=== PATIENT | male | born 1965 | race Caucasian/White ===

== ENCOUNTER 2017-05-29 15:39 | Emergency (ER) | payer OTHER ==
[2017-05-29] MEDS ORDERED: METOPROLOL TARTRATE 25 MG TAB PO STA (15:58)
--- NOTE | 2017-05-29 16:32 | XR ---
EXAMINATION TYPE: XR chest 1V DATE OF EXAM: 05/29/2017 COMPARISON: 12/20/2014. HISTORY: Sternal pain after fall TECHNIQUE: Single frontal view of the chest is obtained. FINDINGS: There is no focal air space opacity, pleural effusion, or pneumothorax seen. Median martinez otomy wires are noted with dehiscence of the most inferior wire, unchanged from the exam of 12/20/2014 . Mediastinal post surgical clips are also noted. The cardiac silhouette size is within normal limits . The osseous structures are intact. IMPRESSION: No acute cardiopulmonary pathology.
--- NOTE | 2017-05-29 16:34 | XR ---
EXAMINATION TYPE: XR sternum DATE OF EXAM: 05/29/2017 COMPARISON: 12/20/2014. HISTORY: Sternal pain after a fall TECHNIQUE: 2 views of the sternum were obtained. FINDINGS: There is no evidence of sternal fracture. Again dehiscence of the most inferior median ster notomy wire is seen, unchanged from the prior exam. Coronary artery bypass grafts and surgical clips are noted. Degenerative changes are seen of the visualized thoracic spine. Visualized lungs are clear . IMPRESSION: No evidence of sternal fracture. Unchanged dehiscence of the most inferior median sternot geovanny wire.
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
[2017-05-29 17:17] VITALS: BP 143/97; PULSE 77; RESP 15; TEMP 100
== END 2017-05-29 17:23 | disposition home or self-care (01) ==
LOC: EC 15:39
DX: T84.9XXA Unspecified complication of internal orthopedic prosthetic device, implant and graft, initial encounter (principal); I25.2 Old myocardial infarction; F17.200 Nicotine dependence, unspecified, uncomplicated; Z95.1 Presence of aortocoronary bypass graft; Z79.82 Long term (current) use of aspirin; Z88.0 Allergy status to penicillin; V18.4XXA Pedal cycle driver injured in noncollision transport accident in traffic accident, initial encounter; Y93.55 Activity, bike riding
CPT/HCPCS: 71010; 71120; 93005; 99283

== ENCOUNTER 2017-07-13 08:25 | Emergency (ER) | payer OTHER ==
[2017-07-13 08:34] VITALS: TEMP 98.4
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
[2017-07-13 10:17] VITALS: BP 145/92; PULSE 78; RESP 16
== END 2017-07-13 10:26 | disposition home or self-care (01) ==
LOC: EC 08:25
DX: L03.114 Cellulitis of left upper limb (principal); E78.5 Hyperlipidemia, unspecified; I10 Essential (primary) hypertension; I25.2 Old myocardial infarction; F17.200 Nicotine dependence, unspecified, uncomplicated; Z79.82 Long term (current) use of aspirin; Z79.899 Other long term (current) drug therapy; Z88.0 Allergy status to penicillin
CPT/HCPCS: 99283

== ENCOUNTER 2017-07-28 07:03 | Emergency (ER) | payer OTHER ==
[2017-07-28 07:11] VITALS: RESP 18
--- NOTE | 2017-07-28 08:22 | ED ---
General Adult HPI - General Chief complaint: Skin/Abscess/Foreign Body Stated complaint: DX: cellulituis in left wrist Time Seen by Provider: 07/28/17 08:08 Source: patient, RN notes reviewed Mode of arrival: ambulatory Limitations: no limitations - History of Present Illness Initial comments: 51-year-old male presents to the emergency department with a chief complaint of left wrist. Patient states about week ago he developed this pain he noticed some swelling to his left hand. He came here he was placed on antibiotics for possible cellulitis and a blood clot. Patient states that the swelling has improved however still having some pain to the left wrist that he was concerned. She does not recall any falls or traumas or injuries to the left wrist. He states that it does hurt when he moves his left wrist and he is able to move it. He states that he has not had any other injury that he is aware of. He states he has felt hot but is never taken his temperature. He denies any nausea vomiting with this. Patient was concerned due to his continued discomfort so he thought that he should be evaluated.Patient denies any recent fever, chills, shortness of breath, chest pain, back pain, abdominal pain, nausea vomiting, numbness or tingling, dysuria or hematuria, constipation or diarrhea, headaches or visual changes, or any other current symptoms. - Related Data Previous Rx's Medication Instructions Recorded Aspirin 81 mg PO DAILY #30 tab 07/28/17 Atorvastatin [Lipitor] 40 mg PO HS #30 tab 07/28/17 Clopidogrel [Plavix] 75 mg PO DAILY #14 tablet 07/28/17 Ibuprofen [Motrin] 600 mg PO Q6HR PRN #20 tab 07/28/17 Metoprolol Tartrate [Lopressor] 25 mg PO BID #30 tablet 07/28/17 Allergies Allergy/AdvReac Type Severity Reaction Status Date / Time Penicillins Allergy Unknown Verified 07/28/17 07:20 Childhood Review of Systems ROS Statement: Those systems with pertinent positive or pertinent negative responses have been documented in the HPI. ROS Other: All systems not noted in ROS Statement are negative. Past Medical History Past Medical History: COPD, Hyperlipidemia, Hypertension, Myocardial Infarction ([place]) Additional Past Medical History / Comment(s): ISCHEMIC CARDIOMYOPATHY WITH EF 40 -45%. 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 Last Myocardial Infarction Date:: 06/12/14 History of Any Multi-Drug Resistant Organisms: None Reported Past Surgical History: Coronary Bypass/CABG, Heart Catheterization With Stent, Hernia Repair, Orthopedic Surgery Additional Past Surgical History / Comment(s): cabg january 2014-3 vessel, Cardiac caths and stenting with last Cardiac cath Jul [address] Cerda. Past Anesthesia/Blood Transfusion Reactions: No Reported Reaction Additional Past Anesthesia/Blood Transfusion Reaction / Comment(s): NO PROBLEM TOLERATING ANESTHESIA. HAS NEVER RECIEVED BLOOD TO HIS KNOWLEDGE. Date of Last Stent Placement:: 06/12/14 Past Psychological History: Anxiety, Panic Disorder, PTSD Smoking Status: Current every day smoker Past Alcohol Use History: Abuse, Heavy Past Drug Use History: Marijuana - Past Family History Father Family Medical History: Coronary Artery Disease (CAD), Myocardial Infarction ([place] ) Additional Family Medical History / Comment(s): FATHER STILL LIVING Mother Family Medical History: Coronary Artery Disease (CAD), Myocardial Infarction ([place] ) Additional Family Medical History / Comment(s): MOTHER 09/23/14 of unknown causes. Sister(s) Family Medical History: Myocardial Infarction ([place]) Additional Family Medical History / Comment(s): SISTER OF [place] AT AGE 53 General Exam - General Exam Comments Initial Comments: General: The patient is awake and alert, in no distress, and does not appear acutely ill. Neck: The neck is supple, there is no tenderness. Cardiovascular: There is a regular rate and rhythm. No murmur, rub or gallop is appreciated. Respiratory: Lungs are clear to auscultation, respirations are non-labored, breath sounds are equal. No wheezes, stridor, rales, or rhonchi. Musculoskeletal: Sensation intact with 2+ pulses throughout the left upper extremity. Full range of motion of left elbow left wrist and left hand. Patient does have tenderness with patient the base of the left thumb as well as the base of the left fifth metacarpal. There is full range of motion. Patient has 5 out of 5 muscle strength testing. No erythema or induration noted. Neurological: CN II-XII intact, There are no obvious motor or sensory deficits. Coordination appears grossly intact. Speech is normal. Skin: Skin is warm and dry and no rashes or lesions are noted. Psychiatric: Normal mood and affect. Limitations: no limitations Course Vital Signs 07/28/17 07/28/17 07:08 08:44 Temperature 97.9 F 98.4 F Pulse Rate 101 H 69 Respiratory 18 18 Rate Blood Pressure 158/104 144/102 O2 Sat by Pulse 100 97 Oximetry Medical Decision Making - Medical Decision Making 51-year-old male presents emergency Department with a chief complaint of left wrist pain. This time patient x-rays reviewed and negative. We did give [facility] due to the fact that his swelling has improved and does not appear infection may still having the pain. Patient is in agreement this plan. All his questions have been answered. Discharged home. Patient was found be hypertensive he is out of his medications. We will refill his medication prescription so that he has these at this time is he see his family care doctor. - Radiology Data Radiology results: report reviewed, image reviewed Disposition Clinical Impression: Hypertension, Left wrist sprain Disposition: HOME SELF-CARE Condition: Stable Instructions: Wrist Sprain (ED) Additional Instructions: Please use medication as discussed. Please follow up with family doctor if symptoms have not improved over the next two days. Please return to the emergency room if your symptoms increase or worsen or for any other concerns. Please follow up with orthopedics for continued care of her left wrist please use medications as prescribed. Prescriptions: Aspirin 81 mg PO DAILY #30 tab Atorvastatin [Lipitor] 40 mg PO HS #30 tab Clopidogrel [Plavix] 75 mg PO DAILY #14 tablet Ibuprofen [Motrin] 600 mg PO Q6HR PRN #20 tab PRN Reason: Pain Metoprolol Tartrate [Lopressor] 25 mg PO BID #30 tablet Referrals: Radha Steele MD [STAFF PHYSICIAN] - 1-2 days Raji Ndiaye MD [STAFF PHYSICIAN] - 1-2 days Time of Disposition: 09:41
--- NOTE | 2017-07-28 08:36 | XR ---
EXAMINATION TYPE: XR wrist complete LT DATE OF EXAM: 07/28/2017 CLINICAL HISTORY: pain TECHNIQUE: Frontal, lateral and oblique images of the left wrist are obtained. Navicular view is ob tained. COMPARISON: None. FINDINGS: There is no acute fracture/dislocation evident. Joint space narrowing noted. The overlying soft tissue appears unremarkable. IMPRESSION: There is no acute fracture or dislocation seen. ICD 10 NO FRACTURE, INITIAL EVALUATION
[2017-07-28 08:45] VITALS: TEMP 98.4
[2017-07-28] MEDS ORDERED: cloNIDine HCL 0.1 MG TAB PO STA (08:48)
[2017-07-28 09:43] VITALS: BP 139/96; PULSE 77
== END 2017-07-28 09:45 | disposition home or self-care (01) ==
LOC: EC 07:03
DX: S63.92XA Sprain of unspecified part of left wrist and hand, initial encounter (principal); I10 Essential (primary) hypertension; F17.200 Nicotine dependence, unspecified, uncomplicated; Z88.0 Allergy status to penicillin; Z98.890 Other specified postprocedural states; X58.XXXA Exposure to other specified factors, initial encounter
CPT/HCPCS: 99283

== ENCOUNTER 2017-12-19 16:25 | Emergency (ER) | payer OTHER ==
[2017-12-19 16:37] VITALS: BP 168/88; PULSE 102; RESP 22; TEMP 98.3
--- NOTE | 2017-12-19 16:58 | XR ---
EXAMINATION TYPE: XR knee complete RT DATE OF EXAM: 12/19/2017 COMPARISON: NONE HISTORY: Pain and swelling TECHNIQUE: 3 views FINDINGS: I see no fracture nor dislocation. There is no sign of joint effusion. Joint spaces are brent rly normal. There are surgical clips along the medial aspect of the knee joint. IMPRESSION: No acute abnormality of the right knee.
[2017-12-19] MEDS ORDERED: ACETAMINOPHEN TAB 325 MG TAB PO STA (17:24)
[2017-12-19] MEDS ORDERED: IBUPROFEN 600 MG TAB PO STA (17:24)
--- NOTE | 2017-12-19 17:32 | ED ---
Lower Extremity Injury HPI - General Chief Complaint: Extremity Injury, Lower Stated Complaint: Knee Injury Time Seen by Provider: 12/19/17 17:16 Source: patient Mode of arrival: ambulatory Limitations: no limitations - History of Present Illness Initial Comments: 52-year-old male patient presents to the emergency department today for complaints of right knee pain. Patient states that last night he was walking down some steps when his heel caught on the step below and he started to fall and twisted his knee. He was able to catch himself and did not complete the fall. An ice hitting his head or losing consciousness. He states that throughout the day today he has been having significant pain to the anterior right knee. States it increases with walking and full flexion. States whenever he bends the leg he feels a pop in the knee. He denies any numbness or tingling to the lower leg. Denies any history of knee injury. Patient denies any headache, neck pain, back pain, chest pain, shortness of breath, dizziness, weakness, abdominal pain, nausea, vomiting, or difficulties with bowel movements or urination. - Related Data Previous Rx's Medication Instructions Recorded Aspirin 81 mg PO DAILY #30 tab 07/28/17 Atorvastatin [Lipitor] 40 mg PO HS #30 tab 07/28/17 Clopidogrel [Plavix] 75 mg PO DAILY #14 tablet 07/28/17 Ibuprofen [Motrin] 600 mg PO Q6HR PRN #20 tab 07/28/17 Metoprolol Tartrate [Lopressor] 25 mg PO BID #30 tablet 07/28/17 Allergies Allergy/AdvReac Type Severity Reaction Status Date / Time Penicillins Allergy Unknown Verified 12/19/17 16:37 Childhood Review of Systems ROS Statement: Those systems with pertinent positive or pertinent negative responses have been documented in the HPI. ROS Other: All systems not noted in ROS Statement are negative. Past Medical History Past Medical History: COPD, Hyperlipidemia, Hypertension, Myocardial Infarction ([place]) Additional Past Medical History / Comment(s): ISCHEMIC CARDIOMYOPATHY WITH EF 40 -45%. 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 Last Myocardial Infarction Date:: 06/12/14 History of Any Multi-Drug Resistant Organisms: None Reported Past Surgical History: Coronary Bypass/CABG, Heart Catheterization With Stent, Hernia Repair, Orthopedic Surgery Additional Past Surgical History / Comment(s): cabg january 2014-3 vessel, Cardiac caths and stenting with last Cardiac cath Jul [address] Cerda. Past Anesthesia/Blood Transfusion Reactions: No Reported Reaction Additional Past Anesthesia/Blood Transfusion Reaction / Comment(s): NO PROBLEM TOLERATING ANESTHESIA. HAS NEVER RECIEVED BLOOD TO HIS KNOWLEDGE. Date of Last Stent Placement:: 06/12/14 Past Psychological History: Anxiety, Panic Disorder, PTSD Smoking Status: Current every day smoker Past Alcohol Use History: Abuse, Heavy Past Drug Use History: Marijuana - Past Family History Father Family Medical History: Coronary Artery Disease (CAD), Myocardial Infarction ([place] ) Additional Family Medical History / Comment(s): FATHER STILL LIVING Mother Family Medical History: Coronary Artery Disease (CAD), Myocardial Infarction ([place] ) Additional Family Medical History / Comment(s): MOTHER 09/23/14 of unknown causes. Sister(s) Family Medical History: Myocardial Infarction ([place]) Additional Family Medical History / Comment(s): SISTER OF [place] AT AGE 53 General Exam Limitations: no limitations General appearance: alert, in no apparent distress, other (This is a well- developed, well-nourished adult male patient in no acute distress. Vital signs upon presentation are temperature 98.3F, pulse 102, respirations 22, blood pressure 168/88, pulse ox 99% on room air.) Eye exam: Present: normal appearance, PERRL, EOMI. Absent: scleral icterus, conjunctival injection, periorbital swelling ENT exam: Present: normal exam, normal oropharynx, mucous membranes moist Respiratory exam: Present: normal lung sounds bilaterally. Absent: respiratory distress, wheezes, rales, rhonchi, stridor Cardiovascular Exam: Present: regular rate, normal rhythm, normal heart sounds. Absent: systolic murmur, diastolic murmur, rubs, gallop, clicks Extremities exam: Present: normal inspection, full ROM, tenderness (Tenderness to the anterior knee over the patellar tendon), normal capillary refill, other ( Small area of ecchymosis over the right anterior knee. No evidence of swelling. No increased pain with valgus and varus maneuvers. Skin is pink, warm, and dry. Cap refills less than 3 seconds. Pedal posttibial pulses are 2 + and equal bilaterally.). Absent: pedal edema, joint swelling, calf tenderness Neurological exam: Present: alert, oriented X3, CN II-XII intact Psychiatric exam: Present: normal affect, normal mood Skin exam: Present: warm, dry, intact, normal color. Absent: rash Course Vital Signs 12/19/17 16:34 Temperature 98.3 F Pulse Rate 102 H Respiratory 22 Rate Blood Pressure 168/88 O2 Sat by Pulse 99 Oximetry Medical Decision Making - Medical Decision Making 52-year-old male patient presents to the emergency department today for evaluation of right knee pain after an injury last evening. Physical examination is unremarkable. Patient does have some mild tenderness over the anterior knee. No pain with this or varus maneuvers. Patient is able to ambulate and did walk here from home. X-ray was negative for any acute fracture or dislocations. No joint effusion noted. We did give patient Tylenol and Motrin for pain control. He will be placed in a knee immobilizer and instructed to follow-up with orthopedics for further evaluation. Return parameters discussed in detail. He verbalizes understanding and agrees this plan. - Radiology Data Radiology results: report reviewed, image reviewed 3 views of the right knee are obtained, no fracture nor dislocation noted. There is no sign of a joint effusion. Joint spaces are fairly normal. There are surgical clips along the medial aspect of the knee joint. Impression by Dr. Brenner shows no acute abnormality of the right knee. Disposition Clinical Impression: Right knee pain Disposition: HOME SELF-CARE Condition: Good Instructions: Knee Pain (ED), Knee Immobilizer (ED) Additional Instructions: Use knee immobilizer for comfort and support well up moving around. Follow-up with orthopedics for further evaluation. Take Tylenol Motrin for pain control. Apply ice 20 minutes at a time at least 4 times per day. Return here immediately for any new, worsening, or concerning symptoms. Referrals: None,Stated [Primary Care Provider] - 1-2 days Time of Disposition: 17:32
== END 2017-12-19 17:48 | disposition home or self-care (01) ==
LOC: EC 16:25
DX: S80.01XA Contusion of right knee, initial encounter (principal); F17.200 Nicotine dependence, unspecified, uncomplicated; Z88.0 Allergy status to penicillin; X50.1XXA Overexertion from prolonged static or awkward postures, initial encounter; Y93.01 Activity, walking, marching and hiking; Y92.009 Unspecified place in unspecified non-institutional (private) residence as the place of occurrence of the external cause
CPT/HCPCS: 99283

== ENCOUNTER 2017-12-19 18:37 | Inpatient (IN) | payer MEDICAID, OTHER ==
[2017-12-19] MEDS ORDERED: LORazepam 2 MG/ML INJ IV STA ×3 (19:11→21:21)
--- NOTE | 2017-12-19 19:14 | ED ---
General Adult HPI - General Chief complaint: Psychiatric Symptoms Stated complaint: mental health Time Seen by Provider: 12/19/17 19:00 Source: patient, family, RN notes reviewed Mode of arrival: wheelchair Limitations: no limitations - History of Present Illness Initial comments: This is a 52-year-old male who presents emergency Department paranoid at the police are out to get him. Daughter states he does use drugs and is a drinker. Patient was just in the emergency department and discharged less than 2 hours prior to this episode. Patient was here for knee pain he was discharged into the waiting room at which point time his daughter came to pick him up and she noticed she was paranoid extremely flushed and very very anxious. Patient states he is also worried about his heart was not complaining of chest pain he states he's had bypass he wanted make sure he doesn't have a heart attack. Patient denies any difficulty breathing or shortness of breath. Patient denies any recent fever chills or cough. Patient denying any abdominal pain patient denies any nausea vomiting diarrhea. Patient denies headache patient denies numbness weakness patient denies any blurred vision. Patient states his life is going so bad that he has no reason to live and so his been thinking of suicide lately. Patient has no specific plan. Patient denies any homicidal ideations. Daughter states she just be a little out of assisted on Monday - Related Data Home Medications Medication Instructions Recorded Confirmed No Known Home Medications [No 12/19/17 12/19/17 Known Home Medications] Allergies Allergy/AdvReac Type Severity Reaction Status Date / Time Penicillins Allergy Unknown Verified 12/19/17 19:13 Childhood Review of Systems ROS Statement: Those systems with pertinent positive or pertinent negative responses have been documented in the HPI. ROS Other: All systems not noted in ROS Statement are negative. Past Medical History Past Medical History: COPD, Hyperlipidemia, Hypertension, Myocardial Infarction ([place]) Additional Past Medical History / Comment(s): ISCHEMIC CARDIOMYOPATHY WITH EF 40 -45%. 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 Last Myocardial Infarction Date:: 06/12/14 History of Any Multi-Drug Resistant Organisms: None Reported Past Surgical History: Coronary Bypass/CABG, Heart Catheterization With Stent, Hernia Repair, Orthopedic Surgery Additional Past Surgical History / Comment(s): cabg january 2014-3 vessel, Cardiac caths and stenting with last Cardiac cath Jul [address] Cerda. Past Anesthesia/Blood Transfusion Reactions: No Reported Reaction Additional Past Anesthesia/Blood Transfusion Reaction / Comment(s): NO PROBLEM TOLERATING ANESTHESIA. HAS NEVER RECIEVED BLOOD TO HIS KNOWLEDGE. Date of Last Stent Placement:: 06/12/14 Past Psychological History: Anxiety, Panic Disorder, PTSD Smoking Status: Current every day smoker Past Alcohol Use History: Abuse, Heavy Past Drug Use History: Marijuana - Past Family History Father Family Medical History: Coronary Artery Disease (CAD), Myocardial Infarction ([place] ) Additional Family Medical History / Comment(s): FATHER STILL LIVING Mother Family Medical History: Coronary Artery Disease (CAD), Myocardial Infarction ([place] ) Additional Family Medical History / Comment(s): MOTHER 09/23/14 of unknown causes. Sister(s) Family Medical History: Myocardial Infarction ([place]) Additional Family Medical History / Comment(s): SISTER OF [place] AT AGE 53 General Exam - General Exam Comments Initial Comments: GENERAL: Patient is well-developed and well-nourished. Patient is nontoxic and well- hydrated and is in mild distress. ENT: Neck is soft and supple. No significant lymphadenopathy is noted. Oropharynx is clear. Moist mucous membranes. Neck has full range of motion without eliciting any pain. EYES: The sclera were anicteric and conjunctiva were pink and moist. Extraocular movements were intact and pupils were equal round and reactive to light. Eyelids were unremarkable. PULMONARY: Unlabored respirations. Good breath sounds bilaterally. No audible rales rhonchi or wheezing was noted. CARDIOVASCULAR: There is a regular rate and rhythm without any murmurs gallops or rubs. ABDOMEN: Soft and nontender with normal bowel sounds. No palpable organomegaly was noted. There is no palpable pulsatile mass. SKIN: Patient's skin is flushed NEUROLOGIC: Patient is alert and oriented x3. Cranial nerves II through XII are grossly intact. Motor and sensory are also intact. Normal speech, volume and content. Symmetrical smile. MUSCULOSKELETAL: Normal extremities with adequate strength and full range of motion. LYMPHATICS: No significant lymphadenopathy is noted PSYCHIATRIC: Patient is paranoid thinks all the police in the hospital or here to get him and take him back to assisted. Patient is suicidal. Limitations: no limitations Course Vital Signs 12/19/17 12/19/17 12/19/17 18:59 19:38 19:58 Temperature 99.1 F Pulse Rate 105 H 85 53 L Respiratory 22 22 18 Rate Blood Pressure 205/111 185/99 173/98 O2 Sat by Pulse 97 100 97 Oximetry 12/19/17 20:38 Temperature Pulse Rate 69 Respiratory 20 Rate Blood Pressure 190/101 O2 Sat by Pulse 96 Oximetry Medical Decision Making - Medical Decision Making EPS came down to evaluate the patient and they determined the patient needed to be admitted so the patient will be admitted. - Lab Data Result diagrams: 12/19/17 19:23 12/19/17 19:23 Lab Results 12/19/17 12/19/17 Range/Units 19:23 19:23 WBC 9.8 (3.8-10.6) k/uL RBC 4.52 (4.30-5.90) m/uL Hgb 14.5 (13.0-17.5) gm/dL Hct 43.8 (39.0-53.0) % MCV 96.8 (80.0-100.0) fL MCH 32.0 (25.0-35.0) pg MCHC 33.1 (31.0-37.0) g/dL RDW 15.7 H (11.5-15.5) % Plt Count 335 (150-450) k/uL Neutrophils % 74 % Lymphocytes % 14 % Monocytes % 10 % Eosinophils % 1 % Basophils % 0 % Neutrophils # 7.2 (1.3-7.7) k/uL Lymphocytes # 1.4 (1.0-4.8) k/uL Monocytes # 0.9 (0-1.0) k/uL Eosinophils # 0.1 (0-0.7) k/uL Basophils # 0.0 (0-0.2) k/uL Sodium 143 (137-145) mmol/L Potassium 3.2 L (3.5-5.1) mmol/L Chloride 105 (98-107) mmol/L Carbon Dioxide 25 (22-30) mmol/L Anion Gap 13 mmol/L BUN 14 (9-20) mg/dL Creatinine 0.70 (0.66-1.25) mg/dL Est GFR (MDRD) Af Amer >60 (>60 ml/min/1.73 sqM) Est GFR (MDRD) Non-Af >60 (>60 ml/min/1.73 sqM) Glucose 127 H (74-99) mg/dL Calcium 9.9 (8.4-10.2) mg/dL Total Bilirubin 0.7 (0.2-1.3) mg/dL AST 21 (17-59) U/L ALT 45 (21-72) U/L Alkaline Phosphatase 93 (38-126) U/L Total Protein 6.9 (6.3-8.2) g/dL Albumin 4.3 (3.5-5.0) g/dL Disposition Clinical Impression: Psychosis, Hypertension, Suicidal ideation Disposition: ADMITTED IP TO THIS HOSP Referrals: None,Stated [Primary Care Provider] - 1-2 days Time of Disposition: 20:42
[2017-12-19 19:36] LABS: Basophils % (A) 0 %; Eosinophils # (A) 0.1 k/uL (0-0.7); Eosinophils % (A) 1 %; HCT 43.8 % (39.0-53.0); HGB 14.5 gm/dL (13.0-17.5); Lymphocytes # (A) 1.4 k/uL (1.0-4.8); Lymphocytes % (A) 14 %; MCHC 33.1 g/dL (31.0-37.0); MCV 96.8 fL (80.0-100.0); Mean Platelet Volume 7.5; Monocytes # (A) 0.9 k/uL (0-1.0); Monocytes % (A) 10 %; Neutrophils # (A) 7.2 k/uL (1.3-7.7); Neutrophils % (A) 74 %; Platelet Count 335 k/uL (150-450); RBC 4.52 m/uL (4.30-5.90); RDW 15.7 % (11.5-15.5); WBC 9.8 k/uL (3.8-10.6)
[2017-12-19 19:54] LABS: ALT 45 U/L (21-72); AST 21 U/L (17-59); Albumin 4.3 g/dL (3.5-5.0); Alkaline Phosphatase 93 U/L (38-126); Anion Gap 13 mmol/L; Blood Urea Nitrogen 14 mg/dL (9-20); Calcium 9.9 mg/dL (8.4-10.2); Carbon Dioxide 25 mmol/L (22-30); Chloride 105 mmol/L (98-107); Glucose 127 mg/dL (74-99); Potassium 3.2 mmol/L (3.5-5.1); Sodium 143 mmol/L (137-145); Total Bilirubin 0.7 mg/dL (0.2-1.3); Total Protein 6.9 g/dL (6.3-8.2)
[2017-12-19] MEDS ORDERED: hydrALAZINE HCL 20 MG/ML 1 ML VIAL IVP STA ×2 (20:33→21:21)
[2017-12-19] MEDS ORDERED: POTASSIUM CHLORIDE ER 20 MEQ TAB.ER PO STA (21:23)
[2017-12-19 21:30] LABS: Cocaine Screen,Urine Not Detected (NotDetected); Phencyclidine Screen,Urine Not Detected (NotDetected); Urn Cannabinoid Scrn Detected (NotDetected)
[2017-12-19 21:31] LABS: Amphetamine Screen,Urine Detected (NotDetected); Barbiturate Screen,Urine Not Detected (NotDetected); Benzodiazepines Screen,Urine Not Detected (NotDetected); Methadone Screen, Urine Not Detected (NotDetected); Opiate Screen,Urine Not Detected (NotDetected); Oxycodone Screen, Urine Not Detected (NotDetected); Tricyclic Antidepressant,Urine Not Detected (NotDetected)
[2017-12-19] MEDS ORDERED: ZIPRASIDONE 20 MG VIAL IM PRN (21:39)
[2017-12-19] MEDS ORDERED: MAG HYDROX/AL HYDROX/SIMETH 30 ML CUP PO PRN (21:39)
[2017-12-19] MEDS ORDERED: LORazepam 1 MG TAB PO PRN (21:39)
[2017-12-19] MEDS ORDERED: MAGNESIUM HYDROXIDE 2,400 MG/10 ML CUP PO PRN (21:39)
[2017-12-19] MEDS ORDERED: LORazepam 2 MG/ML INJ IM PRN (22:11)
[2017-12-19] MEDS: ACETAMINOPHEN TAB 325 MG TAB PO PRN (23:30)
[2017-12-19] MEDS: LORazepam 1 MG TAB PO PRN (23:30)
--- NOTE | 2017-12-19 23:49 | P.MDCNMH ---
History of Present Illness H&P Date: 12/19/17 Chief Complaint: medical management 52-year-old male with a history of coronary artery. Patient presented to the hospital with his daughter due to being extremely paranoid with some suicidal ideation. Patient continues to be paranoid upon my interview he is avoiding eye contact keeps staring at the door list Everything is happening outside of the room where we are having the interview. But however he denies any chest pain or trouble breathing denies any fevers or chills he denies any coughing denies any abdominal pain denies any bleeding. He reported to me the medications that he takes at home. Daughter did mention that he recently got out of [facility] but due to using some medications he's feeling extremely paranoid most likely. Review of Systems Constitutional: Patient denies fever, denies chills, denies night sweating, denies significant weight changes Eyes: Patient denies visual changes, denies eye pain ENT: Patient denies ear pain, denies rhinorrhea, denies sore throat Cardiovascular: Patient denies chest pain, denies exertional dyspnea, denies peripheral leg edema, denies orthopnea, denies paroxysmal nocturnal dyspnea Respiratory:Patient denies cough, denies wheezing, denies shortness of breath Gastrointestinal: Patient denies diarrhea, denies constipation, denies nausea , denies vomiting, denies abdominal pain Genitourinary: Patient denies dysuria, denies hematuria, denies changes in urinary habits, denies genital lesions Musculoskeletal: Patient denies muscle pain, denies joint pain Psychiatric: Patient denies changes in mood or memory, denies suicidal ideation, denies anxiety Endocrine: Patient denies heat intolerance, denies cold intolerance, denies excessive thirst, denies polyuria Neurological: Patient denies focal neurologic deficits, denies weakness, denies numbness, denies tingling Hem/Lymphatic: Patient denies bleeding tendency, denies bruising, denies swollen lymph glands Allergic/Immun: Patient denies recent allergic reactions Skin: Patient denies rashes, denies pruritis, denies ulcers Patient reports some chest pain and irritation over the sternum where there is some protrusion from under the skin most likely due to wires from prior surgery Past Medical History Past Medical History: COPD, Hyperlipidemia, Hypertension, Myocardial Infarction ([place]) Additional Past Medical History / Comment(s): ISCHEMIC CARDIOMYOPATHY WITH EF 40 -45%. 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 Last Myocardial Infarction Date:: 06/12/14 History of Any Multi-Drug Resistant Organisms: None Reported Past Surgical History: Coronary Bypass/CABG, Heart Catheterization With Stent, Hernia Repair, Orthopedic Surgery Additional Past Surgical History / Comment(s): cabg january 2014-3 vessel, Cardiac caths and stenting with last Cardiac cath Jul [address] Cerda. Past Anesthesia/Blood Transfusion Reactions: No Reported Reaction Additional Past Anesthesia/Blood Transfusion Reaction / Comment(s): NO PROBLEM TOLERATING ANESTHESIA. HAS NEVER RECIEVED BLOOD TO HIS KNOWLEDGE. Date of Last Stent Placement:: 06/12/14 Past Psychological History: Anxiety, Panic Disorder, PTSD Smoking Status: Current every day smoker Past Alcohol Use History: Abuse, Heavy Past Drug Use History: Marijuana - Past Family History Father Family Medical History: Coronary Artery Disease (CAD), Myocardial Infarction ([place] ) Additional Family Medical History / Comment(s): FATHER STILL LIVING Mother Family Medical History: Coronary Artery Disease (CAD), Myocardial Infarction ([place] ) Additional Family Medical History / Comment(s): MOTHER 09/23/14 of unknown causes. Sister(s) Family Medical History: Myocardial Infarction ([place]) Additional Family Medical History / Comment(s): SISTER OF [place] AT AGE 53 Medications and Allergies Home Medications and Allergies Comment(s): Patient reported that he takes Plavix, atorvastatin, lisinopril, metoprolol Home Medications Medication Instructions Recorded Confirmed Type No Known Home Medications [No 12/19/17 12/19/17 History Known Home Medications] Allergies Allergy/AdvReac Type Severity Reaction Status Date / Time Penicillins Allergy Unknown Verified 12/19/17 19:13 Childhood Physical Exam Vitals: Vital Signs Temp Pulse Pulse Resp BP BP Pulse Ox 12/19/17 23:28 114/70 12/19/17 23:04 99.2 F 75 18 144/89 95 12/19/17 21:28 77 18 150/87 96 12/19/17 21:13 84 18 176/101 96 12/19/17 20:38 69 20 190/101 96 12/19/17 19:58 53 L 18 173/98 97 12/19/17 19:38 85 22 185/99 100 12/19/17 18:59 99.1 F 105 H 22 205/111 97 Intake and Output 12/19/17 12/19/17 12/20/17 14:59 22:59 06:59 Other: Weight 77.111 kg 74.3 kg Patient Weight 12/20/17 06:59 Weight 74.3 kg Constitutional: No acute distress, conversant, paranoid behavior Eyes: Anicteric sclerae, moist conjunctiva, no lid-lag Pupils equal round reactive to light ENMT: NC/AT Oropharynx clear, no erythema, exudates Neck: Supple, FROM, no masses, or JVD No carotid bruits No thyromegaly Lungs: Clear to auscultation Clear to percussion Normal respiratory effort, no accessory muscle use Cardiovascular: Heart regular in rate and rhythm, No murmurs, gallops, or rubs No peripheral edema Abdominal: Soft Nontender, no guarding, rebound or rigidity Abdomen moving with respiration Normoactive bowel sounds No hepatomegaly, No splenomegaly No palpable mass No abdominal wall hernia noted Skin: Flushed face otherwise Normal temperature, tone, texture, turgor No induration No subcutaneous nodules No rash, lesions No ulcers Extremities: No digital cyanosis No clubbing Pedal pulses intact and symmetrical Radial pulses intact and symmetrical No calf tenderness Psychiatric: Alert and oriented to person, place and time Paranoid affect 4 poor judgment Neuro Muscles Strength 5/5 in all 4 extremities Sensation to light touch grossly present throughout No focal sensory deficits Lymphatics: no palpable cervical or supraclavicular , or inguinal lymph nodes Cranial Nerve Examination - Cranial Nerves Cranial Nerve II- Optic: Intact Cranial Nerve III- Oculomotor: Intact Cranial Nerve IV- Trochlear: Intact Cranial Nerve V- Trigeminal: Intact Cranial Nerve - Abducens: Intact Cranial Nerve VII- Facial: Intact Cranial Nerve VIII- Auditory: Intact Cranial Nerve IX- Glossopharyngeal: Intact Cranial Nerve X- Vagus: Intact Cranial Nerve XI- Accessory: Intact Cranial Nerve XII- Hypoglossal: Intact Results CBC & Chem 7: 12/19/17 19:23 12/19/17 19:23 Labs: Abnormal Lab Results - Last 24 Hours (Table) 12/19/17 12/19/17 12/19/17 Range/Units 19:23 19:23 21:10 RDW 15.7 H (11.5-15.5) % Potassium 3.2 L (3.5-5.1) mmol/L Glucose 127 H (74-99) mg/dL Ur Amphetamines Screen Detected H (NotDetected) U Methamphetamines Scrn Detected H (NotDetected) U Marijuana (THC) Screen Detected H (NotDetected) Assessment and Plan (1) HTN (hypertension) Current Visit: Yes Status: Acute Code(s): I10 - ESSENTIAL (PRIMARY) HYPERTENSION SNOMED Code(s): 01012552 (2) Psychosis Current Visit: Yes Status: Acute Code(s): F29 - UNSP PSYCHOSIS NOT DUE TO A SUBSTANCE OR KNOWN PHYSIOL COND SNOMED Code(s): 36550163 (3) Suicidal ideation Current Visit: Yes Status: Acute Code(s): R45.851 - SUICIDAL IDEATIONS SNOMED Code(s): 5191334 (4) History of coronary artery stent placement Current Visit: No Status: Acute Code(s): Z95.5 - PRESENCE OF CORONARY ANGIOPLASTY IMPLANT AND GRAFT SNOMED Code(s): 085109363 (5) Nicotine addiction Current Visit: No Status: Acute Code(s): F17.200 - NICOTINE DEPENDENCE, UNSPECIFIED, UNCOMPLICATED SNOMED Code(s): 02757696 (6) S/P CABG (coronary artery bypass graft) Current Visit: No Status: Acute Code(s): Z95.1 - PRESENCE OF AORTOCORONARY BYPASS GRAFT SNOMED Code(s): 958070258 Plan: Psychiatric management per psychiatry including suicide precautions and management of his depression and paranoid behavior. From medical standpoint patient's is stable at this time denies any medical complaints, continue home medications as dictated by the patient. Patient is ambulatory low risk for DVT Thank you for allowing us to participate in the care of this patient. We will follow peripherally. Do not hesitate to contact us with questions. Someone can be reached from the [facility] hospitalist group at all hours of the day at [phone].
[2017-12-19 23:52] LABS: Appearance,Urine Cloudy (Clear); Bilirubin,Urine Negative (Negative); Blood,Urine Negative (Negative); Color,Urine Yellow; Glucose,Urine (UA) Negative (Negative); Hyaline Casts,Urine 9 /lpf (0-2); Ketones,Urine 1+ (Negative); Leukocyte Esterase,Urine Negative (Negative); Mucus,Urine Many /hpf; Protein,Urine 2+ (Negative); RBC,Urine 7 /hpf (0-5); Specific Gravity,Urine 1.023 (1.001-1.035); Sperm,Urine Few /hpf; Squamous Epithelial Cell,Urine 1 /hpf (0-4); Urobilinogen,Urine <2.0 mg/dL (<2.0); WBC,Urine 7 /hpf (0-5)
[2017-12-20] MEDS: LORazepam 1 MG TAB PO PRN ×3 (04:09→12:15)
[2017-12-20] MEDS: LISINOPRIL 20 MG TAB PO SCH (09:15)
[2017-12-20] MEDS: NICOTINE 14MG/24HR PATCH TRANSDERM SCH (09:15)
[2017-12-20] MEDS: CLOPIDOGREL 75 MG TAB PO SCH (09:15)
[2017-12-20] MEDS: METOPROLOL SUCCINATE (ER) 25 MG TAB.ER.24H PO SCH (09:15)
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
[2017-12-20] MEDS ORDERED: hydrALAZINE HCL 25 MG TAB PO STA (14:13)
[2017-12-20 18:25] LABS: Hemoglobin A1C 5.3 % (4.0-6.0)
[2017-12-20] MEDS ORDERED: LORazepam 2 MG/ML INJ IM STA ×3 (18:49→21:13)
[2017-12-20] MEDS: ATORVASTATIN 40 MG TAB PO SCH (20:38)
[2017-12-20] MEDS ORDERED: HALOPERIDOL LACTATE 5 MG/ML 1 ML VIAL IM STA (21:09)
[2017-12-21] MEDS ORDERED: NALTREXONE HCL 50 MG TAB PO SCH (09:15)
[2017-12-21] MEDS: CLOPIDOGREL 75 MG TAB PO SCH (09:21)
[2017-12-21] MEDS: LISINOPRIL 20 MG TAB PO SCH (09:21)
[2017-12-21] MEDS: METOPROLOL SUCCINATE (ER) 25 MG TAB.ER.24H PO SCH (09:21)
[2017-12-21] MEDS: NICOTINE 14MG/24HR PATCH TRANSDERM SCH (09:22)
[2017-12-21] MEDS ORDERED: ONDANSETRON ODT 4 MG TAB PO PRN (10:35)
[2017-12-21] MEDS: LORazepam 1 MG TAB PO PRN ×2 (11:30→20:11)
[2017-12-21] MEDS ORDERED: LOPERAMIDE 2 MG CAP PO PRN (12:02)
[2017-12-21] MEDS ORDERED: SODIUM CHLORIDE 0.9% 1,000 ML IV SCH (12:15)
[2017-12-21] MEDS: THIAMINE 100 MG TAB PO SCH (13:11)
[2017-12-21] MEDS: MULTIVITAMINS, THERA 1 EACH TAB PO SCH (13:11)
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
--- NOTE | 2017-12-21 15:07 | P.PN ---
Subjective Progress Note Date: 12/21/17 Principal diagnosis: Nausea and vomiting Patient is a 52-year-old male with history of coronary artery disease , COPD, dyslipidemia, and hypertension who is placed in the mental health unit due to suicidal ideation. We're asked to reevaluate him today due to nausea and vomiting. Patient is awake and alert. He complains of nausea and vomiting. He denies any abdominal pain or diarrhea. He states that he has had vomiting during withdrawal in the past. He also complains of diffuse diarrhea with withdrawal in the past. Denies any chest pain, shortness of breath, or feeling faint. He has no other complaints currently. He states that the only thing that typically helps with his nausea and vomiting is IV fluids. He states that all the other times he has gone through withdrawal he hasn't been able to tolerate any liquids and has needed IV vitamins. Objective - Vital Signs Vital signs: Vital Signs Temp 97.5 F L 12/21/17 09:24 Pulse 51 L 12/21/17 11:45 Resp 14 12/21/17 11:45 BP 156/94 12/21/17 11:45 Pulse Ox 97 12/21/17 11:45 - Exam General: Ill-appearing, no distress, appears older than stated age Derm: warm, dry Head: atraumatic, normocephalic, symmetric Eyes: EOMI, no lid lag, anicteric sclera, conjunctival injection or on the medial side of left eye without drainage Mouth: no lip lesion, mucus membranes moist Cardiovascular: S1S2 reg, no murmur, positive posterior tibial pulse bilateral, Lungs: CTA bilateral, no rhonchi, no rales , no accessory muscle use Abdominal: soft, nontender to palpation, no guarding, no appreciable organomegaly Ext: no gross muscle atrophy, no edema, no contractures Neuro: CN II-XI grossly intact, no focal neuro deficits Psych: Alert, oriented, flat affect - Labs CBC & Chem 7: 12/19/17 19:23 12/19/17 19:23 Assessment and Plan Assessment: Intractable nausea and vomiting -Likely secondary to withdrawal versus medication side effect -IV fluids with normal saline 1 L -Compazine added for backup the Zofran fails -Did have some hypokalemia several days ago which was replaced. With nausea and vomiting we'll recheck CBC, CMP, and magnesium level Alcohol withdrawal -On thiamine supplementation -Ativan -Currently being managed by psychiatry -Imodium added as needed for diarrhea Hypertension -Continue with beta jacque and lisinopril -Follow BP Chronic: Coronary artery disease Dyslipidemia COPD Thank you for allowing us to participate in the care of this patient. We will follow peripherally. Do not hesitate to contact us with questions. Someone can be reached from the [facility] hospitalist group at all hours of the day at [phone].
[2017-12-21 15:36] LABS: ALT 43 U/L (21-72); AST 27 U/L (17-59); Albumin 4.4 g/dL (3.5-5.0); Alkaline Phosphatase 81 U/L (38-126); Anion Gap 12 mmol/L; Blood Urea Nitrogen 12 mg/dL (9-20); Calcium 9.6 mg/dL (8.4-10.2); Carbon Dioxide 28 mmol/L (22-30); Chloride 101 mmol/L (98-107); Glucose 100 mg/dL (74-99); HCT 46.1 % (39.0-53.0); HGB 15.2 gm/dL (13.0-17.5); MCH 32.4 pg (25.0-35.0); MCHC 33.1 g/dL (31.0-37.0); MCV 97.9 fL (80.0-100.0); Mean Platelet Volume 8.2; Platelet Count 323 k/uL (150-450); Potassium 4.1 mmol/L (3.5-5.1); RBC 4.71 m/uL (4.30-5.90); RDW 14.8 % (11.5-15.5); Sodium 141 mmol/L (137-145); Total Protein 7.1 g/dL (6.3-8.2)
[2017-12-21] MEDS ORDERED: hydrALAZINE HCL 25 MG TAB PO STA (16:23)
[2017-12-21] MEDS: ATORVASTATIN 40 MG TAB PO SCH (20:50)
[2017-12-21] MEDS ORDERED: chlordiazePOXIDE 25 MG CAP PO STA (21:06)
[2017-12-21] MEDS ORDERED: TAMSULOSIN 0.4 MG CAP.ER.24H PO STA (22:33)
[2017-12-22 06:34] VITALS: TEMP 98.5
[2017-12-22] MEDS: LORazepam 1 MG TAB PO PRN (07:22)
[2017-12-22 07:28] VITALS: BP 138/97; PULSE 83; RESP 18
[2017-12-22] MEDS: CLOPIDOGREL 75 MG TAB PO SCH (08:52)
[2017-12-22] MEDS: LISINOPRIL 20 MG TAB PO SCH (08:52)
[2017-12-22] MEDS: METOPROLOL SUCCINATE (ER) 25 MG TAB.ER.24H PO SCH (08:53)
[2017-12-22] MEDS: NICOTINE 14MG/24HR PATCH TRANSDERM SCH (08:55)
[2017-12-22] MEDS: MULTIVITAMINS, THERA 1 EACH TAB PO SCH (12:05)
[2017-12-22] MEDS: THIAMINE 100 MG TAB PO SCH (12:05)
--- NOTE | 2017-12-22 12:09 | P.PN ---
Subjective Progress Note Date: 12/22/17 Principal diagnosis: BPH Patient is a 52-year-old male with history of coronary artery disease , COPD, dyslipidemia, and hypertension who is placed in the mental health unit due to suicidal ideation. He was seen last night and was found to have urinary retention. There were unable to pass a Draper catheter was started on Flomax. Patient seen and examined at bedside. His nausea and vomiting is completely resolved. He is feeling much better. He does admit some problems with urination. He understands the need to follow-up with urology in that he likely has urinary retention. He is overall feeling better today and is excited to go home. Objective - Vital Signs Vital signs: Vital Signs Temp 98.5 F 12/22/17 06:33 Pulse 83 12/22/17 07:27 Resp 18 12/22/17 07:27 BP 138/97 12/22/17 07:27 Pulse Ox 98 12/21/17 15:02 Intake & Output 12/21/17 12/22/17 12/22/17 18:59 06:59 18:59 Output Total 200 Balance -200 Output: Post Void Residual 200 - Exam General: Nontoxic, no distress, appears older than stated age Derm: warm, dry Head: atraumatic, normocephalic, symmetric Eyes: EOMI, no lid lag, anicteric sclera, conjunctival injection or on the medial side of left eye without drainage Mouth: no lip lesion, mucus membranes moist Cardiovascular: S1S2 reg, no murmur, positive posterior tibial pulse bilateral, Lungs: CTA bilateral, no rhonchi, no rales , no accessory muscle use Neuro: CN II-XI grossly intact, no focal neuro deficits Psych: Alert, oriented, flat affect - Labs CBC & Chem 7: 12/21/17 15:14 12/21/17 15:14 Labs: Abnormal Lab Results - Last 24 Hours (Table) 12/21/17 Range/Units 15:14 Creatinine 0.65 L (0.66-1.25) mg/dL Glucose 100 H (74-99) mg/dL Assessment and Plan Assessment: BPH -urology follow-up on discharge -Flomax 0.4 mg oral nightly to use at home. Intractable nausea and vomiting, resolved Alcohol withdrawal -On thiamine supplementation -Ativan -Currently being managed by psychiatry -Imodium added as needed for diarrhea Hypertension -Continue with beta jacque and lisinopril -Follow BP Chronic: Coronary artery disease Dyslipidemia COPD Thank you for allowing us to participate in the care of this patient. We will follow peripherally. Do not hesitate to contact us with questions. Someone can be reached from the [facility] hospitalist group at all hours of the day at [phone].
[2017-12-22] MEDS: ACETAMINOPHEN TAB 325 MG TAB PO PRN (12:49)
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
[2017-12-22] MEDS ORDERED: TAMSULOSIN 0.4 MG CAP.ER.24H PO SCH (18:30)
== END 2017-12-22 14:40 | disposition home or self-care (01) | DRG 897 ==
LOC: EC 18:37 → 3MHU 21:31
PROVIDERS: ADMIT Psychiatry & Neurology Psychiatry; ATTEND Psychiatry & Neurology Psychiatry
DX: F10.232 Alcohol dependence with withdrawal with perceptual disturbance (principal); F15.129 Other stimulant abuse with intoxication, unspecified; E78.5 Hyperlipidemia, unspecified; I10 Essential (primary) hypertension; I25.10 Atherosclerotic heart disease of native coronary artery without angina pectoris; J44.9 Chronic obstructive pulmonary disease, unspecified; N40.1 Benign prostatic hyperplasia with lower urinary tract symptoms; R33.8 Other retention of urine; Z81.8 Family history of other mental and behavioral disorders; Z95.1 Presence of aortocoronary bypass graft; Z95.5 Presence of coronary angioplasty implant and graft; Z88.0 Allergy status to penicillin
CPT/HCPCS: 36415; 80053; 80061; 80306; 81001; 82075; 83036; 83735; 84443; 85025; 85027; 93005; 96374; 96375; 96376; 99285

== ENCOUNTER 2018-12-23 21:45 | Observation (INO) | payer OTHER ==
[2018-12-23] MEDS ORDERED: SODIUM CHLORIDE 0.9% 1,000 ML IV STA (21:48)
[2018-12-23] MEDS ORDERED: IPRATROPIUM-ALBUTEROL 3 ML NEB INHALATION STA (22:07)
[2018-12-23 22:11] LABS: Basophils % (A) 0 %; Eosinophils # (A) 0.5 k/uL (0-0.7); Eosinophils % (A) 6 %; HCT 47.8 % (39.0-53.0); HGB 15.4 gm/dL (13.0-17.5); Lymphocytes % (A) 12 %; MCHC 32.1 g/dL (31.0-37.0); MCV 93.4 fL (80.0-100.0); Mean Platelet Volume 6.4; Monocytes # (A) 0.3 k/uL (0-1.0); Monocytes % (A) 4 %; Neutrophils # (A) 6.6 k/uL (1.3-7.7); Neutrophils % (A) 77 %; Platelet Count 343 k/uL (150-450); RBC 5.12 m/uL (4.30-5.90); RDW 13.6 % (11.5-15.5); WBC 8.6 k/uL (3.8-10.6)
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
[2018-12-23 22:15] LABS: VBG PH 7.46 (7.31-7.41)
[2018-12-23 22:19] LABS: ALT 25 U/L (21-72); AST 18 U/L (17-59); Albumin 3.6 g/dL (3.5-5.0); Alkaline Phosphatase 62 U/L (38-126); Anion Gap 9 mmol/L; Blood Urea Nitrogen 10 mg/dL (9-20); Calcium 8.5 mg/dL (8.4-10.2); Carbon Dioxide 20 mmol/L (22-30); Chloride 111 mmol/L (98-107); Glucose 92 mg/dL (74-99); Magnesium 1.8 mg/dL (1.6-2.3); Sodium 140 mmol/L (137-145); Total Bilirubin 0.5 mg/dL (0.2-1.3)
[2018-12-23 22:23] LABS: INR 0.9 (<1.2); Partial Thromboplastin Time 23.9 sec (22.0-30.0); Prothrombin Time 9.5 sec (9.0-12.0)
[2018-12-23 22:34] LABS: Potassium 4.8 mmol/L (3.5-5.1)
--- NOTE | 2018-12-23 22:42 | XR ---
History: ITS.REASON XR Reason: Chest Pain Exam: XR CXR 2 VIEWS 3 total images Comparison: 05/29/2017 FINDINGS: The lungs are clear. The cardiac and mediastinal contours are within limits. Status post median sternotomy again noted. A mid sternal wire tie is again seen directed towards the skin surface and appears unchanged from the prior, clinically correlate. There is again note of fracture of the lower sternal wire. IMPRESSION: No evidence of acute disease. Status post median sternotomy again noted. A mid sternal wire tie is again seen directed towards the skin surface and appears unchanged from the prior, clinically correlate. There is again note of fracture of the lower sternal wire.
[2018-12-23] MEDS ORDERED: NITROGLYCERIN SL TABS 0.4 MG TAB SUBLINGUAL PRN (22:56)
[2018-12-23] MEDS ORDERED: methylPREDNISolone SOD SUCCI 125 MG/2 ML VIAL IV STA (22:59)
[2018-12-23] MEDS ORDERED: IPRATROPIUM-ALBUTEROL 3 ML NEB INHALATION PRN (22:59)
[2018-12-23] MEDS ORDERED: NITROGLYCERIN OINT 1 INCH/GM PACKET TOPICAL STA (22:59)
[2018-12-23] MEDS ORDERED: HEPARIN SODIUM,PORCINE 5,000 UNIT/ML 1 ML VIAL IV ONE (23:44)
[2018-12-23] MEDS ORDERED: HEPARIN SODIUM,PORCINE 5,000 UNIT/ML 1 ML VIAL IV PRN (23:44)
[2018-12-23] MEDS ORDERED: HEPARIN SOD,PORK IN 0.45% NACL 25,000 UNIT in 0.45% NACL 1 250ML.BAG IV SCH (23:45)
[2018-12-24 01:33] LABS: Basophils # (A) 0.1 k/uL (0-0.2); Basophils % (A) 1 %; Eosinophils # (A) 0.3 k/uL (0-0.7); Eosinophils % (A) 3 %; HCT 42.9 % (39.0-53.0); HGB 14.2 gm/dL (13.0-17.5); Lymphocytes # (A) 0.6 k/uL (1.0-4.8); Lymphocytes % (A) 7 %; MCH 31.4 pg (25.0-35.0); MCHC 33.2 g/dL (31.0-37.0); MCV 94.8 fL (80.0-100.0); Mean Platelet Volume 6.9; Monocytes # (A) 0.3 k/uL (0-1.0); Monocytes % (A) 4 %; Neutrophils # (A) 7.5 k/uL (1.3-7.7); Neutrophils % (A) 86 %; Platelet Count 256 k/uL (150-450); RBC 4.53 m/uL (4.30-5.90); RDW 13.5 % (11.5-15.5); WBC 8.8 k/uL (3.8-10.6)
[2018-12-24] MEDS ORDERED: LORazepam 2 MG/ML INJ IV PRN (01:33)
[2018-12-24] MEDS ORDERED: THIAMINE 100 MG/ML 2 ML VIAL IM STA (01:33)
[2018-12-24 01:43] LABS: INR 0.9 (<1.2); Partial Thromboplastin Time 24.6 sec (22.0-30.0); Prothrombin Time 9.9 sec (9.0-12.0)
[2018-12-24 03:15] LABS: Basophils % (A) 0 %; Eosinophils # (A) 0.1 k/uL (0-0.7); Eosinophils % (A) 1 %; HCT 44.9 % (39.0-53.0); HGB 14.3 gm/dL (13.0-17.5); Lymphocytes # (A) 0.2 k/uL (1.0-4.8); Lymphocytes % (A) 2 %; MCH 30.2 pg (25.0-35.0); MCHC 31.9 g/dL (31.0-37.0); MCV 94.6 fL (80.0-100.0); Mean Platelet Volume 6.4; Monocytes # (A) 0.1 k/uL (0-1.0); Monocytes % (A) 1 %; Neutrophils # (A) 9.8 k/uL (1.3-7.7); Neutrophils % (A) 95 %; Platelet Count 286 k/uL (150-450); RBC 4.75 m/uL (4.30-5.90); RDW 13.7 % (11.5-15.5); WBC 10.3 k/uL (3.8-10.6)
[2018-12-24] MEDS: LORazepam 2 MG/ML INJ IV PRN ×4 (05:50→20:57)
[2018-12-24 06:14] LABS: Basophils % (A) 0 %; Eosinophils # (A) 0.1 k/uL (0-0.7); Eosinophils % (A) 1 %; HCT 44.8 % (39.0-53.0); HGB 14.6 gm/dL (13.0-17.5); Lymphocytes # (A) 0.3 k/uL (1.0-4.8); Lymphocytes % (A) 3 %; MCH 30.6 pg (25.0-35.0); MCHC 32.5 g/dL (31.0-37.0); MCV 93.9 fL (80.0-100.0); Mean Platelet Volume 6.6; Monocytes # (A) 0.1 k/uL (0-1.0); Monocytes % (A) 1 %; Neutrophils # (A) 8.6 k/uL (1.3-7.7); Neutrophils % (A) 94 %; Platelet Count 292 k/uL (150-450); RBC 4.77 m/uL (4.30-5.90); RDW 13.7 % (11.5-15.5); WBC 9.2 k/uL (3.8-10.6)
[2018-12-24 06:25] LABS: Cholesterol 190 mg/dL (<200); HDL Cholesterol 62 mg/dL (40-60); LDL Cholesterol,Calculated 114 mg/dL (0-99); Triglycerides 71 mg/dL (<150)
[2018-12-24] MEDS ORDERED: REGADENOSON 0.4 MG/5 ML SYRINGE IV ONE (08:29)
[2018-12-24] MEDS ORDERED: CAFFEINE CITRATE 60 MG/3 ML VIAL IV PRN (08:29)
[2018-12-24] MEDS ORDERED: ASPIRIN 325 MG TAB PO SCH (09:00)
[2018-12-24] MEDS: METOPROLOL TARTRATE 25 MG TAB PO SCH (09:09)
[2018-12-24] MEDS: ATORVASTATIN 80 MG TAB PO SCH (09:09)
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
[2018-12-24] MEDS: PANTOPRAZOLE 40 MG TABLET PO SCH ×2 (11:00→16:47)
[2018-12-24] MEDS: LISINOPRIL 5 MG TAB PO SCH (11:00)
[2018-12-24] MEDS: ACETAMINOPHEN TAB 325 MG TAB PO PRN ×2 (11:23→20:54)
--- NOTE | 2018-12-24 12:13 | ECHOF ---
Referral Reason:cp MEASUREMENTS -------- HEIGHT: 182.9 cm WEIGHT: 83.9 kg BP: RVIDd: 3.1 cm (< 3.3) IVSd: 1.2 cm (0.6 - 1.1) LVIDd: 5.7 cm (3.9 - 5.3) LVPWd: 1.1 cm (0.6 - 1.1) IVSs: 1.3 cm LVIDs: 4.7 cm LVPWs: 1.1 cm LA Diam: 4.5 cm (2.7 - 3.8) LAESV Index (A-L): 29.87 ml/m Ao Diam: 4.1 cm (2.0 - 3.7) AV Cusp: 1.6 cm (1.5 - 2.6) LA Diam: 4.4 cm (2.7 - 3.8) MV EXCURSION: 18.395 mm (> 18.000) MV EF SLOPE: 81 mm/s (70 - 150) EPSS: 0.4 cm RAP: 5.00 mmHg RVSP: 29.15 mmHg FINDINGS -------- Sinus rhythm. This was a technically adequate study. There is mild concentric left ventricular hypertrophy. Overall left ventricular systolic function i s mildly impaired with, an EF between 45 - 50 %. Apical anterior LV wall motion is hypokinetic. Apical septum LV wall motion is hypokinetic. The right ventricle is normal in size. LA is midly dilated 29-33ml/m2. The right atrial size is normal. There is mild aortic valve sclerosis. There is no evidence of aortic regurgitation. Mild mitral annular calcification present. [id number] mitral regurgitation is present. Mild tricuspid regurgitation present. There is no evidence of pulmonary hypertension. The right v entricular systolic pressure, as measured by Doppler, is 29.15mmHg. Trace/mild (physiologic) pulmonic regurgitation. The aortic root size is normal. There is no pericardial effusion. CONCLUSIONS -------- 1. Sinus rhythm. 2. This was a technically adequate study. 3. There is mild concentric left ventricular hypertrophy. 4. Overall left ventricular systolic function is mildly impaired with, an EF between 45 - 50 %. 5. Apical anterior LV wall motion is hypokinetic. 6. Apical septum LV wall motion is hypokinetic. 7. LA is midly dilated 29-33ml/m2. 8. There is mild aortic valve sclerosis. 9. Mild mitral annular calcification present. 10. [id number] mitral regurgitation is present. 11. Mild tricuspid regurgitation present. 12. There is no evidence of pulmonary hypertension. 13. Trace/mild (physiologic) pulmonic regurgitation. 14. There is no pericardial effusion. MURAL PAINTER: Elodia Mace RDCS
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
[2018-12-24] MEDS: THIAMINE 100 MG TAB PO SCH (16:47)
[2018-12-25] MEDS: METOPROLOL TARTRATE 25 MG TAB PO SCH ×2 (00:37→08:59)
[2018-12-25] MEDS: LORazepam 2 MG/ML INJ IV PRN ×4 (00:41→12:26)
[2018-12-25 07:57] LABS: Basophils % (A) 0 %; Eosinophils # (A) 0.1 k/uL (0-0.7); Eosinophils % (A) 1 %; HCT 40.3 % (39.0-53.0); HGB 12.9 gm/dL (13.0-17.5); Lymphocytes # (A) 0.5 k/uL (1.0-4.8); Lymphocytes % (A) 9 %; MCH 30.6 pg (25.0-35.0); MCV 95.4 fL (80.0-100.0); Mean Platelet Volume 6.9; Monocytes # (A) 0.3 k/uL (0-1.0); Monocytes % (A) 5 %; Neutrophils # (A) 5.2 k/uL (1.3-7.7); Neutrophils % (A) 85 %; Platelet Count 244 k/uL (150-450); RBC 4.22 m/uL (4.30-5.90); RDW 13.8 % (11.5-15.5); WBC 6.1 k/uL (3.8-10.6)
[2018-12-25] MEDS: LISINOPRIL 5 MG TAB PO SCH (08:59)
[2018-12-25] MEDS: ATORVASTATIN 80 MG TAB PO SCH (08:59)
[2018-12-25] MEDS: PANTOPRAZOLE 40 MG TABLET PO SCH (08:59)
[2018-12-25] MEDS ORDERED: ASPIRIN 81 MG PO SCH (09:00)
[2018-12-25 10:58] VITALS: RESP 20
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
[2018-12-25 12:08] VITALS: BP 144/84; PULSE 75; TEMP 98
[2018-12-25] MEDS: THIAMINE 100 MG TAB PO SCH (14:03)
== END 2018-12-25 16:40 | disposition left against medical advice (07) ==
LOC: EC 21:45 → 1SOBS 23:26 → OBSVTOIN 12-25 08:43 → INTOOBSV 12-25 08:43 → 3NMEDONC 12-25 10:35 → 1SOBS 12-25 10:35 → 3NMEDONC 12-25 10:38 → UNDODISIN 12-25 16:40
PROVIDERS: ADMIT Internal Medicine; ATTEND Internal Medicine
DX: R07.89 Other chest pain (principal); F10.239 Alcohol dependence with withdrawal, unspecified; I25.10 Atherosclerotic heart disease of native coronary artery without angina pectoris; E78.5 Hyperlipidemia, unspecified; I10 Essential (primary) hypertension; I25.5 Ischemic cardiomyopathy; J44.9 Chronic obstructive pulmonary disease, unspecified; G40.909 Epilepsy, unspecified, not intractable, without status epilepticus; F41.0 Panic disorder [episodic paroxysmal anxiety]; F43.10 Post-traumatic stress disorder, unspecified; I25.2 Old myocardial infarction; F17.200 Nicotine dependence, unspecified, uncomplicated; Z95.1 Presence of aortocoronary bypass graft; Z95.5 Presence of coronary angioplasty implant and graft; Z88.0 Allergy status to penicillin; Z91.14 Patient's other noncompliance with medication regimen; Z91.19 Patient's noncompliance with other medical treatment and regimen
CPT/HCPCS: 96376 ×2; 96365; 96366 ×2; 96375 ×2; 96361; 99285; 36415; 94640 ×2; 94760; 93005; 93306; 83880; 80061; 80053; 82375; 82803; 83735; 84484 ×2; 85025 ×3; 85610; 85730 ×2; 71046; G0378 ×4; J2060 ×2; J1644 ×2; J2930; 96374

== ENCOUNTER 2019-05-02 12:53 | Observation (INO) | payer OTHER ==
[2019-05-02] MEDS ORDERED: cefTRIAXone IN SWFI 1,000 MG/10 ML SYRINGE IVP STA (13:05)
[2019-05-02 13:23] LABS: Basophils % (A) 0 %; Eosinophils # (A) 0.3 k/uL (0-0.7); Eosinophils % (A) 3 %; Lymphocytes # (A) 2.1 k/uL (1.0-4.8); Lymphocytes % (A) 20 %; MCH 30.4 pg (25.0-35.0); MCHC 32.7 g/dL (31.0-37.0); MCV 92.9 fL (80.0-100.0); Mean Platelet Volume 6.8; Monocytes # (A) 0.5 k/uL (0-1.0); Monocytes % (A) 5 %; Neutrophils # (A) 7.3 k/uL (1.3-7.7); Neutrophils % (A) 70 %; Platelet Count 305 k/uL (150-450); RBC 4.62 m/uL (4.30-5.90); RDW 14.2 % (11.5-15.5); WBC 10.4 k/uL (3.8-10.6)
[2019-05-02] MEDS ORDERED: SODIUM CHLORIDE 0.9% 1,000 ML with MVI, ADULT NO.4 WITH VIT K 10 ML, THIAMINE 100 MG, F... IV ONE ×4 (13:25)
[2019-05-02 13:31] LABS: ALT 18 U/L (21-72); AST 16 U/L (17-59); African American GFR (CKD) >90 (>60 ml/min/1.73 sqM); Albumin 3.8 g/dL (3.5-5.0); Alkaline Phosphatase 54 U/L (38-126); Anion Gap 15 mmol/L; Blood Urea Nitrogen 7 mg/dL (9-20); Carbon Dioxide 16 mmol/L (22-30); Chloride 106 mmol/L (98-107); Creatine Kinase 142 U/L (55-170); Glucose 98 mg/dL (74-99); Lipase 88 U/L (23-300); Magnesium 1.9 mg/dL (1.6-2.3); Potassium 3.4 mmol/L (3.5-5.1); Sodium 137 mmol/L (137-145); Total Bilirubin 0.6 mg/dL (0.2-1.3); Total Protein 6.2 g/dL (6.3-8.2)
[2019-05-02 13:36] LABS: Alcohol 207 mg/dL
[2019-05-02 13:40] LABS: INR 0.9 (<1.2); Partial Thromboplastin Time 24.2 sec (22.0-30.0)
[2019-05-02] MEDS ORDERED: methylPREDNISolone SOD SUCCI 125 MG/2 ML VIAL IV STA (14:04)
[2019-05-02] MEDS ORDERED: IPRATROPIUM-ALBUTEROL 3 ML NEB INHALATION STA ×2 (14:04→15:00)
[2019-05-02] MEDS ORDERED: MAGNESIUM SULFATE-D5W PMX 1 GM in DEXTROSE/WATER 1 100ML.BAG IVPB ONE (14:05)
--- NOTE | 2019-05-02 14:27 | ED ---
Chest Pain HPI - General Chief Complaint: Chest Pain Stated Complaint: Chest Pain, SOB Time Seen by Provider: 05/02/19 12:53 Source: patient, EMS Mode of arrival: EMS Limitations: no limitations - History of Present Illness Initial Comments: This is a 53-year-old male with a history of alcoholism who also smokes 2 packs of cigarettes per day and does have COPD who presents by EMS with complaints of shortness of breath chest pain sweating. He states he checked out of his hotel this morning and was riding his bike when he became very dyspneic while riding his bike he stop so short of breath and some chest pain dizziness and weakness. EMS was called patient was brought here for evaluation. He does present with several days of coughing which is gotten worse that shortness breath which started this morning patient was given aspirin and nitroglycerin by EMS personnel. MD Complaint: chest pain, other - Related Data Home Medications Medication Instructions Recorded Confirmed No Known Home Medications 05/02/19 05/02/19 Allergies Allergy/AdvReac Type Severity Reaction Status Date / Time Penicillins Allergy Unknown Verified 05/02/19 14:15 Childhood Review of Systems ROS Statement: Those systems with pertinent positive or pertinent negative responses have been documented in the HPI. ROS Other: All systems not noted in ROS Statement are negative. EKG Findings - EKG Results: EKG: interpreted by SRINIVAS, sinus rhythm (EKG shows sinus rhythm a 74. Interval 136 QRS duration 100 QT since QTC of/452 that exodeviation incomplete right bundle-branch block nonspecific septal changes. This is consistent with the one submitted by EMS) Past Medical History Past Medical History: COPD, Hyperlipidemia, Hypertension, Myocardial Infarction ([place]), Seizure Disorder Additional Past Medical History / Comment(s): ISCHEMIC CARDIOMYOPATHY WITH EF 40-45%. 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 Last Myocardial Infarction Date:: 06/12/14 History of Any Multi-Drug Resistant Organisms: None Reported Past Surgical History: Coronary Bypass/CABG, Heart Catheterization With Stent, Hernia Repair, Orthopedic Surgery Additional Past Surgical History / Comment(s): cabg january 2014-3 vessel, Cardiac caths and stenting with last Cardiac cath Jul [address] Cerda. Past Anesthesia/Blood Transfusion Reactions: No Reported Reaction Additional Past Anesthesia/Blood Transfusion Reaction / Comment(s): NO PROBLEM TOLERATING ANESTHESIA. HAS NEVER RECIEVED BLOOD TO HIS KNOWLEDGE. Date of Last Stent Placement:: 06/12/14 Past Psychological History: Anxiety, Panic Disorder, PTSD Smoking Status: Current every day smoker Past Alcohol Use History: Abuse, Heavy Past Drug Use History: Marijuana - Past Family History Father Family Medical History: Coronary Artery Disease (CAD), Myocardial Infarction ([place]) Additional Family Medical History / Comment(s): FATHER STILL LIVING Mother Family Medical History: Coronary Artery Disease (CAD), Myocardial Infarction ([place]) Additional Family Medical History / Comment(s): MOTHER 09/23/14 of unknown causes. Sister(s) Family Medical History: Myocardial Infarction ([place]) Additional Family Medical History / Comment(s): SISTER OF [place] AT AGE 53 General Exam - General Exam Comments Initial Comments: This a well-developed sec appearing male who is awake alert oriented 3 with a smell of alcohol conjoiners on his breath Limitations: no limitations General appearance: alert, anxious, in distress Head exam: Present: atraumatic, normocephalic, normal inspection Eye exam: Present: normal appearance, PERRL, EOMI. Absent: scleral icterus, conjunctival injection, periorbital swelling ENT exam: Present: mucous membranes dry Neck exam: Present: normal inspection, full ROM, other (No stridor JVD or bruits). Absent: tenderness, meningismus, lymphadenopathy Respiratory exam: Present: wheezes, accessory muscle use, decreased breath sounds. Absent: respiratory distress, rales, rhonchi, stridor Cardiovascular Exam: Present: regular rate, normal rhythm, normal heart sounds. Absent: systolic murmur, diastolic murmur, rubs, gallop, clicks GI/Abdominal exam: Present: soft, normal bowel sounds. Absent: distended, tenderness, guarding, rebound, rigid Extremities exam: Present: normal inspection, full ROM, normal capillary refill. Absent: tenderness, pedal edema, joint swelling, calf tenderness Back exam: Present: normal inspection Neurological exam: Present: alert, oriented X3, CN II-XII intact Psychiatric exam: Present: normal affect, normal mood Skin exam: Present: warm, dry, intact, normal color. Absent: rash Course Vital Signs 05/02/19 05/02/19 05/02/19 13:03 14:27 14:35 Temperature 97.6 F Pulse Rate 79 61 67 Respiratory 24 Rate Blood Pressure 102/66 O2 Sat by Pulse 97 Oximetry - Reevaluation(s) Reevaluation #1: 05/02/19 15:09 Reevaluation patient reveals that he is still dyspneic with diminished breath sounds bilaterally wheezes still present though he does state he did get some improvement with the initial treatment. Procedures - [place] Protocol (Time Out) Nurse: Jasmyne Mtz - Smoking Cessation Time Spent Discussing Smoking Cessation w/Patient (Minutes): 3 Patient Acknowledges Need for Cessation: Yes Chest Pain MDM - MDM I did review the imaging and report no acute findings. Patient is severely dyspneic I did discuss the findings with him he is feeling depressed but not suicidal. He is starting to feel shaky are ready from the decreased level of quality had today. I did discuss the case with . Patient will be admitted Critical Care Time Critical Care Time: Yes Critical Care Time: 31 minutes of critical care time which includes initial presentation with history physical labs x-rays several reevaluation the patient responsive therapy discuss with the patient regarding the findings discussion with the admitting physician admission orders documentation the above this also included reviewing old charting. Disposition Clinical Impression: COPD with exacerbation, Alcohol intoxication, Depression, Hypomagnesemia, Smoking, Chest pain Disposition: ADMITTED IP TO THIS [facility] Condition: Fair Referrals: None,Stated [Primary Care Provider] - 1-2 days
--- NOTE | 2019-05-02 14:28 | XR ---
EXAMINATION TYPE: XR chest 2V DATE OF EXAM: 05/02/2019 COMPARISON: 12/23/2018 HISTORY: Chest pain and shortness of breath TECHNIQUE: Frontal and lateral views of the chest are obtained. FINDINGS: There is no focal air space opacity, pleural effusion, or pneumothorax seen. Post CABG vandana nges of the chest are seen with upper limits of normal size of the cardiomediastinal silhouette. Ag ain note is made of dehiscence of the most inferior sternotomy wire. The osseous structures are intac t. Mild multilevel degenerative changes of the spine. IMPRESSION: No acute cardiopulmonary process.
[2019-05-02] MEDS ORDERED: LORazepam 2 MG/ML INJ IV PRN (15:22)
[2019-05-02] MEDS ORDERED: THIAMINE 100 MG/ML 2 ML VIAL IM STA (15:22)
--- NOTE | 2019-05-02 15:23 | ED ---
Medical Decision Making - Lab Data Result diagrams: 05/02/19 13:10 05/02/19 13:10 Lab Results 05/02/19 05/02/19 05/02/19 Range/Units 13:10 13:10 13:10 WBC 10.4 (3.8-10.6) k/uL RBC 4.62 (4.30-5.90) m/uL Hgb 14.0 (13.0-17.5) gm/dL Hct 43.0 (39.0-53.0) % MCV 92.9 (80.0-100.0) fL MCH 30.4 (25.0-35.0) pg MCHC 32.7 (31.0-37.0) g/dL RDW 14.2 (11.5-15.5) % Plt Count 305 (150-450) k/uL Neutrophils % 70 % Lymphocytes % 20 % Monocytes % 5 % Eosinophils % 3 % Basophils % 0 % Neutrophils # 7.3 (1.3-7.7) k/uL Lymphocytes # 2.1 (1.0-4.8) k/uL Monocytes # 0.5 (0-1.0) k/uL Eosinophils # 0.3 (0-0.7) k/uL Basophils # 0.0 (0-0.2) k/uL PT 10.0 (9.0-12.0) sec INR 0.9 (<1.2) APTT 24.2 (22.0-30.0) sec Sodium 137 (137-145) mmol/L Potassium 3.4 L (3.5-5.1) mmol/L Chloride 106 (98-107) mmol/L Carbon Dioxide 16 L (22-30) mmol/L Anion Gap 15 mmol/L BUN 7 L (9-20) mg/dL Creatinine 0.85 (0.66-1.25) mg/dL Est GFR (CKD-EPI)AfAm >90 (>60 ml/min/1.73 sqM) Est GFR (CKD-EPI)NonAf >90 (>60 ml/min/1.73 sqM) Glucose 98 (74-99) mg/dL Calcium 9.0 (8.4-10.2) mg/dL Magnesium 1.9 (1.6-2.3) mg/dL Total Bilirubin 0.6 (0.2-1.3) mg/dL AST 16 L (17-59) U/L ALT 18 L (21-72) U/L Alkaline Phosphatase 54 (38-126) U/L Creatine Kinase 142 (55-170) U/L Troponin I (0.000-0.034) ng/mL Total Protein 6.2 L (6.3-8.2) g/dL Albumin 3.8 (3.5-5.0) g/dL Lipase 88 (23-300) U/L Serum Alcohol 207 H* mg/dL 05/02/19 Range/Units 13:10 WBC (3.8-10.6) k/uL RBC (4.30-5.90) m/uL Hgb (13.0-17.5) gm/dL Hct (39.0-53.0) % MCV (80.0-100.0) fL MCH (25.0-35.0) pg MCHC (31.0-37.0) g/dL RDW (11.5-15.5) % Plt Count (150-450) k/uL Neutrophils % % Lymphocytes % % Monocytes % % Eosinophils % % Basophils % % Neutrophils # (1.3-7.7) k/uL Lymphocytes # (1.0-4.8) k/uL Monocytes # (0-1.0) k/uL Eosinophils # (0-0.7) k/uL Basophils # (0-0.2) k/uL PT (9.0-12.0) sec INR (<1.2) APTT (22.0-30.0) sec Sodium (137-145) mmol/L Potassium (3.5-5.1) mmol/L Chloride (98-107) mmol/L Carbon Dioxide (22-30) mmol/L Anion Gap mmol/L BUN (9-20) mg/dL Creatinine (0.66-1.25) mg/dL Est GFR (CKD-EPI)AfAm (>60 ml/min/1.73 sqM) Est GFR (CKD-EPI)NonAf (>60 ml/min/1.73 sqM) Glucose (74-99) mg/dL Calcium (8.4-10.2) mg/dL Magnesium (1.6-2.3) mg/dL Total Bilirubin (0.2-1.3) mg/dL AST (17-59) U/L ALT (21-72) U/L Alkaline Phosphatase (38-126) U/L Creatine Kinase (55-170) U/L Troponin I <0.012 (0.000-0.034) ng/mL Total Protein (6.3-8.2) g/dL Albumin (3.5-5.0) g/dL Lipase (23-300) U/L Serum Alcohol mg/dL Disposition Clinical Impression: COPD with exacerbation, Alcohol intoxication, Depression, Hypomagnesemia, Smoking, Chest pain, Alcohol withdrawal Disposition: ADMITTED IP TO THIS HOSP Condition: Fair Referrals: None,Stated [Primary Care Provider] - 1-2 days Procedures - [place] Protocol (Time Out) Nurse: Jasmyne Mtz
[2019-05-02] MEDS: SODIUM CHLORIDE 0.9% 1,000 ML IV SCH (16:10)
[2019-05-02] MEDS: IPRATROPIUM-ALBUTEROL 3 ML NEB INHALATION SCH ×3 (16:18→23:41)
--- NOTE | 2019-05-02 16:31 | P.HPIM ---
History of Present Illness H&P Date: 05/02/19 Chief Complaint: SOB This is a 53-year-old white male who was driving on his bike when he started having chest pressure. He denies chest pain. He denies subjective fever or c hills. He describes abdominal pain, he denies hematuria dysuria hematemesis or hematochezia. His chest pressure as substernal that lasted for about 15 minutes. At the time of examination patient is in bed does not appear to be in distress. Review of Systems 10 systems reviewed pertinent positive and negative findings as in HPI. Positive chest pressure, no nausea or vomiting Past Medical History Past Medical History: COPD, Hyperlipidemia, Hypertension, Myocardial Infarction ([place]), Seizure Disorder Additional Past Medical History / Comment(s): ISCHEMIC CARDIOMYOPATHY WITH EF 40-45%. 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 Last Myocardial Infarction Date:: 06/12/14 History of Any Multi-Drug Resistant Organisms: None Reported Past Surgical History: Coronary Bypass/CABG, Heart Catheterization With Stent, Hernia Repair, Orthopedic Surgery Additional Past Surgical History / Comment(s): cabg january 2014-3 vessel, Cardiac caths and stenting with last Cardiac cath Jul [address] Cerda. Past Anesthesia/Blood Transfusion Reactions: No Reported Reaction Additional Past Anesthesia/Blood Transfusion Reaction / Comment(s): NO PROBLEM TOLERATING ANESTHESIA. HAS NEVER RECIEVED BLOOD TO HIS KNOWLEDGE. Date of Last Stent Placement:: 06/12/14 Past Psychological History: Anxiety, Panic Disorder, PTSD Smoking Status: Current every day smoker Past Alcohol Use History: Abuse, Heavy Past Drug Use History: Marijuana - Past Family History Father Family Medical History: Coronary Artery Disease (CAD), Myocardial Infarction ([place]) Additional Family Medical History / Comment(s): FATHER STILL LIVING Mother Family Medical History: Coronary Artery Disease (CAD), Myocardial Infarction ([place]) Additional Family Medical History / Comment(s): MOTHER 09/23/14 of unknown causes. Sister(s) Family Medical History: Myocardial Infarction ([place]) Additional Family Medical History / Comment(s): SISTER OF [place] AT AGE 53 Medications and Allergies Home Medications Medication Instructions Recorded Confirmed Type No Known Home Medications 05/02/19 05/02/19 History Allergies Allergy/AdvReac Type Severity Reaction Status Date / Time Penicillins Allergy Unknown Verified 07/11/19 14:15 Childhood Physical Exam Vitals: Vital Signs Temp Pulse Resp BP Pulse Ox 05/02/19 16:16 74 05/02/19 15:30 70 19 129/93 98 05/02/19 14:35 67 05/02/19 14:30 64 17 100/74 99 05/02/19 14:27 61 05/02/19 14:00 70 17 102/65 96 05/02/19 13:30 67 18 97/75 98 05/02/19 13:03 97.6 F 79 24 102/66 97 Intake and Output 05/02/19 05/02/19 05/02/19 06:59 14:59 22:59 Other: Weight 77.111 kg Constitutional: No acute distress, conversant, pleasant Eyes: Anicteric sclerae, PERRLA ENMT: NC/AT,Oropharynx clear, no erythema, exudates Neck:Supple, FROM, no masses, or JVD, No carotid bruits; No thyromegaly Lungs: Clear to auscultation, Clear to percussion, Normal respiratory effort, no accessory muscle use Cardiovascular: Heart regular in rate and rhythm, No murmurs, gallops, or rubs no peripheral edema Abdominal: Soft Nontender, nom distended, no guarding, no rebound or rigidity, Normoactive bowel sounds No palpable mass Skin: Normal temperature, tone, texture, turgor Extremities:No digital cyanosis No clubbing, Psychiatric: Alert and oriented to person, place and time, Appropriate affect Intact judgement Neuro: Muscles Strength 5/5 in all 4 extremities, Sensation to light touch grossly present throughout, Cranial nerves II-XII grossly intact. No focal sensory deficits Results CBC & Chem 7: 05/02/19 13:10 05/02/19 13:10 Labs: Abnormal Lab Results - Last 24 Hours (Table) 05/02/19 Range/Units 13:10 Potassium 3.4 L (3.5-5.1) mmol/L Carbon Dioxide 16 L (22-30) mmol/L BUN 7 L (9-20) mg/dL AST 16 L (17-59) U/L ALT 18 L (21-72) U/L Total Protein 6.2 L (6.3-8.2) g/dL Serum Alcohol 207 H* mg/dL Assessment and Plan Plan: 1. Chest pain in an adult: Continue to check cardiac enzymes, check d-dimer, continue on telemetry, cardiology consultation 2. COPD without exacerbation: Oxygen and bronchodilators as indicated 3. Volume depletion: Normal saline at 100 mL/h 4. Alcohol intoxication without evidence of withdrawal: [facility] protocol 5. Essential hypertension: Hold antihypertensives for now 6. Congestive heart failure chronic systolic ejection fraction 40-45%, monitor 7. History of seizure disorder: No active seizures, monitor as patient has a lcohol intoxication 8. Hyperlipidemia 9. DVT prophylaxis
[2019-05-02] MEDS: methylPREDNISolone SOD SUCCI 125 MG/2 ML VIAL IV SCH ×2 (17:08→23:16)
[2019-05-02] MEDS: LORazepam 2 MG/ML INJ IV PRN (20:11)
[2019-05-02 21:48] VITALS: RESP 18
[2019-05-03] MEDS: IPRATROPIUM-ALBUTEROL 3 ML NEB INHALATION SCH ×5 (03:54→18:50)
[2019-05-03] MEDS: SODIUM CHLORIDE 0.9% 1,000 ML IV SCH ×2 (05:41→15:40)
[2019-05-03] MEDS: methylPREDNISolone SOD SUCCI 125 MG/2 ML VIAL IV SCH ×4 (06:05→23:15)
[2019-05-03] MEDS: LORazepam 2 MG/ML INJ IV PRN ×6 (06:05→20:09)
[2019-05-03 06:17] LABS: Basophils % (A) 0 %; Eosinophils % (A) 0 %; HCT 43.2 % (39.0-53.0); Lymphocytes # (A) 0.8 k/uL (1.0-4.8); Lymphocytes % (A) 6 %; MCH 30.2 pg (25.0-35.0); MCHC 32.3 g/dL (31.0-37.0); MCV 93.6 fL (80.0-100.0); Monocytes # (A) 0.3 k/uL (0-1.0); Monocytes % (A) 3 %; Neutrophils # (A) 12.6 k/uL (1.3-7.7); Neutrophils % (A) 91 %; Platelet Count 308 k/uL (150-450); RBC 4.62 m/uL (4.30-5.90); RDW 14.2 % (11.5-15.5); WBC 13.8 k/uL (3.8-10.6)
[2019-05-03 06:32] LABS: ALT 19 U/L (21-72); AST 13 U/L (17-59); African American GFR (CKD) >90 (>60 ml/min/1.73 sqM); Albumin 3.6 g/dL (3.5-5.0); Alkaline Phosphatase 54 U/L (38-126); Anion Gap 7 mmol/L; Blood Urea Nitrogen 13 mg/dL (9-20); Calcium 9.1 mg/dL (8.4-10.2); Carbon Dioxide 23 mmol/L (22-30); Chloride 108 mmol/L (98-107); Glucose 139 mg/dL (74-99); Potassium 4.6 mmol/L (3.5-5.1); Sodium 138 mmol/L (137-145); Total Bilirubin 0.5 mg/dL (0.2-1.3); Total Protein 5.9 g/dL (6.3-8.2)
[2019-05-03] MEDS: THIAMINE 100 MG TAB PO SCH ×3 (06:32→17:02)
[2019-05-03] MEDS: INSULIN ASPART (NovoLOG) 100 UNIT/ML VIAL SQ SCH ×4 (06:32→21:01)
[2019-05-03 06:33] LABS: Glucose,Whole Blood 139 mg/dL (75-99)
[2019-05-03] MEDS: MULTIVITAMINS, THERA 1 EACH TAB PO SCH (08:14)
[2019-05-03] MEDS: FOLIC ACID 1 MG TAB PO SCH (08:14)
[2019-05-03] MEDS: NICOTINE 21MG/24HR PATCH TRANSDERM SCH (08:14)
--- NOTE | 2019-05-03 10:22 | P.PN ---
Subjective Progress Note Date: 05/03/19 Principal diagnosis: cp, alcohol intoxication Objective - Vital Signs Vital signs: Vital Signs Temp 98.3 F 05/03/19 08:03 Pulse 71 05/03/19 08:03 Resp 18 05/03/19 08:03 BP 142/88 05/03/19 08:03 Pulse Ox 97 05/03/19 08:03 Intake & Output 05/02/19 05/03/19 05/03/19 18:59 06:59 18:59 Intake Total 240 Output Total 350 Balance -110 Weight 77.111 kg 77 kg Intake: Oral 240 Output: Urine 350 Other: Voiding Method Toilet Urinal # Voids 0 0 1 - Exam Constitutional: No acute distress Eyes: PERRLA ENMT: NC/AT,Oropharynx clear Neck:Supple, no JVD, No carotid bruits Lungs: Clear to auscultation, Clear to percussion, Normal respiratory effort, no accessory muscle use Cardiovascular: Heart regular in rate and rhythm, No murmurs, gallops, or rubs no peripheral edema Abdominal: Soft Nontender, nom distended, no guarding, no rebound or rigidity, Normoactive bowel sounds No palpable mass Skin: Normal temperature, tone, texture, turgor Extremities:No digital cyanosis No clubbing, Psychiatric: Alert and oriented to person, place and time Neuro: Muscles Strength 5/5 in all 4 extremities, Sensation to light touch grossly present throughout, Cranial nerves II-XII grossly intact. - Labs CBC & Chem 7: 05/03/19 05:47 05/03/19 05:47 Labs: Abnormal Lab Results - Last 24 Hours (Table) 05/02/19 05/03/19 05/03/19 Range/Units 13:10 05:47 05:47 WBC 13.8 H (3.8-10.6) k/uL Neutrophils # 12.6 H (1.3-7.7) k/uL Lymphocytes # 0.8 L (1.0-4.8) k/uL Potassium 3.4 L (3.5-5.1) mmol/L Chloride 108 H (98-107) mmol/L Carbon Dioxide 16 L (22-30) mmol/L BUN 7 L (9-20) mg/dL Glucose 139 H (74-99) mg/dL POC Glucose (mg/dL) (75-99) mg/dL AST 16 L 13 L (17-59) U/L ALT 18 L 19 L (21-72) U/L Total Protein 6.2 L 5.9 L (6.3-8.2) g/dL Serum Alcohol 207 H* mg/dL 05/03/19 Range/Units 06:31 WBC (3.8-10.6) k/uL Neutrophils # (1.3-7.7) k/uL Lymphocytes # (1.0-4.8) k/uL Potassium (3.5-5.1) mmol/L Chloride (98-107) mmol/L Carbon Dioxide (22-30) mmol/L BUN (9-20) mg/dL Glucose (74-99) mg/dL POC Glucose (mg/dL) 139 H (75-99) mg/dL AST (17-59) U/L ALT (21-72) U/L Total Protein (6.3-8.2) g/dL Serum Alcohol mg/dL Assessment and Plan Plan: 1. Chest pain in an adult: negative cardiac enzymes, negative d-dimer, continue on telemetry, cardiology consultation 2. COPD without exacerbation: Oxygen and bronchodilators as indicated 3. Volume depletion: better continue Normal saline at 100 mL/h 4. Alcohol intoxication without evidence of withdrawal: [facility] protocol, folate , multivitamins, thiamine . [facility] 9 , receiving IV ativan 5. Essential hypertension: Hold antihypertensives for now 6. Congestive heart failure chronic systolic ejection fraction 40-45%, monitor 7. History of seizure disorder: No active seizures, monitor as patient has alcohol intoxication 8. Hyperlipidemia 9. Metabolic acidosis, resolved 10. Hypokalemia: Replace as indicated 11. DVT prophylaxis Disposition:SS assisting , pt is homeless
--- NOTE | 2019-05-03 10:53 | P.CRDCN ---
History of Present Illness Consult date: 05/03/19 Requesting physician: Sam Werner Consult reason: chest pain Chief complaint: Dizziness and chest pain History of present illness: This is a 53-year-old gentleman with history of EtOH abuse, smokes 2 packs of cigarettes per day, coronary artery disease with prior bypass surgery and PCI, hypertension, hyperlipidemia, who states that he's been living in a hotel the past couple of days, he ran out of money, was on his bike outside in the heat, had drank at least 2 gallons of alcohol, states that he became quite dizzy and developed some chest discomfort. EMS was contacted and the patient was brought in for further evaluation and treatment. Chest x-ray on presentation here did not reveal any acute cardiopulmonary process. EKG shows normal sinus rhythm with incomplete right bundle branch block pattern and nonspecific ST-T wave changes. Blood pressure 142/80 with a heart rate in the 70s 97% on room air. White blood cell count 10.4 on admission, 13.8 this morning, hemoglobin 14.0, platelet count 308. Sodium on admission 137 with a potassium of 3.4, BUN 7 and creatinine 0.8. This morning's labs, sodium 138, potassium 4.6, BUN 13 and creatinine 0.6. AST 13 ALT 19 alk phos 54 magnesium 1.9. Serum alcohol level 207., troponins negative 2. At the time of my examination this morning, patient denies any chest pain or dizziness, it is notable that the patient appears to be starting to go through DTs, he is quite shaky. Past Medical History Past Medical History: COPD, Hyperlipidemia, Hypertension, Myocardial Infarction ([place]), Seizure Disorder Additional Past Medical History / Comment(s): ISCHEMIC CARDIOMYOPATHY WITH EF 40-45%. 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 Last Myocardial Infarction Date:: 06/12/14 History of Any Multi-Drug Resistant Organisms: None Reported Past Surgical History: Coronary Bypass/CABG, Heart Catheterization With Stent, Hernia Repair, Orthopedic Surgery Additional Past Surgical History / Comment(s): cabg january 2014-3 vessel, Cardiac caths and stenting with last Cardiac cath Jul [address] Cerda. Past Anesthesia/Blood Transfusion Reactions: No Reported Reaction Additional Past Anesthesia/Blood Transfusion Reaction / Comment(s): NO PROBLEM TOLERATING ANESTHESIA. HAS NEVER RECIEVED BLOOD TO HIS KNOWLEDGE. Date of Last Stent Placement:: 06/12/14 Past Psychological History: Anxiety, Panic Disorder, PTSD Smoking Status: Current every day smoker Past Alcohol Use History: Abuse, Heavy Past Drug Use History: Marijuana - Past Family History Father Family Medical History: Coronary Artery Disease (CAD), Myocardial Infarction ([place]) Additional Family Medical History / Comment(s): FATHER STILL LIVING Mother Family Medical History: Coronary Artery Disease (CAD), Myocardial Infarction ([place]) Additional Family Medical History / Comment(s): MOTHER 09/23/14 of unknown causes. Sister(s) Family Medical History: Myocardial Infarction ([place]) Additional Family Medical History / Comment(s): SISTER OF [place] AT AGE 53 Medications and Allergies Home Medications Medication Instructions Recorded Confirmed Type No Known Home Medications 05/02/19 05/02/19 History Allergies Allergy/AdvReac Type Severity Reaction Status Date / Time Penicillins Allergy Unknown Verified 05/02/19 14:15 Childhood Physical Exam Vitals: Vital Signs Temp Pulse Pulse Resp BP BP Pulse Ox 05/03/19 08:03 98.3 F 71 18 142/88 97 05/03/19 07:59 18 05/03/19 07:20 98 05/03/19 04:00 98.4 F 87 16 112/72 98 05/02/19 23:30 98.8 F 76 18 114/65 95 05/02/19 19:29 76 05/02/19 19:20 18 05/02/19 19:16 76 05/02/19 19:10 98.4 F 79 18 167/74 95 05/02/19 16:34 81 20 117/70 92 L 05/02/19 16:30 73 88/56 94 L 05/02/19 16:24 75 05/02/19 16:16 74 05/02/19 16:00 73 111/67 05/02/19 15:38 97.9 F 75 20 135/76 96 05/02/19 15:30 70 19 129/93 98 05/02/19 14:35 67 05/02/19 14:30 64 17 100/74 99 05/02/19 14:27 61 05/02/19 14:00 70 17 102/65 96 05/02/19 13:30 67 18 97/75 98 05/02/19 13:03 97.6 F 79 24 102/66 97 Intake and Output 05/02/19 05/03/19 05/03/19 22:59 06:59 14:59 Intake Total 240 Output Total 350 Balance -110 Intake: Oral 240 Output: Urine 350 Other: Voiding Method Toilet Urinal # Voids 0 1 Weight 77 kg PHYSICAL EXAMINATION: GENERAL: 53-year-old gentleman in no acute distress examination HEENT: Head is atraumatic, normocephalic. Pupils equal, round. Sclera anicteric. Face flushed. Conjunctiva are clear. Mucous membranes of the mouth are moist. Neck is supple. There is no elevated jugular venous pressure. No carotid bruit is heard. HEART EXAMINATION: Heart S1, S2 normal. No murmur or gallop heard. CHEST EXAMINATION: Lungs are clear to auscultation and precussion. No chest wall tenderness is noted on palpation or with deep breathing. ABDOMEN: Soft, nontender. Bowel sounds are heard. No organomegaly noted. EXTREMITIES: 2+ peripheral pulses with no evidence of peripheral edema and no calf tenderness noted. NEUROLOGIC patient is awake, alert and oriented 3 . . Results 05/03/19 05:47 05/03/19 05:47 Cardiac Enzymes 05/02/19 05/02/19 05/02/19 Range/Units 13:10 13:10 18:50 AST 16 L (17-59) U/L Troponin I <0.012 <0.012 (0.000-0.034) ng/mL 05/03/19 Range/Units 05:47 AST 13 L (17-59) U/L Troponin I (0.000-0.034) ng/mL Coagulation 05/02/19 Range/Units 13:10 PT 10.0 (9.0-12.0) sec APTT 24.2 (22.0-30.0) sec CBC 05/02/19 05/03/19 Range/Units 13:10 05:47 WBC 10.4 13.8 H (3.8-10.6) k/uL RBC 4.62 4.62 (4.30-5.90) m/uL Hgb 14.0 14.0 (13.0-17.5) gm/dL Hct 43.0 43.2 (39.0-53.0) % Plt Count 305 308 (150-450) k/uL Comprehensive Metabolic Panel 05/02/19 05/03/19 Range/Units 13:10 05:47 Sodium 137 138 (137-145) mmol/L Potassium 3.4 L 4.6 (3.5-5.1) mmol/L Chloride 106 108 H (98-107) mmol/L Carbon Dioxide 16 L 23 (22-30) mmol/L BUN 7 L 13 (9-20) mg/dL Creatinine 0.85 0.67 (0.66-1.25) mg/dL Glucose 98 139 H (74-99) mg/dL Calcium 9.0 9.1 (8.4-10.2) mg/dL AST 16 L 13 L (17-59) U/L ALT 18 L 19 L (21-72) U/L Alkaline Phosphatase 54 54 (38-126) U/L Total Protein 6.2 L 5.9 L (6.3-8.2) g/dL Albumin 3.8 3.6 (3.5-5.0) g/dL Current Medications Generic Name Dose Route Start Last Admin Trade Name Freq PRN Reason Stop Dose Admin Albuterol/Ipratropium 3 ml 05/02/19 16:00 05/03/19 07:24 Duoneb 0.5 Mg-3 Mg/3 Ml Soln INHALATION Not Given RT-Q4H WILI Folic Acid 1 mg 05/03/19 09:00 05/03/19 08:14 Folic Acid PO 1 mg DAILY WILI Administration Sodium Chloride 1,000 mls @ 80 mls/hr 05/02/19 15:30 05/03/19 05:41 Saline 0.9% IV Not Given .[id number] [facility] Insulin Aspart 0 unit 05/03/19 07:30 05/03/19 06:32 Novolog SQ Not Given ACHS [facility] Protocol Lorazepam 1 mg 05/02/19 15:22 05/03/19 08:15 Ativan IV 1 mg Q2HR PRN Administration CIWA 8 or 9 Lorazepam 1 mg 05/02/19 15:22 Ativan IV Q1HR PRN CIWA 10 to 15 Lorazepam 2 mg 05/02/19 15:22 Ativan IV 05/04/19 15:22 Q10M PRN CIWA 16 or higher Methylprednisolone Sodium Succinate 60 mg 05/02/19 19:00 05/03/19 06:05 Solu-Medrol IV 60 mg Q6HR WILI Administration Multivitamins 1 each 05/03/19 09:00 05/03/19 08:14 Theragran PO 1 each DAILY WILI Administration Nicotine 1 patch 05/03/19 09:00 05/03/19 08:14 Habitrol 21mg/24hr Patch TRANSDERM 1 patch DAILY WILI Administration Thiamine HCl 100 mg 05/03/19 07:30 05/03/19 06:32 Vitamin B-1 PO Not Given BID-W/MEALS WILI Thiamine HCl 100 mg 05/03/19 09:00 05/03/19 08:14 Vitamin B-1 PO 100 mg DAILY WILI Administration Intake and Output 05/02/19 05/03/19 05/03/19 22:59 06:59 14:59 Intake Total 240 Output Total 350 Balance -110 Intake: Oral 240 Output: Urine 350 Other: Voiding Method Toilet Urinal # Voids 0 1 Weight 77 kg 05/03/19 05:47 05/03/19 05:47 EKG Interpretations (text) EKG shows a normal sinus rhythm with incomplete right bundle branch block pattern. Assessment and Plan Plan: Assessment and plan #1 chest pain, with associated dizziness, atypical for acute coronary syndrome. Troponins negative 2. EKG shows normal sinus rhythm incomplete right bundle branch block pattern and T-wave inversion noted in the lateral leads. #2 alcohol intoxication #3 nicotine dependence, patient's smokes 2 packs of cigarettes per day #4 coronary artery disease with prior bypass surgery and stent placement as #5 hypertension #6 hyperlipidemia Plan We will check orthostatic heart rate and blood pressure every shift. Patient will need a stress test however he currently is going through withdrawal from alcohol. Chest discomfort is atypical for acute coronary syndrome however patient has known underlying coronary artery disease and has not been taking any of his medications. We will recommend the patient to be on a baby aspirin along with statin, beta jacque. Further recommendations to follow. DNP note has been reviewed, I agree with a documented findings and plan of care. Patient was seen and examined.
[2019-05-03 11:46] LABS: Glucose,Whole Blood 179 mg/dL (75-99)
--- NOTE | 2019-05-03 12:48 | ECHOF ---
Referral Reason:chest pain MEASUREMENTS -------- HEIGHT: 180.3 cm WEIGHT: 76.7 kg BP: 142/88 IVSd: 1.5 cm (0.6 - 1.1) LVIDd: 4.4 cm (3.9 - 5.3) LVPWd: 1.7 cm (0.6 - 1.1) IVSs: 1.4 cm LVIDs: 2.7 cm LVPWs: 1.6 cm LAESV Index (A-L): 30.78 ml/m Ao Diam: 3.6 cm (2.0 - 3.7) AV Cusp: 2.6 cm (1.5 - 2.6) LA Diam: 4.0 cm (2.7 - 3.8) MV EXCURSION: 20.130 mm (> 18.000) MV EF SLOPE: 131 mm/s (70 - 150) EPSS: 1.4 cm MV E Tushar: 0.70 m/s MV DecT: 225 ms MV A Tushar: 0.87 m/s MV E/A Ratio: 0.80 RAP: 5.00 mmHg RVSP: 41.65 mmHg FINDINGS -------- Sinus rhythm. This was a technically good study. Previous CABG The left ventricular size is normal. There is moderate concentric left ventricular hypertrophy. O verall left ventricular systolic function is normal with, an EF between 60 - 65 %. There is paradox ical/dysynergic septal motion consistent with post-operative status. Normal LAP Grade 1 Diastolic D ysfunction. The right ventricle is normal in size. LA is midly dilated 29-33ml/m2. The right atrial size is normal. Interatrial and interventricular septum intact. Aortic valve is trileaflet and is mildly thickened. The mitral valve leaflets are mildly thickened. Moderate mitral regurgitation is present. Mild tricuspid regurgitation present. There is mild pulmonary hypertension. The right ventricular systolic pressure, as measured by Doppler, is 41.65mmHg. There is no pulmonic regurgitation present. The aortic root size is normal. Normal inferior vena cava with normal inspiratory collapse consistent with estimated right atrial pre ssure of 5 mmHg. There is no pericardial effusion. CONCLUSIONS -------- 1. Sinus rhythm. 2. This was a technically good study. 3. Previous CABG 4. The left ventricular size is normal. 5. There is moderate concentric left ventricular hypertrophy. 6. Overall left ventricular systolic function is normal with, an EF between 60 - 65 %. 7. There is paradoxical/dysynergic septal motion consistent with post-operative status. 8. Normal LAP Grade 1 Diastolic Dysfunction. 9. The right ventricle is normal in size. 10. LA is midly dilated 29-33ml/m2. 11. The right atrial size is normal. 12. Interatrial and interventricular septum intact. 13. Aortic valve is trileaflet and is mildly thickened. 14. The mitral valve leaflets are mildly thickened. 15. Moderate mitral regurgitation is present. 16. Mild tricuspid regurgitation present. 17. There is mild pulmonary hypertension. 18. The right ventricular systolic pressure, as measured by Doppler, is 41.65mmHg. 19. There is no pulmonic regurgitation present. 20. The aortic root size is normal. 21. Normal inferior vena cava with normal inspiratory collapse consistent with estimated right atrial pressure of 5 mmHg. 22. There is no pericardial effusion. WRITING TUTOR: Sandhya Solis RDCS
[2019-05-03 16:54] LABS: Glucose,Whole Blood 159 mg/dL (75-99)
[2019-05-03] MEDS ORDERED: IPRATROPIUM-ALBUTEROL 3 ML NEB INHALATION PRN (18:55)
[2019-05-03 20:59] LABS: Glucose,Whole Blood 118 mg/dL (75-99)
[2019-05-04] MEDS: LORazepam 2 MG/ML INJ IV PRN ×2 (04:18→08:16)
[2019-05-04] MEDS: THIAMINE 100 MG TAB PO SCH ×2 (06:03→08:25)
[2019-05-04] MEDS: methylPREDNISolone SOD SUCCI 125 MG/2 ML VIAL IV SCH (06:04)
[2019-05-04] MEDS: SODIUM CHLORIDE 0.9% 1,000 ML IV SCH (06:06)
[2019-05-04] MEDS: INSULIN ASPART (NovoLOG) 100 UNIT/ML VIAL SQ SCH (06:31)
[2019-05-04 06:41] LABS: Basophils % (A) 0 %; Eosinophils # (A) 0.1 k/uL (0-0.7); Eosinophils % (A) 1 %; HCT 40.5 % (39.0-53.0); Lymphocytes # (A) 2.5 k/uL (1.0-4.8); Lymphocytes % (A) 19 %; MCH 30.1 pg (25.0-35.0); MCHC 32.1 g/dL (31.0-37.0); MCV 93.8 fL (80.0-100.0); Mean Platelet Volume 6.9; Monocytes # (A) 0.6 k/uL (0-1.0); Monocytes % (A) 4 %; Neutrophils % (A) 75 %; Platelet Count 264 k/uL (150-450); RBC 4.32 m/uL (4.30-5.90); RDW 14.4 % (11.5-15.5); WBC 13.2 k/uL (3.8-10.6)
[2019-05-04 06:57] LABS: ALT 17 U/L (21-72); AST 14 U/L (17-59); African American GFR (CKD) >90 (>60 ml/min/1.73 sqM); Albumin 3.2 g/dL (3.5-5.0); Alkaline Phosphatase 43 U/L (38-126); Anion Gap 6 mmol/L; Blood Urea Nitrogen 14 mg/dL (9-20); Calcium 8.6 mg/dL (8.4-10.2); Carbon Dioxide 24 mmol/L (22-30); Chloride 109 mmol/L (98-107); Glucose 95 mg/dL (74-99); Potassium 4.2 mmol/L (3.5-5.1); Sodium 139 mmol/L (137-145); Total Bilirubin 0.3 mg/dL (0.2-1.3); Total Protein 5.4 g/dL (6.3-8.2)
[2019-05-04] MEDS: NICOTINE 21MG/24HR PATCH TRANSDERM SCH (08:09)
[2019-05-04] MEDS: FOLIC ACID 1 MG TAB PO SCH (08:09)
[2019-05-04] MEDS: MULTIVITAMINS, THERA 1 EACH TAB PO SCH (08:09)
[2019-05-04 08:20] VITALS: BP 111/65; PULSE 73; TEMP 98.6
[2019-05-04] MEDS ORDERED: ATORVASTATIN 40 MG TAB PO SCH (09:00)
[2019-05-04] MEDS ORDERED: METOPROLOL TARTRATE 25 MG TAB PO SCH (09:00)
[2019-05-04] MEDS ORDERED: ASPIRIN 81 MG PO SCH (09:00)
--- NOTE | 2019-05-04 10:13 | P.DS ---
Providers Date of admission: 05/02/19 15:18 Attending physician: Sam Werner MD Consults: 05/02/19 16:41 Consult Physician Routine Consulting Provider: Simone España Consult Reason/Comments: cp Do you want consulting provider notified?: Yes Primary care physician: Stated None Hospital Course: Diagnoses upon discharge: 1. Chest pain likely atypical 2. Alcohol intoxication with evidence of withdrawal 3. Tobacco use without evidence of withdrawal 4. Coronary artery disease 5. Essential hypertension 6. Hyperlipidemia 7. Metabolic acidosis 8. Hypokalemia 9. History of congestive heart failure systolic ejection fraction 40-45% 10. Volume depletion 11. COPD without exacerbation HPI: This is a 53-year-old white male who was driving on his bike when he started having chest pressure. He denies chest pain. He denies subjective fever or chills. He describes abdominal pain, he denies hematuria dysuria hematemesis or hematochezia. His chest pressure as substernal that lasted for about 15 minutes. At the time of examination patient is in bed does not appear to be in distress. Hospital course and treatment: Patient was admitted to the hospital with chest pain, cardiac enzymes were negative, d-dimer was negative. He was evaluated by cardiology, had a 2-D echo which was consistent with ejection fraction 60-65%. He was found to have hypovolemia was treated with IV fluid resuscitation. He had alcohol intoxication with evidence of withdrawal associated with metabolic acidosis. This was corrected with IV fluids, he was placed on CIWA protocol. Cardiology recommended aspirin and beta blockers and statin. Patient is homeless and was evaluated by case management/marriage and family social worker. He will be discharged today. Patient Condition at Discharge: Fair Plan - Discharge Summary Discharge Rx Participant: Yes New Discharge Prescriptions: New Aspirin [Adult Low Dose Aspirin EC] 81 mg PO DAILY #30 tablet. Atorvastatin Calcium [Lipitor] 10 mg PO DAILY 30 Days #30 tab Metoprolol Tartrate [Lopressor] 12.5 mg PO BID #60 dose Discharge Medication List Aspirin [Adult Low Dose Aspirin EC] 81 mg PO DAILY #30 tablet. 05/04/19 [Rx] Atorvastatin Calcium [Lipitor] 10 mg PO DAILY 30 Days #30 tab 05/04/19 [Rx] Metoprolol Tartrate [Lopressor] 12.5 mg PO BID #60 dose 05/04/19 [Rx] Follow up Appointment(s)/Referral(s): Simone España MD [STAFF PHYSICIAN] - 1 Week None,Stated [Primary Care Provider] - 1-2 days Discharge Disposition: HOME SELF-CARE
== END 2019-05-04 10:56 | disposition home or self-care (01) ==
LOC: EC 12:53 → 1SOBS 15:18 → 3SCARD 15:53
PROVIDERS: ADMIT Internal Medicine; ATTEND Internal Medicine
DX: R07.2 Precordial pain (principal); E83.42 Hypomagnesemia; R10.9 Unspecified abdominal pain; F10.239 Alcohol dependence with withdrawal, unspecified; F10.229 Alcohol dependence with intoxication, unspecified; Y90.7 Blood alcohol level of 200-239 mg/100 ml; E87.2 Acidosis; E87.6 Hypokalemia; E86.1 Hypovolemia; E86.9 Volume depletion, unspecified; Z59.0 Homelessness; F32.9 Major depressive disorder, single episode, unspecified; I25.10 Atherosclerotic heart disease of native coronary artery without angina pectoris; E78.5 Hyperlipidemia, unspecified; F17.210 Nicotine dependence, cigarettes, uncomplicated; I11.0 Hypertensive heart disease with heart failure; I50.22 Chronic systolic (congestive) heart failure; J44.9 Chronic obstructive pulmonary disease, unspecified; I25.5 Ischemic cardiomyopathy; I25.2 Old myocardial infarction; Z95.1 Presence of aortocoronary bypass graft; Z95.5 Presence of coronary angioplasty implant and graft; Z86.69 Personal history of other diseases of the nervous system and sense organs; Z88.0 Allergy status to penicillin; Z82.49 Family history of ischemic heart disease and other diseases of the circulatory system; Y93.55 Activity, bike riding
CPT/HCPCS: 96376 ×3; 96361 ×2; 96366 ×3; 96375 ×2; 96368; 96365; 96372; 99291; 36415; 94640 ×2; 94760; 93005; 93306; 85379; 80053 ×3; 82550; 83690; 83735; 84484; 85025 ×3; 85610; 85730; 71046; G0378 ×3; G0480; S4990 ×2; J2060 ×3; J2930 ×3; J3411; J3475; 80320

== ENCOUNTER 2019-05-04 20:18 | Emergency (ER) | payer OTHER ==
[2019-05-04] MEDS ORDERED: LORazepam 2 MG/ML INJ IM STA (20:59)
[2019-05-04] MEDS ORDERED: diphenhydrAMINE 50 MG/ML 1 ML VIAL IM STA (20:59)
[2019-05-04] MEDS ORDERED: HALOPERIDOL LACTATE 5 MG/ML 1 ML VIAL IM STA (21:00)
[2019-05-04 21:10] LABS: ALT 21 U/L (21-72); AST 18 U/L (17-59); African American GFR (CKD) >90 (>60 ml/min/1.73 sqM); Albumin 4.1 g/dL (3.5-5.0); Alkaline Phosphatase 49 U/L (38-126); Anion Gap 11 mmol/L; Blood Urea Nitrogen 13 mg/dL (9-20); Calcium 8.9 mg/dL (8.4-10.2); Carbon Dioxide 21 mmol/L (22-30); Chloride 112 mmol/L (98-107); Glucose 97 mg/dL (74-99); Potassium 4.2 mmol/L (3.5-5.1); Sodium 144 mmol/L (137-145); Total Bilirubin 0.2 mg/dL (0.2-1.3); Total Protein 6.5 g/dL (6.3-8.2)
[2019-05-04 21:18] LABS: Basophils % (A) 0 %; Eosinophils # (A) 0.1 k/uL (0-0.7); Eosinophils % (A) 1 %; HGB 13.1 gm/dL (13.0-17.5); Lymphocytes # (A) 2.6 k/uL (1.0-4.8); Lymphocytes % (A) 18 %; MCH 29.9 pg (25.0-35.0); MCHC 32.8 g/dL (31.0-37.0); MCV 91.3 fL (80.0-100.0); Mean Platelet Volume 7.5; Monocytes # (A) 0.6 k/uL (0-1.0); Monocytes % (A) 4 %; Neutrophils # (A) 10.7 k/uL (1.3-7.7); Neutrophils % (A) 75 %; Platelet Count 295 k/uL (150-450); RBC 4.38 m/uL (4.30-5.90); RDW 15.3 % (11.5-15.5); WBC 14.2 k/uL (3.8-10.6)
--- NOTE | 2019-05-04 21:35 | ED ---
General Adult HPI - General Source: patient, police, EMS Mode of arrival: EMS Limitations: altered mental status <Gregorio Lee - Last Filed: 05/04/19 21:34> <Yamilet Flores - Last Filed: 05/05/19 14:05> <Malka Gamez - Last Filed: 05/06/19 07:31> - General Chief complaint: Alcohol Stated complaint: ETOH Time Seen by Provider: 05/04/19 20:52 - History of Present Illness Initial comments: 53-year-old male history of alcohol abuse and seizure disorder presenting for intoxication. Patient brought by PD patient refuses to provide history. Patient was not found down. Patient does not appear altered. Patient was intoxicated in a park and was brought in for medical clearance. Patient was pet itioned by program PD for evaluation. Patient has no evidence of trauma on gross exam. Denies complaints. Patient is disgruntled and agitated, doesnt want to be here. (Yamilet Flores) - Related Data Home Medications Medication Instructions Recorded Confirmed Metoprolol Tartrate [Lopressor] 12.5 mg PO BID 05/05/19 05/05/19 Previous Rx's Medication Instructions Recorded Aspirin [Adult Low Dose Aspirin EC] 81 mg PO DAILY #30 tablet. 05/04/19 Atorvastatin Calcium [Lipitor] 10 mg PO DAILY 30 Days #30 tab 05/04/19 Allergies Allergy/AdvReac Type Severity Reaction Status Date / Time Penicillins Allergy Unknown Verified 05/05/19 16:50 Childhood Review of Systems ROS Other: All systems not noted in ROS Statement are negative. <Gregorio Lee - Last Filed: 05/04/19 21:34> ROS Other: All systems not noted in ROS Statement are negative. <Yamilet Flores - Last Filed: 05/05/19 14:05> ROS Other: All systems not noted in ROS Statement are negative. <Malka Gamez - Last Filed: 05/06/19 07:31> ROS Statement: Those systems with pertinent positive or pertinent negative responses have been documented in the HPI. Past Medical History Past Medical History: COPD, Hyperlipidemia, Hypertension, Myocardial Infarction ([place]), Seizure Disorder Additional Past Medical History / Comment(s): ISCHEMIC CARDIOMYOPATHY WITH EF 40-45%. 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 Last Myocardial Infarction Date:: 06/12/14 History of Any Multi-Drug Resistant Organisms: None Reported Past Surgical History: Coronary Bypass/CABG, Heart Catheterization With Stent, Hernia Repair, Orthopedic Surgery Additional Past Surgical History / Comment(s): cabg january 2014-3 vessel, Cardiac caths and stenting with last Cardiac cath Jul [address] eCrda. Past Anesthesia/Blood Transfusion Reactions: No Reported Reaction Additional Past Anesthesia/Blood Transfusion Reaction / Comment(s): NO PROBLEM TOLERATING ANESTHESIA. HAS NEVER RECIEVED BLOOD TO HIS KNOWLEDGE. Date of Last Stent Placement:: 06/12/14 Past Psychological History: Anxiety, Panic Disorder, PTSD Smoking Status: Current every day smoker Past Alcohol Use History: Abuse, Daily, Heavy Past Drug Use History: Marijuana - Past Family History Father Family Medical History: Coronary Artery Disease (CAD), Myocardial Infarction ([place]) Additional Family Medical History / Comment(s): FATHER STILL LIVING Mother Family Medical History: Coronary Artery Disease (CAD), Myocardial Infarction ([place]) Additional Family Medical History / Comment(s): MOTHER 09/23/14 of unknown causes. Sister(s) Family Medical History: Myocardial Infarction ([place]) Additional Family Medical History / Comment(s): SISTER OF [place] AT AGE 53 <Gregorio Lee - Last Filed: 05/04/19 21:34> General Exam Limitations: altered mental status <Gregorio Lee - Last Filed: 05/04/19 21:34> <Yamilet Flores - Last Filed: 05/05/19 14:05> - General Exam Comments Initial Comments: General: The patient is awake and alert, in no distress Eye: Pupils are equal, round and reactive to light, extra-ocular movements are intact. No nystagmus. There is normal conjunctiva bilaterally. No signs of icterus. Ears, nose, mouth and throat: There are moist mucous membranes and no oral lesions. Neck: The neck is supple, there is no tenderness or JVD. Cardiovascular: There is a regular rate and rhythm. No murmur, rub or gallop is appreciated. Respiratory: Lungs are clear to auscultation, respirations are non-labored, breath sounds are equal. No wheezes, stridor, rales, or rhonchi. Gastrointestinal: Soft, non-distended, non-tender abdomen without masses or organomegaly noted. T Musculoskeletal: Normal ROM, no tenderness. Strength 5/5. Sensation intact. Pulses equal bilaterally 2+. Neurological: A&O x 3. CN II-XII intact, There are no obvious motor or sensory deficits. Coordination appears grossly intact. Speech is normal. Skin: Skin is warm and dry and no rashes or lesions are noted. Psychiatric: Agitated (Yamilet Flores) Course <Yamilet Flores - Last Filed: 05/05/19 14:05> Vital Signs 05/04/19 05/05/19 05/05/19 20:20 00:00 06:40 Temperature 98.3 F 98.2 F Pulse Rate 81 88 85 Respiratory 20 16 20 Rate Blood Pressure 123/79 102/56 128/76 O2 Sat by Pulse 99 99 96 Oximetry - Reevaluation(s) Reevaluation #1: Patient peeing, attempting to pee on people, Dr. Lee did [id number], restrained patient--he will reassess for removal. Patient will be evaluated by EPS when sober. 05/05/19 00:28 (Yamilet Flores) Procedures - Restraint - Face to Face Restraint Occurrence 1 Patient's Immediate Situation: Endangers self safety, Endangers others' safety, Endangers staff safety, Violent behavior, Other (see comment) Patient's Reaction to the Intervention: Uncooperative, Angry, Anxious Patient's Medical & Behavioral Condition: Awake, Agitated Need to Continue or Terminate Restraint or Seclusion: Continue Face to Face Eval of Restraint Date: 05/04/19 Face to Face Eval of Restraint Time: 21:05 <Gregorio Lee - Last Filed: 05/04/19 21:34> Medical Decision Making - Lab Data Result diagrams: 05/04/19 20:40 <Gregorio Lee - Last Filed: 05/04/19 21:34> - Lab Data Result diagrams: 05/04/19 20:40 05/04/19 20:40 <Yamilet Flores - Last Filed: 05/05/19 14:05> - Lab Data Result diagrams: 05/04/19 20:40 05/04/19 20:40 <Malka Gamez - Last Filed: 05/06/19 07:31> - Medical Decision Making Pt care was signed out to me by Dr. Lee, and presented to the emergency department intoxicated, patient was making passive suicidal statements to police and was petitioned. Upon arrival patient was intoxicated did not express any specific suicidal plan. Upon sobriety the patient was evaluated by the EPS nurse, patient denied any suicidal statements he did admit to being an alcoholic, he declined any interest in rehab, counseling or homeless shelters. Patient was subsequently determined to be stable for discharge and was discharged home in stable condition. (Malka Gamez) - Lab Data Lab Results 05/04/19 05/04/19 05/05/19 Range/Units 20:40 20:40 00:44 WBC 14.2 H (3.8-10.6) k/uL RBC 4.38 (4.30-5.90) m/uL Hgb 13.1 (13.0-17.5) gm/dL Hct 40.0 (39.0-53.0) % MCV 91.3 (80.0-100.0) fL MCH 29.9 (25.0-35.0) pg MCHC 32.8 (31.0-37.0) g/dL RDW 15.3 (11.5-15.5) % Plt Count 295 (150-450) k/uL Neutrophils % 75 % Lymphocytes % 18 % Monocytes % 4 % Eosinophils % 1 % Basophils % 0 % Neutrophils # 10.7 H (1.3-7.7) k/uL Lymphocytes # 2.6 (1.0-4.8) k/uL Monocytes # 0.6 (0-1.0) k/uL Eosinophils # 0.1 (0-0.7) k/uL Basophils # 0.0 (0-0.2) k/uL Sodium 144 (137-145) mmol/L Potassium 4.2 (3.5-5.1) mmol/L Chloride 112 H (98-107) mmol/L Carbon Dioxide 21 L (22-30) mmol/L Anion Gap 11 mmol/L BUN 13 (9-20) mg/dL Creatinine 0.81 (0.66-1.25) mg/dL Est GFR (CKD-EPI)AfAm >90 (>60 ml/min/1.73 sqM) Est GFR (CKD-EPI)NonAf >90 (>60 ml/min/1.73 sqM) Glucose 97 (74-99) mg/dL Calcium 8.9 (8.4-10.2) mg/dL Total Bilirubin 0.2 (0.2-1.3) mg/dL AST 18 (17-59) U/L ALT 21 (21-72) U/L Alkaline Phosphatase 49 (38-126) U/L Total Protein 6.5 (6.3-8.2) g/dL Albumin 4.1 (3.5-5.0) g/dL Urine Opiates Screen Not Detected (NotDetected) Ur Oxycodone Screen Not Detected (NotDetected) Urine Methadone Screen Not Detected (NotDetected) Ur Propoxyphene Screen Not Detected (NotDetected) Ur Barbiturates Screen Not Detected (NotDetected) U Tricyclic Antidepress Not Detected (NotDetected) Ur Phencyclidine Scrn Not Detected (NotDetected) Ur Amphetamines Screen Not Detected (NotDetected) U Methamphetamines Scrn Not Detected (NotDetected) U Benzodiazepines Scrn Detected H (NotDetected) Urine Cocaine Screen Not Detected (NotDetected) U Marijuana (THC) Screen Not Detected (NotDetected) Serum Alcohol 224 H* mg/dL Disposition <Gregorio Lee D - Last Filed: 05/04/19 21:34> <Yamilet Flores L - Last Filed: 05/05/19 14:05> Is patient prescribed a controlled substance at d/c from ED?: No <Malka Gamez P - Last Filed: 05/06/19 07:31> Clinical Impression: Alcohol intoxication Disposition: HOME SELF-CARE Condition: Stable Instructions (If sedation given, give patient instructions): Alcohol Intoxication (ED) Referrals: None,Stated [Primary Care Provider] - 1-2 days
[2019-05-04 21:39] LABS: Alcohol 224 mg/dL
[2019-05-05] MEDS ORDERED: THIAMINE 100 MG/ML 2 ML VIAL IM STA (00:26)
[2019-05-05] MEDS ORDERED: LORazepam 2 MG/ML INJ IV PRN ×3 (00:26)
[2019-05-05 01:04] LABS: Amphetamine Screen,Urine Not Detected (NotDetected); Barbiturate Screen,Urine Not Detected (NotDetected); Benzodiazepines Screen,Urine Detected (NotDetected); Cocaine Screen,Urine Not Detected (NotDetected); Methadone Screen, Urine Not Detected (NotDetected); Opiate Screen,Urine Not Detected (NotDetected); Oxycodone Screen, Urine Not Detected (NotDetected); Phencyclidine Screen,Urine Not Detected (NotDetected); Tricyclic Antidepressant,Urine Not Detected (NotDetected); Urn Cannabinoid Scrn Not Detected (NotDetected)
[2019-05-05 06:41] VITALS: BP 128/76; PULSE 85; RESP 20; TEMP 98.2
[2019-05-05] MEDS ORDERED: THIAMINE 100 MG TAB PO SCH (17:00)
[2019-05-06] MEDS ORDERED: cloNIDine HCL 0.1 MG TAB PO STA (07:30)
== END 2019-05-05 06:41 | disposition home or self-care (01) ==
LOC: EC 20:18
DX: F10.129 Alcohol abuse with intoxication, unspecified (principal); I25.2 Old myocardial infarction; F17.200 Nicotine dependence, unspecified, uncomplicated; Z88.0 Allergy status to penicillin; Z95.1 Presence of aortocoronary bypass graft; Z95.5 Presence of coronary angioplasty implant and graft
CPT/HCPCS: 36415; 80053; 85025; 80306; 99285; 96372 ×3; G0480; J2060; J1200; J1630; 80320

== ENCOUNTER 2019-05-05 16:45 | Inpatient (IN) | payer MEDICAID, OTHER ==
--- NOTE | 2019-05-05 17:01 | ED ---
General Adult HPI - General Stated complaint: EPS, ETOH Time Seen by Provider: 05/05/19 16:48 - History of Present Illness Initial comments: Dictation was produced using [employer] dictation software. please excuse any grammatical, word or spelling errors. Chief Complaint: 53-year-old male past medical history of homelessness, EtOH abuse presents with suicidal ideation. History of Present Illness: Patient is a 53-year-old male he has multiple comorbidities including coronary artery disease, COPD and hypertension. Patient has history of CABG. He is brought in by EMS for suicidal ideation. Patient is recently seen in the emergency department for EtOH intoxication. At that time is brought in by law enforcement for intoxication. He was discharged from the emergency department. Patient denies any specific plan. He does report attending suicide in the past however is not cooperative enough to provide the details about that. Denies any homicidal ideation. No visual auditory hallucinations. Patient does report drinking EtOH today. Patient also is complaining of chest pain. Patient is a poor historian and says yes to all chest pain related questions. The ROS documented in this emergency department record has been reviewed and confirmed by me. Those systems with pertinent positive or negative responses have been documented in the HPI. All other systems are other negative and/or noncontributory. PHYSICAL EXAM: General Impression: Alert and oriented x3, not in acute distress HEENT: Normocephalic atraumatic, extra-ocular movements intact, pupils equal and reactive to light bilaterally, mucous membranes moist. Cardiovascular: Heart regular rate and rhythm, S1&S2 audible, no murmurs, rubs or gallops Chest: Lungs clear to auscultation bilaterally, no rhonchi, no wheeze, no rales Abdomen: Bowel sounds present, abdomen soft, non-tender, non-distended, no organomegaly Musculoskeletal: Pulses present and equal in all extremities, no peripheral edema Motor: no focal deficits noted Neurological: CN II-XII grossly intact, no focal motor or sensory deficits noted Skin: Intact with no visualized rashes Psych: Normal affect and mood ED course: 53-year-old male presents with suicidal ideation. He has a secondary complaint of chest pain. As upon arrival are within acceptable limits. Physical examination is benign. Patient is unreliable historian however has history of CABG and coronary artery disease. We'll perform cardiac workup. He will also need EPS evaluation. Aside ideation. Breath alcohol test is positive for alcohol.Laboratory evaluation obtained. CBC shows leukocyte was 12.0 likely secondary to stress. Rest of CBC unremarkable. Metabolic panel is unremarkable. No elevation troponin. Patient resting comfortably at bedside. Chest x-ray is nonacute. She is alcohol elevated at 208. Pending clinical sobriety for medical clearance for patient's suicidal ideation.Patient signed out to oncoming physician Dr. Gamez. Patient medically cleared for EPS evaluation. EKG interpretation: Ventricular rate 70, normal sinus rhythm,. 140, care is 96, QTC 449. No GA prolongation, no QTC prolongation, no ST or T-wave changes noted. EKG compared to 05/02/2019 showing no changes. Overall, this EKG is unremarkable - Related Data Home Medications Medication Instructions Recorded Confirmed Metoprolol Tartrate [Lopressor] 12.5 mg PO BID 05/05/19 05/05/19 Previous Rx's Medication Instructions Recorded Aspirin [Adult Low Dose Aspirin EC] 81 mg PO DAILY #30 tablet. 05/04/19 Atorvastatin Calcium [Lipitor] 10 mg PO DAILY 30 Days #30 tab 05/04/19 Allergies Allergy/AdvReac Type Severity Reaction Status Date / Time Penicillins Allergy Unknown Verified 05/05/19 16:50 Childhood Review of Systems ROS Statement: Those systems with pertinent positive or pertinent negative responses have been documented in the HPI. ROS Other: All systems not noted in ROS Statement are negative. Past Medical History Past Medical History: COPD, Hyperlipidemia, Hypertension, Myocardial Infarction ([place]), Seizure Disorder Additional Past Medical History / Comment(s): ISCHEMIC CARDIOMYOPATHY WITH EF 40-45%. 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 Last Myocardial Infarction Date:: 06/12/14 History of Any Multi-Drug Resistant Organisms: None Reported Past Surgical History: Coronary Bypass/CABG, Heart Catheterization With Stent, Hernia Repair, Orthopedic Surgery Additional Past Surgical History / Comment(s): cabg january 2014-3 vessel, Cardiac caths and stenting with last Cardiac cath Jul [address] Cerda. Past Anesthesia/Blood Transfusion Reactions: No Reported Reaction Additional Past Anesthesia/Blood Transfusion Reaction / Comment(s): NO PROBLEM TOLERATING ANESTHESIA. HAS NEVER RECIEVED BLOOD TO HIS KNOWLEDGE. Date of Last Stent Placement:: 06/12/14 Past Psychological History: Anxiety, Panic Disorder, PTSD Smoking Status: Current every day smoker Past Alcohol Use History: Abuse, Daily, Heavy Past Drug Use History: Marijuana - Past Family History Father Family Medical History: Coronary Artery Disease (CAD), Myocardial Infarction ([place]) Additional Family Medical History / Comment(s): FATHER STILL LIVING Mother Family Medical History: Coronary Artery Disease (CAD), Myocardial Infarction ([place]) Additional Family Medical History / Comment(s): MOTHER 09/23/14 of unknown causes. Sister(s) Family Medical History: Myocardial Infarction ([place]) Additional Family Medical History / Comment(s): SISTER OF [place] AT AGE 53 Course Vital Signs 05/05/19 05/05/19 17:06 18:55 Temperature 97.6 F 97.8 F Pulse Rate 69 68 Respiratory 18 18 Rate Blood Pressure 122/66 104/70 O2 Sat by Pulse 98 95 Oximetry Medical Decision Making - Lab Data Result diagrams: 05/05/19 17:06 05/05/19 17:06 Lab Results 05/05/19 05/05/19 05/05/19 Range/Units 17:06 17:06 17:06 WBC 12.0 H (3.8-10.6) k/uL RBC 4.43 (4.30-5.90) m/uL Hgb 13.4 (13.0-17.5) gm/dL Hct 41.6 (39.0-53.0) % MCV 93.9 (80.0-100.0) fL MCH 30.1 (25.0-35.0) pg MCHC 32.1 (31.0-37.0) g/dL RDW 14.4 (11.5-15.5) % Plt Count 283 (150-450) k/uL Neutrophils % 62 % Lymphocytes % 26 % Monocytes % 7 % Eosinophils % 2 % Basophils % 0 % Neutrophils # 7.4 (1.3-7.7) k/uL Lymphocytes # 3.1 (1.0-4.8) k/uL Monocytes # 0.9 (0-1.0) k/uL Eosinophils # 0.3 (0-0.7) k/uL Basophils # 0.0 (0-0.2) k/uL Sodium 144 (137-145) mmol/L Potassium 4.8 (3.5-5.1) mmol/L Chloride 110 H (98-107) mmol/L Carbon Dioxide 26 (22-30) mmol/L Anion Gap 8 mmol/L BUN 13 (9-20) mg/dL Creatinine 0.80 (0.66-1.25) mg/dL Est GFR (CKD-EPI)AfAm >90 (>60 ml/min/1.73 sqM) Est GFR (CKD-EPI)NonAf >90 (>60 ml/min/1.73 sqM) Glucose 85 (74-99) mg/dL Calcium 8.7 (8.4-10.2) mg/dL Troponin I <0.012 (0.000-0.034) ng/mL Urine Opiates Screen (NotDetected) Ur Oxycodone Screen (NotDetected) Urine Methadone Screen (NotDetected) Ur Propoxyphene Screen (NotDetected) Ur Barbiturates Screen (NotDetected) U Tricyclic Antidepress (NotDetected) Ur Phencyclidine Scrn (NotDetected) Ur Amphetamines Screen (NotDetected) U Methamphetamines Scrn (NotDetected) U Benzodiazepines Scrn (NotDetected) Urine Cocaine Screen (NotDetected) U Marijuana (THC) Screen (NotDetected) Serum Alcohol 208 H* mg/dL 05/05/19 Range/Units 17:06 WBC (3.8-10.6) k/uL RBC (4.30-5.90) m/uL Hgb (13.0-17.5) gm/dL Hct (39.0-53.0) % MCV (80.0-100.0) fL MCH (25.0-35.0) pg MCHC (31.0-37.0) g/dL RDW (11.5-15.5) % Plt Count (150-450) k/uL Neutrophils % % Lymphocytes % % Monocytes % % Eosinophils % % Basophils % % Neutrophils # (1.3-7.7) k/uL Lymphocytes # (1.0-4.8) k/uL Monocytes # (0-1.0) k/uL Eosinophils # (0-0.7) k/uL Basophils # (0-0.2) k/uL Sodium (137-145) mmol/L Potassium (3.5-5.1) mmol/L Chloride (98-107) mmol/L Carbon Dioxide (22-30) mmol/L Anion Gap mmol/L BUN (9-20) mg/dL Creatinine (0.66-1.25) mg/dL Est GFR (CKD-EPI)AfAm (>60 ml/min/1.73 sqM) Est GFR (CKD-EPI)NonAf (>60 ml/min/1.73 sqM) Glucose (74-99) mg/dL Calcium (8.4-10.2) mg/dL Troponin I (0.000-0.034) ng/mL Urine Opiates Screen Not Detected (NotDetected) Ur Oxycodone Screen Not Detected (NotDetected) Urine Methadone Screen Not Detected (NotDetected) Ur Propoxyphene Screen Not Detected (NotDetected) Ur Barbiturates Screen Not Detected (NotDetected) U Tricyclic Antidepress Not Detected (NotDetected) Ur Phencyclidine Scrn Not Detected (NotDetected) Ur Amphetamines Screen Not Detected (NotDetected) U Methamphetamines Scrn Not Detected (NotDetected) U Benzodiazepines Scrn Detected H (NotDetected) Urine Cocaine Screen Not Detected (NotDetected) U Marijuana (THC) Screen Not Detected (NotDetected) Serum Alcohol mg/dL Disposition Referrals: None,Stated [Primary Care Provider] - 1-2 days
[2019-05-05 17:15] LABS: Basophils % (A) 0 %; Eosinophils # (A) 0.3 k/uL (0-0.7); Eosinophils % (A) 2 %; HCT 41.6 % (39.0-53.0); HGB 13.4 gm/dL (13.0-17.5); Lymphocytes # (A) 3.1 k/uL (1.0-4.8); Lymphocytes % (A) 26 %; MCH 30.1 pg (25.0-35.0); MCHC 32.1 g/dL (31.0-37.0); MCV 93.9 fL (80.0-100.0); Mean Platelet Volume 6.8; Monocytes # (A) 0.9 k/uL (0-1.0); Monocytes % (A) 7 %; Neutrophils # (A) 7.4 k/uL (1.3-7.7); Neutrophils % (A) 62 %; Platelet Count 283 k/uL (150-450); RBC 4.43 m/uL (4.30-5.90); RDW 14.4 % (11.5-15.5)
[2019-05-05 17:25] LABS: African American GFR (CKD) >90 (>60 ml/min/1.73 sqM); Anion Gap 8 mmol/L; Blood Urea Nitrogen 13 mg/dL (9-20); Calcium 8.7 mg/dL (8.4-10.2); Carbon Dioxide 26 mmol/L (22-30); Chloride 110 mmol/L (98-107); Glucose 85 mg/dL (74-99); Potassium 4.8 mmol/L (3.5-5.1); Sodium 144 mmol/L (137-145)
--- NOTE | 2019-05-05 17:26 | XR ---
EXAMINATION TYPE: XR chest 2V DATE OF EXAM: 05/05/2019 COMPARISON: Chest x-ray 3 days ago. HISTORY: Chest pain and shortness of breath. TECHNIQUE: Frontal and lateral views of the chest are obtained. FINDINGS: Post-CABG changes with mediastinal clips and sternal wires is redemonstrated. 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 The cardiac silhouette size is stable and upper limits of normal. The osseous structures are intact. IMPRESSION: Chronic changes without acute pulmonary process.
[2019-05-05 17:30] LABS: Amphetamine Screen,Urine Not Detected (NotDetected); Barbiturate Screen,Urine Not Detected (NotDetected); Benzodiazepines Screen,Urine Detected (NotDetected); Cocaine Screen,Urine Not Detected (NotDetected); Methadone Screen, Urine Not Detected (NotDetected); Opiate Screen,Urine Not Detected (NotDetected); Oxycodone Screen, Urine Not Detected (NotDetected); Phencyclidine Screen,Urine Not Detected (NotDetected); Tricyclic Antidepressant,Urine Not Detected (NotDetected); Urn Cannabinoid Scrn Not Detected (NotDetected)
[2019-05-05 17:44] LABS: Alcohol 208 mg/dL
[2019-05-06] MEDS ORDERED: ONDANSETRON ODT 4 MG TAB PO STA (02:04)
[2019-05-06] MEDS ORDERED: THIAMINE 100 MG/ML 2 ML VIAL IM STA (03:33)
[2019-05-06] MEDS ORDERED: LORazepam 2 MG/ML INJ IV PRN ×2 (03:33)
[2019-05-06] MEDS ORDERED: THIAMINE 100 MG/ML 2 ML VIAL IM ONE (04:30)
[2019-05-06] MEDS: LORazepam 2 MG/ML INJ IV PRN ×3 (04:39→14:44)
[2019-05-06 04:55] LABS: Appearance,Urine Clear (Clear); Bilirubin,Urine Negative (Negative); Blood,Urine Negative (Negative); Color,Urine Yellow; Glucose,Urine (UA) Negative (Negative); Ketones,Urine Negative (Negative); Leukocyte Esterase,Urine Negative (Negative); Nitrite,Urine Negative (Negative); PH, Urine 6.5 (5.0-8.0); Protein,Urine Negative (Negative); Specific Gravity,Urine 1.014 (1.001-1.035); Urobilinogen,Urine <2.0 mg/dL (<2.0)
[2019-05-06] MEDS: THIAMINE 100 MG TAB PO SCH ×2 (11:40→17:10)
[2019-05-06] MEDS ORDERED: ASPIRIN 81 MG PO STA (14:37)
[2019-05-06] MEDS ORDERED: ATORVASTATIN 20 MG TAB PO STA (14:37)
[2019-05-06] MEDS ORDERED: METOPROLOL TARTRATE 12.5 MG TAB PO STA (14:37)
[2019-05-06 16:26] VITALS: BMI 22.8
[2019-05-06] MEDS ORDERED: MAGNESIUM HYDROXIDE 2,400 MG/10 ML CUP PO PRN (16:34)
[2019-05-06] MEDS ORDERED: MAG HYDROX/AL HYDROX/SIMETH 30 ML CUP PO PRN (16:34)
[2019-05-06] MEDS ORDERED: ZIPRASIDONE 20 MG VIAL IM PRN (16:34)
[2019-05-06] MEDS ORDERED: LORazepam 1 MG TAB PO PRN (17:40)
[2019-05-06] MEDS: METOPROLOL TARTRATE 12.5 MG TAB PO SCH (20:04)
[2019-05-06] MEDS: NICOTINE 14MG/24HR PATCH TRANSDERM SCH (20:04)
--- NOTE | 2019-05-06 23:36 | P.CONS ---
History of Present Illness - Reason for Consult Consult date: 05/06/19 - History of Present Illness The patient is a 53-year-old male with a past medical history of hypertension, COPD, coronary artery disease status post CABG, active tobacco abuse, and alcohol abuse who presented to the ED for alcohol intoxication. The patient had endorsed suicidal ideation and was apparently admitted to the mental health unit for further monitoring. Patient was seen in the mental health unit and was in good spirits, and denied any active complaints. He denied fever, chills, chest pain, shortness breath, nausea, vomiting, or abdominal pain. Review of Systems Pertinent positives and negatives as discussed in HPI, a complete review of systems was performed and all other systems are negative. Past Medical History Past Medical History: COPD, Hyperlipidemia, Hypertension, Myocardial Infarction ([place]), Seizure Disorder Additional Past Medical History / Comment(s): ISCHEMIC CARDIOMYOPATHY WITH EF 40-45%. 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 Last Myocardial Infarction Date:: 06/12/14 History of Any Multi-Drug Resistant Organisms: None Reported Past Surgical History: Coronary Bypass/CABG, Heart Catheterization With Stent, Hernia Repair, Orthopedic Surgery Additional Past Surgical History / Comment(s): cabg january 2014-3 vessel, Cardiac caths and stenting with last Cardiac cath Jul [address] Cerda. Past Anesthesia/Blood Transfusion Reactions: No Reported Reaction Additional Past Anesthesia/Blood Transfusion Reaction / Comm: NO PROBLEM TOLERATING ANESTHESIA. HAS NEVER RECIEVED BLOOD TO HIS KNOWLEDGE. Date of Last Stent Placement:: 06/12/14 Past Psychological History: Anxiety, Panic Disorder, PTSD Additional Psychological History / Comment(s): Patient is homeless, been homeless for 8 months. Living whereever he can Smoking Status: Current every day smoker Past Alcohol Use History: Abuse, Daily, Heavy Additional Past Alcohol Use History / Comment(s): Pt states he drinks more than 14 drinks a week - Past Family History Father Family Medical History: Coronary Artery Disease (CAD), Myocardial Infarction ([place]) Additional Family Medical History / Comment(s): FATHER STILL LIVING Mother Family Medical History: Coronary Artery Disease (CAD), Myocardial Infarction ([place]) Additional Family Medical History / Comment(s): MOTHER 09/23/14 of unknown causes. Sister(s) Family Medical History: Myocardial Infarction ([place]) Additional Family Medical History / Comment(s): SISTER OF [place] AT AGE 53 Medications and Allergies Home Medications Medication Instructions Recorded Confirmed Type Aspirin [Adult Low Dose Aspirin EC] 81 mg PO DAILY #30 tablet. 05/04/19 05/05/19 Rx Atorvastatin Calcium [Lipitor] 10 mg PO DAILY 30 Days #30 tab 05/04/19 05/05/19 Rx Metoprolol Tartrate [Lopressor] 12.5 mg PO BID 05/05/19 05/05/19 History Allergies Allergy/AdvReac Type Severity Reaction Status Date / Time Penicillins Allergy Unknown Verified 05/06/19 16:28 Childhood Physical Exam Vitals: Vital Signs Temp Pulse Pulse Resp BP BP Pulse Ox 05/06/19 16:42 98.1 F 05/06/19 16:19 98.1 F 65 16 138/93 97 05/06/19 14:56 67 18 150/96 95 05/06/19 13:43 77 16 155/97 98 05/06/19 07:25 98.5 F 64 16 140/91 98 05/06/19 06:00 56 L 16 143/107 96 05/06/19 00:49 71 18 143/94 96 Intake and Output 05/06/19 05/06/19 05/07/19 14:59 22:59 06:59 Other: Weight 78.6 kg General: non toxic, no distress, appears at stated age, normal weight Derm: no unusual rashes/lesions no unusual ecchymoses, warm, dry Head: atraumatic, normocephalic, symmetric Eyes: EOMI, no lid lag, anicteric sclera, pupils equal round reactive to light ENT: Nose and ears atraumatic, no thrush, no pharyngeal erythema Neck: No thyromegaly, no cervical lymphadenopathy, trachea midline, supple Mouth: no lip lesion, mucus membranes moist Cardiovascular: S1S2 reg, no murmur, positive posterior tibial pulse bilateral, no edema, capillary refill less than 2 seconds Lungs: CTA bilateral, no rhonchi, no rales , no accessory muscle use Abdominal: soft, nontender to palpation, no guarding, no appreciable organomegaly, normal bowel sounds Ext: no gross muscle atrophy, muscle strength 5 out of 5 in all 4 extremities grossly, no contractures, Neuro: CN II-XI grossly intact, light touch intact all 4 extremities, finger to nose within normal limits, Psych: Alert, oriented, appropriate affect Results CBC & Chem 7: 05/05/19 17:06 05/05/19 17:06 Assessment and Plan Plan: EtOH abuse -Advised patient on importance of cessation -Continue with thiamine and CIWA protocol Active tobacco abuse -Advised patient on importance of cessation -Continue with nicotine patch Hypertension -Resume home medications, Lopressor Hyperlipidemia -Resume home Lipitor Coronary artery disease status post CABG -Continue with aspirin, Lipitor, Lopressor Depression, suicidal ideation -As per psychiatry Thank you for allowing us to participate in the care of this patient. We will follow peripherally. Do not hesitate to contact us with questions. Someone can be reached from the [facility] hospitalist group at all hours of the day at [phone].
[2019-05-07] MEDS: LORazepam 1 MG TAB PO PRN ×2 (05:41→16:56)
[2019-05-07] MEDS: NICOTINE 14MG/24HR PATCH TRANSDERM SCH ×2 (08:27→19:43)
[2019-05-07] MEDS: ATORVASTATIN 10 MG TAB PO SCH (08:28)
[2019-05-07] MEDS: ASPIRIN 81 MG PO SCH (08:28)
[2019-05-07] MEDS: THIAMINE 100 MG TAB PO SCH ×2 (08:28→16:54)
[2019-05-07] MEDS: METOPROLOL TARTRATE 12.5 MG TAB PO SCH ×2 (08:28→19:43)
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
[2019-05-07] MEDS: ACETAMINOPHEN TAB 325 MG TAB PO PRN (18:33)
[2019-05-07 19:49] VITALS: RESP 18
[2019-05-08 06:44] VITALS: TEMP 98
[2019-05-08] MEDS: NICOTINE 14MG/24HR PATCH TRANSDERM SCH (09:34)
[2019-05-08] MEDS: METOPROLOL TARTRATE 12.5 MG TAB PO SCH (09:35)
[2019-05-08] MEDS: ATORVASTATIN 10 MG TAB PO SCH (09:35)
[2019-05-08] MEDS: THIAMINE 100 MG TAB PO SCH (09:35)
[2019-05-08] MEDS: ASPIRIN 81 MG PO SCH (09:36)
[2019-05-08] MEDS: ACETAMINOPHEN TAB 325 MG TAB PO PRN (09:37)
[2019-05-08 09:43] VITALS: BP 115/78; PULSE 81
--- NOTE | 2019-05-08 10:23 | P.DS ---
Providers Date of admission: 05/06/19 15:17 Expected date of discharge: 05/08/19 Attending physician: Dusty Edwards Consults: 05/06/19 16:34 Consult Physician Routine Consulting Provider: Eunice Jacobs Consult Reason/Comments: H&P and medical Do you want consulting provider notified?: Yes Primary care physician: Stated None - Discharge Diagnosis(es) (1) Depression Current Visit: No Status: Acute Priority: High (2) Alcohol use disorder Current Visit: Yes Status: Acute Priority: High Hospital Course: Brief summary of admission note: This patient is a 53-year-old single male was admitted the mental health unit through the emergency room for suicidal ideation. The patient had presented to the emergency room intoxicated with alcohol and described having suicidal thoughts. His alcohol level the emergency room was 208. He reported feeling hopeless and didn't feel safe to leave the hospital. For full details please refer to my psychiatric evaluation dated 05/07/2019. Summary of hospital course: The patient was admitted to the mental health unit voluntarily. We reviewed his presenting symptoms and treatment options. Once sober and admitted to the mental health unit he stated that he was frustrated with recent stressors and really was not suicidal. He was concerned about his financial situation. He was working 7 days a week but that particular job was physically overwhelming. He has been waiting to get placed at another job that he could handle more appropriately. Due to his frustration he had relapsed with alcohol and consumed a fifth just prior to coming in. He was seen by internal medicine for routine history and physical exam. Social work note the patient to complete a psychosocial assessment begin discharge planning. The patient has been pleasant cooperative he has been attending groups. He states he does not wish to have any psychotropic medication prescribed. He states he does not feel that he is clinically depressed and that his depressed mood was just a result of recent circumstances. He initially stated he did not want family involved in a support meeting. He is agreeable to having social work contact family to verify he has some her to stay upon discharge. He is planning on staying with his son temporarily. Mental status exam: The patient is alert he is pleasant cooperative he is dressed in his own clothing. Hygiene and grooming are adequate. Speech is fluent spontaneous nonpressured. He reports his mood is "good". Affect is bright and euthymic. Affect is appropriately expressive. He denies having any current hopelessness thinking he denies having any current suicidal ideation intent or plan. No report of any homicidal ideation intent or plan. He reports no auditory or visual hallucinations or any specific delusions. He demonstrates no observed evidence of psychosis. He demonstrates no tangential thinking loose associations or flight of ideas he does not appear hypomanic or manic. He demonstrates no verbal or physical aggressiveness. Insight and judgment grossly intact. He spontaneously describes future oriented thinking in describing the steps he will take to really obtain employment and how he is looking forward to spending time with his grandson and son. He is oriented to person place and date. Impressions 1. Depression unspecified, rule out major depressive disorder, alcohol use disorder 2. Antisocial personality disorder traits 3. Medical morbidities including coronary artery disease, COPD, hypertension, hyperlipidemia Plan: The patient is being discharged mental health unit today. He plans on residing with his son. He is [facility], social work will arrange his outpatient mental health follow-up. The patient does not wish to have any psychotropic medication prescribed at this time. He does not wish to participate in inpatient chemical dependency treatment. He plans on attending AA groups upon discharge. He is instructed to abstain from alcohol marijuana or any illicit drug as these substances can induce mood and psychotic symptoms and elevate his safety risk. At this time there is no imminent safety risk he is appropriate for transition back to outpatient care. He is instructed to return to the hospital to any safety concerns. Patient Condition at Discharge: Stable Plan - Discharge Summary Discharge Rx Participant: No New Discharge Prescriptions: New Nicotine 14Mg/24Hr Patch [Habitrol] 1 patch TRANSDERM DAILY #14 patch Continue Aspirin [Adult Low Dose Aspirin EC] 81 mg PO DAILY #30 tablet. Atorvastatin Calcium [Lipitor] 10 mg PO DAILY 30 Days #30 tab Metoprolol Tartrate [Lopressor] 12.5 mg PO BID Discharge Medication List Aspirin [Adult Low Dose Aspirin EC] 81 mg PO DAILY #30 tablet. 05/04/19 [Rx] Atorvastatin Calcium [Lipitor] 10 mg PO DAILY 30 Days #30 tab 05/04/19 [Rx] Metoprolol Tartrate [Lopressor] 12.5 mg PO BID 05/05/19 [History] Nicotine 14Mg/24Hr Patch [Habitrol] 1 patch TRANSDERM DAILY #14 patch 05/08/19 [Rx] Follow up Appointment(s)/Referral(s): None,Stated [Primary Care Provider] - 1-2 days
== END 2019-05-08 13:45 | disposition home or self-care (01) | DRG 881 ==
LOC: EC 16:45 → 3MHU 05-06 15:17
PROVIDERS: ADMIT Psychiatry & Neurology Psychiatry; ATTEND Psychiatry & Neurology Psychiatry
DX: F32.9 Major depressive disorder, single episode, unspecified (principal); R45.851 Suicidal ideations; G40.909 Epilepsy, unspecified, not intractable, without status epilepticus; E78.5 Hyperlipidemia, unspecified; F10.129 Alcohol abuse with intoxication, unspecified; F17.200 Nicotine dependence, unspecified, uncomplicated; F41.0 Panic disorder [episodic paroxysmal anxiety]; F43.10 Post-traumatic stress disorder, unspecified; F60.2 Antisocial personality disorder; I10 Essential (primary) hypertension; I25.10 Atherosclerotic heart disease of native coronary artery without angina pectoris; I25.2 Old myocardial infarction; I25.5 Ischemic cardiomyopathy; J44.9 Chronic obstructive pulmonary disease, unspecified; G56.01 Carpal tunnel syndrome, right upper limb; R07.9 Chest pain, unspecified; Z59.0 Homelessness; Z79.82 Long term (current) use of aspirin; Z79.899 Other long term (current) drug therapy; Z91.5 Personal history of self-harm; Z95.1 Presence of aortocoronary bypass graft; Z95.5 Presence of coronary angioplasty implant and graft; Z88.0 Allergy status to penicillin; Z81.8 Family history of other mental and behavioral disorders; Z82.49 Family history of ischemic heart disease and other diseases of the circulatory system; Y90.7 Blood alcohol level of 200-239 mg/100 ml
CPT/HCPCS: 36415; 71046; 80048; 80306; 80320; 81003; 82075; 84484; 85025; 93005; 96372; 96374; 96376; 99285

== ENCOUNTER 2019-07-01 05:28 | Emergency (ER) | payer OTHER ==
[2019-07-01 06:00] LABS: Basophils # (A) 0.1 k/uL (0-0.2); Basophils % (A) 1 %; Eosinophils # (A) 0.7 k/uL (0-0.7); Eosinophils % (A) 9 %; HCT 42.2 % (39.0-53.0); Lymphocytes # (A) 1.6 k/uL (1.0-4.8); Lymphocytes % (A) 20 %; MCHC 33.1 g/dL (31.0-37.0); MCV 90.6 fL (80.0-100.0); Mean Platelet Volume 7.9; Monocytes # (A) 0.4 k/uL (0-1.0); Monocytes % (A) 5 %; Neutrophils # (A) 5.1 k/uL (1.3-7.7); Neutrophils % (A) 63 %; Platelet Count 219 k/uL (150-450); RBC 4.66 m/uL (4.30-5.90); RDW 13.7 % (11.5-15.5); WBC 8.1 k/uL (3.8-10.6)
--- NOTE | 2019-07-01 06:07 | XR ---
EXAM: XR Chest, 2 Views CLINICAL HISTORY: ITS.REASON XR Reason: Chest Pain TECHNIQUE: Frontal and lateral views of the chest. COMPARISON: FINDINGS: Lungs: Unremarkable. No consolidation. Pleural space: Unremarkable. No pneumothorax. Heart: Unremarkable. No cardiomegaly. Mediastinum: Unremarkable. Bones/joints: Sternal wires are again noted IMPRESSION: No acute findings.
[2019-07-01 06:08] LABS: INR 0.9 (<1.2); Partial Thromboplastin Time 24.7 sec (22.0-30.0); Prothrombin Time 9.6 sec (9.0-12.0)
[2019-07-01 06:18] LABS: ALT 17 U/L (21-72); AST 16 U/L (17-59); African American GFR (CKD) >90 (>60 ml/min/1.73 sqM); Alkaline Phosphatase 56 U/L (38-126); Anion Gap 10 mmol/L; Blood Urea Nitrogen 12 mg/dL (9-20); Calcium 9.1 mg/dL (8.4-10.2); Carbon Dioxide 23 mmol/L (22-30); Chloride 106 mmol/L (98-107); Glucose 101 mg/dL (74-99); Magnesium 1.9 mg/dL (1.6-2.3); Potassium 4.5 mmol/L (3.5-5.1); Sodium 139 mmol/L (137-145); Total Bilirubin 0.3 mg/dL (0.2-1.3); Total Protein 6.5 g/dL (6.3-8.2)
--- NOTE | 2019-07-01 06:18 | ED ---
Chest Pain HPI - General Chief Complaint: Chest Pain Stated Complaint: Chest Pain Time Seen by Provider: 07/01/19 06:04 Source: patient, EMS, RN notes reviewed Mode of arrival: EMS Limitations: no limitations - History of Present Illness Initial Comments: 53-year-old male presents emergency Department from correction with chief complaint of left arm pain. Patient states that he woke up around a few hours ago and states that he had some pain in his arm and dissipated and then came back once more. Currently symptoms are improved. Patient states she did have some pain In the shoulder. Patient denies any shortness breath, nausea vomiting. Patient is a primary cardiac disease including [place], bypass surgery. Patient denies any current headache, dizziness. Given aspirin by EMS. - Related Data Home Medications Medication Instructions Recorded Confirmed Metoprolol Tartrate [Lopressor] 12.5 mg PO BID 05/05/19 05/05/19 Previous Rx's Medication Instructions Recorded Aspirin [Adult Low Dose Aspirin EC] 81 mg PO DAILY #30 tablet. 05/04/19 Atorvastatin Calcium [Lipitor] 10 mg PO DAILY 30 Days #30 tab 05/04/19 Nicotine 14Mg/24Hr Patch [Habitrol] 1 patch TRANSDERM DAILY #14 patch 05/08/19 Allergies Allergy/AdvReac Type Severity Reaction Status Date / Time Penicillins Allergy Unknown Verified 07/01/19 05:35 Childhood Review of Systems ROS Statement: Those systems with pertinent positive or pertinent negative responses have been documented in the HPI. ROS Other: All systems not noted in ROS Statement are negative. EKG Findings - EKG Comments: EKG Findings:: EKG performed at 5:43 sinus bradycardia with rate of 54 [place] 176 QRS 96 QT/QTC 446/422 Past Medical History Past Medical History: COPD, Hyperlipidemia, Hypertension, Myocardial Infarction ([place]), Seizure Disorder Additional Past Medical History / Comment(s): ISCHEMIC CARDIOMYOPATHY WITH EF 40-45%. 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 Last Myocardial Infarction Date:: 06/12/14 History of Any Multi-Drug Resistant Organisms: None Reported Past Surgical History: Coronary Bypass/CABG, Heart Catheterization With Stent, Hernia Repair, Orthopedic Surgery Additional Past Surgical History / Comment(s): cabg january 2014-3 vessel, Cardiac caths and stenting with last Cardiac cath Jul [address] Cerda. Past Anesthesia/Blood Transfusion Reactions: No Reported Reaction Additional Past Anesthesia/Blood Transfusion Reaction / Comment(s): NO PROBLEM TOLERATING ANESTHESIA. HAS NEVER RECIEVED BLOOD TO HIS KNOWLEDGE. Date of Last Stent Placement:: 06/12/14 Past Psychological History: Anxiety, Panic Disorder, PTSD Smoking Status: Current every day smoker Past Alcohol Use History: Abuse, Daily, Heavy Past Drug Use History: Marijuana - Past Family History Father Family Medical History: Coronary Artery Disease (CAD), Myocardial Infarction ([place]) Additional Family Medical History / Comment(s): FATHER STILL LIVING Mother Family Medical History: Coronary Artery Disease (CAD), Myocardial Infarction (KS) Additional Family Medical History / Comment(s): MOTHER 09/23/14 of unknown causes. Sister(s) Family Medical History: Myocardial Infarction ([place]) Additional Family Medical History / Comment(s): SISTER OF KS AT AGE 53 General Exam General appearance: alert, in no apparent distress Head exam: Present: atraumatic, normocephalic, normal inspection Eye exam: Present: normal appearance, PERRL, EOMI. Absent: scleral icterus, conjunctival injection, periorbital swelling ENT exam: Present: normal exam, normal oropharynx, mucous membranes moist Neck exam: Present: normal inspection, full ROM. Absent: tenderness, meningismus, lymphadenopathy Respiratory exam: Present: normal lung sounds bilaterally. Absent: respiratory distress, wheezes, rales, rhonchi, stridor Cardiovascular Exam: Present: regular rate, normal rhythm, normal heart sounds. Absent: systolic murmur, diastolic murmur, rubs, gallop, clicks GI/Abdominal exam: Present: soft, normal bowel sounds. Absent: distended, tenderness, guarding, rebound, rigid Neurological exam: Present: alert, oriented X3, CN II-XII intact, reflexes normal. Absent: motor sensory deficit Skin exam: Present: warm, dry, intact, normal color. Absent: rash Course Vital Signs 07/01/19 07/01/19 07/01/19 05:30 06:35 06:40 Temperature 98.3 F Pulse Rate 58 L 50 L Respiratory 18 19 Rate Blood Pressure 144/101 135/104 O2 Sat by Pulse 99 96 Oximetry Chest Pain MDM - MDM 53-year-old male presents emergency from for left arm pain. Patient symptoms more consistent with testicular pain. He has no complaints of chest pain. Labs, EKG unremarkable. Patient will be discharged at this time return parameters were discussed. Disposition Clinical Impression: Cervical radiculopathy, Arm pain Disposition: HOME SELF-CARE Condition: Stable Instructions (If sedation given, give patient instructions): Arm Pain (ED) Additional Instructions: Please return to the Emergency Department if symptoms worsen or any other concerns. Is patient prescribed a controlled substance at d/c from ED?: No Referrals: None,Stated [Primary Care Provider] - 1-2 days Time of Disposition: 07:02
[2019-07-01 07:36] VITALS: BP 144/100; PULSE 59; RESP 16; TEMP 97.8
== END 2019-07-01 07:34 | disposition home or self-care (01) ==
LOC: EC 05:28
DX: M54.12 Radiculopathy, cervical region (principal); M79.602 Pain in left arm; N50.819 Testicular pain, unspecified; I25.2 Old myocardial infarction; F10.10 Alcohol abuse, uncomplicated; F17.200 Nicotine dependence, unspecified, uncomplicated; I10 Essential (primary) hypertension; I25.5 Ischemic cardiomyopathy; Z79.899 Other long term (current) drug therapy; Z88.0 Allergy status to penicillin; Z95.5 Presence of coronary angioplasty implant and graft; Z95.1 Presence of aortocoronary bypass graft; Z87.39 Personal history of other diseases of the musculoskeletal system and connective tissue; Z82.49 Family history of ischemic heart disease and other diseases of the circulatory system
CPT/HCPCS: 36415; 71046; 80053; 83735; 83880; 84484; 85025; 85610; 85730; 93005; 99285

== ENCOUNTER 2020-06-23 13:03 | Inpatient (IN) | payer MEDICAID, OTHER ==
--- NOTE | 2020-06-23 13:33 | ED ---
General Adult HPI - General Chief complaint: Psychiatric Symptoms Stated complaint: Mental Health Time Seen by Provider: 06/23/20 13:05 Source: patient, RN notes reviewed, old records reviewed Mode of arrival: ambulatory Limitations: no limitations - History of Present Illness Initial comments: This is a 54-year-old male whose son brings him to the emergency department to be evaluated. Son states he did this last year and he is known to use methamphe tamine. Patient comes in because he is paranoid and thinks the police were following him he also thinks there is a Caravan of vehicles they keep driving by the house waiting for him to leave so they can get him. Patient also states his been a helicopter flying overhead that is been spying on him as well. Again son states these are all symptoms he has had before when he is doing meth and he believes he is doing meth again. Patient does state he is homeless at this time. Patient states that he has no headache he denies numbness weakness. Patient denies chest pain difficulty breathing shortness of breath. Patient denies abdominal pain patient denies any nausea vomiting diarrhea. Patient denies any recent fever chills or cough. Patient states he believes what he sees even though his son doesn't. - Related Data Home Medications Medication Instructions Recorded Confirmed No Known Home Medications 06/23/20 06/23/20 Allergies Allergy/AdvReac Type Severity Reaction Status Date / Time Penicillins Allergy Unknown Verified 06/23/20 15:58 Childhood Review of Systems ROS Statement: Those systems with pertinent positive or pertinent negative responses have been documented in the HPI. ROS Other: All systems not noted in ROS Statement are negative. Past Medical History Past Medical History: COPD, Hyperlipidemia, Hypertension, Myocardial Infarction ([place]), Seizure Disorder Additional Past Medical History / Comment(s): ISCHEMIC CARDIOMYOPATHY WITH EF 40-45%. 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 Last Myocardial Infarction Date:: 06/12/14 History of Any Multi-Drug Resistant Organisms: None Reported Past Surgical History: Coronary Bypass/CABG, Heart Catheterization With Stent, Hernia Repair, Orthopedic Surgery Additional Past Surgical History / Comment(s): cabg january 2014-3 vessel, Cardiac caths and stenting with last Cardiac cath Jul [address] Cerda. Past Anesthesia/Blood Transfusion Reactions: No Reported Reaction Additional Past Anesthesia/Blood Transfusion Reaction / Comment(s): NO PROBLEM TOLERATING ANESTHESIA. HAS NEVER RECIEVED BLOOD TO HIS KNOWLEDGE. Date of Last Stent Placement:: 06/12/14 Past Psychological History: Anxiety, Panic Disorder, PTSD Smoking Status: Current every day smoker Past Alcohol Use History: Abuse, Daily, Heavy Past Drug Use History: Marijuana - Past Family History Father Family Medical History: Coronary Artery Disease (CAD), Myocardial Infarction ([place]) Additional Family Medical History / Comment(s): FATHER STILL LIVING Mother Family Medical History: Coronary Artery Disease (CAD), Myocardial Infarction ([place]) Additional Family Medical History / Comment(s): MOTHER 09/23/14 of unknown causes. Sister(s) Family Medical History: Myocardial Infarction ([place]) Additional Family Medical History / Comment(s): SISTER OF [place] AT AGE 53 General Exam - General Exam Comments Initial Comments: GENERAL: Patient is well-developed and well-nourished. Patient is nontoxic and well- hydrated and is in mild distress. ENT: Neck is soft and supple. No significant lymphadenopathy is noted. Oropharynx is clear. Moist mucous membranes. Neck has full range of motion without eliciting any pain. EYES: The sclera were anicteric and conjunctiva were pink and moist. Extraocular movements were intact and pupils were equal round and reactive to light. Eyelids were unremarkable. PULMONARY: Unlabored respirations. Good breath sounds bilaterally. No audible rales rhonchi or wheezing was noted. CARDIOVASCULAR: There is a regular rate and rhythm without any murmurs gallops or rubs. ABDOMEN: Soft and nontender with normal bowel sounds. No palpable organomegaly was noted. There is no palpable pulsatile mass. SKIN: Skin is clear with no lesions or rashes and otherwise unremarkable. NEUROLOGIC: Patient is alert and oriented x3. Cranial nerves II through XII are grossly intact. Motor and sensory are also intact. Normal speech, volume and content. Symmetrical smile. MUSCULOSKELETAL: Normal extremities with adequate strength and full range of motion. LYMPHATICS: No significant lymphadenopathy is noted PSYCHIATRIC: Patient is paranoid and thinks there is a [place] vehicles following him as well as he thinks the police are spying on him. Patient also thinks someone is a helicopter following up. Limitations: no limitations Course Vital Signs 06/23/20 06/23/20 06/24/20 13:11 21:00 10:14 Temperature 98.4 F 97.6 F Pulse Rate 117 H 98 Respiratory 20 18 16 Rate Blood Pressure 133/94 120/90 O2 Sat by Pulse 96 97 Oximetry Medical Decision Making - Medical Decision Making Dr. Lobo be taking over the care of this patient at 3 PM I filled out a clinical certification on this patient. Patient will be admitted to the hospital at this point. - Lab Data Result diagrams: 06/23/20 21:50 06/23/20 21:50 Lab Results 06/23/20 06/23/20 06/23/20 Range/Units 15:00 15:00 21:50 WBC 9.8 (3.8-10.6) k/uL RBC 4.22 L (4.30-5.90) m/uL Hgb 14.3 (13.0-17.5) gm/dL Hct 42.6 (39.0-53.0) % MCV 100.8 H (80.0-100.0) fL MCH 33.9 (25.0-35.0) pg MCHC 33.7 (31.0-37.0) g/dL RDW 14.6 (11.5-15.5) % Plt Count 269 (150-450) k/uL Macrocytosis Slight Sodium (137-145) mmol/L Potassium (3.5-5.1) mmol/L Chloride (98-107) mmol/L Carbon Dioxide (22-30) mmol/L Anion Gap mmol/L BUN (9-20) mg/dL Creatinine (0.66-1.25) mg/dL Est GFR (CKD-EPI)AfAm (>60 ml/min/1.73 sqM) Est GFR (CKD-EPI)NonAf (>60 ml/min/1.73 sqM) Glucose (74-99) mg/dL Calcium (8.4-10.2) mg/dL Urine Color Light Brown Urine Appearance Turbid (Clear) Urine pH 5.5 (5.0-8.0) Ur Specific [place] 1.030 (1.001-1.035) Urine Protein 2+ H (Negative) Urine Glucose (UA) Negative (Negative) Urine Ketones 1+ H (Negative) Urine Blood Negative (Negative) Urine Nitrite Negative (Negative) Urine Bilirubin 1+ H (Negative) Urine Urobilinogen 2.0 (<2.0) mg/dL Ur Leukocyte Esterase Negative (Negative) Urine RBC 3 (0-5) /hpf Urine WBC 21 H (0-5) /hpf Ur Squamous Epith Cells 2 (0-4) /hpf Calcium Oxalate Crystal Occasional H (None) /hpf Amorphous Sediment Few H (None) /hpf Urine Bacteria Rare H (None) /hpf Hyaline Casts 431 H (0-2) /lpf Urine Mucus Many H (None) /hpf Urine Opiates Screen Not Detected (NotDetected) Ur Oxycodone Screen Not Detected (NotDetected) Urine Methadone Screen Not Detected (NotDetected) Ur Propoxyphene Screen Not Detected (NotDetected) Ur Barbiturates Screen Not Detected (NotDetected) U Tricyclic Antidepress Not Detected (NotDetected) Ur Phencyclidine Scrn Not Detected (NotDetected) Ur Amphetamines Screen Detected H (NotDetected) U Methamphetamines Scrn Detected H (NotDetected) U Benzodiazepines Scrn Not Detected (NotDetected) Urine Cocaine Screen Not Detected (NotDetected) U Marijuana (THC) Screen Not Detected (NotDetected) 06/23/20 Range/Units 21:50 WBC (3.8-10.6) k/uL RBC (4.30-5.90) m/uL Hgb (13.0-17.5) gm/dL Hct (39.0-53.0) % MCV (80.0-100.0) fL MCH (25.0-35.0) pg MCHC (31.0-37.0) g/dL RDW (11.5-15.5) % Plt Count (150-450) k/uL Macrocytosis Sodium 134 L (137-145) mmol/L Potassium 3.3 L (3.5-5.1) mmol/L Chloride 98 (98-107) mmol/L Carbon Dioxide 26 (22-30) mmol/L Anion Gap 10 mmol/L BUN 21 H (9-20) mg/dL Creatinine 1.35 H (0.66-1.25) mg/dL Est GFR (CKD-EPI)AfAm 68 (>60 ml/min/1.73 sqM) Est GFR (CKD-EPI)NonAf 59 (>60 ml/min/1.73 sqM) Glucose 117 H (74-99) mg/dL Calcium 9.1 (8.4-10.2) mg/dL Urine Color Urine Appearance (Clear) Urine pH (5.0-8.0) Ur Specific [place] (1.001-1.035) Urine Protein (Negative) Urine Glucose (UA) (Negative) Urine Ketones (Negative) Urine Blood (Negative) Urine Nitrite (Negative) Urine Bilirubin (Negative) Urine Urobilinogen (<2.0) mg/dL Ur Leukocyte Esterase (Negative) Urine RBC (0-5) /hpf Urine WBC (0-5) /hpf Ur Squamous Epith Cells (0-4) /hpf Calcium Oxalate Crystal (None) /hpf Amorphous Sediment (None) /hpf Urine Bacteria (None) /hpf Hyaline Casts (0-2) /lpf Urine Mucus (None) /hpf Urine Opiates Screen (NotDetected) Ur Oxycodone Screen (NotDetected) Urine Methadone Screen (NotDetected) Ur Propoxyphene Screen (NotDetected) Ur Barbiturates Screen (NotDetected) U Tricyclic Antidepress (NotDetected) Ur Phencyclidine Scrn (NotDetected) Ur Amphetamines Screen (NotDetected) U Methamphetamines Scrn (NotDetected) U Benzodiazepines Scrn (NotDetected) Urine Cocaine Screen (NotDetected) U Marijuana (THC) Screen (NotDetected) Disposition Clinical Impression: Acute psychosis, Methamphetamine abuse Disposition: TRANSFER TO PSYCH HOSP/UNIT Referrals: None,Stated [Primary Care Provider] - 1-2 days Time of Disposition: 13:17
[2020-06-23 15:26] LABS: Amphetamine Screen,Urine Detected (NotDetected); Barbiturate Screen,Urine Not Detected (NotDetected); Benzodiazepines Screen,Urine Not Detected (NotDetected); Cocaine Screen,Urine Not Detected (NotDetected); Methadone Screen, Urine Not Detected (NotDetected); Opiate Screen,Urine Not Detected (NotDetected); Oxycodone Screen, Urine Not Detected (NotDetected); Phencyclidine Screen,Urine Not Detected (NotDetected); Tricyclic Antidepressant,Urine Not Detected (NotDetected); Urn Cannabinoid Scrn Not Detected (NotDetected)
[2020-06-23] MEDS ORDERED: LORazepam 2 MG/ML INJ IM STA (20:52)
[2020-06-23] MEDS ORDERED: ACETAMINOPHEN TAB 325 MG TAB PO STA (21:18)
[2020-06-23] MEDS ORDERED: NICOTINE 21MG/24HR PATCH TRANSDERM STA (21:18)
[2020-06-23 21:57] LABS: HCT 42.6 % (39.0-53.0); HGB 14.3 gm/dL (13.0-17.5); MCH 33.9 pg (25.0-35.0); MCHC 33.7 g/dL (31.0-37.0); MCV 100.8 fL (80.0-100.0); Macrocytosis Slight; Mean Platelet Volume 8.3; Platelet Count 269 k/uL (150-450); RBC 4.22 m/uL (4.30-5.90); RDW 14.6 % (11.5-15.5); WBC 9.8 k/uL (3.8-10.6)
[2020-06-23 22:10] LABS: Calcium 9.1 mg/dL (8.4-10.2); Potassium 3.3 mmol/L (3.5-5.1)
[2020-06-23 22:36] LABS: Amorphous Sediment,Urine Few /hpf; Appearance,Urine Turbid (Clear); Bacteria,Urine Rare /hpf; Bilirubin,Urine 1+ (Negative); Blood,Urine Negative (Negative); Calcium Oxalate Crystals,Urine Occasional /hpf; Color,Urine Light Brown; Glucose,Urine (UA) Negative (Negative); Hyaline Casts,Urine 431 /lpf (0-2); Ketones,Urine 1+ (Negative); Leukocyte Esterase,Urine Negative (Negative); Mucus,Urine Many /hpf; Nitrite,Urine Negative (Negative); PH, Urine 5.5 (5.0-8.0); Protein,Urine 2+ (Negative); RBC,Urine 3 /hpf (0-5); Squamous Epithelial Cell,Urine 2 /hpf (0-4); WBC,Urine 21 /hpf (0-5)
[2020-06-24] MEDS ORDERED: NICOTINE 21MG/24HR PATCH TRANSDERM STA (13:40)
[2020-06-24] MEDS ORDERED: LORazepam 1 MG TAB PO STA (14:03)
[2020-06-24] MEDS ORDERED: ZIPRASIDONE 20 MG VIAL IM PRN (14:50)
[2020-06-24] MEDS ORDERED: MAG HYDROX/AL HYDROX/SIMETH 30 ML CUP PO PRN (14:50)
[2020-06-24] MEDS ORDERED: LORazepam 1 MG TAB PO PRN (14:50)
[2020-06-24] MEDS ORDERED: MAGNESIUM HYDROXIDE 2,400 MG/10 ML CUP PO PRN (14:50)
[2020-06-24] MEDS ORDERED: POTASSIUM CHLORIDE ER 20 MEQ TAB.ER PO STA (16:43)
--- NOTE | 2020-06-24 16:50 | P.CONS ---
History of Present Illness - Reason for Consult Consult date: 06/24/20 Medical management - Chief Complaint Psychosis - History of Present Illness This is a 54-year-old male with past medical history significant for alcohol and polysubstance abuse including methamphetamine who was brought into the ER by his son with paranoia and audible and visual hallucination. Patient is currently admitted to the psych unit. I was asked to see him for medical management. Patient does not have any specific concerns or complaints. He told me that he has not been taking any of his medications for the past 6 months. He is known to have a history of coronary artery disease status post CABG in the past. Continue to smoke 2 packs per cigarettes per day. Review of Systems Review of system: 14 points review of systems were obtained and were negative except to what were mentioned in the HPI. Past Medical History Past Medical History: COPD, Hyperlipidemia, Hypertension, Myocardial Infarction ([place]), Seizure Disorder Additional Past Medical History / Comment(s): ISCHEMIC CARDIOMYOPATHY WITH EF 40-45%. 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 Last Myocardial Infarction Date:: 06/12/14 History of Any Multi-Drug Resistant Organisms: None Reported Past Surgical History: Coronary Bypass/CABG, Heart Catheterization With Stent, Hernia Repair, Orthopedic Surgery Additional Past Surgical History / Comment(s): cabg january 2014-3 vessel, Cardiac caths and stenting with last Cardiac cath Jul [address] Cerda. Past Anesthesia/Blood Transfusion Reactions: No Reported Reaction Additional Past Anesthesia/Blood Transfusion Reaction / Comm: NO PROBLEM TOLERATING ANESTHESIA. HAS NEVER RECIEVED BLOOD TO HIS KNOWLEDGE. Date of Last Stent Placement:: 06/12/14 Past Psychological History: Anxiety, Panic Disorder, PTSD Smoking Status: Current every day smoker Past Alcohol Use History: Abuse, Daily, Heavy Past Drug Use History: Marijuana - Past Family History Father Family Medical History: Coronary Artery Disease (CAD), Myocardial Infarction ([place]) Additional Family Medical History / Comment(s): FATHER STILL LIVING Mother Family Medical History: Coronary Artery Disease (CAD), Myocardial Infarction ([place]) Additional Family Medical History / Comment(s): MOTHER 09/23/14 of unknown causes. Sister(s) Family Medical History: Myocardial Infarction ([place]) Additional Family Medical History / Comment(s): SISTER OF [place] AT AGE 53 Medications and Allergies Home Medications Medication Instructions Recorded Confirmed Type No Known Home Medications 06/23/20 06/23/20 History Allergies Allergy/AdvReac Type Severity Reaction Status Date / Time Penicillins Allergy Unknown Verified 06/23/20 15:58 Childhood Physical Exam Vitals: Vital Signs Temp Pulse Pulse Resp BP BP Pulse Ox 06/24/20 16:27 81 129/91 06/24/20 14:45 97.4 F L 94 16 164/117 96 06/24/20 10:14 97.6 F 98 16 120/90 97 06/23/20 21:00 18 General: The patient is awake and alert, in no distress Eye: there is normal conjunctiva bilaterally. Neck: The neck is supple, there is no JVD. Cardiovascular: Normal S1-S2, no S3-S4, no murmurs. Respiratory: Lungs clear to auscultation bilaterally Gastrointestinal: Abdomen is soft, nontender Musculoskeletal: There is no pedal edema. Neurological:. Speech is normal. Skin: Skin is warm and dry Results CBC & Chem 7: 06/23/20 21:50 06/23/20 21:50 Labs: Abnormal Lab Results - Last 24 Hours (Table) 06/23/20 06/23/20 06/23/20 Range/Units 15:00 21:50 21:50 RBC 4.22 L (4.30-5.90) m/uL MCV 100.8 H (80.0-100.0) fL Sodium 134 L (137-145) mmol/L Potassium 3.3 L (3.5-5.1) mmol/L BUN 21 H (9-20) mg/dL Creatinine 1.35 H (0.66-1.25) mg/dL Glucose 117 H (74-99) mg/dL Urine Protein 2+ H (Negative) Urine Ketones 1+ H (Negative) Urine Bilirubin 1+ H (Negative) Urine WBC 21 H (0-5) /hpf Calcium Oxalate Crystal Occasional H (None) /hpf Amorphous Sediment Few H (None) /hpf Urine Bacteria Rare H (None) /hpf Hyaline Casts 431 H (0-2) /lpf Urine Mucus Many H (None) /hpf Assessment and Plan Assessment: 1. Coronary artery disease with history of CABG and PCI's, I would restart patient on aspirin 81 mg daily and metoprolol 25 mg twice daily 2. Essential hypertension, blood pressure not well controlled. Started on metoprolol. Continue to monitor closely. 3. Hyperlipidemia, I would restart Lipitor 40 mg daily at bedtime 4. Acute kidney injury: Encouraged oral hydration. Repeat BMP in the morning 5. Hypokalemia: Replaced. Repeat BMP in the morning 6. Tobacco abuse: Counseled extensively to quit. Nicotine patch ordered Patient was counseled extensively regarding medication compliance. Thank you very much for the consultation.
[2020-06-24] MEDS: METOPROLOL TARTRATE 25 MG TAB PO SCH (19:44)
[2020-06-24] MEDS: ATORVASTATIN 40 MG TAB PO SCH (20:55)
[2020-06-24] MEDS: ACETAMINOPHEN TAB 325 MG TAB PO PRN (20:55)
[2020-06-25] MEDS: ACETAMINOPHEN TAB 325 MG TAB PO PRN ×3 (08:46→19:29)
[2020-06-25] MEDS: NICOTINE 21MG/24HR PATCH TRANSDERM SCH (08:46)
[2020-06-25] MEDS: METOPROLOL TARTRATE 25 MG TAB PO SCH ×2 (08:46→19:30)
[2020-06-25] MEDS: ASPIRIN 81 MG PO SCH (08:46)
[2020-06-25 09:20] LABS: African American GFR (CKD) >90 (>60 ml/min/1.73 sqM); Anion Gap 6 mmol/L; Blood Urea Nitrogen 18 mg/dL (9-20); Calcium 8.9 mg/dL (8.4-10.2); Carbon Dioxide 29 mmol/L (22-30); Chloride 98 mmol/L (98-107); Glucose 102 mg/dL (74-99); Non-African American GFR(CKD) >90 (>60 ml/min/1.73 sqM); Potassium 3.7 mmol/L (3.5-5.1); Sodium 133 mmol/L (137-145)
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
[2020-06-25] MEDS: THIAMINE 100 MG TAB PO SCH (12:30)
[2020-06-25] MEDS: FOLIC ACID 1 MG TAB PO SCH (12:30)
[2020-06-25] MEDS: MULTIVITAMINS, THERA 1 EACH TAB PO SCH (12:30)
[2020-06-25] MEDS: PALIPERIDONE 3 MG TAB.ER.24 PO SCH (12:31)
[2020-06-25] MEDS: ATORVASTATIN 40 MG TAB PO SCH (19:29)
[2020-06-25] MEDS ORDERED: QUEtiapine 50 MG TAB PO SCH (21:00)
[2020-06-25] MEDS ORDERED: PALIPERIDONE 3 MG TAB.ER.24 PO SCH (21:00)
[2020-06-26] MEDS: FOLIC ACID 1 MG TAB PO SCH (09:09)
[2020-06-26] MEDS: ASPIRIN 81 MG PO SCH (09:09)
[2020-06-26] MEDS: METOPROLOL TARTRATE 25 MG TAB PO SCH ×2 (09:09→21:07)
[2020-06-26] MEDS: NICOTINE 21MG/24HR PATCH TRANSDERM SCH (09:09)
[2020-06-26] MEDS: IBUPROFEN 800 MG TAB PO PRN ×2 (09:09→21:09)
[2020-06-26] MEDS: MULTIVITAMINS, THERA 1 EACH TAB PO SCH (09:09)
[2020-06-26] MEDS: THIAMINE 100 MG TAB PO SCH (09:09)
[2020-06-26] MEDS: PALIPERIDONE 3 MG TAB.ER.24 PO SCH (09:09)
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
[2020-06-26] MEDS: ACETAMINOPHEN TAB 325 MG TAB PO PRN ×2 (14:46→22:09)
[2020-06-26] MEDS ORDERED: MELATONIN 5 MG TABLET PO SCH (21:00)
[2020-06-26] MEDS: ATORVASTATIN 40 MG TAB PO SCH (21:08)
[2020-06-27] MEDS: NICOTINE 21MG/24HR PATCH TRANSDERM SCH (08:35)
[2020-06-27] MEDS: FOLIC ACID 1 MG TAB PO SCH (08:35)
[2020-06-27] MEDS: THIAMINE 100 MG TAB PO SCH (08:35)
[2020-06-27] MEDS: MULTIVITAMINS, THERA 1 EACH TAB PO SCH (08:35)
[2020-06-27] MEDS: METOPROLOL TARTRATE 25 MG TAB PO SCH ×2 (08:35→20:56)
[2020-06-27] MEDS: PALIPERIDONE 3 MG TAB.ER.24 PO SCH (08:35)
[2020-06-27] MEDS: ASPIRIN 81 MG PO SCH (08:35)
[2020-06-27] MEDS: IBUPROFEN 800 MG TAB PO PRN ×2 (08:36→15:51)
--- NOTE | 2020-06-27 11:29 | P.PN ---
Progress Note - Text Progress Note Date: 06/27/20 Interval History: Patient was seen wandering the hallways after being seen by internal medicine and was directable and agreeable to speak with pattern chart writer in the office. Patient claims that he is feeling mildly better today. He continues to state that he did not sleep well last night and only slept 2-3 hours as he has been thinking about all the things he needs to accomplish when he leaves here. He claims that his mood has been improving mildly with the medications and denies any paranoia at this time. He was less preoccupied with discharge today and was more calm and cooperative. He states that he is continuing to feel pain on his foot and claims it is most likely related to a sunburn. His insight and judgment have been improving mildly. He states that he is been eating his meals and has a fair energy level. At this time patient denies any suicidal or homical ideations, intent or plan. Patient denies any auditory, visual hallucinations. Patient denies any side effects from the medications and has been compliant with meds. Mental Status Exam: General Appearance: Patient appears to be stated age is alert, less guarded today, more directable. Patient appears to have poor hygiene and grooming. Behavior: Patient is seated without any agitated behavior. More directable today. Speech: Patient's speech is fluent and nonpressured. Mood/Affect: Patient reports their mood is "ok", affect is congruent and constricted. Suicidality/Homicidality: Patient denies having any homicidal ideation intent or plan. Denies any suicidal ideations intent or plan Perceptions: Patient denies any visual hallucinations and denies any auditory hallucinations Though content/process: There is no evidence of any delusional thought content and thought process is linear and goal-directed. Less paranoia. Less preoccupied with discharge. Memory and concentration: AOX3, grossly intact for the purposes of this session Judgment and insight: poor, improving mildly Assessment Psychosis unspecified, rule out secondary to methamphetamine abuse Methamphetamine use disorder Cannabis abuse Alcohol dependence Nicotine dependence Plan: -Patient continues to meet criteria for inpatient psychiatric admission for symptom stabilization and safety. Patient has signed medication consent and was placed in patient's chart. Patient ended up deferring court. -Medications: Continue with paliperidone 3 mg daily for psychosis/paranoia. Increased melatonin 10 mg daily at bedtime for insomnia. -thiamine, MVM for etoh use -CIWA protocol with Ativan PRN for ETOH withdrawal -When necessary Ativan and Geodon for agitation/aggression. -NRT - nicotine patch -SW on board for discharge planning. Encouraged the patient to participate in milieu. Likely discharge early next week as patient deferred court. Patient at this time is declining inpatient rehab and family welfare social work professor to speak with patient about housing options and long term.
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
[2020-06-27 12:24] LABS: HCT 40.5 % (39.0-53.0); HGB 13.3 gm/dL (13.0-17.5); MCH 34.8 pg (25.0-35.0); MCV 105.4 fL (80.0-100.0); Macrocytosis Moderate; Mean Platelet Volume 8.7; Platelet Count 233 k/uL (150-450); RBC 3.84 m/uL (4.30-5.90); RDW 14.5 % (11.5-15.5)
[2020-06-27 12:43] LABS: African American GFR (CKD) >90 (>60 ml/min/1.73 sqM); Anion Gap 4 mmol/L; Blood Urea Nitrogen 17 mg/dL (9-20); Calcium 8.6 mg/dL (8.4-10.2); Carbon Dioxide 27 mmol/L (22-30); Chloride 104 mmol/L (98-107); Glucose 100 mg/dL (74-99); Non-African American GFR(CKD) >90 (>60 ml/min/1.73 sqM); Potassium 4.5 mmol/L (3.5-5.1); Sodium 135 mmol/L (137-145)
[2020-06-27] MEDS: MELATONIN 5 MG TABLET PO SCH (20:56)
[2020-06-27] MEDS: ATORVASTATIN 40 MG TAB PO SCH (20:56)
[2020-06-27] MEDS ORDERED: cloNIDine HCL 0.1 MG TAB PO PRN (22:29)
[2020-06-28] MEDS: IBUPROFEN 800 MG TAB PO PRN ×2 (08:21→16:28)
[2020-06-28] MEDS: MULTIVITAMINS, THERA 1 EACH TAB PO SCH (08:22)
[2020-06-28] MEDS: THIAMINE 100 MG TAB PO SCH (08:22)
[2020-06-28] MEDS: ASPIRIN 81 MG PO SCH (08:22)
[2020-06-28] MEDS: NICOTINE 21MG/24HR PATCH TRANSDERM SCH (08:22)
[2020-06-28] MEDS: PALIPERIDONE 3 MG TAB.ER.24 PO SCH (08:22)
[2020-06-28] MEDS: FOLIC ACID 1 MG TAB PO SCH (08:22)
[2020-06-28] MEDS: METOPROLOL TARTRATE 50 MG TAB PO SCH ×2 (08:22→21:36)
--- NOTE | 2020-06-28 10:13 | P.PN ---
Progress Note - Text Progress Note Date: 06/28/20 Interval History: Patient was seen lying in his bed today and was directable and agreeable to nemesio orosco with senior copywriter in the office. Patient claims that he is feeling mildly better today however was complaining about his roommate and also not being able to sleep well last night. He states he continues to only get 2-3 hours a night. Consulting Database Administrator spoke with patient about options for medication helpful with sleep and patient was agreeable to start a low dose of trazodone. He claims that his mood has been improving mildly with the medications and denies any paranoia at this time. He states that he is going to some groups. His insight and judgment have been improving mildly. He states that he is been eating his meals and has a fair energy level. At this time patient denies any suicidal or homical ideations, intent or plan. Patient denies any auditory, visual hallucinations. Patient denies any side effects from the medications and has been compliant with meds. Mental Status Exam: General Appearance: Patient appears to be stated age is alert, less guarded today, more directable. Patient appears to have poor hygiene and grooming. Behavior: Patient is seated without any agitated behavior. More directable today. Speech: Patient's speech is fluent and nonpressured. Mood/Affect: Patient reports their mood is "fine", affect is congruent and constricted. Suicidality/Homicidality: Patient denies having any homicidal ideation intent or plan. Denies any suicidal ideations intent or plan Perceptions: Patient denies any visual hallucinations and denies any auditory hallucinations Though content/process: There is no evidence of any delusional thought content and thought process is linear and goal-directed. Less paranoia. Less preoccupied with discharge. Memory and concentration: AOX3, grossly intact for the purposes of this session Judgment and insight: poor, improving mildly Assessment Psychosis unspecified, rule out secondary to methamphetamine abuse Methamphetamine use disorder Cannabis abuse Alcohol dependence Nicotine dependence Plan: -Patient continues to meet criteria for inpatient psychiatric admission for symptom stabilization and safety. Patient has signed medication consent and was placed in patient's chart. Patient ended up deferring court. -Medications: Continue with paliperidone 3 mg daily for psychosis/paranoia. Continue with melatonin 10 mg daily at bedtime for insomnia. Added 25 mg trazodone daily at bedtime for insomnia. -thiamine, MVM for etoh use -CIWA protocol with Ativan PRN for ETOH withdrawal -Patient is using cream as prescribed by internal medicine for sunburn on his foot. We'll continue to monitor. -When necessary Ativan and Juandon for agitation/aggression. -NRT - nicotine patch -SW on board for discharge planning. Encouraged the patient to participate in milieu. Likely discharge early next week as patient deferred court.
[2020-06-28] MEDS: ATORVASTATIN 40 MG TAB PO SCH (21:36)
[2020-06-28] MEDS: MELATONIN 5 MG TABLET PO SCH (21:36)
[2020-06-28] MEDS: traZODone HCL 50 MG TAB PO SCH (21:38)
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
[2020-06-29] MEDS: PALIPERIDONE 3 MG TAB.ER.24 PO SCH (09:50)
[2020-06-29] MEDS: METOPROLOL TARTRATE 50 MG TAB PO SCH ×2 (09:50→20:05)
[2020-06-29] MEDS: ASPIRIN 81 MG PO SCH (09:50)
[2020-06-29] MEDS: MULTIVITAMINS, THERA 1 EACH TAB PO SCH (09:50)
[2020-06-29] MEDS: FOLIC ACID 1 MG TAB PO SCH (09:50)
[2020-06-29] MEDS: NICOTINE 21MG/24HR PATCH TRANSDERM SCH (09:50)
[2020-06-29] MEDS: THIAMINE 100 MG TAB PO SCH (09:50)
[2020-06-29] MEDS: traZODone HCL 50 MG TAB PO SCH (20:05)
[2020-06-29] MEDS: IBUPROFEN 800 MG TAB PO PRN (20:06)
[2020-06-29] MEDS: MELATONIN 5 MG TABLET PO SCH (20:06)
[2020-06-29] MEDS: ATORVASTATIN 40 MG TAB PO SCH (20:06)
[2020-06-30 06:46] VITALS: TEMP 98.2
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
[2020-06-30] MEDS: THIAMINE 100 MG TAB PO SCH (09:31)
[2020-06-30] MEDS: PALIPERIDONE 3 MG TAB.ER.24 PO SCH (09:31)
[2020-06-30] MEDS: NICOTINE 21MG/24HR PATCH TRANSDERM SCH (09:31)
[2020-06-30] MEDS: MULTIVITAMINS, THERA 1 EACH TAB PO SCH (09:31)
[2020-06-30] MEDS: ASPIRIN 81 MG PO SCH (09:31)
[2020-06-30] MEDS: METOPROLOL TARTRATE 50 MG TAB PO SCH (09:31)
[2020-06-30] MEDS: FOLIC ACID 1 MG TAB PO SCH (09:31)
[2020-06-30] MEDS: IBUPROFEN 800 MG TAB PO PRN (09:31)
[2020-06-30 09:36] VITALS: BP 127/92; PULSE 75; RESP 18
== END 2020-06-30 10:17 | disposition home or self-care (01) | DRG 885 ==
LOC: EC 13:03 → 3MHU 06-24 14:18
PROVIDERS: ADMIT Psychiatry & Neurology Psychiatry; ATTEND Psychiatry & Neurology Psychiatry
DX: F23 Brief psychotic disorder (principal); N17.9 Acute kidney failure, unspecified; G40.909 Epilepsy, unspecified, not intractable, without status epilepticus; F10.20 Alcohol dependence, uncomplicated; F15.10 Other stimulant abuse, uncomplicated; J44.9 Chronic obstructive pulmonary disease, unspecified; I25.2 Old myocardial infarction; I10 Essential (primary) hypertension; E78.5 Hyperlipidemia, unspecified; I25.5 Ischemic cardiomyopathy; G56.01 Carpal tunnel syndrome, right upper limb; F17.210 Nicotine dependence, cigarettes, uncomplicated; F32.9 Major depressive disorder, single episode, unspecified; I25.10 Atherosclerotic heart disease of native coronary artery without angina pectoris; F12.10 Cannabis abuse, uncomplicated; F43.10 Post-traumatic stress disorder, unspecified; F41.0 Panic disorder [episodic paroxysmal anxiety]; E87.6 Hypokalemia; G47.00 Insomnia, unspecified; L55.0 Sunburn of first degree; R45.87 Impulsiveness; Z71.6 Tobacco abuse counseling; Z59.0 Homelessness; Z95.1 Presence of aortocoronary bypass graft; Z95.5 Presence of coronary angioplasty implant and graft; Z98.890 Other specified postprocedural states; Z88.0 Allergy status to penicillin; Z82.49 Family history of ischemic heart disease and other diseases of the circulatory system; Z81.8 Family history of other mental and behavioral disorders
CPT/HCPCS: 36415; 80048; 80306; 81001; 82075; 85027; 96372; 99285

== ENCOUNTER 2020-07-22 18:43 | Observation (INO) | payer OTHER ==
[2020-07-22 19:17] LABS: Basophils # (A) 0.1 k/uL (0-0.2); Basophils % (A) 1 %; Eosinophils # (A) 0.9 k/uL (0-0.7); Eosinophils % (A) 8 %; HGB 14.6 gm/dL (13.0-17.5); Lymphocytes # (A) 2.4 k/uL (1.0-4.8); Lymphocytes % (A) 22 %; MCH 32.9 pg (25.0-35.0); MCHC 32.4 g/dL (31.0-37.0); MCV 101.5 fL (80.0-100.0); Macrocytosis Slight; Mean Platelet Volume 8.3; Monocytes # (A) 0.4 k/uL (0-1.0); Monocytes % (A) 4 %; Neutrophils % (A) 64 %; Platelet Count 286 k/uL (150-450); RBC 4.43 m/uL (4.30-5.90); RDW 13.3 % (11.5-15.5); WBC 10.9 k/uL (3.8-10.6)
[2020-07-22] MEDS ORDERED: ASPIRIN 81 MG PO STA (19:22)
[2020-07-22] MEDS ORDERED: NITROGLYCERIN SL TABS 0.4 MG TAB SUBLINGUAL STA (19:22)
[2020-07-22 19:29] LABS: ALT 19 U/L (4-49); AST 21 U/L (17-59); African American GFR (CKD) >90 (>60 ml/min/1.73 sqM); Albumin 4.3 g/dL (3.5-5.0); Alkaline Phosphatase 62 U/L (38-126); Anion Gap 8 mmol/L; Blood Urea Nitrogen 13 mg/dL (9-20); Calcium 9.4 mg/dL (8.4-10.2); Carbon Dioxide 23 mmol/L (22-30); Chloride 107 mmol/L (98-107); Glucose 86 mg/dL (74-99); Magnesium 1.9 mg/dL (1.6-2.3); Non-African American GFR(CKD) >90 (>60 ml/min/1.73 sqM); Potassium 4.2 mmol/L (3.5-5.1); Sodium 138 mmol/L (137-145); Total Bilirubin 0.3 mg/dL (0.2-1.3); Total Protein 6.7 g/dL (6.3-8.2)
--- NOTE | 2020-07-22 19:47 | XR ---
EXAMINATION TYPE: XR chest 2V DATE OF EXAM: 07/22/2020 COMPARISON: 07/01/2019 HISTORY: Chest pain TECHNIQUE: FINDINGS: Heart is normal. Lungs are clear. Costophrenic angles are clear. There are no hilar masses. There are chest leads. There are sternal wires. IMPRESSION: No active cardiopulmonary disease. Normal heart. No change.
[2020-07-22 19:49] LABS: D-Dimer 0.36 mg/L FEU (<0.60); INR 0.9 (<1.2); Partial Thromboplastin Time 23.3 sec (22.0-30.0); Prothrombin Time 9.5 sec (9.0-12.0)
[2020-07-22] MEDS ORDERED: HEPARIN SODIUM,PORCINE 5,000 UNIT/ML 1 ML VIAL IV PRN (20:22)
[2020-07-22] MEDS ORDERED: HEPARIN SODIUM,PORCINE 5,000 UNIT/ML 1 ML VIAL IV ONE (20:22)
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
[2020-07-22] MEDS ORDERED: NALOXONE 0.4 MG/ML 1 ML VIAL IV PRN (20:25)
[2020-07-22] MEDS ORDERED: HEPARIN SOD,PORK IN 0.45% NACL 25,000 UNIT in 0.45% NACL 1 250ML.BAG IV SCH (20:30)
[2020-07-22] MEDS ORDERED: LABETALOL 5 MG/ML VIAL MDV IVP STA (20:38)
[2020-07-22] MEDS: ATORVASTATIN 40 MG TAB PO SCH (22:26)
[2020-07-22] MEDS: METOPROLOL TARTRATE 50 MG TAB PO SCH (22:26)
[2020-07-22] MEDS: MELATONIN 5 MG TABLET PO SCH (22:26)
[2020-07-22] MEDS: traZODone HCL 50 MG TAB PO SCH (22:27)
[2020-07-23 07:30] LABS: Basophils # (A) 0.1 k/uL (0-0.2); Basophils % (A) 1 %; Eosinophils # (A) 0.8 k/uL (0-0.7); Eosinophils % (A) 9 %; HCT 43.3 % (39.0-53.0); HGB 14.2 gm/dL (13.0-17.5); Lymphocytes # (A) 1.8 k/uL (1.0-4.8); Lymphocytes % (A) 20 %; MCH 32.9 pg (25.0-35.0); MCHC 32.7 g/dL (31.0-37.0); MCV 100.6 fL (80.0-100.0); Mean Platelet Volume 7.9; Monocytes # (A) 0.4 k/uL (0-1.0); Monocytes % (A) 5 %; Neutrophils # (A) 5.6 k/uL (1.3-7.7); Neutrophils % (A) 64 %; Platelet Count 239 k/uL (150-450); RDW 13.3 % (11.5-15.5); WBC 8.7 k/uL (3.8-10.6)
[2020-07-23 07:41] LABS: African American GFR (CKD) >90 (>60 ml/min/1.73 sqM); Anion Gap 2 mmol/L; Blood Urea Nitrogen 13 mg/dL (9-20); Calcium 8.7 mg/dL (8.4-10.2); Carbon Dioxide 28 mmol/L (22-30); Chloride 106 mmol/L (98-107); Glucose 114 mg/dL (74-99); Non-African American GFR(CKD) >90 (>60 ml/min/1.73 sqM); Potassium 4.2 mmol/L (3.5-5.1); Sodium 136 mmol/L (137-145)
[2020-07-23 07:46] LABS: INR 0.9 (<1.2); Prothrombin Time 9.9 sec (9.0-12.0)
[2020-07-23] MEDS ORDERED: SODIUM CHLORIDE 0.9% 1,000 ML in EMPTY BAG 1 BAG IV ONE (08:29)
[2020-07-23] MEDS ORDERED: ALPRAZolam 0.5 MG TAB PO PRN (08:29)
[2020-07-23] MEDS ORDERED: ASPIRIN 325 MG TAB PO STA (08:29)
[2020-07-23] MEDS ORDERED: ALPRAZolam 0.25 MG TAB PO PRN (08:29)
[2020-07-23] MEDS: ASPIRIN 81 MG PO SCH (09:00)
[2020-07-23] MEDS: MULTIVITAMINS, THERA 1 EACH TAB PO SCH (09:14)
[2020-07-23] MEDS: FOLIC ACID 1 MG TAB PO SCH (09:14)
[2020-07-23] MEDS: THIAMINE 100 MG TAB PO SCH (09:14)
[2020-07-23] MEDS: PALIPERIDONE 3 MG TAB.ER.24 PO SCH (09:14)
[2020-07-23] MEDS: NICOTINE 21MG/24HR PATCH TRANSDERM SCH (09:14)
[2020-07-23] MEDS: METOPROLOL TARTRATE 50 MG TAB PO SCH ×2 (09:14→21:08)
--- NOTE | 2020-07-23 10:09 | P.CRDCN ---
History of Present Illness History of present illness: HISTORY OF PRESENTING ILLNESS This is a pleasant 54-year-old male past medical history significant for coronary artery disease with prior history of myocardial infarction, PCI to the circumflex and OM graft of the circumflex, bypass grafting 2013, hypertension, dyslipidemia, ischemic cardiomyopathy, chronic systolic heart failure, history of heavy alcohol abuse and chronic nicotine dependence. He does not follow regularly in the office with certified breastfeeding educator. His last office vis it was [address] De Paz. We have been asked to see in consultation for chest pain. He states yesterday he was riding his bike from [place] to [place] wearing a backpack when he started developing discomfort in his neck. Initially he thought it was possibly related to the backpack so he did some readjusting and continued riding. Unfortunately of the discomfort continued and then progressed to his chest described as a heavy pressure sensation. At this point it reminded him of his heart attack in the past. He stopped riding his bike and sat down in his discomfort subsided. He waited a few minutes and got back on his bike and his discomfort again returned. It was associated with shortness of breath and feeling somewhat lightheaded. He is seen and examined resting comfortably lying flat in no acute distress. He has had no further symptoms of chest discomfort through the night. He states he is currently homeless however he does take his prescribed medication. He has been on his medication only for the previous one month. DIAGNOSTICS EKG reveals sinus mechanism with poor R-wave progression. Chest xray negative for an acute cardiopulmonary process. Laboratory reviewed, WBC on admission 10.9 and repeat today 0.7, hemoglobin 14.2, platelets 239, d-dimer 0.36, sodium 136, potassium 4.2, creatinine 0.71, magnesium 1.9, cardiac enzymes negative 3, NT proBNP 826. Current cardiac medications include aspirin 81 mg daily, atorvastatin 40 mg daily and Lopressor 50 mg twice a day. Most recent echocardiogram obtained in 2019 revealed preserved LV systolic function with ejection fraction 60-65%, grade 1 diastolic dysfunction, moderate mitral regurgitation, mild tricuspid regurgitation and mild pulmonary hypertension with RVSP of 41 mmHg. Most recent cardiac catheterization performed in 2013 reveals mild disease of the ostium of the left main 10-20%, circumflex is 100% occluded in the proximal portion, LAD is 100% occluded in the proximal portion, RCA has a severe lesion distally in the range of 90% with competitive flow from, SVG to diagonal patent, SVG to OM is patent and the stented portion is painted as well, severe disease noted at the anastomosis of the OM of the artery is patent, KERR to LAD patent. REVIEW OF SYSTEMS At the time of my exam: CONSTITUTIONAL: Denies fever or chills. CARDIOVASCULAR: Denies chest pain, shortness of breath, orthopnea, PND or palpitations. RESPIRATORY: Denies cough. GASTROINTESTINAL: Denies abdominal pain, diarrhea, constipation, nausea or vomiting. MUSCULOSKELETAL: Denies myalgias. NEUROLOGIC: Denies numbness, tingling or weakness. ENDOCRINE: Denies fatigue, weight change, polydipsia or polyurina. GENITOURINARY: Denies burning, hematuria or urgency with micturation. HEMATOLOGIC: Denies history of anemia or bleeding. PHYSICAL EXAMINATION Blood pressure 146/94 heart rate 62 afebrile and maintaining oxygen saturation on room air. CONSTITUTIONAL: No apparent distress. HEENT: Head is normocephalic. Pupils are equal, round. Sclerae anicteric. Mucous membranes of the mouth are moist. No JVD. No carotid bruit. CHEST EXAMINATION: Lungs are clear to auscultation. No chest wall tenderness is noted on palpation or with deep breathing. HEART EXAMINATION: Regular rate and rhythm. S1, S2 heard. Significant systolic ejection murmur at the apex, no gallops or rub. ABDOMEN: Soft, nontender. Positive bowel sounds. EXTREMITIES: 2+ peripheral pulses, no lower extremity edema and no calf tenderness. NEUROLOGIC EXAMINATION: Patient is awake, alert and oriented x3. ASSESSMENT Unstable angina Coronary artery disease s/p PCI and bypass grafting Hypertension Dyslipidemia History of ischemic cardiomyopathy, improved on recent echo in 2019 Valvular heart disease Chronic nicotine dependence History of alcohol abuse Non-compliance PLAN Obtain 2-D echocardiogram and Doppler study to assess cardiac structure and function. Recommend proceeding with cardiac catheterization to assess for progression of underlying coronary artery disease. I have discussed the risks, benefits and alternative therapies for the above-mentioned procedure and for both sedation/analgesia as well as necessary blood product administration, if indicated, as they pertain to this patient. The patient has indicated understanding and acceptance of the risks and procedures discussed. Questions have been answered appropriately and he is agreeable to move forward with the above-stated procedure. Initiate lisinopril 5 mg daily. Continue aspirin, atorvastatin and Lopressor as previously ordered. Recommend smoking cessation. Further recommendations to follow based upon clinical course. Thank you kindly for this consultation. Nurse Practitioner note has been reviewed, I agree with a documented findings and plan of care. Patient was seen and examined. Past Medical History Past Medical History: COPD, Hyperlipidemia, Hypertension, Myocardial Infarction ([place]), Seizure Disorder Additional Past Medical History / Comment(s): ISCHEMIC CARDIOMYOPATHY WITH EF 40-45%. 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 Last Myocardial Infarction Date:: 06/12/14 History of Any Multi-Drug Resistant Organisms: None Reported Past Surgical History: Coronary Bypass/CABG, Heart Catheterization With Stent, Hernia Repair, Orthopedic Surgery Additional Past Surgical History / Comment(s): cabg january 2014-3 vessel, Cardiac caths and stenting with last Cardiac cath Jul [address] Cerda. Past Anesthesia/Blood Transfusion Reactions: No Reported Reaction Additional Past Anesthesia/Blood Transfusion Reaction / Comment(s): NO PROBLEM TOLERATING ANESTHESIA. HAS NEVER RECIEVED BLOOD TO HIS KNOWLEDGE. Date of Last Stent Placement:: 06/12/14 Past Psychological History: Anxiety, Panic Disorder, PTSD Smoking Status: Current every day smoker Past Alcohol Use History: Abuse, Daily, Heavy Past Drug Use History: Marijuana - Past Family History Father Family Medical History: Coronary Artery Disease (CAD), Myocardial Infarction ([place]) Additional Family Medical History / Comment(s): FATHER STILL LIVING Mother Family Medical History: Coronary Artery Disease (CAD), Myocardial Infarction ([place]) Additional Family Medical History / Comment(s): MOTHER 09/23/14 of unknown causes. Sister(s) Family Medical History: Myocardial Infarction ([place]) Additional Family Medical History / Comment(s): SISTER OF [place] AT AGE 53 Medications and Allergies Home Medications Medication Instructions Recorded Confirmed Type Acetaminophen Tab [Tylenol] 650 mg PO Q6HR PRN 30 Days tab 06/29/20 07/22/20 Rx Aspirin 81 mg PO DAILY 30 Days chew 06/29/20 07/22/20 Rx Atorvastatin [Lipitor] 40 mg PO HS 30 Days tab 06/29/20 07/22/20 Rx Folic Acid 1 mg PO DAILY 30 Days tab 06/29/20 07/22/20 Rx Ibuprofen [Motrin] 800 mg PO TID PRN 30 Days tab 06/29/20 07/22/20 Rx Melatonin 10 mg PO HS 30 Days tablet 06/29/20 07/22/20 Rx Metoprolol Tartrate [Lopressor] 50 mg PO BID 30 Days tab 06/29/20 07/22/20 Rx Nicotine 21Mg/24Hr Patch [Habitrol] 1 patch TRANSDERM DAILY 14 Days 06/29/20 07/22/20 Rx patch Paliperidone [Invega] 3 mg PO DAILY 30 Days tab.er.24 06/29/20 07/22/20 Rx Thiamine [Vitamin B-1] 100 mg PO DAILY 30 Days tab 06/29/20 07/22/20 Rx traZODone HCL [Desyrel] 25 mg PO HS 30 Days tab 06/29/20 07/22/20 Rx Multivitamins, Thera [Multivitamin 1 tab PO DAILY 07/22/20 07/22/20 History (formulary)] SILVER sulfADIAZINE CREAM 1 applic TOPICAL BID 07/22/20 07/22/20 History [Silvadene Cream] Allergies Allergy/AdvReac Type Severity Reaction Status Date / Time Penicillins Allergy Unknown Verified 07/22/20 20:54 Childhood Physical Exam Vitals: Vital Signs Temp Pulse Pulse Resp BP BP Pulse Ox 07/23/20 03:00 97.9 F 62 16 146/94 97 07/22/20 22:15 97.8 F 75 18 146/87 96 07/22/20 21:12 67 18 144/99 98 07/22/20 20:06 66 18 157/114 97 07/22/20 18:45 97.9 F 86 20 176/110 99 Intake and Output 07/22/20 07/23/20 07/23/20 22:59 06:59 14:59 Intake Total 78.984 Balance 78.984 Intake: Intake, IV Titration 78.984 Amount Heparin Sod,Pork in 0.45% 78.984 NaCl 25,000 unit In 0.45 % NaCl 1 250ml.bag @ 11. 85 UNITS/KG/HR 9.998 mls/ hr IV .Q24H [facility] Rx#: [id number] Other: Voiding Method Toilet Toilet # Voids 1 Weight 84.368 kg Results 07/23/20 06:53 07/23/20 06:53 Cardiac Enzymes 07/22/20 07/22/20 07/22/20 Range/Units 19:07 19:07 21:56 AST 21 (17-59) U/L Troponin I <0.012 0.016 (0.000-0.034) ng/mL 07/23/20 Range/Units 02:24 AST (17-59) U/L Troponin I <0.012 (0.000-0.034) ng/mL Coagulation 07/22/20 07/23/20 07/23/20 Range/Units 19:07 02:24 06:53 PT 9.5 9.9 (9.0-12.0) sec APTT 23.3 32.0 H 27.0 (22.0-30.0) sec CBC 07/22/20 07/23/20 Range/Units 19:07 06:53 WBC 10.9 H 8.7 (3.8-10.6) k/uL RBC 4.43 4.30 (4.30-5.90) m/uL Hgb 14.6 14.2 (13.0-17.5) gm/dL Hct 45.0 43.3 (39.0-53.0) % Plt Count 286 239 (150-450) k/uL Comprehensive Metabolic Panel 07/22/20 07/23/20 Range/Units 19:07 06:53 Sodium 138 136 L (137-145) mmol/L Potassium 4.2 4.2 (3.5-5.1) mmol/L Chloride 107 106 (98-107) mmol/L Carbon Dioxide 23 28 (22-30) mmol/L BUN 13 13 (9-20) mg/dL Creatinine 0.67 0.71 (0.66-1.25) mg/dL Glucose 86 114 H (74-99) mg/dL Calcium 9.4 8.7 (8.4-10.2) mg/dL AST 21 (17-59) U/L ALT 19 (4-49) U/L Alkaline Phosphatase 62 (38-126) U/L Total Protein 6.7 (6.3-8.2) g/dL Albumin 4.3 (3.5-5.0) g/dL Current Medications Generic Name Dose Route Start Last Admin Trade Name Freq PRN Reason Stop Dose Admin Alprazolam 0.25 mg 07/23/20 08:29 Alprazolam 0.25 Mg Tab PO Q6HR PRN Mild Anxiety Alprazolam 0.5 mg 07/23/20 08:29 Alprazolam 0.5 Mg Tab PO Q6HR PRN Moderate Anxiety Aspirin 81 mg 07/23/20 09:00 Aspirin 81 Mg PO DAILY WILI Atorvastatin Calcium 40 mg 07/22/20 21:00 07/22/20 22:26 Atorvastatin 40 Mg Tab PO 40 mg HS WILI Administration Folic Acid 1 mg 07/23/20 09:00 07/23/20 09:14 Folic Acid 1 Mg Tab PO 1 mg DAILY WILI Administration Heparin Sodium (Porcine) 0 unit 07/22/20 20:22 Heparin Sodium,Porcine 5,000 Unit/Ml 1 Ml Vial IV PER PROTOCOL PRN Low PTT Protocol Sodium Chloride 1,000 ml/ IV 1,000 mls @ 84.368 mls/hr 07/23/20 08:29 07/23/20 09:15 Solution IV 07/23/20 20:20 84.368 mls/hr .[id number] ONE Administration 1 ML/KG/HR Melatonin 10 mg 07/22/20 21:30 07/22/20 22:26 Melatonin 5 Mg Tablet PO 10 mg HS WILI Administration Metoprolol Tartrate 50 mg 07/22/20 21:30 07/23/20 09:14 Metoprolol Tartrate 50 Mg Tab PO 50 mg BID WILI Administration Multivitamins 1 each 07/23/20 09:00 07/23/20 09:14 Multivitamins, Thera 1 Each Tab PO 1 each DAILY WILI Administration Naloxone HCl 0.2 mg 07/22/20 20:25 Naloxone 0.4 Mg/Ml 1 Ml Vial IV Q2M PRN Opioid Reversal Nicotine 1 patch 07/23/20 09:00 07/23/20 09:14 Nicotine 21mg/24hr Patch TRANSDERM 1 patch DAILY WILI Administration Paliperidone 3 mg 07/23/20 09:00 07/23/20 09:14 Paliperidone 3 Mg Tab.Er.24 PO 3 mg DAILY WILI Administration Silver Sulfadiazine 1 applic 07/23/20 09:00 07/23/20 09:15 Silver Sulfadiazine 1% Cream 25 Gm Tube TOPICAL 1 applic BID WILI Administration Thiamine HCl 100 mg 07/23/20 09:00 07/23/20 09:14 Thiamine 100 Mg Tab PO 100 mg DAILY WILI Administration Trazodone HCl 25 mg 07/22/20 21:30 07/22/20 22:27 Trazodone Hcl 50 Mg Tab PO 25 mg HS WLII Administration Intake and Output 07/22/20 07/23/20 07/23/20 22:59 06:59 14:59 Intake Total 78.984 Balance 78.984 Intake: Intake, IV Titration 78.984 Amount Heparin Sod,Pork in 0.45% 78.984 NaCl 25,000 unit In 0.45 % NaCl 1 250ml.bag @ 11. 85 UNITS/KG/HR 9.998 mls/ hr IV .Q24H [facility] Rx#: [id number] Other: Voiding Method Toilet Toilet # Voids 1 Weight 84.368 kg 07/23/20 06:53 07/23/20 06:53
[2020-07-23] MEDS: lisinopriL 5 MG TAB PO SCH (10:52)
--- NOTE | 2020-07-23 11:03 | P.HPIM ---
History of Present Illness This is a pleasant 54 years old male with past medical history of hypertension, hyperlipidemia, coronary artery disease, ischemic cardiomyopathy with ejection fraction 40-45%, alcohol abuse, seizure disorder, status post CABG. He used to follow up with Dr. De Paz before he retires. Presents with chest pain of one- day duration, central radiating to the neck about it/10 associated with some nausea and felt like tightness and pressure Patient smokes about 1 pack per day and he TO quit and was nicotine patch. He drinks alcohol but he quit about 2 weeks ago and he denies illicit drugs Vitals and labs are reviewed and he has chest x-ray: No acute process Review of Systems CONSTITUTIONAL: No fever, no malaise, no fatigue. HEENT: No recent visual problems or hearing problems. Denied any sore throat. CARDIOVASCULAR: No orthopnea, PND, no palpitations, no syncope. PULMONARY: No shortness of breath, no cough, no hemoptysis. GASTROINTESTINAL: No diarrhea, no nausea, no vomiting, no abdominal pain. Normoactive bowel sounds. NEUROLOGICAL: No headaches, no weakness, no numbness. HEMATOLOGICAL: Denies any bleeding or petechiae. GENITOURINARY: Denies any burning micturition, frequency, or urgency. MUSCULOSKELETAL/RHEUMATOLOGICAL: Denies any joint pain, swelling, or any muscle pain. ENDOCRINE: Denies any polyuria or polydipsia. Past Medical History Past Medical History: COPD, Hyperlipidemia, Hypertension, Myocardial Infarction ([place]), Seizure Disorder Additional Past Medical History / Comment(s): ISCHEMIC CARDIOMYOPATHY WITH EF 40-45%. 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 Last Myocardial Infarction Date:: 06/12/14 History of Any Multi-Drug Resistant Organisms: None Reported Past Surgical History: Coronary Bypass/CABG, Heart Catheterization With Stent, Hernia Repair, Orthopedic Surgery Additional Past Surgical History / Comment(s): cabg january 2014-3 vessel, Cardiac caths and stenting with last Cardiac cath Jul [address] Cerda. Past Anesthesia/Blood Transfusion Reactions: No Reported Reaction Additional Past Anesthesia/Blood Transfusion Reaction / Comment(s): NO PROBLEM TOLERATING ANESTHESIA. HAS NEVER RECIEVED BLOOD TO HIS KNOWLEDGE. Date of Last Stent Placement:: 06/12/14 Past Psychological History: Anxiety, Panic Disorder, PTSD Smoking Status: Current every day smoker Past Alcohol Use History: Abuse, Daily, Heavy Past Drug Use History: Marijuana - Past Family History Father Family Medical History: Coronary Artery Disease (CAD), Myocardial Infarction ([place]) Additional Family Medical History / Comment(s): FATHER STILL LIVING Mother Family Medical History: Coronary Artery Disease (CAD), Myocardial Infarction ([place]) Additional Family Medical History / Comment(s): MOTHER 09/23/14 of unknown causes. Sister(s) Family Medical History: Myocardial Infarction ([place]) Additional Family Medical History / Comment(s): SISTER OF [place] AT AGE 53 Medications and Allergies Home Medications Medication Instructions Recorded Confirmed Type Acetaminophen Tab [Tylenol] 650 mg PO Q6HR PRN 30 Days tab 06/29/20 07/22/20 Rx Aspirin 81 mg PO DAILY 30 Days chew 06/29/20 07/22/20 Rx Atorvastatin [Lipitor] 40 mg PO HS 30 Days tab 06/29/20 07/22/20 Rx Folic Acid 1 mg PO DAILY 30 Days tab 06/29/20 07/22/20 Rx Ibuprofen [Motrin] 800 mg PO TID PRN 30 Days tab 06/29/20 07/22/20 Rx Melatonin 10 mg PO HS 30 Days tablet 06/29/20 07/22/20 Rx Metoprolol Tartrate [Lopressor] 50 mg PO BID 30 Days tab 06/29/20 07/22/20 Rx Nicotine 21Mg/24Hr Patch [Habitrol] 1 patch TRANSDERM DAILY 14 Days 06/29/20 07/22/20 Rx patch Paliperidone [Invega] 3 mg PO DAILY 30 Days tab.er.24 06/29/20 07/22/20 Rx Thiamine [Vitamin B-1] 100 mg PO DAILY 30 Days tab 06/29/20 07/22/20 Rx traZODone HCL [Desyrel] 25 mg PO HS 30 Days tab 06/29/20 07/22/20 Rx Multivitamins, Thera [Multivitamin 1 tab PO DAILY 07/22/20 07/22/20 History (formulary)] SILVER sulfADIAZINE CREAM 1 applic TOPICAL BID 07/22/20 07/22/20 History [Silvadene Cream] Allergies Allergy/AdvReac Type Severity Reaction Status Date / Time Penicillins Allergy Unknown Verified 07/22/20 20:54 Childhood Physical Exam Vitals: Vital Signs Temp Pulse Pulse Resp BP BP Pulse Ox 07/23/20 03:00 97.9 F 62 16 146/94 97 07/22/20 22:15 97.8 F 75 18 146/87 96 07/22/20 21:12 67 18 144/99 98 07/22/20 20:06 66 18 157/114 97 07/22/20 18:45 97.9 F 86 20 176/110 99 Intake and Output 07/22/20 07/23/20 07/23/20 22:59 06:59 14:59 Intake Total 78.984 Balance 78.984 Intake: Intake, IV Titration 78.984 Amount Heparin Sod,Pork in 0.45% 78.984 NaCl 25,000 unit In 0.45 % NaCl 1 250ml.bag @ 11. 85 UNITS/KG/HR 9.998 mls/ hr IV .Q24H [facility] Rx#: [id number] Other: Voiding Method Toilet Toilet # Voids 1 Weight 84.368 kg GENERAL: The patient is alert and oriented x3, not in any acute distress. Well developed, well nourished. HEENT: Pupils are round and equally reacting to light. EOMI. No scleral icterus. No conjunctival pallor. Normocephalic, atraumatic. No pharyngeal erythema. No thyromegaly. CARDIOVASCULAR: S1 and S2 present. No murmurs, rubs, or gallops. PULMONARY: Chest is clear to auscultation, no wheezing or crackles. ABDOMEN: Soft, nontender, nondistended, normoactive bowel sounds. No palpable organomegaly. MUSCULOSKELETAL: No joint swelling or deformity. EXTREMITIES: No cyanosis, clubbing, or pedal edema. NEUROLOGICAL: Gross neurological examination did not reveal any focal deficits. SKIN: No rashes. No petechiae Results CBC & Chem 7: 07/23/20 06:53 07/23/20 06:53 Labs: Abnormal Lab Results - Last 24 Hours (Table) 07/22/20 07/23/20 07/23/20 Range/Units 19:07 02:24 06:53 WBC 10.9 H (3.8-10.6) k/uL MCV 101.5 H 100.6 H (80.0-100.0) fL Eosinophils # 0.9 H 0.8 H (0-0.7) k/uL APTT 32.0 H (22.0-30.0) sec Sodium (137-145) mmol/L Glucose (74-99) mg/dL 07/23/20 Range/Units 06:53 WBC (3.8-10.6) k/uL MCV (80.0-100.0) fL Eosinophils # (0-0.7) k/uL APTT (22.0-30.0) sec Sodium 136 L (137-145) mmol/L Glucose 114 H (74-99) mg/dL Thrombosis Risk Factor Assmnt - Choose All That Apply Each Factor Represents 1 point: Abnormal pulmonary function (COPD), Age 41-60 years Thrombosis Risk Factor Assessment Total Risk Factor Score: 2 Thrombosis Risk Factor Assessment Level: Low Risk Assessment and Plan Assessment: Chest pain, rule out coronary artery disease Hypertension Hyperlipidemia Nicotine dependence Ischemic cardiomyopathy with ejection fraction 40-45% Alcohol abuse Seizure disorders History of coronary artery disease status post CABG Plan: this is a pleasant 54 years old male who presents because of chest pain, evaluated by stem roller operator and plan for undergoing cardiac cath. Continue with aspirin Labs and medication were reviewed.. Continue same treatment. Continue with symptomatic treatment. Resume home medication. Monitor lytes and vitals. DVT and GI prophylaxis. Further recommendations depends on the clinical course of the patient. Nicotine patch DVT prophylaxis: Subcutaneous heparin GI Prophylaxis: Pepcid PT/OT: Pending
[2020-07-23] MEDS ORDERED: IV FLUID CONTINUATION 1,000 ML IV ONE (11:28)
[2020-07-23] MEDS ORDERED: LIDOCAINE 1% INJ 10MG/ML (20 ML MDV) SQ ONE (11:32)
[2020-07-23] MEDS ORDERED: fentaNYL (PF) 50 MCG/ML 2 ML AMP IVP ONE (11:32)
[2020-07-23] MEDS ORDERED: MIDAZOLAM 2 MG/2 ML VIAL IVP ONE (11:32)
[2020-07-23] MEDS ORDERED: HYDROmorphone 1 MG/ML 1 ML SYRINGE IVP ONE (11:39)
[2020-07-23] MEDS ORDERED: IOPAMIDOL-370 125ML BTL INJ ONE ×2 (11:51)
--- NOTE | 2020-07-23 11:52 | ECHOF ---
Referral Reason:murmur MEASUREMENTS -------- HEIGHT: 185.4 cm WEIGHT: 84.4 kg BP: 146/94 RVIDd: 4.0 cm (< 3.3) IVSd: 1.4 cm (0.6 - 1.1) LVIDd: 5.4 cm (3.9 - 5.3) LVPWd: 1.4 cm (0.6 - 1.1) IVSs: 1.7 cm LVIDs: 4.0 cm LVPWs: 1.8 cm LA Diam: 4.0 cm (2.7 - 3.8) LAESV Index (A-L): 34.43 ml/m Ao Diam: 4.0 cm (2.0 - 3.7) AV Cusp: 2.3 cm (1.5 - 2.6) MV EXCURSION: 19.089 mm (> 18.000) MV EF SLOPE: 75 mm/s (70 - 150) EPSS: 0.8 cm MV E Tushar: 1.05 m/s MV DecT: 325 ms MV A Tushar: 0.44 m/s MV E/A Ratio: 2.37 RAP: 5.00 mmHg RVSP: 39.53 mmHg FINDINGS -------- Sinus rhythm. This was a technically good study. The left ventricular size is normal. There is moderate concentric left ventricular hypertrophy. O verall left ventricular systolic function is mildly impaired with, an EF between 45 - 50 %. Basal l ateral LV wall motion is hypokinetic. The right ventricle is moderately enlarged. LA is moderately dilated 34-39 ml/m2 The right atrium is normal in size. Interatrial and interventricular septum intact. Aortic valve is trileaflet and is mildly thickened. The mitral valve leaflets are mildly thickened. Moderate mitral regurgitation is present. Mild tricuspid regurgitation present. There is mild pulmonary hypertension. The right ventricular systolic pressure, as measured by Doppler, is 39.53mmHg. Trace/mild (physiologic) pulmonic regurgitation. The aortic root is dilated measuring 4.0cm. Normal inferior vena cava with normal inspiratory collapse consistent with estimated right atrial pre ssure of 5 mmHg. There is no pericardial effusion. CONCLUSIONS -------- 1. The left ventricular size is normal. 2. There is moderate concentric left ventricular hypertrophy. 3. Overall left ventricular systolic function is mildly impaired with, an EF between 45 - 50 %. 4. Basal lateral LV wall motion is hypokinetic. 5. The right ventricle is moderately enlarged. 6. LA is moderately dilated 34-39 ml/m2 7. Aortic valve is trileaflet and is mildly thickened. 8. The mitral valve leaflets are mildly thickened. 9. Moderate mitral regurgitation is present. 10. Mild tricuspid regurgitation present. 11. There is mild pulmonary hypertension. 12. Trace/mild (physiologic) pulmonic regurgitation. 13. The aortic root is dilated measuring 4.0cm. 14. There is no pericardial effusion. STACKER ATTENDANT: Becky Wilhelm RDCS
[2020-07-23] MEDS ORDERED: RX INFO: IV CONTRAST WAS GIVEN 1 EACH MISC MISCELLANE PRN (12:45)
[2020-07-23] MEDS: SODIUM CHLORIDE 0.9% 1,000 ML IV SCH (13:12)
[2020-07-23] MEDS: ISOSORBIDE MONONITRATE ER 30 MG TAB.ER.24H PO SCH (15:01)
[2020-07-23] MEDS: IBUPROFEN 600 MG TAB PO PRN ×2 (17:37→22:36)
--- NOTE | 2020-07-23 18:33 | CC ---
CARDIAC CATHETERIZATION REPORT PROCEDURE: Cardiac catheterization. INDICATION: Unstable angina. PROCEDURE NOTE: After obtaining informed consent, left heart catheterization and coronary angiogram were performed via the left femoral artery using standard Cindy catheters. Initially I attempted vascular access on the right side and I could not obtain access, hence I obtained the access on the left side. The patient tolerated the procedure well without any obvious immediate complications. The patient underwent bypass surgery with KERR to LAD, venous graft to OM, diagonal, and RCA. A femoral angiogram was performed at the end of the procedure and Angio-Seal was deployed for hemostasis. The patient received moderate conscious sedation and total sedation time was 23 minutes. FINDINGS: 1. [place] coronary arteries. The LAD appears occluded in its midportion. Circumflex coronary artery is occluded in the proximal part. 2. Selective injection of the KERR to the LAD was not performed. 3. Venous graft to the OM branch appears totally occluded. 4. Venous graft to the diagonal appears patent and is free of disease proximal, mid and distally. 5. Venous graft to the right coronary artery appears patent with disease within the [place] PLV. The [place] right coronary artery was injected. There is a 90% stenosis in the proximal part and a long segment of 95% stenosis distally. CONCLUSION: [place] 3 vessel coronary artery disease with patent venous graft to the right coronary artery and diagonal. Venous graft to the OM branch is occluded. KERR to LAD was not engaged. PLAN: The patient will be treated with optimal medical therapy. I will do an outpatient stress test and if he has ischemia we might have to perform angioplasty of the [place] PLV, if that is where the ischemia is. There is nothing to revascularize in the [place] circumflex coronary, [place] OM branch. MMODL / IJN: [id number] /
[2020-07-23 18:42] VITALS: RESP 18
[2020-07-23] MEDS ORDERED: FAMOTIDINE 20 MG/2 ML VIAL IV SCH (21:00)
[2020-07-23] MEDS: ATORVASTATIN 40 MG TAB PO SCH (21:08)
[2020-07-23] MEDS: traZODone HCL 50 MG TAB PO SCH (21:08)
[2020-07-23] MEDS: FAMOTIDINE 20 MG TAB PO SCH (21:09)
[2020-07-23] MEDS: MELATONIN 5 MG TABLET PO SCH (21:09)
[2020-07-24] MEDS: SODIUM CHLORIDE 0.9% 1,000 ML IV SCH (05:05)
[2020-07-24 06:52] LABS: Basophils % (A) 1 %; Eosinophils # (A) 0.7 k/uL (0-0.7); Eosinophils % (A) 8 %; HCT 42.5 % (39.0-53.0); HGB 13.7 gm/dL (13.0-17.5); Lymphocytes # (A) 1.9 k/uL (1.0-4.8); Lymphocytes % (A) 22 %; MCH 33.1 pg (25.0-35.0); MCHC 32.3 g/dL (31.0-37.0); MCV 102.5 fL (80.0-100.0); Macrocytosis Slight; Mean Platelet Volume 8.3; Monocytes # (A) 0.5 k/uL (0-1.0); Monocytes % (A) 5 %; Neutrophils # (A) 5.6 k/uL (1.3-7.7); Neutrophils % (A) 63 %; Platelet Count 220 k/uL (150-450); RBC 4.15 m/uL (4.30-5.90); RDW 13.8 % (11.5-15.5); WBC 8.9 k/uL (3.8-10.6)
[2020-07-24 07:00] LABS: INR 0.9 (<1.2); Prothrombin Time 9.7 sec (9.0-12.0)
[2020-07-24 08:26] VITALS: BP 129/88; PULSE 59; TEMP 97.7
[2020-07-24] MEDS ORDERED: NICOTINE 14MG/24HR PATCH TRANSDERM SCH (09:00)
[2020-07-24] MEDS ORDERED: HEPARIN SODIUM,PORCINE 5,000 UNIT/ML 1 ML VIAL SQ SCH (09:00)
[2020-07-24] MEDS: PALIPERIDONE 3 MG TAB.ER.24 PO SCH (09:34)
[2020-07-24] MEDS: lisinopriL 5 MG TAB PO SCH (09:34)
[2020-07-24] MEDS: FOLIC ACID 1 MG TAB PO SCH (09:34)
[2020-07-24] MEDS: MULTIVITAMINS, THERA 1 EACH TAB PO SCH (09:34)
[2020-07-24] MEDS: ASPIRIN 81 MG PO SCH (09:34)
[2020-07-24] MEDS: METOPROLOL TARTRATE 50 MG TAB PO SCH (09:34)
[2020-07-24] MEDS: THIAMINE 100 MG TAB PO SCH (09:34)
[2020-07-24] MEDS: FAMOTIDINE 20 MG TAB PO SCH (09:34)
[2020-07-24] MEDS: ISOSORBIDE MONONITRATE ER 30 MG TAB.ER.24H PO SCH (09:34)
[2020-07-24] MEDS: NICOTINE 21MG/24HR PATCH TRANSDERM SCH (09:35)
--- NOTE | 2020-07-24 13:40 | PN ---
PROGRESS NOTE 54-year-old gentleman with history of CAD status post CABG, admitted to hospital with chest pain and ruled out for myocardial infarction. A cardiac catheterization I performed he has occluded venous graft to the OM branch and also has a significant lesion in his [place] right coronary artery passed the bypass graft. He also has moderate mitral regurgitation. The plan at this stage is to discharge him home and perform an outpatient Lexiscan and if he has ischemia, then attempt angioplast. I discussed these issues at length with the patient. He understands and is in agreement with the plans. This morning, patient complains of headaches and stuffy nose, but does not have any cardiac symptoms. He is on aspirin, Lipitor, Imdur, Crestor, Lopressor. On exam, comfortable at rest. Vital signs are stable. There is no jugular venous distention. Chest exam reveals good air entry bilaterally. Heart exam reveals first and second heart sounds. No gallop. No murmur. Abdomen is soft. Exam of extremities did not reveal any edema. Both groins are free of bleeding, bruit, hematoma. Foot pulses are intact. ASSESSMENT: 1. Chest pain, myocardial infarction ruled out, status post catheterization. Advised medical therapy at this time. The patient is stable for discharge. He will follow up with me next Monday and I will do an outpatient stress test. 2. Moderate mitral regurgitation. Needs further evaluation with a ARELIS which I will consider in the outpatient setting. AGUSTO / DONNY: [phone] /
== END 2020-07-24 12:35 | disposition home or self-care (01) ==
LOC: EC 18:43 → 3NCARDOBS 20:27
PROVIDERS: ADMIT Internal Medicine; ATTEND Internal Medicine
DX: I25.110 Atherosclerotic heart disease of native coronary artery with unstable angina pectoris (principal); I25.710 Atherosclerosis of autologous vein coronary artery bypass graft(s) with unstable angina pectoris; I25.82 Chronic total occlusion of coronary artery; I11.0 Hypertensive heart disease with heart failure; I50.22 Chronic systolic (congestive) heart failure; I08.1 Rheumatic disorders of both mitral and tricuspid valves; I10 Essential (primary) hypertension; E78.5 Hyperlipidemia, unspecified; I25.5 Ischemic cardiomyopathy; I27.20 Pulmonary hypertension, unspecified; J44.9 Chronic obstructive pulmonary disease, unspecified; Z59.0 Homelessness; Z91.19 Patient's noncompliance with other medical treatment and regimen; G40.909 Epilepsy, unspecified, not intractable, without status epilepticus; F17.200 Nicotine dependence, unspecified, uncomplicated; F10.11 Alcohol abuse, in remission; Z95.1 Presence of aortocoronary bypass graft; F17.210 Nicotine dependence, cigarettes, uncomplicated; I25.2 Old myocardial infarction; Z95.5 Presence of coronary angioplasty implant and graft; Z98.890 Other specified postprocedural states; F41.9 Anxiety disorder, unspecified; F41.0 Panic disorder [episodic paroxysmal anxiety]; F43.10 Post-traumatic stress disorder, unspecified; Z82.49 Family history of ischemic heart disease and other diseases of the circulatory system; Z79.82 Long term (current) use of aspirin; Z79.899 Other long term (current) drug therapy; Z88.0 Allergy status to penicillin
CPT/HCPCS: 93005 ×2; 96366 ×2; 96376; 96365; 96375; 99291; 36415; 93306; 93459; 85379; 83880; 80053; 80048; 83735; 84484 ×2; 85025 ×3; 85610 ×3; 85730 ×2; 71046; G0378 ×3; C1769 ×2; C1760; S4990 ×2; J2250; J1644 ×2; J2001; J3010; J1170; Q9967

== ENCOUNTER 2020-12-08 17:59 | Observation (INO) | payer OTHER ==
[2020-12-08] MEDS ORDERED: NITROGLYCERIN OINT 1 INCH/GM PACKET TOPICAL STA (18:16)
[2020-12-08] MEDS ORDERED: HEPARIN SODIUM,PORCINE 5,000 UNIT/ML 1 ML VIAL IV STA (18:16)
--- NOTE | 2020-12-08 18:19 | ED ---
Chest Pain HPI - General Chief Complaint: Chest Pain Stated Complaint: chest pain Time Seen by Provider: 12/08/20 18:00 Source: patient, EMS, RN notes reviewed Mode of arrival: EMS - History of Present Illness Initial Comments: This is a 55-year-old male history of bypass surgery 2013 who states he is homeless and negative bacteria longterm time last night some grease dated out in a car all night and then this morning he was shoveling snow he started developing retrosternal chest pain with dizziness. He did call 911 he received aspirin nitroglycerin with resolution of the pain to some dizziness. No cough phlegm production fevers chills sweats or other symptoms MD Complaint: chest pain - Related Data Home Medications Medication Instructions Recorded Confirmed Multivitamins, Thera [Multivitamin 1 tab PO DAILY 07/22/20 07/22/20 (formulary)] SILVER sulfADIAZINE CREAM 1 applic TOPICAL BID 07/22/20 07/22/20 [Silvadene Cream] Previous Rx's Medication Instructions Recorded Acetaminophen Tab [Tylenol] 650 mg PO Q6HR PRN 30 Days tab 06/29/20 Aspirin 81 mg PO DAILY 30 Days chew 06/29/20 Atorvastatin [Lipitor] 40 mg PO HS 30 Days tab 06/29/20 Folic Acid 1 mg PO DAILY 30 Days tab 06/29/20 Ibuprofen [Motrin] 800 mg PO TID PRN 30 Days tab 06/29/20 Melatonin 10 mg PO HS 30 Days tablet 06/29/20 Metoprolol Tartrate [Lopressor] 50 mg PO BID 30 Days tab 06/29/20 Nicotine 21Mg/24Hr Patch [Habitrol] 1 patch TRANSDERM DAILY 14 Days 06/29/20 patch Paliperidone [Invega] 3 mg PO DAILY 30 Days tab.er.24 06/29/20 Thiamine [Vitamin B-1] 100 mg PO DAILY 30 Days tab 06/29/20 traZODone HCL [Desyrel] 25 mg PO HS 30 Days tab 06/29/20 Isosorbide Mononitrate ER [Imdur] 30 mg PO DAILY #30 tab.er.24h 07/24/20 lisinopriL [Zestril] 5 mg PO DAILY #30 tab 07/24/20 Allergies Allergy/AdvReac Type Severity Reaction Status Date / Time Penicillins Allergy Unknown Verified 07/22/20 20:54 Childhood Review of Systems ROS Statement: Those systems with pertinent positive or pertinent negative responses have been documented in the HPI. ROS Other: All systems not noted in ROS Statement are negative. EKG Findings - EKG Results: EKG: interpreted by ASHOKD (Sinus rhythm with frequent he sees rate 83. Interval 138 QRS duration 86 QT since QTC 406/[address]-T wave configuration) Past Medical History Past Medical History: COPD, Hyperlipidemia, Hypertension, Myocardial Infarction (SD), Seizure Disorder Additional Past Medical History / Comment(s): ISCHEMIC CARDIOMYOPATHY WITH EF 40-45%. 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 Last Myocardial Infarction Date:: 06/12/14 History of Any Multi-Drug Resistant Organisms: None Reported Past Surgical History: Coronary Bypass/CABG, Heart Catheterization With Stent, Hernia Repair, Orthopedic Surgery Additional Past Surgical History / Comment(s): cabg january 2014-3 vessel, Cardiac caths and stenting with last Cardiac cath Jul [address] Cerda. Past Anesthesia/Blood Transfusion Reactions: No Reported Reaction Additional Past Anesthesia/Blood Transfusion Reaction / Comment(s): NO PROBLEM TOLERATING ANESTHESIA. HAS NEVER RECIEVED BLOOD TO HIS KNOWLEDGE. Date of Last Stent Placement:: 06/12/14 Past Psychological History: Anxiety, Panic Disorder, PTSD Smoking Status: Current every day smoker Past Alcohol Use History: Abuse, Daily, Heavy Past Drug Use History: Marijuana - Past Family History Father Family Medical History: Coronary Artery Disease (CAD), Myocardial Infarction (SD) Additional Family Medical History / Comment(s): FATHER STILL LIVING Mother Family Medical History: Coronary Artery Disease (CAD), Myocardial Infarction (SD) Additional Family Medical History / Comment(s): MOTHER 09/23/14 of unknown causes. Sister(s) Family Medical History: Myocardial Infarction (SD) Additional Family Medical History / Comment(s): SISTER OF SD AT AGE 53 General Exam - General Exam Comments Initial Comments: this is a well-developed asthenic appearing male was awake alert oriented 3 General appearance: alert, in no apparent distress Head exam: Present: atraumatic, normocephalic, normal inspection Eye exam: Present: normal appearance, PERRL, EOMI. Absent: scleral icterus, conjunctival injection, periorbital swelling ENT exam: Present: normal exam, mucous membranes moist Neck exam: Present: normal inspection. Absent: tenderness, meningismus, lymphadenopathy Respiratory exam: Present: normal lung sounds bilaterally. Absent: respiratory distress, wheezes, rales, rhonchi, stridor Cardiovascular Exam: Present: regular rate, normal rhythm, normal heart sounds, other (occasional extrasystoles). Absent: systolic murmur, diastolic murmur, rubs, gallop, clicks GI/Abdominal exam: Present: soft, normal bowel sounds. Absent: distended, tenderness, guarding, rebound, rigid Extremities exam: Present: normal inspection, full ROM, normal capillary refill. Absent: tenderness, pedal edema, joint swelling, calf tenderness Back exam: Present: normal inspection Neurological exam: Present: alert, oriented X3, CN II-XII intact Psychiatric exam: Present: normal affect, normal mood Skin exam: Present: warm, dry, intact, normal color. Absent: rash Course Vital Signs 12/08/20 12/08/20 18:00 18:08 Temperature 97.7 F Pulse Rate 86 Pulse Rate [ 88 College Administrator ] Respiratory 18 Rate Blood Pressure 131/91 O2 Sat by Pulse 98 Oximetry Chest Pain MDM - MDM x-ray shows no obvious infiltrates or abnormalities are new. He admitted to Dr. Alvares cardiology consultation. Critical Care Time Critical Care Time: Yes Total Critical Care Time: 31 Critical Care Time: critical care time including initial presentation with history physical labs x- rays discussed with paramedics upon arrival reevaluate patient several occasions review of old charting discussed with the admitting physician admission orders and documentation of the above Disposition Clinical Impression: Unstable angina pectoris, Chest pain Disposition: ADMITTED IP TO THIS HOSP Condition: Fair Referrals: Alejandra Johnson MD [STAFF PHYSICIAN] - 1-2 days
[2020-12-08 18:29] LABS: Basophils # (A) 0.1 k/uL (0-0.2); Basophils % (A) 1 %; Eosinophils # (A) 0.4 k/uL (0-0.7); Eosinophils % (A) 3 %; HGB 14.8 gm/dL (13.0-17.5); Lymphocytes # (A) 2.9 k/uL (1.0-4.8); Lymphocytes % (A) 27 %; MCH 32.2 pg (25.0-35.0); MCHC 33.6 g/dL (31.0-37.0); Monocytes # (A) 0.4 k/uL (0-1.0); Monocytes % (A) 4 %; Neutrophils # (A) 6.9 k/uL (1.3-7.7); Neutrophils % (A) 64 %; Platelet Count 291 k/uL (150-450); RBC 4.59 m/uL (4.30-5.90); RDW 12.2 % (11.5-15.5); WBC 10.7 k/uL (3.8-10.6)
[2020-12-08] MEDS ORDERED: HEPARIN SOD,PORK IN 0.45% NACL 25,000 UNIT in 0.45% NACL 1 250ML.BAG IV SCH (18:30)
[2020-12-08 18:40] LABS: ALT 17 U/L (4-49); AST 21 U/L (17-59); African American GFR (CKD) >90 (>60 ml/min/1.73 sqM); Albumin 4.3 g/dL (3.5-5.0); Alkaline Phosphatase 69 U/L (38-126); Anion Gap 10 mmol/L; Blood Urea Nitrogen 14 mg/dL (9-20); Calcium 9.4 mg/dL (8.4-10.2); Carbon Dioxide 21 mmol/L (22-30); Chloride 104 mmol/L (98-107); Creatine Kinase 320 U/L (55-170); Glucose 102 mg/dL (74-99); Lipase 127 U/L (23-300); Magnesium 1.6 mg/dL (1.6-2.3); Non-African American GFR(CKD) >90 (>60 ml/min/1.73 sqM); Potassium 3.7 mmol/L (3.5-5.1); Sodium 135 mmol/L (137-145); Total Bilirubin 0.5 mg/dL (0.2-1.3); Total Protein 6.8 g/dL (6.3-8.2)
[2020-12-08 18:43] LABS: INR 0.9 (<1.2); Partial Thromboplastin Time 24.3 sec (22.0-30.0); Prothrombin Time 10.2 sec (9.0-12.0)
--- NOTE | 2020-12-08 18:53 | XR ---
EXAMINATION TYPE: XR chest 2V DATE OF EXAM: 12/08/2020 COMPARISON: 07/22/2020 HISTORY: Chest pain TECHNIQUE: FINDINGS: There is no heart failure nor confluent pneumonic infiltrate. There are sternal wires. Ther e are chest leads. Costophrenic angles are clear. Bony thorax is intact. IMPRESSION: No active cardiopulmonary disease. Normal heart. No change.
[2020-12-08] MEDS ORDERED: NITROGLYCERIN SL TABS 0.4 MG TAB SUBLINGUAL PRN (19:07)
[2020-12-08] MEDS ORDERED: IBUPROFEN 800 MG TAB PO PRN (19:09)
[2020-12-08] MEDS ORDERED: ACETAMINOPHEN TAB 325 MG TAB PO PRN (19:09)
[2020-12-08] MEDS: SODIUM CHLORIDE 0.9% 1,000 ML IV SCH (19:35)
[2020-12-08] MEDS ORDERED: traZODone HCL 50 MG TAB PO SCH (21:00)
[2020-12-08] MEDS ORDERED: METOPROLOL TARTRATE 50 MG TAB PO SCH (21:00)
[2020-12-08] MEDS ORDERED: MELATONIN 5 MG TABLET PO SCH (21:00)
[2020-12-08] MEDS ORDERED: ATORVASTATIN 40 MG TAB PO SCH (21:00)
[2020-12-09] MEDS ORDERED: NITROGLYCERIN OINT 1 INCH/GM PACKET TOPICAL SCH
[2020-12-09] MEDS ORDERED: HEPARIN SODIUM,PORCINE 5,000 UNIT/ML 1 ML VIAL IV PRN (01:21)
[2020-12-09] MEDS: SODIUM CHLORIDE 0.9% 1,000 ML IV SCH ×2 (05:47→11:20)
[2020-12-09 07:21] VITALS: RESP 16; TEMP 98.2
[2020-12-09] MEDS ORDERED: REGADENOSON 0.4 MG/5 ML SYRINGE IV PRN (08:09)
[2020-12-09] MEDS ORDERED: AMINOPHYLLINE 500 MG/20 ML VIAL IV PRN (08:09)
[2020-12-09] MEDS ORDERED: CAFFEINE CITRATE 60 MG/3 ML VIAL IV PRN (08:09)
[2020-12-09] MEDS ORDERED: ASPIRIN 81 MG PO SCH (09:00)
[2020-12-09] MEDS ORDERED: NICOTINE 21MG/24HR PATCH TRANSDERM SCH (09:00)
[2020-12-09] MEDS ORDERED: lisinopriL 5 MG TAB PO SCH (09:00)
[2020-12-09] MEDS ORDERED: THIAMINE 100 MG TAB PO SCH (09:00)
[2020-12-09] MEDS ORDERED: ASPIRIN 325 MG TAB PO SCH (09:00)
[2020-12-09] MEDS ORDERED: ISOSORBIDE MONONITRATE ER 30 MG TAB.ER.24H PO SCH (09:00)
[2020-12-09] MEDS ORDERED: FOLIC ACID 1 MG TAB PO SCH (09:00)
[2020-12-09] MEDS ORDERED: MULTIVITAMINS, THERA 1 EACH TAB PO SCH (09:00)
[2020-12-09] MEDS ORDERED: PALIPERIDONE 3 MG TAB.ER.24 PO SCH (09:00)
[2020-12-09 09:39] LABS: Chol/HDL Ratio 4.09
--- NOTE | 2020-12-09 10:30 | P.CRDCN ---
History of Present Illness History of present illness: HISTORY OF PRESENTING ILLNESS This is a pleasant 55-year-old male past medical history significant for or an area artery disease status post inferior wall RI 2013 with PCI to the OM branch, coronary artery bypass grafting 2013 with KERR to LAD, SVG to OM, diagonal PDA, hypertension, dyslipidemia and chronic nicotine dependence. He underwent cardiac catheterization in July 2020 revealing LAD occluded in the midportion, circumflex occluded in the proximal portion, KERR to LAD not engaged, SVG to OM occluded, SVG to diagonal is patent and free of disease, SVG to RCA patent with disease within the [place] PLV, 90% stenosis in the proximal RCA and 95% stenosis of the distal RCA. At that time maximal medical therapy was recommended. The patient was recommended to have an outpatient stress test to assess for reversibility however he did not have this performed. 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 We have been asked to see in consultation for chest pain. States yesterday he had to walk across town because the left system was down due to the weather. After walking for over an hour he developed a discomfort in his chest that radiated through to the left back. It was associated with dizziness and nausea. He also noticed a fluttering sensation in his chest. He states he felt like he was going to pass out. He sat down and called EMS for assistance. His symptoms did improve prior to arrival to the emergency department. He has been chest pain- free since admission. Most recent echocardiogram obtained July 2020 revealed impaired LV systolic function with ejection fraction 45-50% with basal lateral LV wall motion hypokinesia, moderate MR, mild TR and mild pulmonary hypertension with an RVSP of 39 mmHg. DIAGNOSTICS EKG reveals sinus mechanism T-wave inversions noted in the anterior lead V2 with frequent right bundle branch block type PVCs. Telemetry tracings indicate sinus mechanism. Chest xray negative for any acute cardiopulmonary process. Laboratory reviewed, WBC 10.7, cardiac enzymes negative 3, potassium 3.7, creatinine 0.89 and magnesium 1.6, LDL 112 and HDL 44. Current cardiac medications include Toprol 50 mg daily. REVIEW OF SYSTEMS At the time of my exam: CONSTITUTIONAL: Denies fever or chills. CARDIOVASCULAR: Denies chest pain, shortness of breath, orthopnea, PND or palpitations. RESPIRATORY: Denies cough. GASTROINTESTINAL: Denies abdominal pain, diarrhea, constipation, nausea or vomiting. MUSCULOSKELETAL: Denies myalgias. NEUROLOGIC: Denies numbness, tingling, headacbe or weakness. ENDOCRINE: Denies fatigue, weight change, polydipsia or polyurina. GENITOURINARY: Denies burning, hematuria or urgency with micturation. HEMATOLOGIC: Denies history of anemia or bleeding. PHYSICAL EXAMINATION Blood pressure 123/73 heart rate 53 afebrile and maintaining oxygen saturation o n room air. CONSTITUTIONAL: No apparent distress. HEENT: Head is normocephalic. Pupils are equal, round. Sclerae anicteric. Mucous membranes of the mouth are moist. No JVD. No carotid bruit. CHEST EXAMINATION: Scattered rhonchi, no wheezes or rales. Diminished air intake. No chest wall tenderness is noted on palpation or with deep breathing. HEART EXAMINATION: Regular rate and rhythm. S1, S2 heard. No murmurs, gallops or rub. ABDOMEN: Soft, nontender. Positive bowel sounds. EXTREMITIES: 2+ peripheral pulses, no lower extremity edema and no calf tenderness. NEUROLOGIC EXAMINATION: Patient is awake, alert and oriented x3. ASSESSMENT Unstable angina Coronary artery disease status post bypass grafting Ischemic cardiomyopathy Hypertension Dyslipidemia Chronic nicotine dependence PLAN An acute coronary event has been ruled out. Perform Lexiscan stress test to assess for reversible cardiac ischemia, expect to have some mild lateral wall reversibility. Importance of atorvastatin daily has been discussed with the patient in detail. He states this is something that he can [facility]. Further recommendations to follow based upon clinical course. Thank you kindly for this consultation. Nurse Practitioner note has been reviewed, I agree with a documented findings and plan of care. Patient was seen and examined. Past Medical History Past Medical History: COPD, Hyperlipidemia, Hypertension, Myocardial Infarction (RI), Seizure Disorder Additional Past Medical History / Comment(s): ISCHEMIC CARDIOMYOPATHY WITH EF 40-45%. 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 Last Myocardial Infarction Date:: 06/12/14 History of Any Multi-Drug Resistant Organisms: None Reported Past Surgical History: Coronary Bypass/CABG, Heart Catheterization With Stent, Hernia Repair, Orthopedic Surgery Additional Past Surgical History / Comment(s): cabg january 2014-3 vessel, Cardiac caths and stenting with last Cardiac cath Jul [address] Cerda. Past Anesthesia/Blood Transfusion Reactions: No Reported Reaction Additional Past Anesthesia/Blood Transfusion Reaction / Comment(s): NO PROBLEM TOLERATING ANESTHESIA. HAS NEVER RECIEVED BLOOD TO HIS KNOWLEDGE. Date of Last Stent Placement:: 06/12/14 Past Psychological History: Anxiety, Panic Disorder, PTSD Additional Psychological History / Comment(s): Patient is homeless, been homeless for 8 months. Living whereever he can Smoking Status: Current every day smoker Past Alcohol Use History: Abuse, Daily, Heavy Additional Past Alcohol Use History / Comment(s): Pt states he drinks more than 14 drinks a week Past Drug Use History: Marijuana Additional Drug Use History / Comment(s): Pt states that he had marijuana early today. - Past Family History Father Family Medical History: Coronary Artery Disease (CAD), Myocardial Infarction (RI) Additional Family Medical History / Comment(s): FATHER STILL LIVING Mother Family Medical History: Coronary Artery Disease (CAD), Myocardial Infarction (RI) Additional Family Medical History / Comment(s): MOTHER 09/23/14 of unknown causes. Sister(s) Family Medical History: Myocardial Infarction (RI) Additional Family Medical History / Comment(s): SISTER OF RI AT AGE 53 Medications and Allergies Home Medications Medication Instructions Recorded Confirmed Type Metoprolol Succinate (ER) [Toprol 50 mg PO HS 12/08/20 12/08/20 History Xl] Allergies Allergy/AdvReac Type Severity Reaction Status Date / Time Penicillins Allergy Unknown Verified 12/08/20 19:37 Childhood Physical Exam Vitals: Vital Signs Temp Pulse Pulse Resp BP BP BP 12/09/20 07:00 98.2 F 53 L 16 123/73 12/09/20 02:00 97.6 F 71 18 126/76 12/08/20 21:01 97.8 F 71 18 129/81 12/08/20 18:08 88 12/08/20 18:00 97.7 F 86 18 131/91 Pulse Ox 12/09/20 07:00 96 12/09/20 02:00 98 12/08/20 21:01 98 12/08/20 18:08 12/08/20 18:00 98 Intake and Output 12/08/20 12/09/20 12/09/20 22:59 06:59 14:59 Intake Total 124.305 Output Total 200 Balance 124.305 -200 Intake: Intake, IV Titration 124.305 Amount Heparin Sod,Pork in 0.45% 124.305 NaCl 25,000 unit In 0.45 % NaCl 1 250ml.bag @ 12 UNITS/KG/HR 9.525 mls/hr IV .Q24H [facility] Rx#: [id number] Output: Urine 200 Other: Voiding Method Toilet Toilet Urinal Urinal # Voids 1 2 Weight 79.379 kg Results 12/08/20 18:19 12/08/20 18:19 Cardiac Enzymes 12/08/20 12/08/20 12/08/20 Range/Units 18:19 18:19 20:45 AST 21 (17-59) U/L Troponin I <0.012 <0.012 (0.000-0.034) ng/mL 12/09/20 Range/Units 00:45 AST (17-59) U/L Troponin I <0.012 (0.000-0.034) ng/mL Coagulation 12/08/20 12/09/20 12/09/20 Range/Units 18:19 00:45 05:19 PT 10.2 (9.0-12.0) sec APTT 24.3 32.8 H 61.2 H (22.0-30.0) sec CBC 12/08/20 Range/Units 18:19 WBC 10.7 H (3.8-10.6) k/uL RBC 4.59 (4.30-5.90) m/uL Hgb 14.8 (13.0-17.5) gm/dL Hct 44.0 (39.0-53.0) % Plt Count 291 (150-450) k/uL Comprehensive Metabolic Panel 12/08/20 Range/Units 18:19 Sodium 135 L (137-145) mmol/L Potassium 3.7 (3.5-5.1) mmol/L Chloride 104 (98-107) mmol/L Carbon Dioxide 21 L (22-30) mmol/L BUN 14 (9-20) mg/dL Creatinine 0.89 (0.66-1.25) mg/dL Glucose 102 H (74-99) mg/dL Calcium 9.4 (8.4-10.2) mg/dL AST 21 (17-59) U/L ALT 17 (4-49) U/L Alkaline Phosphatase 69 (38-126) U/L Total Protein 6.8 (6.3-8.2) g/dL Albumin 4.3 (3.5-5.0) g/dL Current Medications Generic Name Dose Route Start Last Admin Trade Name Freq PRN Reason Stop Dose Admin Acetaminophen 650 mg 12/08/20 19:09 Acetaminophen Tab 325 Mg Tab PO Q6HR PRN Mild to Moderate Pain Aspirin 81 mg 12/09/20 09:00 Aspirin 81 Mg PO DAILY [facility] Atorvastatin Calcium 40 mg 12/08/20 21:00 12/08/20 21:24 Atorvastatin 40 Mg Tab PO 40 mg HS [facility] Administration Folic Acid 1 mg 12/09/20 09:00 Folic Acid 1 Mg Tab PO DAILY [facility] Heparin Sodium (Porcine) 0 unit 12/09/20 01:21 12/09/20 01:30 Heparin Sodium,Porcine 5,000 Unit/Ml 1 Ml Vial IV 4,000 unit PER PROTOCOL PRN Administration Low PTT Protocol Heparin Sodium/Sodium Chloride 250 mls @ 9.525 mls/hr 12/08/20 18:30 12/09/20 06:15 25,000 unit/ Sodium Chloride IV 15 units/kg/hr .Q24H [facility] 11.907 mls/hr Titration Protocol 12 UNITS/KG/HR Sodium Chloride 1,000 mls @ 100 mls/hr 12/08/20 19:15 12/09/20 05:47 Saline 0.9% IV 100 mls/hr .Q10H [facility] Administration Ibuprofen 800 mg 12/08/20 19:09 Ibuprofen 800 Mg Tab PO TID PRN Moderate to Severe Pain Isosorbide Mononitrate 30 mg 12/09/20 09:00 Isosorbide Mononitrate Er 30 Mg Tab.Er.24h PO DAILY [facility] Lisinopril 5 mg 12/09/20 09:00 Lisinopril 5 Mg Tab PO DAILY [facility] Melatonin 10 mg 12/08/20 21:00 12/08/20 21:24 Melatonin 5 Mg Tablet PO 10 mg HS [facility] Administration Metoprolol Tartrate 50 mg 12/08/20 21:00 12/08/20 21:24 Metoprolol Tartrate 50 Mg Tab PO 50 mg BID [facility] Administration Multivitamins 1 each 12/09/20 09:00 Multivitamins, Thera 1 Each Tab PO DAILY [facility] Nicotine 1 patch 12/09/20 09:00 Nicotine 21mg/24hr Patch TRANSDERM DAILY [facility] Nitroglycerin 0.4 mg 12/08/20 19:07 Nitroglycerin Sl Tabs 0.4 Mg Tab SUBLINGUAL Q5M PRN Chest Pain Paliperidone 3 mg 12/09/20 09:00 Paliperidone 3 Mg Tab.Er.24 PO DAILY [facility] Silver Sulfadiazine 1 applic 12/08/20 21:00 12/08/20 21:25 Silver Sulfadiazine 1% Cream 25 Gm Tube TOPICAL Not Given BID [facility] Thiamine HCl 100 mg 12/09/20 09:00 Thiamine 100 Mg Tab PO DAILY [facility] Trazodone HCl 25 mg 12/08/20 21:00 12/08/20 21:25 Trazodone Hcl 50 Mg Tab PO Not Given HS [facility] Intake and Output 12/08/20 12/09/20 12/09/20 22:59 06:59 14:59 Intake Total 124.305 Output Total 200 Balance 124.305 -200 Intake: Intake, IV Titration 124.305 Amount Heparin Sod,Pork in 0.45% 124.305 NaCl 25,000 unit In 0.45 % NaCl 1 250ml.bag @ 12 UNITS/KG/HR 9.525 mls/hr IV .Q24H [facility] Rx#: [id number] Output: Urine 200 Other: Voiding Method Toilet Toilet Urinal Urinal # Voids 1 2 Weight 79.379 kg 12/08/20 18:19 12/08/20 18:19
--- NOTE | 2020-12-09 13:50 | NM ---
EXAMINATION TYPE: NM stress lexiscan cardiolite DATE OF EXAM: 12/09/2020 COMPARISON: NONE HISTORY: Gluteal changes between abnormal EKG. TECHNIQUE: After the intravenous administration of 9.4 mCi Tc 99m Sestamibi - Cardiolite resting SPE CT images acquired The patient received 0.4mg Lexiscan, 25.2 mCi Tc 99m Sestamibi FINDINGS: Review of stress and rest SPECT images demonstrates decreased perfusion involving the inferior wall a nd apical septal wall on both rest and stress images indicating remote insult. Gated analysis shows n ormal wall motion with an estimated left ventricular ejection fraction of 48%. IMPRESSION: No evidence for stress-induced ischemia. Remote insults as noted.
--- NOTE | 2020-12-09 14:06 | P.DS ---
Providers Date of admission: 12/08/20 19:12 Attending physician: Yair Alvares Consults: 12/08/20 19:07 Consult Physician Urgent Consulting Provider: Rober Loyd Consult Reason/Comments: chest pain Do you want consulting provider notified?: Yes Primary care physician: [facility] Course: 40-year-old the female was admitted for colitis which was initially believed secondary to covid as patient was positive for this, later found out that he has severe pancolitis from ulcerative colitis. Patient was subsequently started on steroids and patient the head after rupture and patient had emergent laparotomy with removal of entire large bowel with little left for small bowel in the terminally later area and irrigation of large amount of stool. Patient presently has a surgical drain and the colostomy. Patient is off TPN. Patient is having output from the colostomy. The limited doing well. And may not require any subacute rehabilitation in spite of 30 day of hospital physician. Patient is cleared from surgical perspective will be discharged today on Augmentin and [place]. GENERAL: The patient is alert and oriented x3, not in any acute distress. Well developed, well nourished. Sitting up in the chair. HEENT: Pupils are round and equally reacting to light. EOMI. No scleral icterus. No conjunctival pallor. Normocephalic, atraumatic. No pharyngeal erythema. No thyromegaly. CARDIOVASCULAR: S1 and S2 present. No murmurs, rubs, or gallops. PULMONARY: Chest is clear to auscultation, no wheezing or crackles. ABDOMEN: Abdomen is tender on palpation at the surgical incision site, bowel sounds are present, gas and stool noted in the ostomy MUSCULOSKELETAL: No joint swelling or deformity. EXTREMITIES: No cyanosis, clubbing, or pedal edema. NEUROLOGICAL: Gross neurological examination did not reveal any focal deficits. Assessment and Plan Plan: -Fulminant Colitis, pancolitis secondary to ulcerative colitis : status post leslie btotal colectomy with creation of end ileostomy -Acute renal failure, improved -Hypovolemic hyponatremia: Improved -Covid 19 infection recent Patient Condition at Discharge: Fair Plan - Discharge Summary Discharge Rx Participant: Yes New Discharge Prescriptions: New Aspirin 81 mg PO DAILY #30 chew Nicotine 21Mg/24Hr Patch [Habitrol] 1 patch TRANSDERM DAILY #14 patch Isosorbide Mononitrate ER [Imdur] 30 mg PO DAILY #30 tab.er.24h Paliperidone [Invega] 3 mg PO DAILY #30 tab.er.24 Atorvastatin [Lipitor] 40 mg PO HS #30 tab Nitroglycerin Sl Tabs [Nitrostat] 0.4 mg SUBLINGUAL Q5M PRN #30 tab PRN Reason: Chest Pain lisinopriL [Zestril] 5 mg PO DAILY #30 tab Continue Metoprolol Succinate (ER) [Toprol XL] 50 mg PO HS Discharge Medication List Metoprolol Succinate (ER) [Toprol XL] 50 mg PO HS 12/08/20 [History] Aspirin 81 mg PO DAILY #30 chew 12/09/20 [Rx] Atorvastatin [Lipitor] 40 mg PO HS #30 tab 12/09/20 [Rx] Isosorbide Mononitrate ER [Imdur] 30 mg PO DAILY #30 tab.er.24h 12/09/20 [Rx] Nicotine 21Mg/24Hr Patch [Habitrol] 1 patch TRANSDERM DAILY #14 patch 12/09/20 [Rx] Nitroglycerin Sl Tabs [Nitrostat] 0.4 mg SUBLINGUAL Q5M PRN #30 tab 12/09/20 [Rx] Paliperidone [Invega] 3 mg PO DAILY #30 tab.er.24 12/09/20 [Rx] lisinopriL [Zestril] 5 mg PO DAILY #30 tab 12/09/20 [Rx] Follow up Appointment(s)/Referral(s): Alejandra Johnson MD [STAFF PHYSICIAN] - 1-2 days Patient Instructions/Handouts: Chest Pain (DC), How to Stop Smoking (DC), Heart Healthy Diet (DC)
[2020-12-09 14:13] VITALS: BP 102/62; PULSE 60
--- NOTE | 2020-12-09 15:27 | EST ---
EXERCISE STRESS AGE: 55 SEX: Male HT: 6'1" WT: 175 lbs. PROTOCOL: Lexiscan Cardiolite STAGE: N/A DURATION OF EXERCISE: 5 minutes HEART RATE REST: 47 BLOOD PRESSURE REST: 108/53 MAXIMUM HEART RATE ACHIEVED: 67 MAXIMUM BLOOD PRESSURE: 119/81 85% MPHR: 139 100% MPHR: 164 METS: N/A INDICATIONS: Chest pain CLINICAL INFORMATION: Bob Ellsworth is a 55-year-old male patient with chest discomfort and dizziness. He underwent an Lexiscan Cardiolite stress test. Baseline heart rate 47 beats per minute. Baseline blood pressure 108/53 mmHg. Baseline 12-lead ECG shows sinus rhythm with normal cardiac intervals, normal ST segments. Patient received Lexiscan infusion per protocol. No significant change in heart rate or blood pressure. No ECG evidence for ischemia. Occasional PVCs noted. Nuclear portion will be reported separately. MMODL / IJN: [id number] /
[2020-12-09] MEDS ORDERED: METOPROLOL SUCCINATE (ER) 50 MG TAB.ER.24H PO SCH (21:00)
--- NOTE | 2020-12-10 13:31 | P.HPIM ---
History of Present Illness Patient with the history of carotid artery disease previous PCI and coronary artery bypass grafting came in with compensative chest pain on the right lower chest area radiating to the back with some associated dizziness and nausea. Chest pain is not associated with food nonpleuritic in nature. Patient had history of LV systolic dysfunction with EF of around 45-50%. Patient just pain is atypical and he denied any diaphoresis associated with that. Chest pain was [id number] in severity. Troponins are negative and EKG showed some T-wave inversions in lead V2. Review of Systems REVIEW OF SYSTEMS: CONSTITUTIONAL: No fever, no malaise, no fatigue. HEENT: No recent visual problems or hearing problems. Denied any sore throat. CARDIOVASCULAR: No orthopnea, PND, no palpitations, no syncope. PULMONARY: No shortness of breath, no cough, no hemoptysis. GASTROINTESTINAL: No diarrhea, no nausea, no vomiting, no abdominal pain. NEUROLOGICAL: No headaches, no weakness, no numbness. HEMATOLOGICAL: Denies any bleeding or petechiae. GENITOURINARY: Denies any burning micturition, frequency, or urgency. MUSCULOSKELETAL/RHEUMATOLOGICAL: Denies any joint pain, swelling, or any muscle pain. ENDOCRINE: Denies any polyuria or polydipsia. The rest of the 14-point review of systems is negative. Past Medical History Past Medical History: COPD, Hyperlipidemia, Hypertension, Myocardial Infarction ([place]), Seizure Disorder Additional Past Medical History / Comment(s): ISCHEMIC CARDIOMYOPATHY WITH EF 40-45%. 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 Last Myocardial Infarction Date:: 06/12/14 History of Any Multi-Drug Resistant Organisms: None Reported Past Surgical History: Coronary Bypass/CABG, Heart Catheterization With Stent, Hernia Repair, Orthopedic Surgery Additional Past Surgical History / Comment(s): cabg january 2014-3 vessel, Cardiac caths and stenting with last Cardiac cath Jul [address] Cerda. Past Anesthesia/Blood Transfusion Reactions: No Reported Reaction Additional Past Anesthesia/Blood Transfusion Reaction / Comment(s): NO PROBLEM TOLERATING ANESTHESIA. HAS NEVER RECIEVED BLOOD TO HIS KNOWLEDGE. Date of Last Stent Placement:: 06/12/14 Past Psychological History: Anxiety, Panic Disorder, PTSD Additional Psychological History / Comment(s): Patient is homeless, been homeless for 8 months. Living whereever he can Smoking Status: Current every day smoker Past Alcohol Use History: Abuse, Daily, Heavy Additional Past Alcohol Use History / Comment(s): Pt states he drinks more than 14 drinks a week Past Drug Use History: Marijuana Additional Drug Use History / Comment(s): Pt states that he had marijuana early today. - Past Family History Father Family Medical History: Coronary Artery Disease (CAD), Myocardial Infarction ([place]) Additional Family Medical History / Comment(s): FATHER STILL LIVING Mother Family Medical History: Coronary Artery Disease (CAD), Myocardial Infarction ([place]) Additional Family Medical History / Comment(s): MOTHER 09/23/14 of unknown causes. Sister(s) Family Medical History: Myocardial Infarction ([place]) Additional Family Medical History / Comment(s): SISTER OF [place] AT AGE 53 Medications and Allergies Home Medications Medication Instructions Recorded Confirmed Type Metoprolol Succinate (ER) [Toprol 50 mg PO HS 12/08/20 12/08/20 History XL] Aspirin 81 mg PO DAILY #30 chew 12/09/20 Rx Atorvastatin [Lipitor] 40 mg PO HS #30 tab 12/09/20 Rx Isosorbide Mononitrate ER [Imdur] 30 mg PO DAILY #30 tab.er.24h 12/09/20 Rx Nicotine 21Mg/24Hr Patch [Habitrol] 1 patch TRANSDERM DAILY #14 patch 12/09/20 Rx Nitroglycerin Sl Tabs [Nitrostat] 0.4 mg SUBLINGUAL Q5M PRN #30 tab 12/09/20 Rx Paliperidone [Invega] 3 mg PO DAILY #30 tab.er.24 12/09/20 Rx lisinopriL [Zestril] 5 mg PO DAILY #30 tab 12/09/20 Rx Allergies Allergy/AdvReac Type Severity Reaction Status Date / Time Penicillins Allergy Unknown Verified 12/08/20 19:37 Childhood Physical Exam Vitals: Vital Signs Temp Pulse Pulse Resp BP BP BP 12/09/20 08:00 16 12/09/20 07:00 98.2 F 53 L 16 123/73 12/09/20 02:00 97.6 F 71 18 126/76 12/08/20 21:01 97.8 F 71 18 129/81 12/08/20 18:08 88 12/08/20 18:00 97.7 F 86 18 131/91 Pulse Ox 12/09/20 08:00 12/09/20 07:00 96 12/09/20 02:00 98 12/08/20 21:01 98 12/08/20 18:08 12/08/20 18:00 98 Intake and Output 12/08/20 12/09/20 12/09/20 22:59 06:59 14:59 Intake Total 124.305 Output Total 200 Balance 124.305 -200 Intake: Intake, IV Titration 124.305 Amount Heparin Sod,Pork in 0.45% 124.305 NaCl 25,000 unit In 0.45 % NaCl 1 250ml.bag @ 12 UNITS/KG/HR 9.525 mls/hr IV .Q24H [facility] Rx#: [id number] Output: Urine 200 Other: Voiding Method Toilet Toilet Toilet Urinal Urinal Urinal # Voids 1 2 Weight 79.379 kg 79.38 kg PHYSICAL EXAMINATION: GENERAL: The patient is alert and oriented x3, not in any acute distress. Well developed, well nourished. HEENT: Pupils are round and equally reacting to light. EOMI. No scleral icterus. No conjunctival pallor. Normocephalic, atraumatic. No pharyngeal erythema. No thyromegaly. CARDIOVASCULAR: S1 and S2 present. No murmurs, rubs, or gallops. PULMONARY: Chest is clear to auscultation, no wheezing or crackles. ABDOMEN: Soft, nontender, nondistended, normoactive bowel sounds. No palpable organomegaly. MUSCULOSKELETAL: No joint swelling or deformity. EXTREMITIES: No cyanosis, clubbing, or pedal edema. NEUROLOGICAL: Gross neurological examination did not reveal any focal deficits. SKIN: No rashes. Results CBC & Chem 7: 12/08/20 18:19 12/08/20 18:19 Labs: Abnormal Lab Results - Last 24 Hours (Table) 12/08/20 12/08/20 12/09/20 Range/Units 18:19 18:19 00:45 WBC 10.7 H (3.8-10.6) k/uL APTT 32.8 H (22.0-30.0) sec Sodium 135 L (137-145) mmol/L Carbon Dioxide 21 L (22-30) mmol/L Glucose 102 H (74-99) mg/dL Creatine Kinase 320 H (55-170) U/L 12/09/20 Range/Units 05:19 WBC (3.8-10.6) k/uL APTT 61.2 H (22.0-30.0) sec Sodium (137-145) mmol/L Carbon Dioxide (22-30) mmol/L Glucose (74-99) mg/dL Creatine Kinase (55-170) U/L Thrombosis Risk Factor Assmnt - Choose All That Apply Any of the Below Risk Factors Present?: Yes Each Factor Represents 1 point: Abnormal pulmonary function (COPD) Other Risk Factors: No Other congenital or acquired thrombophilia - If yes, enter type in comment: No Thrombosis Risk Factor Assessment Total Risk Factor Score: 1 Thrombosis Risk Factor Assessment Level: Low Risk Assessment and Plan Plan: -Chest pain: Rule out acute current syndromes after which patient underwent a Lexiscan stress test which did not show any significant inducible ischemia . -History of coronary artery disease status post bypass grafting next and- ischemic cardiomyopathy with EF of around 45% ration is not in heart failure exacerbation at this time patient has chronic systolic dysfunction -Hypertension -Dyslipidemia -Nicotine dependence -Seizure disorder She is only in metoprolol 50 mg at home patient was given prescriptions for aspirin , imdur, Invega, Lipitor, lisinopril and sublingual nitroglycerin as n eeded and will be discharged. Patient will follow-up with Dr. Miranda
--- NOTE | 2020-12-14 15:47 | P.DS ---
Providers Date of admission: 12/08/20 19:12 Expected date of discharge: 12/09/20 Attending physician: Yair Alvares Consults: 12/08/20 19:07 Consult Physician Urgent Consulting Provider: Rober Loyd Consult Reason/Comments: chest pain Do you want consulting provider notified?: Yes Primary care physician: [facility] Course: Refer to [facility] for further details of discharge . Patient Condition at Discharge: Fair Plan - Discharge Summary Discharge Rx Participant: Yes New Discharge Prescriptions: New Aspirin 81 mg PO DAILY #30 chew Nicotine 21Mg/24Hr Patch [Habitrol] 1 patch TRANSDERM DAILY #14 patch Isosorbide Mononitrate ER [Imdur] 30 mg PO DAILY #30 tab.er.24h Paliperidone [Invega] 3 mg PO DAILY #30 tab.er.24 Atorvastatin [Lipitor] 40 mg PO HS #30 tab Nitroglycerin Sl Tabs [Nitrostat] 0.4 mg SUBLINGUAL Q5M PRN #30 tab PRN Reason: Chest Pain lisinopriL [Zestril] 5 mg PO DAILY #30 tab Continue Metoprolol Succinate (ER) [Toprol XL] 50 mg PO HS Discharge Medication List Metoprolol Succinate (ER) [Toprol XL] 50 mg PO HS 12/08/20 [History] Aspirin 81 mg PO DAILY #30 chew 12/09/20 [Rx] Atorvastatin [Lipitor] 40 mg PO HS #30 tab 12/09/20 [Rx] Isosorbide Mononitrate ER [Imdur] 30 mg PO DAILY #30 tab.er.24h 12/09/20 [Rx] Nicotine 21Mg/24Hr Patch [Habitrol] 1 patch TRANSDERM DAILY #14 patch 12/09/20 [Rx] Nitroglycerin Sl Tabs [Nitrostat] 0.4 mg SUBLINGUAL Q5M PRN #30 tab 12/09/20 [Rx ] Paliperidone [Invega] 3 mg PO DAILY #30 tab.er.24 12/09/20 [Rx] lisinopriL [Zestril] 5 mg PO DAILY #30 tab 12/09/20 [Rx] Follow up Appointment(s)/Referral(s): Alejandra Johnson MD [STAFF PHYSICIAN] - 12/11/20 10:15 am ([facility]) Patient Instructions/Handouts: Chest Pain (DC), How to Stop Smoking (DC), Heart Healthy Diet (DC) Activity/Diet/Wound Care/Special Instructions: Limited activity until followup Patient to followup at [facility] for followup with [place] [employer] Discharge Disposition: HOME SELF-CARE
== END 2020-12-09 16:50 | disposition home or self-care (01) ==
LOC: EC 17:59 → 6NMEDSUR 19:12
PROVIDERS: ADMIT Hospitalist; ATTEND Hospitalist
DX: I25.110 Atherosclerotic heart disease of native coronary artery with unstable angina pectoris (principal); Z20.822 Contact with and (suspected) exposure to COVID-19; E78.5 Hyperlipidemia, unspecified; F17.200 Nicotine dependence, unspecified, uncomplicated; F41.0 Panic disorder [episodic paroxysmal anxiety]; F43.10 Post-traumatic stress disorder, unspecified; G40.909 Epilepsy, unspecified, not intractable, without status epilepticus; I10 Essential (primary) hypertension; I25.2 Old myocardial infarction; I25.5 Ischemic cardiomyopathy; I45.10 Unspecified right bundle-branch block; J44.9 Chronic obstructive pulmonary disease, unspecified; Z59.0 Homelessness; Z79.82 Long term (current) use of aspirin; Z79.899 Other long term (current) drug therapy; Z82.49 Family history of ischemic heart disease and other diseases of the circulatory system; Z95.1 Presence of aortocoronary bypass graft; Z98.61 Coronary angioplasty status
CPT/HCPCS: 96376 ×2; 96366 ×3; 93005 ×2; 96365; 99291; 36415; 93017; 80061; 80053; 84443; 82550; 83690; 83735; 84484 ×2; 85025; 85610; 85730 ×2; 87635; 71046; 78452; G0378 ×2; A9500; S4990; J1644 ×3; J2785

== ENCOUNTER 2021-06-21 17:43 | Emergency (ER) | payer OTHER ==
[2021-06-21] MEDS ORDERED: SODIUM CHLORIDE 0.9% 1,000 ML IV STA (18:17)
[2021-06-21 18:32] VITALS: TEMP 97.6
--- NOTE | 2021-06-21 18:45 | ED ---
General Adult HPI - General Chief complaint: Dizziness Stated complaint: Nausea/Vomiting Source: EMS Mode of arrival: EMS Limitations: altered mental status - History of Present Illness Initial comments: 85-year-old male with past history of ischemic cardiomyopathy, COPD, hyperte nsion, seizure disorder presents emergency department from work. Patient states that he ate catfish Conner expressed last night and shortly afterwards began having nausea and vomiting. States was up all night vomiting. He attempted to go into work today. Reports that he rode his bike to work. He was hot and due to his lack of sleep and hydration he began feeling dizzy. Coworker called EMS. EMS did provide the patient with 4 mg of Zofran. They felt as if he was answering questions slowly. He denies having any chest pain or shortness of breath. No hematemesis. Denies any abdominal pain. He denies any injuries. Reports that he normally drinks alcohol daily however stopped drinking a week ago. He denies any hallucinations, palpitations or agitation. No other alleviating, precipitating or modifying factors - Related Data Home Medications Medication Instructions Recorded Confirmed Metoprolol Succinate (ER) [Toprol 50 mg PO HS 12/08/20 06/21/21 XL] Previous Rx's Medication Instructions Recorded Atorvastatin [Lipitor] 40 mg PO HS #30 tab 06/21/21 Isosorbide Mononitrate ER [Imdur] 30 mg PO DAILY #30 tab.er.24h 06/21/21 lisinopriL [Zestril] 5 mg PO DAILY #30 tab 06/21/21 Allergies Allergy/AdvReac Type Severity Reaction Status Date / Time Penicillins Allergy Unknown Verified 06/21/21 18:39 Childhood Review of Systems ROS Statement: Those systems with pertinent positive or pertinent negative responses have been documented in the HPI. ROS Other: All systems not noted in ROS Statement are negative. Past Medical History Past Medical History: COPD, Hyperlipidemia, Hypertension, Myocardial Infarction ([place]), Seizure Disorder Additional Past Medical History / Comment(s): ISCHEMIC CARDIOMYOPATHY WITH EF 40-45%. 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 Last Myocardial Infarction Date:: 06/12/14 History of Any Multi-Drug Resistant Organisms: None Reported Past Surgical History: Coronary Bypass/CABG, Heart Catheterization With Stent, Hernia Repair, Orthopedic Surgery Additional Past Surgical History / Comment(s): cabg january 2014-3 vessel, Cardiac caths and stenting with last Cardiac cath Jul [address] Cerda. Past Anesthesia/Blood Transfusion Reactions: No Reported Reaction Additional Past Anesthesia/Blood Transfusion Reaction / Comment(s): NO PROBLEM TOLERATING ANESTHESIA. HAS NEVER RECIEVED BLOOD TO HIS KNOWLEDGE. Date of Last Stent Placement:: 06/12/14 Past Psychological History: Anxiety, Panic Disorder, PTSD Smoking Status: Current every day smoker Past Alcohol Use History: Abuse, Daily, Heavy Past Drug Use History: Marijuana - Past Family History Father Family Medical History: Coronary Artery Disease (CAD), Myocardial Infarction ([place]) Additional Family Medical History / Comment(s): FATHER STILL LIVING Mother Family Medical History: Coronary Artery Disease (CAD), Myocardial Infarction ([place]) Additional Family Medical History / Comment(s): MOTHER 09/23/14 of unknown causes. Sister(s) Family Medical History: Myocardial Infarction ([place]) Additional Family Medical History / Comment(s): SISTER OF [place] AT AGE 53 General Exam Limitations: altered mental status Course Vital Signs 06/21/21 06/21/21 06/21/21 17:46 18:31 20:19 Temperature 97.6 F Pulse Rate 77 78 Respiratory 18 16 Rate Blood Pressure 96/66 99/63 O2 Sat by Pulse 99 97 Oximetry EKG Findings - EKG Comments: EKG Findings:: EKG demonstrates a sinus rhythm with a rate of 66. WI interval 138. QRS 86. QTC of 465. No acute ST segment elevations or depressions. Medical Decision Making - Medical Decision Making On arrival patient is placed in room 2. There was physical symptoms performed. Patient is given a liter bolus of normal saline. Laboratory studies were conducted. Twelve-lead EKG was performed. Patient does have acute kidney injury with a creatinine of 1.3. Repeat of the patient's labs within normal limits. He is sent over for a chest x-ray which demonstrates no acute process. The patient is reevaluated and feels markedly improved at this time. He does have some return of mild nausea and therefore is given a second dose of Zofran. Patient feels comfortable with discharge at this time. He will be given Zofran to take at home. Instructed to encourage fluid intake and slowly advance diet. He is requesting refills of his home medications for which I do provide. He is instructed to follow-up with his private care doctor to 4 days. Return to the emergency room for any new or worsening symptoms. Patient agreed to the treatment plan and was discharged home in stable condition - Lab Data Result diagrams: 06/21/21 18:32 06/21/21 18:32 Lab Results 06/21/21 06/21/21 06/21/21 Range/Units 18:32 18:32 18:32 WBC 14.6 H (3.8-10.6) k/uL RBC 5.28 (4.30-5.90) m/uL Hgb 17.4 (13.0-17.5) gm/dL Hct 52.1 (39.0-53.0) % MCV 98.7 (80.0-100.0) fL MCH 32.9 (25.0-35.0) pg MCHC 33.3 (31.0-37.0) g/dL RDW 13.1 (11.5-15.5) % Plt Count 268 (150-450) k/uL MPV 8.3 Neutrophils % 80 % Lymphocytes % 11 % Monocytes % 5 % Eosinophils % 2 % Basophils % 1 % Neutrophils # 11.7 H (1.3-7.7) k/uL Lymphocytes # 1.6 (1.0-4.8) k/uL Monocytes # 0.8 (0-1.0) k/uL Eosinophils # 0.3 (0-0.7) k/uL Basophils # 0.1 (0-0.2) k/uL PT 10.4 (9.0-12.0) sec INR 1.0 (<1.2) Sodium 138 (137-145) mmol/L Potassium 4.5 (3.5-5.1) mmol/L Chloride 103 (98-107) mmol/L Carbon Dioxide 20 L (22-30) mmol/L Anion Gap 15 mmol/L BUN 12 (9-20) mg/dL Creatinine 1.36 H (0.66-1.25) mg/dL Est GFR (CKD-EPI)AfAm 67 (>60 ml/min/1.73 sqM) Est GFR (CKD-EPI)NonAf 58 (>60 ml/min/1.73 sqM) Glucose 107 H (74-99) mg/dL Plasma Lactic Acid Jacinto (0.7-2.0) mmol/L Calcium 10.1 (8.4-10.2) mg/dL Magnesium 1.9 (1.6-2.3) mg/dL Total Bilirubin 1.1 (0.2-1.3) mg/dL AST 19 (17-59) U/L ALT 11 (4-49) U/L Alkaline Phosphatase 73 (38-126) U/L Troponin I (0.000-0.034) ng/mL Total Protein 7.5 (6.3-8.2) g/dL Albumin 5.0 (3.5-5.0) g/dL Serum Alcohol <10 mg/dL 06/21/21 06/21/21 Range/Units 18:32 18:32 WBC (3.8-10.6) k/uL RBC (4.30-5.90) m/uL Hgb (13.0-17.5) gm/dL Hct (39.0-53.0) % MCV (80.0-100.0) fL MCH (25.0-35.0) pg MCHC (31.0-37.0) g/dL RDW (11.5-15.5) % Plt Count (150-450) k/uL MPV Neutrophils % % Lymphocytes % % Monocytes % % Eosinophils % % Basophils % % Neutrophils # (1.3-7.7) k/uL Lymphocytes # (1.0-4.8) k/uL Monocytes # (0-1.0) k/uL Eosinophils # (0-0.7) k/uL Basophils # (0-0.2) k/uL PT (9.0-12.0) sec INR (<1.2) Sodium (137-145) mmol/L Potassium (3.5-5.1) mmol/L Chloride (98-107) mmol/L Carbon Dioxide (22-30) mmol/L Anion Gap mmol/L BUN (9-20) mg/dL Creatinine (0.66-1.25) mg/dL Est GFR (CKD-EPI)AfAm (>60 ml/min/1.73 sqM) Est GFR (CKD-EPI)NonAf (>60 ml/min/1.73 sqM) Glucose (74-99) mg/dL Plasma Lactic Acid Jacinto 1.9 (0.7-2.0) mmol/L Calcium (8.4-10.2) mg/dL Magnesium (1.6-2.3) mg/dL Total Bilirubin (0.2-1.3) mg/dL AST (17-59) U/L ALT (4-49) U/L Alkaline Phosphatase (38-126) U/L Troponin I 0.013 (0.000-0.034) ng/mL Total Protein (6.3-8.2) g/dL Albumin (3.5-5.0) g/dL Serum Alcohol mg/dL Disposition Clinical Impression: Vomiting, MICHAEL (acute kidney injury) Disposition: HOME SELF-CARE Condition: Stable Instructions (If sedation given, give patient instructions): Dehydration (ED), Acute Nausea and Vomiting (ED) Additional Instructions: Please take the Zofran as needed for nausea. Return to the ED for any new or worsening symptoms. Please follow up with your doctor in 2-4 days. Prescriptions: Isosorbide Mononitrate ER [Imdur] 30 mg PO DAILY #30 tab.er.24h Atorvastatin [Lipitor] 40 mg PO HS #30 tab lisinopriL [Zestril] 5 mg PO DAILY #30 tab Is patient prescribed a controlled substance at d/c from ED?: No Referrals: Alejandra Johnson MD [Primary Care Provider] - 1-2 days Time of Disposition: 20:12
[2021-06-21 18:49] LABS: Prothrombin Time 10.4 sec (9.0-12.0)
[2021-06-21 18:53] LABS: ALT 11 U/L (4-49); AST 19 U/L (17-59); African American GFR (CKD) 67 (>60 ml/min/1.73 sqM); Alcohol <10 mg/dL; Alkaline Phosphatase 73 U/L (38-126); Anion Gap 15 mmol/L; Blood Urea Nitrogen 12 mg/dL (9-20); Calcium 10.1 mg/dL (8.4-10.2); Carbon Dioxide 20 mmol/L (22-30); Chloride 103 mmol/L (98-107); Glucose 107 mg/dL (74-99); Magnesium 1.9 mg/dL (1.6-2.3); Non-African American GFR(CKD) 58 (>60 ml/min/1.73 sqM); Potassium 4.5 mmol/L (3.5-5.1); Sodium 138 mmol/L (137-145); Total Bilirubin 1.1 mg/dL (0.2-1.3); Total Protein 7.5 g/dL (6.3-8.2)
[2021-06-21 18:58] LABS: Basophils # (A) 0.1 k/uL (0-0.2); Basophils % (A) 1 %; Eosinophils # (A) 0.3 k/uL (0-0.7); Eosinophils % (A) 2 %; HCT 52.1 % (39.0-53.0); HGB 17.4 gm/dL (13.0-17.5); Lymphocytes # (A) 1.6 k/uL (1.0-4.8); Lymphocytes % (A) 11 %; MCH 32.9 pg (25.0-35.0); MCHC 33.3 g/dL (31.0-37.0); MCV 98.7 fL (80.0-100.0); Mean Platelet Volume 8.3; Monocytes # (A) 0.8 k/uL (0-1.0); Monocytes % (A) 5 %; Neutrophils # (A) 11.7 k/uL (1.3-7.7); Neutrophils % (A) 80 %; Platelet Count 268 k/uL (150-450); RBC 5.28 m/uL (4.30-5.90); RDW 13.1 % (11.5-15.5); WBC 14.6 k/uL (3.8-10.6)
--- NOTE | 2021-06-21 19:55 | XR ---
EXAMINATION TYPE: XR chest 2V DATE OF EXAM: 06/21/2021 COMPARISON: 12/08/2020 HISTORY: Cough. Chest pain TECHNIQUE: 2 views FINDINGS: Heart is normal. Lungs are clear of consolidation. There are sternal wires. There is no ple ural effusion. Bony thorax is intact. IMPRESSION: Normal chest. No adverse change.
[2021-06-21] MEDS ORDERED: ONDANSETRON 4 MG/2 ML VIAL IVP STA (20:07)
[2021-06-21] MEDS ORDERED: ONDANSETRON 4 MG ODT STARTER PACK 2 TAB BTL PO STA (20:10)
[2021-06-21 20:20] VITALS: BP 99/63; PULSE 78; RESP 16
== END 2021-06-21 20:20 | disposition home or self-care (01) ==
LOC: EC 17:43
DX: R11.2 Nausea with vomiting, unspecified (principal); N17.9 Acute kidney failure, unspecified; J44.9 Chronic obstructive pulmonary disease, unspecified; E78.5 Hyperlipidemia, unspecified; I10 Essential (primary) hypertension; I25.2 Old myocardial infarction; F41.9 Anxiety disorder, unspecified; F43.12 Post-traumatic stress disorder, chronic; F17.200 Nicotine dependence, unspecified, uncomplicated; F12.90 Cannabis use, unspecified, uncomplicated; Z88.0 Allergy status to penicillin; Z95.1 Presence of aortocoronary bypass graft
CPT/HCPCS: 99284; 96374; 96361; 36415; 93005; 80053; 83605; 83735; 84484; 85025; 85610; 71046; G0480; J2405; S0119; 80320

== ENCOUNTER 2021-07-03 05:46 | Inpatient (IN) | payer OTHER ==
[2021-07-03] MEDS ORDERED: SODIUM CHLORIDE 0.9% 1,000 ML IV STA (05:50)
[2021-07-03] MEDS ORDERED: ONDANSETRON 4 MG/2 ML VIAL IVP STA (05:51)
[2021-07-03 06:07] LABS: Basophils # (A) 0.1 k/uL (0-0.2); Basophils % (A) 1 %; Eosinophils # (A) 0.7 k/uL (0-0.7); Eosinophils % (A) 5 %; HCT 45.2 % (39.0-53.0); HGB 15.4 gm/dL (13.0-17.5); Lymphocytes # (A) 4.5 k/uL (1.0-4.8); Lymphocytes % (A) 34 %; MCH 33.3 pg (25.0-35.0); MCV 97.9 fL (80.0-100.0); Mean Platelet Volume 8.2; Monocytes # (A) 0.4 k/uL (0-1.0); Monocytes % (A) 3 %; Neutrophils # (A) 7.3 k/uL (1.3-7.7); Neutrophils % (A) 55 %; Platelet Count 303 k/uL (150-450); RBC 4.62 m/uL (4.30-5.90); RDW 12.2 % (11.5-15.5); WBC 13.2 k/uL (3.8-10.6)
[2021-07-03] MEDS ORDERED: LIDOCAINE 1% INJ 10MG/ML (20 ML MDV) ONE (06:10)
[2021-07-03] MEDS ORDERED: VERAPAMIL 2.5 MG/ML 2 ML AMP ONE (06:10)
--- NOTE | 2021-07-03 06:14 | ED ---
Chest Pain HPI - General Chief Complaint: Chest Pain Stated Complaint: Chest Pain Time Seen by Provider: 07/03/21 05:50 Source: patient, EMS Mode of arrival: EMS Limitations: no limitations - History of Present Illness Initial Comments: This patient is a 55-year-old man with history of coronary artery disease, status post CABG. The patient woke up this morning little under an hour ago with pain to the posterior lateral aspect left shoulder, At the base of the neck. Patient also was feeling nauseated and sweaty. There was mild shortness of breath. Patient's called EMS and they report that when they arrived the 12-lead ECG was showing ST elevation in the inferior leads with reciprocal in septal leads. Patient is given oxygen, he was given aspirin, morphine and one sublingual nitroglycerin. On arrival, patient states the pain is still severe. MD Complaint: chest pain Onset/Timin -: hour(s) Onset: during rest Pain Location: other (Left shoulder/neck) Pain Radiation: LUE, neck Severity: severe Quality: aching Consistency: constant Improves With: nothing Anginal Symptoms: nausea, vomiting, dyspnea Treatments Prior to Arrival: aspirin, nitroglycerin, oxygen, other - Related Data Home Medications Medication Instructions Recorded Confirmed Metoprolol Succinate (ER) [Toprol 50 mg PO HS 12/08/20 07/03/21 XL] Previous Rx's Medication Instructions Recorded Atorvastatin [Lipitor] 40 mg PO HS #30 tab 06/21/21 Isosorbide Mononitrate ER [Imdur] 30 mg PO DAILY #30 tab.er.24h 06/21/21 lisinopriL [Zestril] 5 mg PO DAILY #30 tab 06/21/21 Allergies Allergy/AdvReac Type Severity Reaction Status Date / Time Penicillins Allergy Unknown Verified 07/03/21 05:51 Childhood Review of Systems ROS Statement: Those systems with pertinent positive or pertinent negative responses have been documented in the HPI. ROS Other: All systems not noted in ROS Statement are negative. Constitutional: Denies: fever, chills Respiratory: Reports: dyspnea. Denies: cough, hemoptysis Cardiovascular: Reports: chest pain. Denies: palpitations, edema, syncope Gastrointestinal: Reports: nausea. Denies: abdominal pain, vomiting, diarrhea Genitourinary: Denies: dysuria, hematuria Musculoskeletal: Denies: back pain Skin: Denies: rash Neurological: Denies: headache, weakness, numbness EKG Findings - EKG Results: EKG: interpreted by ERMD, sinus rhythm, normal axis - [place], Pacemaker, Normal: Myocardial infarction: inferior [place] (acute or recent) Past Medical History Past Medical History: COPD, Hyperlipidemia, Hypertension, Myocardial Infarction ([place]), Seizure Disorder Additional Past Medical History / Comment(s): ISCHEMIC CARDIOMYOPATHY WITH EF 40-45%. 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 Last Myocardial Infarction Date:: 06/12/14 History of Any Multi-Drug Resistant Organisms: None Reported Past Surgical History: Coronary Bypass/CABG, Heart Catheterization With Stent, Hernia Repair, Orthopedic Surgery Additional Past Surgical History / Comment(s): cabg january 2014-3 vessel, Cardiac caths and stenting with last Cardiac cath Jul [address] Cerda. Past Anesthesia/Blood Transfusion Reactions: No Reported Reaction Additional Past Anesthesia/Blood Transfusion Reaction / Comment(s): NO PROBLEM TOLERATING ANESTHESIA. HAS NEVER RECIEVED BLOOD TO HIS KNOWLEDGE. Date of Last Stent Placement:: 06/12/14 Past Psychological History: Anxiety, Panic Disorder, PTSD Smoking Status: Current every day smoker Past Alcohol Use History: Abuse, Daily, Heavy Past Drug Use History: Marijuana - Past Family History Father Family Medical History: Coronary Artery Disease (CAD), Myocardial Infarction ([place]) Additional Family Medical History / Comment(s): FATHER STILL LIVING Mother Family Medical History: Coronary Artery Disease (CAD), Myocardial Infarction ([place]) Additional Family Medical History / Comment(s): MOTHER 09/23/14 of unknown causes. Sister(s) Family Medical History: Myocardial Infarction ([place]) Additional Family Medical History / Comment(s): SISTER OF [place] AT AGE 53 General Exam Limitations: no limitations General appearance: alert, in no apparent distress Head exam: Present: atraumatic, normocephalic Eye exam: Present: normal appearance. Absent: scleral icterus, conjunctival injection Respiratory exam: Present: normal lung sounds bilaterally. Absent: respiratory distress, wheezes, rales, rhonchi, stridor Cardiovascular Exam: Present: regular rate, normal rhythm, normal heart sounds. Absent: systolic murmur, diastolic murmur, rubs, gallop GI/Abdominal exam: Present: soft, distended, tenderness, guarding, rebound. Absent: rigid, mass Extremities exam: Present: normal inspection, normal capillary refill. Absent: pedal edema, calf tenderness Back exam: Present: normal inspection. Absent: CVA tenderness (R), CVA tenderness (L) Neurological exam: Present: alert Skin exam: Present: intact, diaphoretic. Absent: rash Course Vital Signs 07/03/21 07/03/21 05:47 06:00 Temperature 98 F Pulse Rate 62 56 L Respiratory 16 18 Rate Blood Pressure 115/91 98/77 O2 Sat by Pulse 98 97 Oximetry Chest Pain MDM - Core Measures AMI Core Measures Followed: Yes - Differential Diagnosis AMI, ACS - MDM Patient is a 55-year-old man with coronary arteries, status post CABG who presents with acute onset of chest pain, diaphoresis, dyspnea, nausea. EMS has transmitted EKG concerning for STEMI. The [facility] was activated. On arrival the patient is brought directly to the resuscitation room where IV is started, patient is evaluated, ECG is performed confirming a STEMI. The patient is prepped for the [facility], medications are started, and sent directly to [facility] on its availability. Case is discussed with the red leader removable prosthodontist as well as the admitting physician. Orders are written. Critical Care Time Critical Care Time: Yes (30 minutes) Disposition Clinical Impression: ST elevation myocardial infarction (STEMI) Disposition: ADMITTED IP TO THIS HOSP Condition: Critical
--- NOTE | 2021-07-03 06:14 | XR ---
EXAMINATION TYPE: XR chest 1V portable DATE OF EXAM: 07/03/2021 COMPARISON: Chest x-ray June 21, 2021 HISTORY: Chest pain. TECHNIQUE: Single frontal view of the chest is obtained. FINDINGS: There is diminished inspiration with developing right greater than left bibasilar opacitie s. The cardiac silhouette size is upper limits of normal currently. Overlying sternal wires redemon strated. The osseous structures are intact. IMPRESSION: Poor inspiration with developing right greater than left bibasilar acute infiltrate and/ or atelectasis.
[2021-07-03 06:24] LABS: ALT 12 U/L (4-49); AST 15 U/L (17-59); African American GFR (CKD) >90 (>60 ml/min/1.73 sqM); Albumin 3.9 g/dL (3.5-5.0); Alkaline Phosphatase 58 U/L (38-126); Anion Gap 10 mmol/L; Blood Urea Nitrogen 15 mg/dL (9-20); Calcium 9.1 mg/dL (8.4-10.2); Carbon Dioxide 23 mmol/L (22-30); Chloride 109 mmol/L (98-107); Glucose 107 mg/dL (74-99); Non-African American GFR(CKD) >90 (>60 ml/min/1.73 sqM); Potassium 4.2 mmol/L (3.5-5.1); Sodium 142 mmol/L (137-145); Total Bilirubin 0.2 mg/dL (0.2-1.3); Total Protein 6.4 g/dL (6.3-8.2)
[2021-07-03 06:27] LABS: INR 0.9 (<1.2); Partial Thromboplastin Time 22.8 sec (22.0-30.0)
[2021-07-03] MEDS ORDERED: SODIUM CHLORIDE 0.9% 1,000 ML IV ONE ×2 (06:27→06:58)
[2021-07-03 06:29] LABS: Alcohol 90 mg/dL
[2021-07-03] MEDS ORDERED: fentaNYL (PF) 50 MCG/ML 2 ML AMP ONE (06:31)
[2021-07-03] MEDS ORDERED: LIDOCAINE 1% INJ 10MG/ML (20 ML MDV) SQ ONE (06:32)
[2021-07-03] MEDS ORDERED: fentaNYL (PF) 50 MCG/ML 2 ML AMP IV ONE (06:32)
--- NOTE | 2021-07-03 06:36 | P.CRDCN ---
History of Present Illness History of present illness: This is Dr. España dictating a consult on this patient The patient was interviewed and examined IMPRESSION / ASSESSMENT: Acute inferior CA with posterior extension Known coronary artery disease status post coronary artery bypass grafting Known ischemic adenopathy ejection fraction 45-50% moderate frontal regurgitation noted posterior Aortic root 4 cm PLAN: Proceed with coronary angiography and coronary intervention as indicated HPI Patient presents with tightness in the chest for at least an hour prior to a rise a little in the ER We received information from EMS that the patient was experiencing discomfort in the chest and had ST elevations of the twelve-lead EKG in the inferior leads Upon arrival the patient was nauseous and was throwing up He is still complaining of tightness in the chest but he was not short of breath lying supine He admitted to drinking heavily the night before He admitted to cocaine use about 2 weeks back He does smoke cigarettes and uses marijuana ROS: No fever chills or rigors, no cough, phlegm or expectoration, no nausea, vomiting or diarrhea, no hematuria, dysuria, no musculoskeletal complaints, no strokes or seizures, no skin lesions. EXAMINATION: Blood pressure was 115/91 and 19-77 mmHg pulse rate in the 60s afebrile 97% on 3 L nasal cannula No JVD Pansystolic murmur over the precordium Loud S2 Lungs REVIEW OF LABS, ECG & MEDICAL DATA Previously a patient of Dr. VC De Paz Seen by Dr. Golden in June 2020 cardiac catheterization was performed Known coronary artery disease triple-vessel status post coronary bypass grafting with a KERR graft to the LAD, venous graft to the OM, diagonal and RCA in 2013 In 2019 he underwent cardiac catheterization LAD was occluded in the midportion, left circumflex occluded in the proximal portion Venous graft to the OM completely occluded Venous graft to the diagonal was patent and free of disease Venous graft to the RCA patent Negative RCA had a 90% stenosis in the proximal part and a long 95% stenosis in the distal part Last year the 2-D echo revealed 45-50% left upper systolic function with lateral wall hypokinesis Dilated left atrium, thickened aortic valve leaflets, at least moderate mitral regurgitation Aortic root 4 cm Past Medical History Past Medical History: COPD, Hyperlipidemia, Hypertension, Myocardial Infarction ([place]), Seizure Disorder Additional Past Medical History / Comment(s): ISCHEMIC CARDIOMYOPATHY WITH EF 40-45%. 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 Last Myocardial Infarction Date:: 06/12/14 History of Any Multi-Drug Resistant Organisms: None Reported Past Surgical History: Coronary Bypass/CABG, Heart Catheterization With Stent, Hernia Repair, Orthopedic Surgery Additional Past Surgical History / Comment(s): cabg january 2014-3 vessel, Cardiac caths and stenting with last Cardiac cath Jul [address] Cerda. Past Anesthesia/Blood Transfusion Reactions: No Reported Reaction Additional Past Anesthesia/Blood Transfusion Reaction / Comment(s): NO PROBLEM TOLERATING ANESTHESIA. HAS NEVER RECIEVED BLOOD TO HIS KNOWLEDGE. Date of Last Stent Placement:: 06/12/14 Past Psychological History: Anxiety, Panic Disorder, PTSD Smoking Status: Current every day smoker Past Alcohol Use History: Abuse, Daily, Heavy Past Drug Use History: Marijuana - Past Family History Father Family Medical History: Coronary Artery Disease (CAD), Myocardial Infarction ([place]) Additional Family Medical History / Comment(s): FATHER STILL LIVING Mother Family Medical History: Coronary Artery Disease (CAD), Myocardial Infarction ([place]) Additional Family Medical History / Comment(s): MOTHER 09/23/14 of unknown causes. Sister(s) Family Medical History: Myocardial Infarction ([place]) Additional Family Medical History / Comment(s): SISTER OF [place] AT AGE 53 Medications and Allergies Home Medications Medication Instructions Recorded Confirmed Type Metoprolol Succinate (ER) [Toprol 50 mg PO HS 12/08/20 06/21/21 History XL] Atorvastatin [Lipitor] 40 mg PO HS #30 tab 06/21/21 Rx Isosorbide Mononitrate ER [Imdur] 30 mg PO DAILY #30 tab.er.24h 06/21/21 Rx lisinopriL [Zestril] 5 mg PO DAILY #30 tab 06/21/21 Rx Allergies Allergy/AdvReac Type Severity Reaction Status Date / Time Penicillins Allergy Unknown Verified 07/03/21 05:51 Childhood Physical Exam Vitals: Vital Signs Temp Pulse Resp BP Pulse Ox 07/03/21 06:00 56 L 18 98/77 97 07/03/21 05:47 98 F 62 16 115/91 98 Intake and Output 07/02/21 07/02/21 07/03/21 14:59 22:59 06:59 Other: Weight 80.286 kg Results 07/03/21 05:56 07/03/21 05:56 Cardiac Enzymes 07/03/21 Range/Units 05:56 AST 15 L (17-59) U/L CBC 07/03/21 Range/Units 05:56 WBC 13.2 H (3.8-10.6) k/uL RBC 4.62 (4.30-5.90) m/uL Hgb 15.4 (13.0-17.5) gm/dL Hct 45.2 (39.0-53.0) % Plt Count 303 (150-450) k/uL Comprehensive Metabolic Panel 07/03/21 Range/Units 05:56 Sodium 142 (137-145) mmol/L Potassium 4.2 (3.5-5.1) mmol/L Chloride 109 H (98-107) mmol/L Carbon Dioxide 23 (22-30) mmol/L BUN 15 (9-20) mg/dL Creatinine 0.82 (0.66-1.25) mg/dL Glucose 107 H (74-99) mg/dL Calcium 9.1 (8.4-10.2) mg/dL AST 15 L (17-59) U/L ALT 12 (4-49) U/L Alkaline Phosphatase 58 (38-126) U/L Total Protein 6.4 (6.3-8.2) g/dL Albumin 3.9 (3.5-5.0) g/dL Current Medications Generic Name Dose Route Start Last Admin Trade Name Freq PRN Reason Stop Dose Admin Sodium Chloride 1,000 mls @ 999 mls/hr 07/03/21 05:50 07/03/21 05:51 Saline 0.9% IV 07/03/21 06:50 999 mls/hr .Q1H1M STA Administration Intake and Output 07/02/21 07/02/21 07/03/21 14:59 22:59 06:59 Other: Weight 80.286 kg Patient Weight 07/03/21 06:59 Weight 80.286 kg 07/03/21 05:56 07/03/21 05:56
[2021-07-03] MEDS ORDERED: ONDANSETRON 4 MG/2 ML VIAL ONE (06:41)
[2021-07-03] MEDS ORDERED: ONDANSETRON 4 MG/2 ML VIAL IVP ONE (06:42)
[2021-07-03] MEDS: HEPARIN SODIUM 1,000 UN/ML (10ML VL) IV ONE ×2 (06:42→06:58)
[2021-07-03] MEDS ORDERED: CLOPIDOGREL 75 MG TAB ONE (06:43)
[2021-07-03] MEDS ORDERED: CLOPIDOGREL 75 MG TAB PO ONE (06:45)
[2021-07-03] MEDS ORDERED: IOPAMIDOL-370 125ML BTL INJ ONE (06:50)
[2021-07-03] MEDS ORDERED: MIDAZOLAM 2 MG/2 ML VIAL IV ONE (06:55)
[2021-07-03] MEDS ORDERED: HEPARIN SODIUM 1,000 UN/ML (10ML VL) ONE (06:57)
[2021-07-03] MEDS ORDERED: IOPAMIDOL-370 100ML BTL INJ ONE ×2 (07:12→07:19)
[2021-07-03] MEDS ORDERED: MAG HYDROX/AL HYDROX/SIMETH 30 ML CUP PO PRN (07:24)
[2021-07-03] MEDS ORDERED: ATROPINE SULFATE 0.1 MG/ML 10ML SYRINGE IV PRN (07:24)
[2021-07-03] MEDS ORDERED: ZOLPIDEM 5 MG TAB PO PRN (07:24)
[2021-07-03] MEDS ORDERED: NITROGLYCERIN SL TABS 0.4 MG TAB SUBLINGUAL PRN (07:24)
[2021-07-03] MEDS ORDERED: RX INFO: IV CONTRAST WAS GIVEN 1 EACH MISC MISCELLANE PRN (07:24)
[2021-07-03] MEDS ORDERED: SODIUM CHLORIDE 0.9% 1,000 ML IV SCH (07:30)
[2021-07-03 07:47] LABS: Glucose,Whole Blood 110 mg/dL (75-99)
[2021-07-03] MEDS: LIDOCAINE 5% PATCH TOPICAL SCH (11:00)
--- NOTE | 2021-07-03 11:02 | CC ---
CARDIAC CATHETERIZATION REPORT Mr. Ellsworth is a 55-year-old male with known history of coronary artery disease status post coronary artery bypass grafting in 2014 and percutaneous revascularization shortly after, history of chronic tobacco use, chronic alcohol intake, hypertension, hyperlipidemia, who presented to the emergency room with symptoms of acute chest discomfort with ST-segment changes consistent with inferior-posterior myocardial infarction. He was evaluated by Dr. España and recommendation made regarding cardiac catheterization. The procedure as well as the risks and the complications were discussed with the patient who is in full understanding and agreement. PROCEDURE DETAILS: Patient was brought to shop laborer in a fasting semisedated state after receiving fentanyl and Benadryl and achieving moderate conscious sedated state. Using Xylocaine anesthesia and Seldinger technique, a 6-Cambodian sheath was introduced in the right femoral artery. Selective right coronary angiography was performed using 6-Cambodian FR4 guiding catheter. After obtaining images of the saphenous vein graft to the right coronary artery, images of the right coronary artery was performed. Subsequently angioplasty and stenting on the right PLV were performed. Following that, using the same catheter, images of the saphenous vein graft to the diagonal branch and obtuse marginal branch as well as the KERR to LAD were obtained. Following that, a 6-Cambodian left Cindy catheter was introduced in the system and images of the left coronary system were obtained. Following that, 6-Cambodian tight pigtail catheter was introduced into the left ventricle and the left ventricular end-diastolic pressure was calculated. Following that, catheter and sheath were removed. Hemostasis was obtained with deployment of an Angio-Seal. There was no immediate complication. Patient is returned to his room in stable condition. FINDINGS: LEFT MAIN: This is a short size vessel, bifurcating into left circumflex, left anterior descending coronary artery, left main coronary artery has no evidence of high- grade stenosis. LEFT ANTERIOR DESCENDING CORONARY ARTERY: This vessel is totally occluded at the takeoff of the first septal supervisor esters and emulsifiers with no significant antegrade flow. CIRCUMFLEX CORONARY ARTERY: Left circumflex: This vessel is totally occluded proximally with no significant antegrade flow. RIGHT CORONARY ARTERY: Right coronary artery is a large-sized vessel bifurcating distally PDA and posterolateral segment branches. The right coronary artery in mid segment has significant disease at the distal segment at the bifurcation. The PLV is totally occluded with minimal antegrade flow. There is flow into the PDA with retrograde flow from the PDA to the saphenous vein graft. The mid segment of the right coronary artery has plaques up to 40% to 50%. SAPHENOUS VEIN GRAFT TO THE RIGHT CORONARY ARTERY: The proximal and distal and anastomotic site are patent. The flow into the PDA is brisk. There is no evidence of significant obstructive disease. SAPHENOUS VEIN GRAFT TO THE OBTUSE MARGINAL BRANCH. This graft is totally occluded proximally with no antegrade flow. SAPHENOUS VEIN GRAFT TO THE DIAGONAL BRANCH: The proximal and distal anastomotic sites are patent. The flow in the diagonal branch is brisk. There is no evidence of high- grade stenosis. THE KERR TO LAD: The distal anastomotic site is patent. The flow into the LAD is brisk. LEFT VENTRICULOGRAM: Left ventriculogram was not performed. HEMODYNAMICS: There was no gradient across the aortic valve. The left ventricular end-diastolic pressure was 26-30 mm Hg. CONCLUSION: 1. Acutely occluded right PLV with a diffuse disease in the mid right coronary artery. 2. Chronically occluded LAD and left circumflex. 3. Patent KERR to the LAD. 4. Patent saphenous vein graft to the diagonal branch and to the right coronary artery PDA. 5. Occluded saphenous vein graft to the obtuse marginal branch. 6. Elevated left ventricular end-diastolic pressure. RECOMMENDATION: In view of findings and anatomy, I recommend proceeding with angioplasty and stenting of the right PLV. The procedure as well as the risks and the complications were discussed with the patient, who is in full understanding and agreement. MMODL / IJN: [id number] /
--- NOTE | 2021-07-03 11:02 | PTCA ---
PERCUTANEOUSTRANS CORORONARY ANGIOGRAPHY Mr. Ellsworth is a 55-year-old male with a history of coronary artery disease who presented with an acute myocardial infarction, underwent cardiac catheterization and was found to have a totally occluded right PLV. In view of that, recommendation made regarding angioplasty and stenting. The procedure as well as the risks and the complications were discussed with the patient who is in full understanding and agreement. PROCEDURE DESCRIPTION: Using the 6-Bahamian FR4 guiding catheter a 0.014 balanced medium weight J-wire with the help of a microcatheter FineCross straight. The lesion was crossed and the wire was positioned distally. Subsequently 2.5 x 12 mm NC Trek balloon was advanced and multiple inflations at 8 atmospheres were done. Following that, the balloon was removed and a 2.5 x 18 mm Xience Asaf point stent was advanced, deployed and was dilated at 16 atmospheres. After removing the balloon a 3.0 x 12 mm NC Trek balloon was advanced and inflation in the proximal segment of the stent was done at 12 atmospheres. After the last inflation, after appropriate wait the balloon and the guidewire were withdrawn back in the guiding catheter. Images were obtained repeated. Those images reveal stable successful stenting. At that point, the guidewire and the balloon was removed and the rest of the angiography was performed. Following that, catheter and sheath were removed. Hemostasis was obtained with deployment Angio-Seal. There was no immediate complication. Patient is returned to his room in stable condition. Of note, the patient received a total of 8000 units of intravenous heparin, his ACT was followed. He received oral loading dose of clopidogrel. At the end the procedure, his chest discomfort has resolved and his EKG changes have resolved as well. RESULTS: Successful recanalization of a totally occluded right PLV with reduction of stenosis from 100% to 0%. RECOMMENDATION: Patient be continued on aspirin, Plavix, beta jacque, STEPHEN inhibitor, statin. The importance of dual antiplatelet treatment were discussed with the patient who is in full understanding and agreement. Duration of the sedation is 51 minutes. MMODL / IJN: [id number] /
[2021-07-03] MEDS: THIAMINE 100 MG TAB PO SCH (11:04)
[2021-07-03] MEDS: ASPIRIN 81 MG PO SCH (11:04)
[2021-07-03] MEDS: METOPROLOL TARTRATE 25 MG TAB PO SCH ×2 (11:04→20:14)
[2021-07-03] MEDS: lisinopriL 5 MG TAB PO SCH (11:04)
[2021-07-03] MEDS: HYDROcodone/APAP 5-325MG 1 EACH TAB PO PRN (11:05)
[2021-07-03] MEDS: ONDANSETRON 4 MG/2 ML VIAL IVP PRN ×3 (11:14→21:50)
[2021-07-03 12:40] VITALS: BMI 24.7
--- NOTE | 2021-07-03 15:16 | P.HPIM ---
History of Present Illness H&P Date: 07/03/21 Chief Complaint: Chest pain Patient is a 55-year-old male with a known history of COPD, hypertension, hyperlipidemia, history of ND, ischemic cardiomyopathy with ejection fraction 5- 40%, EtOH abuse., Currently with a smoker and marijuana use and anxiety/panic disorder and PTSD presents to ER with complaints of chest pain. Patient states that yesterday he woke up in the morning with left retrosternal chest pain and left shoulder pain and neck pain associated with nausea and diaphoresis/sweaty. Was also having mild associated shortness of breath. Patient's called EMS. Patient was found to be in ST elevated ND in the inferior leads and was taken to cardiac catheterization immediately. Patient otherwise denied any fever or chills. No cough or sputum production. No leg swelling. Chest x-ray showed poor inspiration with developing right greater than left b ibasilar acute infiltrate and/or atelectasis. EKG showed sinus bradycardia ST elevation in the inferior leads. Laboratory data showed WBC 13.2 hemoglobin 15.4 and platelets 303, INR 0.9, sodium 142 potassium 4.2 chloride 109 BUN 15 and creatinine 0.8 to Magnesium 2.0 Troponin 0.012, 23.2 and serum alcohol level is 90 on admission. Review of Systems Constitutional: Patient denies any fever or chills . No generalized weakness or weight loss. Abdomen: Patient denied nausea vomiting and diarrhea and abdominal pain. Cardiovascular: Patient denies any chest pain or short of breath no palpitations. Respiratory: patient denied any cough is from production. No shortness of breath Neurologic: Patient denied any numbness or tingling headache. Musculoskeletal: Patient denies any complaints of joint swelling or deformity. Skin: Negative Psychiatric: Negative Endocrine: No heat or cold intolerance. No recent weight gain. Genitourinary: No dysuria or hematuria. All other 14 point ROS negative except the above Past Medical History Past Medical History: COPD, Hyperlipidemia, Hypertension, Myocardial Infarction (ND), Seizure Disorder Additional Past Medical History / Comment(s): ISCHEMIC CARDIOMYOPATHY WITH EF 40-45%. 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 Last Myocardial Infarction Date:: 06/12/14 History of Any Multi-Drug Resistant Organisms: None Reported Past Surgical History: Coronary Bypass/CABG, Heart Catheterization With Stent, Hernia Repair, Orthopedic Surgery Additional Past Surgical History / Comment(s): cabg january 2014-3 vessel, Cardiac caths and stenting with last Cardiac cath Jul [address] Cerda. Past Anesthesia/Blood Transfusion Reactions: No Reported Reaction Additional Past Anesthesia/Blood Transfusion Reaction / Comment(s): NO PROBLEM TOLERATING ANESTHESIA. HAS NEVER RECIEVED BLOOD TO HIS KNOWLEDGE. Date of Last Stent Placement:: 06/12/14 Past Psychological History: Anxiety, Panic Disorder, PTSD Smoking Status: Current every day smoker Past Alcohol Use History: Abuse, Daily, Heavy Past Drug Use History: Marijuana - Past Family History Father Family Medical History: Coronary Artery Disease (CAD), Myocardial Infarction (ND) Additional Family Medical History / Comment(s): FATHER STILL LIVING Mother Family Medical History: Coronary Artery Disease (CAD), Myocardial Infarction (ND) Additional Family Medical History / Comment(s): MOTHER 09/23/14 of unknown causes. Sister(s) Family Medical History: Myocardial Infarction (ND) Additional Family Medical History / Comment(s): SISTER OF ND AT AGE 53 Medications and Allergies Home Medications Medication Instructions Recorded Confirmed Type Metoprolol Succinate (ER) [Toprol 50 mg PO HS 12/08/20 07/03/21 History XL] Atorvastatin [Lipitor] 40 mg PO HS #30 tab 06/21/21 07/03/21 Rx Isosorbide Mononitrate ER [Imdur] 30 mg PO DAILY #30 tab.er.24h 06/21/21 07/03/21 Rx lisinopriL [Zestril] 5 mg PO DAILY #30 tab 06/21/21 07/03/21 Rx Allergies Allergy/AdvReac Type Severity Reaction Status Date / Time Penicillins Allergy Unknown Verified 07/03/21 05:51 Childhood Physical Exam Vitals: Vital Signs Temp Pulse Resp BP Pulse Ox 07/03/21 06:00 56 L 18 98/77 97 07/03/21 05:47 98 F 62 16 115/91 98 Intake and Output 07/02/21 07/03/21 07/03/21 22:59 06:59 14:59 Intake Total 400 Balance 400 Intake: IV 400 Other: Weight 80.286 kg PHYSICAL EXAMINATION: Patient is lying in the bed comfortably, no acute distress, awake alert and oriented.. HEENT: Normocephalic. Neck is supple. Pupils reactive. Nostrils clear. Oral cavity is moist. Neck reveals no JVD, carotid bruits, or thyromegaly. CHEST EXAMINATION: Trachea is central. Symmetrical expansion. Mild expiratory wheeze. Scattered crackles. CARDIAC: Normal S1, S2 with no gallops. No murmurs ABDOMEN: Soft. Bowel sounds normal. No organomegaly. No abdominal bruits. Extremities: reveal no edema. No clubbing or cyanosis Neurologically awake, alert, oriented x3 with well-coordinated movements. No focal deficits noted Skin: No rash or skin lesions. Psychiatric: Coperative. Nonsuicidal, anxious Musculoskeletal: No joint swelling or deformity. Normal range of motion. Results CBC & Chem 7: 07/03/21 05:56 07/03/21 05:56 Labs: Abnormal Lab Results - Last 24 Hours (Table) 07/03/21 07/03/21 07/03/21 Range/Units 05:56 05:56 07:46 WBC 13.2 H (3.8-10.6) k/uL Chloride 109 H (98-107) mmol/L Glucose 107 H (74-99) mg/dL POC Glucose (mg/dL) 110 H (75-99) mg/dL AST 15 L (17-59) U/L Thrombosis Risk Factor Assmnt - DVT/VTE Prophylaxis DVT/VTE Prophylaxis: Pharmacologic Prophylaxis ordered Assessment and Plan Assessment: Acute ST elevated inferior wall ND status post cardiac catheterization stent placement to RCA. Ischemic cardiomyopathy ejection fraction 5-40%. Coronary artery with history of CABG and stent placement History of ND Hypertension Hyperlipidemia Seizure disorder Acute alcohol intoxication on admission Nicotine addiction and heavy alcohol abuse Marijuana use Anxiety/panic disorder and PTSD Lower back pain DVT prophylaxis Plan: Patient is status post stent placement to RCA. Patient be continued on aspirin, Plavix, statins and metoprolol. Continue with telemetry monitoring. Cardiology is on board. Continue to monitor for alcohol withdrawal symptoms. Thiamine and multivitamins and monitor closely. Continue with home medications and pain management with [place] [facility].. Time with Patient: Greater than 30
[2021-07-03] MEDS: HEPARIN SODIUM,PORCINE/PF 5,000 UNIT/0.5 ML SYRINGE SQ SCH (16:25)
--- NOTE | 2021-07-03 16:49 | ECHOF ---
Referral Reason:wi MEASUREMENTS -------- HEIGHT: 180.3 cm WEIGHT: 80.3 kg BP: 98/77 RVIDd: 4.1 cm (< 3.3) IVSd: 1.5 cm (0.6 - 1.1) LVIDd: 5.7 cm (3.9 - 5.3) LVPWd: 1.1 cm (0.6 - 1.1) IVSs: 1.8 cm LVIDs: 4.7 cm LVPWs: 1.5 cm LAESV Index (A-L): 52.71 ml/m Ao Diam: 3.9 cm (2.0 - 3.7) AV Cusp: 2.2 cm (1.5 - 2.6) MV EXCURSION: 16.144 mm (> 18.000) MV EF SLOPE: 111 mm/s (70 - 150) EPSS: 2.2 cm MV E Tushar: 1.23 m/s MV DecT: 202 ms MV A Tushar: 0.40 m/s MV E/A Ratio: 3.05 RAP: 5.00 mmHg RVSP: 48.26 mmHg FINDINGS -------- Sinus rhythm. This was a technically adequate study. The left ventricular size is normal. There is moderate concentric left ventricular hypertrophy. O verall left ventricular systolic function is mild-moderately impaired with, an EF between 40 - 45 %. Septal wall motion is delayed and consistent with prior cardiac surgery. Basal lateral LV wall mo tion is hypokinetic. Basal inferior LV wall motion is hypokinetic. Mid lateral LV wall motion i s hypokinetic. The right ventricle is moderately enlarged. LA is severely dilated >40 ml/m2 The right atrium is mildly enlarged. Interatrial and interventricular septum intact. There is mild aortic valve sclerosis. There is no evidence of aortic regurgitation. There is no e vidence of aortic stenosis. The mitral valve leaflets are mildly thickened. Severe mitral regurgitation is present. The tricuspid valve appears structurally normal. Moderate tricuspid regurgitation present. There is mild to moderate pulmonary hypertension. The right ventricular systolic pressure, as measured by Doppler, is 48.26mmHg. Trace/mild (physiologic) pulmonic regurgitation. The aortic root size is normal. Normal inferior vena cava with normal inspiratory collapse consistent with estimated right atrial pre ssure of 5 mmHg. There is no pericardial effusion. CONCLUSIONS -------- 1. There is moderate concentric left ventricular hypertrophy. 2. Overall left ventricular systolic function is mild-moderately impaired with, an EF between 40 - 45 %. 3. Basal lateral LV wall motion is hypokinetic. 4. Basal inferior LV wall motion is hypokinetic. 5. Mid lateral LV wall motion is hypokinetic. 6. The right ventricle is moderately enlarged. 7. LA is severely dilated >40 ml/m2 8. The right atrium is mildly enlarged. 9. There is mild aortic valve sclerosis. 10. Severe mitral regurgitation is present. 11. Moderate tricuspid regurgitation present. 12. There is mild to moderate pulmonary hypertension. 13. Trace/mild (physiologic) pulmonic regurgitation. INDUSTRIAL EDUCATION TEACHER: Desiree Segovia RDCS
[2021-07-03] MEDS ORDERED: LORazepam 2 MG/ML INJ IV PRN ×2 (19:43)
[2021-07-03] MEDS: ATORVASTATIN 80 MG TAB PO SCH (20:14)
[2021-07-04] MEDS: HEPARIN SODIUM,PORCINE/PF 5,000 UNIT/0.5 ML SYRINGE SQ SCH ×3 (00:09→15:56)
[2021-07-04] MEDS: HYDROcodone/APAP 5-325MG 1 EACH TAB PO PRN ×3 (04:08→15:57)
[2021-07-04 04:51] LABS: African American GFR (CKD) >90 (>60 ml/min/1.73 sqM); Anion Gap 6 mmol/L; Blood Urea Nitrogen 13 mg/dL (9-20); Calcium 8.7 mg/dL (8.4-10.2); Carbon Dioxide 21 mmol/L (22-30); Chloride 110 mmol/L (98-107); Glucose 98 mg/dL (74-99); Non-African American GFR(CKD) >90 (>60 ml/min/1.73 sqM); Potassium 4.1 mmol/L (3.5-5.1); Sodium 137 mmol/L (137-145)
[2021-07-04] MEDS: CLOPIDOGREL 75 MG TAB PO SCH (08:18)
[2021-07-04] MEDS: THIAMINE 100 MG TAB PO SCH (08:18)
[2021-07-04] MEDS: lisinopriL 5 MG TAB PO SCH (08:18)
[2021-07-04] MEDS: METOPROLOL TARTRATE 25 MG TAB PO SCH ×2 (08:18→20:06)
[2021-07-04] MEDS: LIDOCAINE 5% PATCH TOPICAL SCH (08:18)
[2021-07-04] MEDS: ASPIRIN 81 MG PO SCH (08:18)
--- NOTE | 2021-07-04 09:06 | PN ---
PROGRESS NOTE Mr. Ellsworth is a 55-year-old male known history of coronary artery disease, history of hypertension, hyperlipidemia, chronic tobacco and alcohol use, who presented with an acute myocardial infarction, underwent cardiac catheterization and was found to have occluded PLV. Underwent stenting of that vessel. He is doing well this morning. Denies any chest pain. His breathing has been stable. He denies any dizziness or palpitation. He denies any nausea. He is in sinus mechanism. He continues to be on aspirin once a day, Plavix 75 mg daily, Lipitor 80 mg daily, lisinopril 5 mg daily, metoprolol tartrate 25 mg twice a day, and thiamine. PHYSICAL EXAMINATION: Blood pressure 130/80 with a heart rate in 70s. Lungs: Clear. Heart regular rate and rhythm S1, S2. No S3 with a systolic ejection murmur heard at the base, 2/6 systolic murmur at the apex. Abdomen: Soft, nontender. Positive bowel sounds. No organomegaly. Extremities: No edema. Right groin hematoma. LAB DATA: Lab data revealed a BUN and creatinine 13 and 0.75. His troponin is up to 23.2. IMPRESSION: 1. Status post acute myocardial infarction with stenting of the right PLV. 2. Ischemic cardiomyopathy with evidence of mitral regurgitation could be from the combination of occluded left circumflex in the acute event. 3. History of coronary artery bypass grafting. 4. Chronic tobacco use. 5. Chronic alcohol intake. 6. Hypertension. 7. Hyperlipidemia. RECOMMENDATION: We will continue on the present medical regimen. Increase his level of activity gradually. The patient should be able to be transferred to telemetry floor and depending on his progress, further recommendations will be made. I am hopeful that he will be able to be discharged home in the next 24-48 hours. MMODL / IJN: [id number] /
[2021-07-04] MEDS: NICOTINE 21MG/24HR PATCH TRANSDERM SCH (12:39)
[2021-07-04] MEDS: ONDANSETRON 4 MG/2 ML VIAL IVP PRN (15:57)
[2021-07-04] MEDS: ATORVASTATIN 80 MG TAB PO SCH (20:05)
--- NOTE | 2021-07-04 22:47 | P.PN ---
Subjective Progress Note Date: 07/04/21 Principal diagnosis: Acute ST elevated inferior wall OR status post cardiac catheterization stent placement to RCA. Patient is a 55-year-old male with a known history of COPD, hypertension, hyperlipidemia, history of OR, ischemic cardiomyopathy with ejection fraction 5- 40%, EtOH abuse., Currently with a smoker and marijuana use and anxiety/panic disorder and PTSD presents to ER with complaints of chest pain. Patient states that yesterday he woke up in the morning with left retrosternal chest pain and left shoulder pain and neck pain associated with nausea and diaphoresis/sweaty. Was also having mild associated shortness of breath. Patient's called EMS. Patient was found to be in ST elevated OR in the inferior leads and was taken to cardiac catheterization immediately. Patient otherwise denied any fever or chills. No cough or sputum production. No leg swelling. Chest x-ray showed poor inspiration with developing right greater than left bibasilar acute infiltrate and/or atelectasis. EKG showed sinus bradycardia ST elevation in the inferior leads. Laboratory data showed WBC 13.2 hemoglobin 15.4 and platelets 303, INR 0.9, sodium 142 potassium 4.2 chloride 109 BUN 15 and creatinine 0.8 to Magnesium 2.0 Troponin 0.012, 23.2 and serum alcohol level is 90 on admission. 07/04/2021 Patient is currently resting in the bed comfortably. Denies any complaints of chest pain or shortness breath. Patient seems to be slightly lethargic compared yesterday. Patient has been afebrile. Blood pressure is controlled. No complaints of headache or dizziness or lightheadedness. Patient is being monitored for alcohol withdrawal symptoms. Continue dual antiplatelet agents, statins and metoprolol. Continue with thiamine multivitamins. Cardiology is on board. Current medications reviewed. Objective - Vital Signs Vital signs: Vital Signs Temp 98.2 F 07/04/21 20:00 Pulse 70 07/04/21 20:00 Resp 14 07/04/21 19:00 BP 188/78 07/04/21 20:00 Pulse Ox 91 L 07/04/21 20:00 Intake & Output 07/04/21 07/04/21 07/05/21 06:59 18:59 06:59 Intake Total 1100 1950 200 Output Total 550 1000 700 Balance 550 950 -500 Intake: IV 900 75 Sodium Chloride 0.9% 1, 900 75 000 ml @ 75 mls/hr IV . [id number] [facility] Rx#:[id number] Intake, IV Titration 375 Amount Sodium Chloride 0.9% 1, 375 000 ml @ 0 mls/hr IV .[facility] Rx#:[id number] Oral 200 1500 200 Output: Urine 550 1000 700 Other: Voiding Method Urinal Urinal Urinal # Voids 0 1 # Bowel Movements 1 - Exam PHYSICAL EXAMINATION: Patient is lying in the bed comfortably, no acute distress, awake alert and oriented.. HEENT: Normocephalic. Neck is supple. Pupils reactive. Nostrils clear. Oral cavity is moist. Neck reveals no JVD, carotid bruits, or thyromegaly. CHEST EXAMINATION: Trachea is central. Symmetrical expansion. no wheeze. Scattered crackles. CARDIAC: Normal S1, S2 with no gallops. No murmurs ABDOMEN: Soft. Bowel sounds normal. No organomegaly. No abdominal bruits. Extremities: reveal no edema. No clubbing or cyanosis Neurologically awake, alert, oriented x3 with well-coordinated movements. No focal deficits noted Skin: No rash or skin lesions. Psychiatric: Coperative. Nonsuicidal, anxious Musculoskeletal: No joint swelling or deformity. Normal range of motion. - Labs CBC & Chem 7: 07/03/21 05:56 07/04/21 04:08 Labs: Abnormal Lab Results - Last 24 Hours (Table) 07/04/21 Range/Units 04:08 Chloride 110 H (98-107) mmol/L Carbon Dioxide 21 L (22-30) mmol/L Assessment and Plan Assessment: Acute ST elevated inferior wall OR status post cardiac catheterization stent placement to RCA. Ischemic cardiomyopathy ejection fraction 45-40%. Coronary artery with history of CABG and stent placement History of OR Hypertension Hyperlipidemia Seizure disorder Acute alcohol intoxication on admission Nicotine addiction and heavy alcohol abuse Marijuana use Anxiety/panic disorder and PTSD Lower back pain DVT prophylaxis Plan: Patient is status post stent placement to RCA. Patient be continued on aspirin, Plavix, statins and metoprolol. Continue with telemetry monitoring. Cardiology is on board. Continue to monitor for alcohol withdrawal symptoms. Thiamine and multivitamins and monitor closely. Continue with home medications and pain management with [place] [facility].. Time with Patient: Greater than 30
[2021-07-05] MEDS: HEPARIN SODIUM,PORCINE/PF 5,000 UNIT/0.5 ML SYRINGE SQ SCH ×2 (00:50→08:40)
[2021-07-05] MEDS: HYDROcodone/APAP 5-325MG 1 EACH TAB PO PRN (00:50)
[2021-07-05 04:24] LABS: Basophils % (A) 1 %; Eosinophils # (A) 0.3 k/uL (0-0.7); Eosinophils % (A) 3 %; HCT 41.2 % (39.0-53.0); HGB 14.3 gm/dL (13.0-17.5); Lymphocytes # (A) 1.7 k/uL (1.0-4.8); Lymphocytes % (A) 19 %; MCH 33.5 pg (25.0-35.0); MCHC 34.8 g/dL (31.0-37.0); MCV 96.3 fL (80.0-100.0); Monocytes # (A) 0.4 k/uL (0-1.0); Monocytes % (A) 4 %; Neutrophils # (A) 6.7 k/uL (1.3-7.7); Neutrophils % (A) 72 %; Platelet Count 220 k/uL (150-450); RBC 4.28 m/uL (4.30-5.90); RDW 12.2 % (11.5-15.5); WBC 9.3 k/uL (3.8-10.6)
[2021-07-05 04:38] VITALS: TEMP 98.8
[2021-07-05 04:46] LABS: African American GFR (CKD) >90 (>60 ml/min/1.73 sqM); Anion Gap 4 mmol/L; Blood Urea Nitrogen 9 mg/dL (9-20); Calcium 8.6 mg/dL (8.4-10.2); Carbon Dioxide 23 mmol/L (22-30); Chloride 107 mmol/L (98-107); Glucose 97 mg/dL (74-99); Non-African American GFR(CKD) >90 (>60 ml/min/1.73 sqM); Sodium 134 mmol/L (137-145)
[2021-07-05] MEDS: LIDOCAINE 5% PATCH TOPICAL SCH (08:39)
[2021-07-05] MEDS: NICOTINE 21MG/24HR PATCH TRANSDERM SCH (08:39)
[2021-07-05] MEDS: ASPIRIN 81 MG PO SCH (08:40)
[2021-07-05] MEDS: METOPROLOL TARTRATE 25 MG TAB PO SCH (08:40)
[2021-07-05] MEDS: CLOPIDOGREL 75 MG TAB PO SCH (08:40)
[2021-07-05] MEDS: THIAMINE 100 MG TAB PO SCH (08:40)
[2021-07-05] MEDS: lisinopriL 5 MG TAB PO SCH (08:40)
[2021-07-05 08:54] VITALS: BP 132/96; PULSE 76; RESP 20
--- NOTE | 2021-07-05 09:08 | P.PN ---
Subjective HISTORY OF PRESENTING ILLNESS This is a pleasant 55-year-old male with history of coronary artery disease status post CABG, hypertension, hyperlipidemia, tobacco abuse, alcohol use who had presented with acute onset diaphoresis and more neck pain. He underwent heart catheterization which showed occluded PLV branch with successful stenting as well as occluded SVG to OM branch. He has been doing well since PCI 07/03/2021. He denies any further pain. His echo did show mildly reduced ejection fraction 40-45% with basal inferior and lateral hypokinesis as well as severe mitral regurgitation and moderate tricuspid regurgitation. He denies any shortness breath. He states he is feeling mall and wants to go home. He has not been up walking around the halls yet. REVIEW OF SYSTEMS At the time of my exam: CONSTITUTIONAL: Denies fever or chills. CARDIOVASCULAR: Denies chest pain, shortness of breath, orthopnea, PND or palpitations. RESPIRATORY: Denies cough. GASTROINTESTINAL: Denies abdominal pain, diarrhea, constipation, nausea or vomit ing. MUSCULOSKELETAL: Denies myalgias. NEUROLOGIC: Denies numbness, tingling or weakness. ENDOCRINE: Denies fatigue, weight change, polydipsia or polyurina. GENITOURINARY: Denies burning, hematuria or urgency with micturation. HEMATOLOGIC: Denies history of anemia or bleeding. PHYSICAL EXAMINATION Vital signs reviewed. CONSTITUTIONAL: No apparent distress. HEENT: Head is normocephalic. Pupils are equal, round. Sclerae anicteric. Mucous membranes of the mouth are moist. No JVD. No carotid bruit. CHEST EXAMINATION: Lungs are clear to auscultation. No chest wall tenderness is noted on palpation or with deep breathing. HEART EXAMINATION: Regular rate and rhythm. S1, S2 heard.+3/6 systolic murmur, no gallops or rub. ABDOMEN: Soft, nontender. Positive bowel sounds. EXTREMITIES: 2+ peripheral pulses, no lower extremity edema and no calf tenderness. NEUROLOGIC EXAMINATION: Patient is awake, alert and oriented x3. ASSESSMENT 1. Status post acute myocardial infarction with stenting of the right PLV 2. Ischemic cardiopathy ejection fraction 40-45% 3. Coronary artery disease status post CABG, occluded SVG to OM 4. Tobacco abuse 5. Alcohol use 6 hypertension 7 hyperlipidemia 8 severe mitral regurgitation PLAN Patient currently appears to be doing well. He is status post successful stenting of the right PLV. Discussed importance of tobacco cessation as well as close follow-up. Patient may eventually need intervention of the mitral valve if she continues to have severe mitral regurgitation. Continue with dual antiplatelets with aspirin and Plavix. Continue high intensity statin. Continue heart failure regimen with metoprolol as well as lisinopril. Patient is stable for discharge home with outpatient follow-up in 1 week. Objective - Vital Signs Vital signs: Vital Signs Temp 98.8 F 07/05/21 08:00 Pulse 76 07/05/21 08:00 Resp 20 07/05/21 08:00 BP 132/96 07/05/21 08:00 Pulse Ox 95 07/05/21 08:00 Intake & Output 07/04/21 07/05/21 07/05/21 18:59 06:59 18:59 Intake Total 1950 400 120 Output Total 1000 1500 Balance 950 -1100 120 Weight 78.6 kg Intake: IV 75 Sodium Chloride 0.9% 1, 75 000 ml @ 75 mls/hr IV . [id number] [facility] Rx#:[id number] Intake, IV Titration 375 Amount Sodium Chloride 0.9% 1, 375 000 ml @ 0 mls/hr IV .[facility] Rx#:[id number] Oral 1500 400 120 Output: Urine 1000 1500 Other: Voiding Method Urinal Urinal # Voids 1 0 1 # Bowel Movements 1 - Labs CBC & Chem 7: 07/05/21 04:05 07/05/21 04:05 Labs: Abnormal Lab Results - Last 24 Hours (Table) 07/05/21 07/05/21 Range/Units 04:05 04:05 RBC 4.28 L (4.30-5.90) m/uL Sodium 134 L (137-145) mmol/L
--- NOTE | 2021-07-05 15:54 | P.DS ---
Providers Date of admission: 07/03/21 06:28 Expected date of discharge: 07/05/21 Attending physician: Yair Alvares Consults: 07/03/21 05:50 Consult Physician Stat Consulting Provider: Aldo Caballero Consult Reason/Comments: STEMI ACTIVATION COMPLETE Do you want consulting provider notified?: Yes 07/03/21 07:24 Consult Physician Routine Consulting Provider: Cardiology Ada Consult Reason/Comments: Post Interventional patient Do you want consulting provider notified?: Already Contacted Primary care physician: Alejandra Johnson Hospital Course: Final Diagnosis Acute ST elevated inferior wall CO status post cardiac catheterization stent placement to RCA. Ischemic cardiomyopathy ejection fraction 45-40%. Coronary artery with history of CABG and stent placement History of CO Hypertension Hyperlipidemia Seizure disorder Acute alcohol intoxication on admission Nicotine addiction and heavy alcohol abuse Marijuana use Anxiety/panic disorder and PTSD Lower back pain DVT prophylaxis full code Discharge disposition Patient is being discharged in a stable condition with guarded prognosis to home. Patient will follow-up with Dr. Johnson in the outpatient setting upon discharge. Patient is to follow-up with cardiology Dr. Cardona this week. Total time taken is greater than 35 minutes. hospital course Acute ST elevated inferior wall CO status post cardiac catheterization stent placement to RCA. Patient is a 55-year-old male with a known history of COPD, hypertension, hyperlipidemia, history of CO, ischemic cardiomyopathy with ejection fraction 5- 40%, EtOH abuse., Currently with a smoker and marijuana use and anxiety/panic disorder and PTSD presents to ER with complaints of chest pain. Patient states that yesterday he woke up in the morning with left retrosternal chest pain and left shoulder pain and neck pain associated with nausea and diaphoresis/sweaty. Was also having mild associated shortness of breath. Patient's called EMS. Patient was found to be in ST elevated CO in the inferior leads and was taken to cardiac catheterization immediately. Patient otherwise denied any fever or chills. No cough or sputum production. No leg swelling. Chest x-ray showed poor inspiration with developing right greater than left bibasilar acute infiltrate and/or atelectasis. EKG showed sinus bradycardia ST elevation in the inferior leads. Laboratory data showed WBC 13.2 hemoglobin 15.4 and platelets 303, INR 0.9, sodium 142 potassium 4.2 chloride 109 BUN 15 and creatinine 0.8 to Magnesium 2.0 Troponin 0.012, 23.2 and serum alcohol level is 90 on admission. 07/04/2021 Patient is currently resting in the bed comfortably. Denies any complaints of chest pain or shortness breath. Patient seems to be slightly lethargic compared yesterday. Patient has been afebrile. Blood pressure is controlled. No complaints of headache or dizziness or lightheadedness. Patient is being monitored for alcohol withdrawal symptoms. Continue dual antiplatelet agents, statins and metoprolol. Continue with thiamine multivitamins. Cardiology is on board. 07/05/2021 patient was seen in follow-up continues to be in the ICU and has been evaluated by cardiology this morning and cleared for discharge and anticipating being discharged home today. patient received stenting to the RCA and is continued on aspirin and Plavix along with statin and Lopressor. Patient has been started on medications and is to follow-up closely with cardiology outpatient Dr. Cardona this week. Medications have been refilled and sent to the pharmacy. discussed in detail with patient about refraining from alcohol intake. Currently no reports of chest pain, shortness of breath, or palpitations. Patient is afebrile. No reports of nausea or vomiting and patient is tolerating diet. Patient will be discharged home today. PHYSICAL EXAMINATION: Patient is sitting up in the bed comfortably, no acute distress, awake alert and oriented.. HEENT: Normocephalic. Neck is supple. Pupils reactive. Nostrils clear. Oral cavity is moist. Neck reveals no JVD, carotid bruits, or thyromegaly. CHEST EXAMINATION: Trachea is central. Symmetrical expansion. no wheeze. CARDIAC: Normal S1, S2 with no gallops. No murmurs ABDOMEN: Soft. Bowel sounds normal. No organomegaly. No abdominal bruits. Extremities: reveal no edema. No clubbing or cyanosis Neurologically awake, alert, oriented x3 with well-coordinated movements. No focal deficits noted Skin: No rash or skin lesions. Psychiatric: Cooperative. Nonsuicidal Musculoskeletal: No joint swelling or deformity. Normal range of motion. Please refer to medication reconciliation sheet for a list of medications. Patient Condition at Discharge: Stable Plan - Discharge Summary Discharge Rx Participant: Yes New Discharge Prescriptions: New Nicotine 21Mg/24Hr Patch [Habitrol] 1 patch TRANSDERM DAILY #20 patch Atorvastatin [Lipitor] 80 mg PO HS #30 tab Metoprolol Tartrate [Lopressor] 25 mg PO BID #60 tab Nitroglycerin Sl Tabs [Nitrostat] 0.4 mg SUBLINGUAL Q5M PRN #30 tab PRN Reason: Chest Pain Aspirin 81 mg PO DAILY 30 Days #30 tab Clopidogrel [Plavix] 75 mg PO DAILY #30 tab Thiamine [Vitamin B-1] 100 mg PO DAILY #30 tab Continue lisinopriL [Zestril] 5 mg PO DAILY #30 tab Isosorbide Mononitrate ER [Imdur] 30 mg PO DAILY #30 tab Discontinued Metoprolol Succinate (ER) [Toprol XL] 50 mg PO HS Atorvastatin [Lipitor] 40 mg PO HS #30 tab Discharge Medication List Aspirin 81 mg PO DAILY 30 Days #30 tab 07/05/21 [Rx] Atorvastatin [Lipitor] 80 mg PO HS #30 tab 07/05/21 [Rx] Clopidogrel [Plavix] 75 mg PO DAILY #30 tab 07/05/21 [Rx] Isosorbide Mononitrate ER [Imdur] 30 mg PO DAILY #30 tab 07/05/21 [Rx] Metoprolol Tartrate [Lopressor] 25 mg PO BID #60 tab 07/05/21 [Rx] Nicotine 21Mg/24Hr Patch [Habitrol] 1 patch TRANSDERM DAILY #20 patch 07/05/21 [Rx] Nitroglycerin Sl Tabs [Nitrostat] 0.4 mg SUBLINGUAL Q5M PRN #30 tab 07/05/21 [Rx] Thiamine [Vitamin B-1] 100 mg PO DAILY #30 tab 07/05/21 [Rx] lisinopriL [Zestril] 5 mg PO DAILY #30 tab 07/05/21 [Rx] Follow up Appointment(s)/Referral(s): Johan Cardona DO [STAFF PHYSICIAN] - 07/07/21 1:15 pm Alejandra Johnson MD [Primary Care Provider] - 07/07/21 4:30 pm Patient Instructions/Handouts: Right Heart Catheterization (DC) Activity/Diet/Wound Care/Special Instructions: activity Limited until follow-up Follow-up with primary care provider upon discharge Follow-up with cardiology in one week take medications as prescribed Avoid alcohol and tobacco use Continue heart healthy diet. Discharge Disposition: HOME SELF-CARE
== END 2021-07-05 10:50 | disposition home or self-care (01) | DRG 247 ==
LOC: EC 05:46 → 2SICU 06:28
PROVIDERS: ADMIT Hospitalist; ATTEND Hospitalist
PROC: B2111ZZ Fluoroscopy of Multiple Coronary Arteries using Low Osmolar Contrast (ICD-10-PCS; 2021-07-03)
PROC: 027034Z Dilation of Coronary Artery, One Artery with Drug-eluting Intraluminal Device, Percutaneous Approach (ICD-10-PCS; principal; 2021-07-03 06:08)
PROC: 4A023N7 Measurement of Cardiac Sampling and Pressure, Left Heart, Percutaneous Approach (ICD-10-PCS; 2021-07-03 06:08)
DX: I21.19 ST elevation (STEMI) myocardial infarction involving other coronary artery of inferior wall (principal); I25.810 Atherosclerosis of coronary artery bypass graft(s) without angina pectoris; E78.5 Hyperlipidemia, unspecified; F10.129 Alcohol abuse with intoxication, unspecified; F12.90 Cannabis use, unspecified, uncomplicated; F17.200 Nicotine dependence, unspecified, uncomplicated; F41.0 Panic disorder [episodic paroxysmal anxiety]; F43.10 Post-traumatic stress disorder, unspecified; G40.909 Epilepsy, unspecified, not intractable, without status epilepticus; I08.1 Rheumatic disorders of both mitral and tricuspid valves; I10 Essential (primary) hypertension; I25.10 Atherosclerotic heart disease of native coronary artery without angina pectoris; I25.2 Old myocardial infarction; I25.5 Ischemic cardiomyopathy; I25.82 Chronic total occlusion of coronary artery; J44.9 Chronic obstructive pulmonary disease, unspecified; Z79.02 Long term (current) use of antithrombotics/antiplatelets; Z79.82 Long term (current) use of aspirin; Z79.899 Other long term (current) drug therapy; Z82.49 Family history of ischemic heart disease and other diseases of the circulatory system; Z95.5 Presence of coronary angioplasty implant and graft
CPT/HCPCS: 36415; 71045; 80048; 80053; 80320; 83735; 84484; 85025; 85610; 85730; 93005; 93306; 93459; 96361; 96374; 99291

== ENCOUNTER → 2021-07-23 | Outpatient (CLI) | payer OTHER ==
[2021-07-23 18:41] LABS: Chol/HDL Ratio 2.78 Ratio; HDL Cholesterol 48.9 mg/dL (40.00-60.00); LDL Cholesterol,Calculated 67.6 mg/dL (0.0-131.0); Triglycerides 97.5 mg/dL (0.00-149.00); VLDL Calculation 19.5 mg/dL (5.00-40.00)
== END | disposition home or self-care (01) ==
LOC: LABWHC1 08:53
PROVIDERS: ATTEND Internal Medicine Cardiovascular Disease
DX: E78.2 Mixed hyperlipidemia (principal)
CPT/HCPCS: 36415; 80061; 84450; 84460

== ENCOUNTER 2021-12-20 09:24 | Emergency (ER) | payer OTHER ==
[2021-12-20 09:28] VITALS: RESP 24; TEMP 98.4
[2021-12-20] MEDS ORDERED: ASPIRIN 81 MG PO STA (09:33)
--- NOTE | 2021-12-20 10:10 | XR ---
EXAMINATION TYPE: XR chest 2V DATE OF EXAM: 12/20/2021 COMPARISON: 07/03/2021 INDICATION: Chest pain TECHNIQUE: Frontal and lateral views of the chest are obtained. FINDINGS: The heart size is upper limits of normal for size. The pulmonary vasculature is normal. The lungs are clear. There is hyperinflation flattening the diaphragms compatible with COPD. IMPRESSION: 1. No acute pulmonary process. 2. Clinical consideration for COPD is recommended.
--- NOTE | 2021-12-20 10:14 | ED ---
Chest Pain HPI - General Chief Complaint: Chest Pain Stated Complaint: chest pain, SOB, dizziness Time Seen by Provider: 12/20/21 09:29 Source: patient, RN notes reviewed Mode of arrival: ambulatory Limitations: no limitations - History of Present Illness Initial Comments: 56-year-old male presents emergency from chief complaint of chest pain. Patient states symptoms from it started yesterday states he did have increasing in size chest pain does radiate up towards his neck. Patient does have a significant history of coronary disease including [place], CABG, multiple stents. Patient states that he had increasing symptoms including dizziness, shortness of breath. Patient does state of his aspirin along with other multiple medications. He states she's had some nausea without vomiting no leg pain or leg swelling noted no complaints of headache or focal weakness at this point. - Related Data Home Medications Medication Instructions Recorded Confirmed Metoprolol Succinate (ER) [Toprol 50 mg PO DAILY 12/20/21 12/20/21 Xl] Previous Rx's Medication Instructions Recorded Aspirin 81 mg PO DAILY 30 Days #30 tab 07/05/21 Atorvastatin [Lipitor] 80 mg PO HS #30 tab 07/05/21 Clopidogrel [Plavix] 75 mg PO DAILY #30 tab 07/05/21 Isosorbide Mononitrate ER [Imdur] 30 mg PO DAILY #30 tab 07/05/21 lisinopriL [Zestril] 5 mg PO DAILY #30 tab 07/05/21 Allergies Allergy/AdvReac Type Severity Reaction Status Date / Time Penicillins Allergy Unknown Verified 12/20/21 09:28 Childhood Review of Systems ROS Statement: Those systems with pertinent positive or pertinent negative responses have been documented in the HPI. ROS Other: All systems not noted in ROS Statement are negative. EKG Findings - EKG Comments: EKG Findings:: EKG performed at 9:34 sinus rhythm is a rate of 69 OH 149 QRS 110 QT/ QTC 408/427 Past Medical History Past Medical History: COPD, Hyperlipidemia, Hypertension, Myocardial Infarction ([place]), Seizure Disorder Additional Past Medical History / Comment(s): ISCHEMIC CARDIOMYOPATHY WITH EF 40-45%. 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 Last Myocardial Infarction Date:: 06/12/14 History of Any Multi-Drug Resistant Organisms: None Reported Past Surgical History: Coronary Bypass/CABG, Heart Catheterization With Stent, Hernia Repair, Orthopedic Surgery Additional Past Surgical History / Comment(s): cabg january 2014-3 vessel, Cardiac caths and stenting with last Cardiac cath Jul [address] Cerda. Past Anesthesia/Blood Transfusion Reactions: No Reported Reaction Additional Past Anesthesia/Blood Transfusion Reaction / Comment(s): NO PROBLEM TOLERATING ANESTHESIA. HAS NEVER RECIEVED BLOOD TO HIS KNOWLEDGE. Date of Last Stent Placement:: 06/12/14 Past Psychological History: Anxiety, Panic Disorder, PTSD Smoking Status: Current every day smoker Past Alcohol Use History: Abuse, Daily, Heavy Past Drug Use History: Marijuana - Past Family History Father Family Medical History: Coronary Artery Disease (CAD), Myocardial Infarction ([place]) Additional Family Medical History / Comment(s): FATHER STILL LIVING Mother Family Medical History: Coronary Artery Disease (CAD), Myocardial Infarction ([place]) Additional Family Medical History / Comment(s): MOTHER 09/23/14 of unknown causes. Sister(s) Family Medical History: Myocardial Infarction ([place]) Additional Family Medical History / Comment(s): SISTER OF [place] AT AGE 53 General Exam Limitations: no limitations General appearance: alert, in no apparent distress Head exam: Present: atraumatic, normocephalic, normal inspection Eye exam: Present: normal appearance, PERRL, EOMI. Absent: scleral icterus, conjunctival injection, periorbital swelling ENT exam: Present: normal exam, normal oropharynx, mucous membranes moist, TM's normal bilaterally Neck exam: Present: normal inspection, full ROM. Absent: tenderness, meningismus, lymphadenopathy Respiratory exam: Present: normal lung sounds bilaterally. Absent: respiratory distress, wheezes, rales, rhonchi, stridor Cardiovascular Exam: Present: regular rate, normal rhythm, normal heart sounds. Absent: systolic murmur, diastolic murmur, rubs, gallop, clicks GI/Abdominal exam: Present: soft, normal bowel sounds. Absent: distended, tenderness, guarding, rebound, rigid Extremities exam: Present: normal capillary refill. Absent: pedal edema Neurological exam: Present: alert, oriented X3, CN II-XII intact Skin exam: Present: warm, dry, intact, normal color. Absent: rash Course Vital Signs 12/20/21 09:25 Temperature 98.4 F Pulse Rate 75 Respiratory 24 Rate Blood Pressure 142/90 O2 Sat by Pulse 99 Oximetry Chest Pain MDM - MDM 56-year-old male presented from for chest pain. Patient has extensive history. Workup is negative this time. I did recommend patient to admitted, I did page on-call some physician for admission patient refuses to stay told nurse that he is signing out against advice understand risk Disposition Clinical Impression: Chest pain Disposition: ADMITTED IP TO THIS HOSP Referrals: Alejandra Johnson MD [Primary Care Provider] - 1-2 days
[2021-12-20 10:25] LABS: Basophils # (A) 0.1 k/uL (0-0.2); Basophils % (A) 1 %; Eosinophils # (A) 0.4 k/uL (0-0.7); Eosinophils % (A) 5 %; HCT 43.2 % (39.0-53.0); HGB 14.3 gm/dL (13.0-17.5); Lymphocytes # (A) 2.3 k/uL (1.0-4.8); Lymphocytes % (A) 26 %; MCH 31.7 pg (25.0-35.0); MCV 96.1 fL (80.0-100.0); Mean Platelet Volume 8.5; Monocytes # (A) 0.4 k/uL (0-1.0); Monocytes % (A) 4 %; Neutrophils # (A) 5.6 k/uL (1.3-7.7); Neutrophils % (A) 63 %; Platelet Count 272 k/uL (150-450); RDW 13.5 % (11.5-15.5)
[2021-12-20 10:34] LABS: ALT 21 U/L (4-49); AST 19 U/L (17-59); African American GFR (CKD) >90 (>60 ml/min/1.73 sqM); Albumin 4.2 g/dL (3.5-5.0); Alkaline Phosphatase 72 U/L (38-126); Anion Gap 7 mmol/L; Blood Urea Nitrogen 8 mg/dL (9-20); Carbon Dioxide 23 mmol/L (22-30); Chloride 107 mmol/L (98-107); Glucose 98 mg/dL (74-99); Magnesium 1.9 mg/dL (1.6-2.3); Non-African American GFR(CKD) >90 (>60 ml/min/1.73 sqM); Potassium 4.3 mmol/L (3.5-5.1); Sodium 137 mmol/L (137-145); Total Bilirubin 0.6 mg/dL (0.2-1.3); Total Protein 6.8 g/dL (6.3-8.2)
[2021-12-20 10:44] LABS: INR 0.9 (<1.2); Partial Thromboplastin Time 25.1 sec (22.0-30.0); Prothrombin Time 10.2 sec (9.0-12.0)
[2021-12-20 11:23] VITALS: BP 135/84; PULSE 78
== END 2021-12-20 11:26 | disposition other institution (70) ==
LOC: EC 09:24
DX: R07.9 Chest pain, unspecified (principal); J44.9 Chronic obstructive pulmonary disease, unspecified; E78.5 Hyperlipidemia, unspecified; I10 Essential (primary) hypertension; I25.2 Old myocardial infarction; G40.909 Epilepsy, unspecified, not intractable, without status epilepticus; F41.9 Anxiety disorder, unspecified; F43.10 Post-traumatic stress disorder, unspecified; F17.200 Nicotine dependence, unspecified, uncomplicated; F12.90 Cannabis use, unspecified, uncomplicated; Z95.5 Presence of coronary angioplasty implant and graft; Z95.1 Presence of aortocoronary bypass graft; Z79.82 Long term (current) use of aspirin; Z79.899 Other long term (current) drug therapy; Z88.0 Allergy status to penicillin
CPT/HCPCS: 36415; 71046; 80053; 83735; 83880; 84484; 85025; 85379; 85610; 85730; 93005; 99285

== ENCOUNTER 2022-09-21 10:06 | Emergency (ER) | payer OTHER ==
[2022-09-21 10:22] VITALS: TEMP 98.6
[2022-09-21] MEDS ORDERED: IPRATROPIUM-ALBUTEROL 3 ML NEB INHALATION STA (10:32)
--- NOTE | 2022-09-21 10:53 | XR ---
EXAMINATION TYPE: XR chest 2V DATE OF EXAM: 09/21/2022 COMPARISON: 12/20/2021 HISTORY: Shortness of breath TECHNIQUE: Frontal and lateral views of the chest are obtained. FINDINGS: Scattered senescent parenchymal changes noted. Hyperinflation compatible with COPD. Patchy basilar infiltrates may reflect underlying pneumonia. Correlate clinically. No evidence for at electasis. Heart size is stable. Mediastinal structures are stable and grossly unremarkable. No evidence for hilar prominence. Degenerative changes dorsal spine. IMPRESSION: 1. Patchy basilar infiltrates may reflect underlying pneumonia. Correlate clinically.
--- NOTE | 2022-09-21 10:53 | ED ---
General Adult HPI - General Chief complaint: Upper Respiratory Infection Stated complaint: cough, congestion Time Seen by Provider: 09/21/22 10:23 Source: patient, RN notes reviewed Mode of arrival: ambulatory Limitations: no limitations - History of Present Illness Initial comments: 56-year-old male presents emergency Department chief complaint of cough and cold-like symptoms. Patient states she's been sick for 1 week. Patient states he just was discharged from [facility]. Patient was a fevers chills bodyaches or productive cough. Patient states she does have COPD continues to smoke. Patient denies any nausea vomiting diarrhea constipation no chest pain or pleuritic pain. - Related Data Home Medications Medication Instructions Recorded Confirmed Metoprolol Succinate (ER) [Toprol 50 mg PO DAILY 12/20/21 12/20/21 Xl] Previous Rx's Medication Instructions Recorded Aspirin 81 mg PO DAILY 30 Days #30 tab 07/05/21 Atorvastatin [Lipitor] 80 mg PO HS #30 tab 07/05/21 Clopidogrel [Plavix] 75 mg PO DAILY #30 tab 07/05/21 Isosorbide Mononitrate ER [Imdur] 30 mg PO DAILY #30 tab 07/05/21 lisinopriL [Zestril] 5 mg PO DAILY #30 tab 07/05/21 Azithromycin [Zithromax Z Pack] 0 tab PO DIRECTED #6 tab 09/21/22 predniSONE 50 mg PO DAILY #5 tab 09/21/22 Allergies Allergy/AdvReac Type Severity Reaction Status Date / Time Penicillins Allergy Unknown Verified 09/21/22 10:22 Childhood Review of Systems ROS Statement: Those systems with pertinent positive or pertinent negative responses have been documented in the HPI. ROS Other: All systems not noted in ROS Statement are negative. Past Medical History Past Medical History: COPD, Hyperlipidemia, Hypertension, Myocardial Infarction ([place]), Seizure Disorder Additional Past Medical History / Comment(s): ISCHEMIC CARDIOMYOPATHY WITH EF 40-45%. 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 Last Myocardial Infarction Date:: 06/12/14 History of Any Multi-Drug Resistant Organisms: None Reported Past Surgical History: Coronary Bypass/CABG, Heart Catheterization With Stent, Hernia Repair, Orthopedic Surgery Additional Past Surgical History / Comment(s): cabg january 2014-3 vessel, Cardiac caths and stenting with last Cardiac cath Jul [address] Cerda. Past Anesthesia/Blood Transfusion Reactions: No Reported Reaction Additional Past Anesthesia/Blood Transfusion Reaction / Comment(s): NO PROBLEM TOLERATING ANESTHESIA. HAS NEVER RECIEVED BLOOD TO HIS KNOWLEDGE. Date of Last Stent Placement:: 06/12/14 Past Psychological History: Anxiety, Panic Disorder, PTSD Smoking Status: Current every day smoker Past Alcohol Use History: Abuse, Daily, Heavy Past Drug Use History: Marijuana - Past Family History Father Family Medical History: Coronary Artery Disease (CAD), Myocardial Infarction ([place]) Additional Family Medical History / Comment(s): FATHER STILL LIVING Mother Family Medical History: Coronary Artery Disease (CAD), Myocardial Infarction ([place]) Additional Family Medical History / Comment(s): MOTHER 09/23/14 of unknown causes. Sister(s) Family Medical History: Myocardial Infarction ([place]) Additional Family Medical History / Comment(s): SISTER OF [place] AT AGE 53 General Exam Limitations: no limitations General appearance: alert, in no apparent distress Head exam: Present: atraumatic, normocephalic, normal inspection Eye exam: Present: normal appearance, PERRL, EOMI. Absent: scleral icterus, conjunctival injection, periorbital swelling ENT exam: Present: normal exam, normal oropharynx, mucous membranes moist Neck exam: Present: normal inspection, full ROM. Absent: tenderness, meningismus, lymphadenopathy Respiratory exam: Present: wheezes, rhonchi. Absent: normal lung sounds bilaterally, respiratory distress, rales, stridor Cardiovascular Exam: Present: regular rate, normal rhythm, normal heart sounds. Absent: systolic murmur, diastolic murmur, rubs, gallop, clicks Course Vital Signs 09/21/22 09/21/22 10:20 11:16 Temperature 98.6 F Pulse Rate 78 68 Respiratory 20 16 Rate Blood Pressure 135/90 O2 Sat by Pulse 96 Oximetry Medical Decision Making - Medical Decision Making 56-year-old male present emergency from for evaluation of cough and cold like symptoms. Patient's been sick for 1 week x-ray shows bibasilar pneumonia. Patient does have underlying lung disease, COPD. I updated the patient results. Patient he needs to be admitted for IV antibiotics, regions, steroids. Patient refuses states she's had a three-quarter house and he has to start a job tomorrow or he loses his spot in the house. Patient was informed that his symptoms most likely worsen, worsening lung condition is return mainly for any changes in symptoms. - Lab Data Lab Results 09/21/22 09/21/22 Range/Units 10:38 10:38 Coronavirus (PCR) Not Detected (Not Detectd) Influenza Type A RNA Not Detected (Not Detectd) Influenza Type B (PCR) Not Detected (Not Detectd) Disposition Clinical Impression: Bilateral pneumonia Disposition: HOME SELF-CARE Condition: Stable Instructions (If sedation given, give patient instructions): Bacterial Pneumonia (ED) Additional Instructions: Please return to the Emergency Department if symptoms worsen or any other concerns. Prescriptions: predniSONE 50 mg PO DAILY #5 tab Azithromycin [Zithromax Z Pack] 0 tab PO DIRECTED #6 tab Is patient prescribed a controlled substance at d/c from ED?: No Referrals: Alejandra Johnson MD [Primary Care Provider] - 1-2 days Time of Disposition: 11:24
[2022-09-21] MEDS ORDERED: cefTRIAXone 1,000 MG VIAL (IM USE) IM STA (11:20)
[2022-09-21] MEDS ORDERED: methylPREDNISolone SOD SUCCI 125 MG/2 ML VIAL IV STA (11:20)
[2022-09-21 11:36] VITALS: RESP 18
[2022-09-21 11:51] VITALS: BP 132/86; PULSE 77
== END 2022-09-21 11:59 | disposition home or self-care (01) ==
LOC: EC 10:06
DX: J18.9 Pneumonia, unspecified organism (principal); J44.9 Chronic obstructive pulmonary disease, unspecified; I10 Essential (primary) hypertension; I25.2 Old myocardial infarction; F32.A Depression, unspecified; F41.9 Anxiety disorder, unspecified; F12.90 Cannabis use, unspecified, uncomplicated; F17.200 Nicotine dependence, unspecified, uncomplicated; Z20.822 Contact with and (suspected) exposure to COVID-19; Z88.0 Allergy status to penicillin; Z79.899 Other long term (current) drug therapy
CPT/HCPCS: 94640 ×2; 87502; 87635; 71046; 99283; 96374; 96372; J2930; J0696

== ENCOUNTER 2023-02-06 13:08 | Inpatient (IN) | payer OTHER ==
[2023-02-06] MEDS ORDERED: ASPIRIN 81 MG PO STA (13:58)
[2023-02-06] MEDS ORDERED: NITROGLYCERIN OINT 1 INCH/GM PACKET TOPICAL STA (13:58)
--- NOTE | 2023-02-06 14:02 | ED ---
General Adult HPI - General Chief complaint: Dizziness Stated complaint: dizziness Time Seen by Provider: 02/06/23 13:30 Source: patient, RN notes reviewed Mode of arrival: ambulatory Limitations: no limitations - History of Present Illness Initial comments: Patient is a pleasant 57-year-old male presenting to the emergency department with concerns with dizziness. Patient woke this morning and felt spinning type sensation. Symptoms worsen when he got up. Patient later laid back down and when he got up again symptoms have near resolved. Patient only has mild lightheadedness at this time however now has some mild chest pressure. Patient also has some mild dyspnea associated with this. No radiation of pressure. No diaphoresis. Patient does have cardiac history. - Related Data Home Medications Medication Instructions Recorded Confirmed Metoprolol Succinate (ER) [Toprol 50 mg PO DAILY 12/20/21 02/06/23 Xl] Previous Rx's Medication Instructions Recorded Atorvastatin [Lipitor] 80 mg PO HS #30 tab 07/05/21 Clopidogrel [Plavix] 75 mg PO DAILY #30 tab 07/05/21 Isosorbide Mononitrate ER [Imdur] 30 mg PO DAILY #30 tab 07/05/21 lisinopriL [Zestril] 5 mg PO DAILY #30 tab 07/05/21 Allergies Allergy/AdvReac Type Severity Reaction Status Date / Time Penicillins Allergy Unknown Verified 02/06/23 14:24 Childhood Review of Systems ROS Statement: Those systems with pertinent positive or pertinent negative responses have been documented in the HPI. ROS Other: All systems not noted in ROS Statement are negative. Constitutional: Denies: fever Eyes: Denies: eye pain ENT: Denies: ear pain Respiratory: Denies: cough Cardiovascular: Reports: as per HPI, chest pain Endocrine: Denies: fatigue Gastrointestinal: Denies: abdominal pain Genitourinary: Denies: dysuria Musculoskeletal: Denies: back pain Skin: Denies: rash Neurological: Reports: vertigo (Resolved). Denies: headache, weakness, numbness, paresthesias, confusion Past Medical History Past Medical History: COPD, Hyperlipidemia, Hypertension, Myocardial Infarction ([place]), Seizure Disorder Additional Past Medical History / Comment(s): ISCHEMIC CARDIOMYOPATHY WITH EF 40-45%. 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 Last Myocardial Infarction Date:: 06/12/14 History of Any Multi-Drug Resistant Organisms: None Reported Past Surgical History: Coronary Bypass/CABG, Heart Catheterization With Stent, Hernia Repair, Orthopedic Surgery Additional Past Surgical History / Comment(s): cabg january 2014-3 vessel, Cardiac caths and stenting with last Cardiac cath Jul [address] Cerda. Past Anesthesia/Blood Transfusion Reactions: No Reported Reaction Additional Past Anesthesia/Blood Transfusion Reaction / Comment(s): NO PROBLEM TOLERATING ANESTHESIA. HAS NEVER RECIEVED BLOOD TO HIS KNOWLEDGE. Date of Last Stent Placement:: 06/12/14 Past Psychological History: Anxiety, Panic Disorder, PTSD Smoking Status: Current every day smoker Past Alcohol Use History: Abuse, Daily, Heavy Past Drug Use History: Marijuana - Past Family History Father Family Medical History: Coronary Artery Disease (CAD), Myocardial Infarction ([place]) Additional Family Medical History / Comment(s): FATHER STILL LIVING Mother Family Medical History: Coronary Artery Disease (CAD), Myocardial Infarction ([place]) Additional Family Medical History / Comment(s): MOTHER 09/23/14 of unknown causes. Sister(s) Family Medical History: Myocardial Infarction ([place]) Additional Family Medical History / Comment(s): SISTER OF [place] AT AGE 53 General Exam Limitations: no limitations General appearance: alert, in no apparent distress Head exam: Present: normocephalic Eye exam: Present: normal appearance, PERRL, EOMI. Absent: nystagmus ENT exam: Present: normal oropharynx Neck exam: Present: normal inspection. Absent: tenderness Respiratory exam: Present: normal lung sounds bilaterally Cardiovascular Exam: Present: regular rate, normal rhythm GI/Abdominal exam: Present: soft. Absent: tenderness Extremities exam: Present: normal inspection Neurological exam: Present: alert, oriented X3, CN II-XII intact. Absent: motor sensory deficit Expanded Neurological exam: Present: protecting the airway Speech: Present: fluid speech Cranial nerves: EOM's Intact: Normal Sensory exam: Upper Extremity Light Touch: Normal, Lower Extremity Light Touch: Normal Motor strength exam: RUE: 5, LUE: 5, RLE: 5, LLE: 5 Eye Response: (4) open spontaneously Motor Response: (6) obeys commands Verbal Response: (5) oriented Psychiatric exam: Present: normal affect, normal mood Skin exam: Present: normal color Course Vital Signs 02/06/23 02/06/23 13:17 15:11 Temperature 98 F Pulse Rate 66 70 Respiratory 18 17 Rate Blood Pressure 131/93 149/108 O2 Sat by Pulse 97 98 Oximetry EKG Findings - EKG Results: EKG: interpreted by ERMD (axis left. Q waves V1 and V2. No acute ST change.), sinus rhythm EKG shows: bradycardia Medical Decision Making - Medical Decision Making Was pt. sent in by a medical professional or institution (, PA, ICU RN, urgent care, hospital, or senior care...) When possible be specific @ -[No] Did you speak to anyone other than the patient for history (EMS, parent, family, police, friend...)? What history was obtained from this source @ -[No] Did you review nursing and triage notes (agree or disagree)? Why? @ -[I reviewed and agree with nursing and triage notes] Were old charts reviewed (outside hosp., previous admission, EMS record, old EKG, old radiological studies, urgent care reports/EKG's, senior care records)? Report findings @ -[No old charts were reviewed] Differential Diagnosis (chest pain, altered mental status, abdominal pain women, abdominal pain men, vaginal bleeding, weakness, fever, dyspnea, syncope, headache, dizziness, GI bleed, back pain, seizure, CVA, palpatations, mental health)? @ -Differential Chest Pain: Stable Angina, Unstable Angina, STEMI, NSTEMI Aortic Dissection, Pneumothorax, Musculoskeletal, Esophageal Spasm GERD, Cholecystitis, Pancreatitis, Zoster, this is not meant to be an all-inclusive list. EKG interpreted by me (3pts min.). @ -[As above] X-rays interpreted by me (1pt min.). @ -Chest x-ray shows no acute process CT interpreted by me (1pt min.). @ -Port reviewed U/S interpreted by me (1pt. min.). @ -[None done] What testing was considered but not performed or refused? (CT, X-rays, U/S, labs)? Why? @ -[None] What meds were considered but not given or refused? Why? @ -[None] Did you discuss the management of the patient with other professionals (professionals i.e. , PA, ICU RN, lab, RT, psych nurse, director social welfare, research spec, teacher, aoc airspace control officer, high risk case manager)? Give summary @ -Case discussed with Dr. Hassan with [facility] who will admit covering for Dr. Narvaez Was smoking cessation discussed for >3mins.? @ -[No] Was critical care preformed (if so, how long)? @ -32 minutes critical care time Were there social determinants of health that impacted care today? How? (Homelessness, low income, unemployed, alcoholism, drug addiction, transportation, low edu. Level, literacy, decrease access to med. care, long term, rehab)? @ -A omid did consider leaving AGAINST MEDICAL ADVICE as he is concerned regarding losing his job. After further discussion as well as discussion with the son and the phone patient does agree with this Was there de-escalation of care discussed even if they declined (Discuss DNR or withdrawal of care, Hospice)? DNR status @ -[No] What co-morbidities impacted this encounter? (DM, HTN, Smoking, COPD, CAD, Cancer, CVA, ARF, Chemo, Hep., AIDS, mental health diagnosis, sleep apnea, morbid obesity)? @ -History of previous cardiac disease and CABG Was patient admitted / discharged? Hospital course, mention meds given and route, prescriptions, significant lab abnormalities, going to OR and other pertinent info. @ -Patient will be admitted and heparinized. Patient will need cardiac evaluation and further testing Undiagnosed new problem with uncertain prognosis? @ -[No] Drug Therapy requiring intensive monitoring for toxicity (Heparin, Nitro, Insulin, Cardizem)? @ -Patient will be heparinized and need monitoring for this Were any procedures done? @ -[No] Diagnosis/symptom? @ -nstemi Acute, or Chronic, or Acute on Chronic? @ -acute Uncomplicated (without systemic symptoms) or Complicated (systemic symptoms)? @ -[default] Side effects of treatment? @ -[No] Exacerbation, Progression, or Severe Exacerbation? @ -[No] Poses a threat to life or bodily function? How? (Chest pain, [place], [place], pneumonia, PE, COPD, DKA, ARF, appy, cholecystitis, CVA, Diverticulitis, Homicidal, Suicidal, threat to staff... and all critical care pts) @ -[No] - Lab Data Result diagrams: 02/06/23 14:04 02/06/23 14:04 Lab Results 0402/06/23 02/06/23 Range/Units 14:04 14:04 14:04 WBC 8.9 (3.8-10.6) k/uL RBC 4.41 (4.30-5.90) m/uL Hgb 12.8 L (13.0-17.5) gm/dL Hct 38.5 L (39.0-53.0) % MCV 87.3 (80.0-100.0) fL MCH 29.0 (25.0-35.0) pg MCHC 33.2 (31.0-37.0) g/dL RDW 13.9 (11.5-15.5) % Plt Count 297 (150-450) k/uL MPV 8.1 Neutrophils % 61 % Lymphocytes % 24 % Monocytes % 5 % Eosinophils % 8 % Basophils % 0 % Neutrophils # 5.5 (1.3-7.7) k/uL Lymphocytes # 2.1 (1.0-4.8) k/uL Monocytes # 0.5 (0-1.0) k/uL Eosinophils # 0.7 (0-0.7) k/uL Basophils # 0.0 (0-0.2) k/uL PT 10.3 (9.0-12.0) sec INR 1.0 (<1.2) APTT 24.1 (22.0-30.0) sec D-Dimer 0.29 (<0.60) mg/L FEU Sodium 137 (137-145) mmol/L Potassium 4.4 (3.5-5.1) mmol/L Chloride 109 H (98-107) mmol/L Carbon Dioxide 23 (22-30) mmol/L Anion Gap 5 mmol/L BUN 18 (9-20) mg/dL Creatinine 0.85 (0.66-1.25) mg/dL Est GFR (CKD-EPI)AfAm >90 (>60 ml/min/1.73 sqM) Est GFR (CKD-EPI)NonAf >90 (>60 ml/min/1.73 sqM) Glucose 95 (74-99) mg/dL Calcium 8.7 (8.4-10.2) mg/dL Magnesium 1.9 (1.6-2.3) mg/dL Total Bilirubin 0.2 (0.2-1.3) mg/dL AST 20 (17-59) U/L ALT 25 (4-49) U/L Alkaline Phosphatase 54 (38-126) U/L Troponin I (0.000-0.034) ng/mL NT-Pro-B Natriuret Pep pg/mL Total Protein 6.1 L (6.3-8.2) g/dL Albumin 3.7 (3.5-5.0) g/dL 02/06/23 02/06/23 Range/Units 14:04 14:04 WBC (3.8-10.6) k/uL RBC (4.30-5.90) m/uL Hgb (13.0-17.5) gm/dL Hct (39.0-53.0) % MCV (80.0-100.0) fL MCH (25.0-35.0) pg MCHC (31.0-37.0) g/dL RDW (11.5-15.5) % Plt Count (150-450) k/uL MPV Neutrophils % % Lymphocytes % % Monocytes % % Eosinophils % % Basophils % % Neutrophils # (1.3-7.7) k/uL Lymphocytes # (1.0-4.8) k/uL Monocytes # (0-1.0) k/uL Eosinophils # (0-0.7) k/uL Basophils # (0-0.2) k/uL PT (9.0-12.0) sec INR (<1.2) APTT (22.0-30.0) sec D-Dimer (<0.60) mg/L FEU Sodium (137-145) mmol/L Potassium (3.5-5.1) mmol/L Chloride (98-107) mmol/L Carbon Dioxide (22-30) mmol/L Anion Gap mmol/L BUN (9-20) mg/dL Creatinine (0.66-1.25) mg/dL Est GFR (CKD-EPI)AfAm (>60 ml/min/1.73 sqM) Est GFR (CKD-EPI)NonAf (>60 ml/min/1.73 sqM) Glucose (74-99) mg/dL Calcium (8.4-10.2) mg/dL Magnesium (1.6-2.3) mg/dL Total Bilirubin (0.2-1.3) mg/dL AST (17-59) U/L ALT (4-49) U/L Alkaline Phosphatase (38-126) U/L Troponin I 0.144 H* (0.000-0.034) ng/mL NT-Pro-B Natriuret Pep 396 pg/mL Total Protein (6.3-8.2) g/dL Albumin (3.5-5.0) g/dL Critical Care Time Critical Care Time: Yes Total Critical Care Time: 32 Disposition Clinical Impression: NSTEMI (non-ST elevated myocardial infarction) Disposition: ADMITTED IP TO THIS HOSP Condition: Serious Is patient prescribed a controlled substance at d/c from ED?: No Referrals: Alejandra Johnson MD [STAFF PHYSICIAN] - 1-2 days Time of Disposition: 15:19
[2023-02-06 14:12] LABS: Basophils % (A) 0 %; Eosinophils # (A) 0.7 k/uL (0-0.7); Eosinophils % (A) 8 %; HCT 38.5 % (39.0-53.0); HGB 12.8 gm/dL (13.0-17.5); Lymphocytes # (A) 2.1 k/uL (1.0-4.8); Lymphocytes % (A) 24 %; MCHC 33.2 g/dL (31.0-37.0); MCV 87.3 fL (80.0-100.0); Mean Platelet Volume 8.1; Monocytes # (A) 0.5 k/uL (0-1.0); Monocytes % (A) 5 %; Neutrophils # (A) 5.5 k/uL (1.3-7.7); Neutrophils % (A) 61 %; Platelet Count 297 k/uL (150-450); RBC 4.41 m/uL (4.30-5.90); RDW 13.9 % (11.5-15.5); WBC 8.9 k/uL (3.8-10.6)
--- NOTE | 2023-02-06 14:30 | XR ---
EXAMINATION TYPE: XR chest 2V DATE OF EXAM: 02/06/2023 COMPARISON: 09/21/2022 HISTORY: Shortness of breath TECHNIQUE: Frontal and lateral views of the chest are obtained. FINDINGS: Scattered senescent parenchymal changes noted. Hyperinflation compatible with COPD. No evidence for infiltrate. No evidence for atelectasis. Heart size is stable. Mediastinal structures are stable and grossly unremarkable. No evidence for hilar prominence. Degenerative changes dorsal spine. IMPRESSION: 1. No evidence for acute pulmonary disease.
[2023-02-06 14:31] LABS: Partial Thromboplastin Time 24.1 sec (22.0-30.0); Prothrombin Time 10.3 sec (9.0-12.0)
[2023-02-06 14:38] LABS: ALT 25 U/L (4-49); AST 20 U/L (17-59); African American GFR (CKD) >90 (>60 ml/min/1.73 sqM); Albumin 3.7 g/dL (3.5-5.0); Alkaline Phosphatase 54 U/L (38-126); Anion Gap 5 mmol/L; Blood Urea Nitrogen 18 mg/dL (9-20); Calcium 8.7 mg/dL (8.4-10.2); Carbon Dioxide 23 mmol/L (22-30); Chloride 109 mmol/L (98-107); Glucose 95 mg/dL (74-99); Magnesium 1.9 mg/dL (1.6-2.3); Non-African American GFR(CKD) >90 (>60 ml/min/1.73 sqM); Potassium 4.4 mmol/L (3.5-5.1); Sodium 137 mmol/L (137-145); Total Bilirubin 0.2 mg/dL (0.2-1.3); Total Protein 6.1 g/dL (6.3-8.2)
--- NOTE | 2023-02-06 14:40 | CT ---
EXAMINATION TYPE: CT brain wo con DATE OF EXAM: 02/06/2023 HISTORY: Dizziness and vertigo. CT DLP: 1205.4 mGycm. Automated Exposure Control for Dose Reduction was Utilized. TECHNIQUE: CT scan of the head is performed without contrast. COMPARISON: CT brain June 25, 2014. FINDINGS: There is no acute intracranial hemorrhage or midline shift identified. There is mild diff use ventricular and sulcal prominence redemonstrated. There is mild low-attenuation in the periventr icular white matter redemonstrated. Mild mucosal thickening involving ethmoid sinuses bilaterally. Re mainder of the paranasal sinuses are clear and the globes are intact bilaterally. IMPRESSION: No acute intracranial hemorrhage or midline shift. There is mild diffuse age-related ce rebral atrophy and chronic small vessel ischemic change redemonstrated. No significant change from p rior CT.
--- NOTE | 2023-02-06 15:18 | P.HPIM ---
History of Present Illness H&P Date: 02/06/23 History of present illness; patient is a 57 year-old male with a known history of COPD, hypertension, hyperlipidemia, history of [place], ischemic cardiomyopathy , EtOH abuse., Currently with a smoker and marijuana use and anxiety/panic disorder and PTSD presents to ER with complaints of dizziness. Patient was in normal state of health this morning when he woke up feeling dizzy, he felt like whole room was spinning, feeling of dizziness was worsened with movement. Patient also started noticing some mild chest pressure and shortness of breath. Because of this he came to the ER. CT head negative for acute intracranial hemorrhage or midline shift Chest x-ray negative for acute cardiac process EKG done showed sinus bradycardia, no acute ST segment changes. Initial lab work done showed initial troponin at 0.144, sodium 137, potassium 4.4, chloride 109, BUN 18, creatinine 0.85 Patient was admitted for further evaluation and treatment REVIEW OF SYSTEMS: CONSTITUTIONAL: No fever, no malaise, no fatigue. HEENT: No recent visual problems or hearing problems. Denied any sore throat. CARDIOVASCULAR: No orthopnea, PND, no palpitations, no syncope. PULMONARY: no cough, no hemoptysis. GASTROINTESTINAL: No diarrhea, no nausea, no vomiting, no abdominal pain. NEUROLOGICAL: No headaches, no weakness, no numbness. HEMATOLOGICAL: Denies any bleeding or petechiae. GENITOURINARY: Denies any burning micturition, frequency, or urgency. MUSCULOSKELETAL/RHEUMATOLOGICAL: Denies any joint pain, swelling, or any muscle pain. ENDOCRINE: Denies any polyuria or polydipsia. The rest of the 14-point review of systems is negative. PHYSICAL EXAMINATION: GENERAL: The patient is alert and oriented x3, not in any acute distress. Well developed, well nourished. HEENT: Pupils are round and equally reacting to light. EOMI. No scleral icterus. No conjunctival pallor. Normocephalic, atraumatic. No pharyngeal erythema. No thyromegaly. CARDIOVASCULAR: S1 and S2 present. No murmurs, rubs, or gallops. PULMONARY: Chest is clear to auscultation, no wheezing or crackles. ABDOMEN: Soft, nontender, nondistended, normoactive bowel sounds. No palpable organomegaly. MUSCULOSKELETAL: No joint swelling or deformity. EXTREMITIES: No cyanosis, clubbing, or pedal edema. NEUROLOGICAL: Gross neurological examination did not reveal any focal deficits. SKIN: No rashes. Assessment and plan NSTEMI COPD Hypertension Hyperlipidemia history of coronary artery disease Alcohol abuse Monitor vital signs monitor CBC monitor CBC Trend troponins. Continue telemetry monitoring. Ordered 2-D echo Continue pharmacy dose heparin Consult cardiology DVT prophylaxis: Past Medical History Past Medical History: COPD, Hyperlipidemia, Hypertension, Myocardial Infarction ([place]), Seizure Disorder Additional Past Medical History / Comment(s): ISCHEMIC CARDIOMYOPATHY WITH EF 40-45%. 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 Last Myocardial Infarction Date:: 06/12/14 History of Any Multi-Drug Resistant Organisms: None Reported Past Surgical History: Coronary Bypass/CABG, Heart Catheterization With Stent, Hernia Repair, Orthopedic Surgery Additional Past Surgical History / Comment(s): cabg january 2014-3 vessel, Cardiac caths and stenting with last Cardiac cath Jul [address] Cerda. Past Anesthesia/Blood Transfusion Reactions: No Reported Reaction Additional Past Anesthesia/Blood Transfusion Reaction / Comment(s): NO PROBLEM TOLERATING ANESTHESIA. HAS NEVER RECIEVED BLOOD TO HIS KNOWLEDGE. Date of Last Stent Placement:: 06/12/14 Past Psychological History: Anxiety, Panic Disorder, PTSD Smoking Status: Current every day smoker Past Alcohol Use History: Abuse, Daily, Heavy Past Drug Use History: Marijuana - Past Family History Father Family Medical History: Coronary Artery Disease (CAD), Myocardial Infarction ([place]) Additional Family Medical History / Comment(s): FATHER STILL LIVING Mother Family Medical History: Coronary Artery Disease (CAD), Myocardial Infarction ([place]) Additional Family Medical History / Comment(s): MOTHER 09/23/14 of unknown causes. Sister(s) Family Medical History: Myocardial Infarction ([place]) Additional Family Medical History / Comment(s): SISTER OF [place] AT AGE 53 Medications and Allergies Home Medications Medication Instructions Recorded Confirmed Type Atorvastatin [Lipitor] 80 mg PO HS #30 tab 07/05/21 02/06/23 Rx Clopidogrel [Plavix] 75 mg PO DAILY #30 tab 07/05/21 02/06/23 Rx Isosorbide Mononitrate ER [Imdur] 30 mg PO DAILY #30 tab 07/05/21 02/06/23 Rx lisinopriL [Zestril] 5 mg PO DAILY #30 tab 07/05/21 02/06/23 Rx Metoprolol Succinate (ER) [Toprol 50 mg PO DAILY 12/20/21 02/06/23 History Xl] Allergies Allergy/AdvReac Type Severity Reaction Status Date / Time Penicillins Allergy Unknown Verified 02/06/23 14:24 Childhood Physical Exam Vitals: Vital Signs Temp Pulse Resp BP Pulse Ox 02/06/23 13:17 98 F 66 18 131/93 97 Intake and Output 02/06/23 02/06/23 02/06/23 06:59 14:59 22:59 Other: Weight 86.183 kg Results CBC & Chem 7: 02/06/23 14:04 02/06/23 14:04 Labs: Abnormal Lab Results - Last 24 Hours (Table) 02/06/23 02/06/23 02/06/23 Range/Units 14:04 14:04 14:04 Hgb 12.8 L (13.0-17.5) gm/dL Hct 38.5 L (39.0-53.0) % Chloride 109 H (98-107) mmol/L Troponin I 0.144 H* (0.000-0.034) ng/mL Total Protein 6.1 L (6.3-8.2) g/dL
[2023-02-06] MEDS ORDERED: NALOXONE 0.4 MG/ML 1 ML VIAL IVP PRN (15:19)
[2023-02-06] MEDS ORDERED: ACETAMINOPHEN TAB 325 MG TAB PO PRN (15:19)
[2023-02-06] MEDS ORDERED: HEPARIN SODIUM 1,000 UN/ML (10ML VL) IV ONE (15:20)
[2023-02-06] MEDS ORDERED: NITROGLYCERIN SL TABS 0.4 MG TAB SUBLINGUAL PRN (15:20)
[2023-02-06] MEDS ORDERED: HEPARIN SOD,PORK IN 0.45% NACL 25,000 UNIT in 0.45% NACL 1 250ML.BAG IV SCH (15:30)
[2023-02-06 15:39] VITALS: TEMP 97.5
[2023-02-06] MEDS: NITROGLYCERIN OINT 1 INCH/GM PACKET TOPICAL SCH (18:56)
[2023-02-06] MEDS ORDERED: ATORVASTATIN 80 MG TAB PO SCH (21:00)
[2023-02-06] MEDS ORDERED: HEPARIN SODIUM 1,000 UN/ML (10ML VL) IV PRN (22:15)
[2023-02-07] MEDS: NITROGLYCERIN OINT 1 INCH/GM PACKET TOPICAL SCH ×2 (01:23→05:07)
[2023-02-07 05:34] LABS: Basophils % (A) 0 %; Eosinophils # (A) 0.7 k/uL (0-0.7); Eosinophils % (A) 7 %; HCT 39.5 % (39.0-53.0); HGB 12.8 gm/dL (13.0-17.5); Lymphocytes # (A) 2.1 k/uL (1.0-4.8); Lymphocytes % (A) 23 %; MCH 28.4 pg (25.0-35.0); MCHC 32.3 g/dL (31.0-37.0); Mean Platelet Volume 8.3; Monocytes # (A) 0.4 k/uL (0-1.0); Monocytes % (A) 5 %; Neutrophils # (A) 5.6 k/uL (1.3-7.7); Neutrophils % (A) 63 %; Platelet Count 274 k/uL (150-450); RBC 4.49 m/uL (4.30-5.90); RDW 13.9 % (11.5-15.5); WBC 8.9 k/uL (3.8-10.6)
[2023-02-07 05:46] LABS: Partial Thromboplastin Time 55.7 sec (22.0-30.0); Prothrombin Time 10.4 sec (9.0-12.0)
[2023-02-07] MEDS ORDERED: PANTOPRAZOLE 40 MG TABLET PO SCH (07:30)
[2023-02-07] MEDS ORDERED: REGADENOSON 0.4 MG/5 ML SYRINGE IV PRN (08:19)
[2023-02-07] MEDS ORDERED: CAFFEINE CITRATE 60 MG/3 ML VIAL IV PRN (08:19)
[2023-02-07] MEDS ORDERED: AMINOPHYLLINE 500 MG/20 ML VIAL IV PRN (08:19)
[2023-02-07] MEDS ORDERED: ISOSORBIDE MONONITRATE ER 30 MG TAB.ER.24H PO SCH (09:00)
[2023-02-07] MEDS ORDERED: CLOPIDOGREL 75 MG TAB PO SCH (09:00)
[2023-02-07] MEDS ORDERED: lisinopriL 5 MG TAB PO SCH (09:00)
[2023-02-07] MEDS ORDERED: METOPROLOL SUCCINATE (ER) 50 MG TAB.ER.24H PO SCH (09:00)
[2023-02-07] MEDS ORDERED: ASPIRIN 81 MG PO SCH (09:00)
--- NOTE | 2023-02-07 09:55 | P.CRDCN ---
History of Present Illness History of present illness: HISTORY OF PRESENT ILLNESS: This is a 57-year-old male with a past medical history significant for coronary artery disease with previous CABG in 2014 and stenting in 2020, ischemic cardiomyopathy, hypertension, hyperlipidemia, nicotine dependence, and alcohol abuse. Patient states he is 6 months sober. Patient follows in the office with Dr. Loyd but has not been seen in the office since June 2021. We have been asked to see the patient in consultation for elevated troponin. Patient examined at the bedside. Patient states yesterday he bent over to get something in his lower chin cabinets when he stood up he began to feel dizzy and nauseated. He states that he went to lie down and take a nap. He states when he got up he did not feel quite right. The patient states he has had some episodes of dizziness in the past but not very often. The patient denied any chest pain or pressure. He denied any shortness of breath. The patient is a current cigarette smoker. The patient's first troponin was elevated at 0.144. Followed by 2 negative troponins. The patient states his symptoms are not similar to when he experienced his heart attacks in the past. He states in the past his symptoms were headache, nausea, and diaphoresis. * EKG reveals sinus mechanism with no signs of acute ischemia. Bradycardia. Heart rate 53 * Chest xray negative for acute process * Laboratory data: WBC 8.9. Hemoglobin 12.8. Platelet count 274. D-dimer 0.29. Sodium 137. Potassium 4.4. BUN 18. Creatinine 0.5. ProBNP 396. Troponin 0.144. 0.012. 0.012. * Current home cardiac medications include Lipitor 80 mg at night, Plavix 75 mg daily, Imdur 30 mg daily, metoprolol succinate 50 mg daily, and lisinopril 5 mg daily * Most recent echocardiogram obtained in June 2021 revealed ejection fraction 40-45%, severe MR, moderate TR, mild to moderate pulmonary hypertension * Cardiac catheterization history: June 2021 with successful recannulization of a totally occluded right PLV with reduction of stenosis from 100% to 0%. REVIEW OF SYSTEMS: At the time of my exam: CONSTITUTIONAL: Denies fever or chills. HEENT: Denies blurred vision, vision changes, or eye pain. Denies hemoptysis CARDIOVASCULAR: Denies chest pain. Denies orthopnea. Denies PND. Denies palpitations RESPIRATORY: Denies shortness of breath. GASTROINTESTINAL: Denies abdominal pain. Denies nausea or vomiting. HEMATOLOGIC: Denies bleeding disorders. GENITOURINARY: Denies any blood in urine. SKIN: Denies pruitis. Denies rash. PHYSICAL EXAM: VITAL SIGNS: Reviewed. GENERAL: Well-developed in no acute distress. HEENT: Head is normocephalic. Pupils are equal, round. Sclerae anicteric. Mucous membranes of the mouth are moist. Neck supple. No JVD or thyromegaly LUNGS: Respirations even and unlabored. Lungs essentially clear to auscultation bilaterally. HEART: Regular rate and rhythm. S1 and S2 heard. Systolic murmur noted at the apex. ABDOMEN: Soft. Nondistended. Nontender. EXTREMITIES: Normal range of motion. No clubbing or cyanosis. Peripheral pulses intact. No lower extremity edema NEUROLOGIC: Awake and alert. Oriented x 3. ASSESSMENT: Dizziness Elevated troponin, of unclear significance, patient denies any chest pain and EKG without evidence of acute ischemia Coronary artery disease with previous four-vessel CABG in 2013 and subsequent stenting in 2020 Ischemic cardiomyopathy, ejection fraction 40-45% in 2020 Hypertension Hyperlipidemia Nicotine dependence History of alcohol abuse, patient states he is 6 months sober PLAN: Patient with one isolated elevated troponin level; followed by two negative troponins. He denies any chest pain or pressure. EKG without acute ischemic changes. Resume home cardiac medications Patient will undergo Lexiscan stress test today Obtain 2-D echo to assess cardiac structure and function Discontinue IV heparin Discontinue nitro paste Obtain lipid panel Smoking cessation recommended Further recommendations pending patient's course Nurse practitioner note has been reviewed by physician. Signing provider agrees with the documented findings, assessment, and plan of care. Past Medical History Past Medical History: COPD, Hyperlipidemia, Hypertension, Myocardial Infarction ([place]), Seizure Disorder Additional Past Medical History / Comment(s): ISCHEMIC CARDIOMYOPATHY WITH EF 40-45%. 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 Last Myocardial Infarction Date:: 06/12/14 History of Any Multi-Drug Resistant Organisms: None Reported Past Surgical History: Coronary Bypass/CABG, Heart Catheterization With Stent, Hernia Repair, Orthopedic Surgery Additional Past Surgical History / Comment(s): cabg january 2014-3 vessel, Cardiac caths and stenting with last Cardiac cath Jul [address] Cerda. Past Anesthesia/Blood Transfusion Reactions: No Reported Reaction Additional Past Anesthesia/Blood Transfusion Reaction / Comment(s): NO PROBLEM TOLERATING ANESTHESIA. HAS NEVER RECIEVED BLOOD TO HIS KNOWLEDGE. Date of Last Stent Placement:: 06/12/14 Past Psychological History: Anxiety, Panic Disorder, PTSD Smoking Status: Current every day smoker Past Alcohol Use History: Abuse, Daily, Heavy Past Drug Use History: Marijuana - Past Family History Father Family Medical History: Coronary Artery Disease (CAD), Myocardial Infarction ([place]) Additional Family Medical History / Comment(s): FATHER STILL LIVING Mother Family Medical History: Coronary Artery Disease (CAD), Myocardial Infarction ([place]) Additional Family Medical History / Comment(s): MOTHER 09/23/14 of unknown causes. Sister(s) Family Medical History: Myocardial Infarction ([place]) Additional Family Medical History / Comment(s): SISTER OF [place] AT AGE 53 Medications and Allergies Home Medications Medication Instructions Recorded Confirmed Type Atorvastatin [Lipitor] 80 mg PO HS #30 tab 07/05/21 02/06/23 Rx Clopidogrel [Plavix] 75 mg PO DAILY #30 tab 07/05/21 02/06/23 Rx Isosorbide Mononitrate ER [Imdur] 30 mg PO DAILY #30 tab 07/05/21 02/06/23 Rx lisinopriL [Zestril] 5 mg PO DAILY #30 tab 07/05/21 02/06/23 Rx Metoprolol Succinate (ER) [Toprol 50 mg PO DAILY 12/20/21 02/06/23 History Xl] Allergies Allergy/AdvReac Type Severity Reaction Status Date / Time Penicillins Allergy Unknown Verified 02/06/23 14:24 Childhood Physical Exam Vitals: Vital Signs Temp Pulse Resp BP Pulse Ox 02/07/23 05:03 70 17 112/79 98 02/07/23 02:11 62 104/79 93 L 02/06/23 22:23 61 20 117/82 94 L 02/06/23 20:52 68 18 97/59 96 02/06/23 19:26 73 18 110/72 94 L 02/06/23 18:52 78 17 91/60 95 02/06/23 17:22 64 18 124/93 93 L 02/06/23 15:38 97.5 F L 57 L 18 135/96 94 L 02/06/23 15:11 70 17 149/108 98 02/06/23 13:17 98 F 66 18 131/93 97 Intake and Output 02/06/23 02/07/23 02/07/23 22:59 06:59 14:59 Intake Total 66.313 101.293 Balance 66.313 101.293 Intake: Intake, IV Titration 66.313 101.293 Amount Heparin Sod,Pork in 0.45% 66.313 101.293 NaCl 25,000 unit In 0.45 % NaCl 1 250ml.bag @ 11.6 UNITS/KG/HR 9.997 mls/hr IV .Q24H [facility] Rx#: [id number] Results 02/07/23 04:28 02/06/23 14:04 Cardiac Enzymes 02/06/23 02/06/23 02/06/23 Range/Units 14:04 14:04 16:59 AST 20 (17-59) U/L Troponin I 0.144 H* <0.012 (0.000-0.034) ng/mL 02/06/23 Range/Units 21:03 AST (17-59) U/L Troponin I <0.012 (0.000-0.034) ng/mL Coagulation 02/06/23 02/06/23 02/06/23 Range/Units 14:04 16:59 21:03 PT 10.3 (9.0-12.0) sec APTT 24.1 58.2 H 33.8 H (22.0-30.0) sec 02/07/23 Range/Units 04:28 PT 10.4 (9.0-12.0) sec APTT 55.7 H (22.0-30.0) sec CBC 02/06/23 02/07/23 Range/Units 14:04 04: WBC 8.9 8.9 (3.8-10.6) k/uL RBC 4.41 4.49 (4.30-5.90) m/uL Hgb 12.8 L 12.8 L (13.0-17.5) gm/dL Hct 38.5 L 39.5 (39.0-53.0) % Plt Count 297 274 (150-450) k/uL Comprehensive Metabolic Panel 02/06/23 Range/Units 14:04 Sodium 137 (137-145) mmol/L Potassium 4.4 (3.5-5.1) mmol/L Chloride 109 H (98-107) mmol/L Carbon Dioxide 23 (22-30) mmol/L BUN 18 (9-20) mg/dL Creatinine 0.85 (0.66-1.25) mg/dL Glucose 95 (74-99) mg/dL Calcium 8.7 (8.4-10.2) mg/dL AST 20 (17-59) U/L ALT 25 (4-49) U/L Alkaline Phosphatase 54 (38-126) U/L Total Protein 6.1 L (6.3-8.2) g/dL Albumin 3.7 (3.5-5.0) g/dL Current Medications Generic Name Dose Route Start Last Admin Trade Name Freq PRN Reason Stop Dose Admin Acetaminophen 650 mg 02/06/23 15:19 Acetaminophen Tab 325 Mg Tab PO Q6HR PRN Mild Pain or Fever > 100.5 Aspirin 81 mg 02/07/23 09:00 Aspirin 81 Mg PO DAILY [facility] Atorvastatin Calcium 80 mg 02/06/23 21:00 02/06/23 20:56 Atorvastatin 80 Mg Tab PO 80 mg HS WILI Administration Clopidogrel Bisulfate 75 mg 02/07/23 09:00 Clopidogrel 75 Mg Tab PO DAILY [facility] Heparin Sodium (Porcine) 0 unit 02/06/23 22:15 02/06/23 22:21 Heparin Sodium 1,000 Un/Ml (10ml Vl) IV 4,309 unit PER PROTOCOL PRN Administration Low PTT Protocol Heparin Sodium/Sodium Chloride 250 mls @ 9.997 mls/hr 02/06/23 15:30 02/07/23 06:16 25,000 unit/ Sodium Chloride IV 14.6 units/kg/hr .Q24H WILI 12.583 mls/hr Titration Protocol 11.6 UNITS/KG/HR Isosorbide Mononitrate 30 mg 02/07/23 09:00 Isosorbide Mononitrate Er 30 Mg Tab.Er.24h PO DAILY [facility] Lisinopril 5 mg 02/07/23 09:00 Lisinopril 5 Mg Tab PO DAILY [facility] Metoprolol Succinate 50 mg 02/07/23 09:00 Metoprolol Succinate (Er) 50 Mg Tab.Er.24h PO DAILY [facility] Naloxone HCl 0.2 mg 02/06/23 15:19 Naloxone 0.4 Mg/Ml 1 Ml Vial IVP Q2M PRN Opioid Reversal Nitroglycerin 0.4 mg 02/06/23 15:20 Nitroglycerin Sl Tabs 0.4 Mg Tab SUBLINGUAL Q5M PRN Chest Pain Nitroglycerin 1 inch 02/06/23 18:00 02/07/23 05:07 Nitroglycerin Oint 1 Inch/Gm Packet TOPICAL Not Given Q6HR [facility] Pantoprazole Sodium 40 mg 02/07/23 07:30 Pantoprazole 40 Mg Tablet PO AC-BRKFST [facility] Intake and Output 02/06/23 02/07/23 02/07/23 22:59 06:59 14:59 Intake Total 66.313 101.293 Balance 66.313 101.293 Intake: Intake, IV Titration 66.313 101.293 Amount Heparin Sod,Pork in 0.45% 66.313 101.293 NaCl 25,000 unit In 0.45 % NaCl 1 250ml.bag @ 11.6 UNITS/KG/HR 9.997 mls/hr IV .Q24H [facility] Rx#: [id number] 02/07/23 04:28 02/06/23 14:04
[2023-02-07] MEDS ORDERED: CAFFEINE CITRATE 60 MG/3 ML VIAL ONE (11:17)
[2023-02-07] MEDS ORDERED: DEXTROSE 5% IN WATER 50 ML BAG ONE (11:17)
--- NOTE | 2023-02-07 12:00 | CA ---
Lexiscan Nuclear Stress Test Report Name: Bob Ellsworth Exam Date: 02/07/2023 11:04 Exam Location: [place] Stress Ht (in): 73 Wt (lb): 190 BSA: 2.11 Ordering Phys: Anaya Velasquez Referring Phys: RADHA,, Technologist: Dusty Newsome Age: 57 Gender: M : 1965 Procedure CPT: Indications: Reflex order-Stress test ICD-10 Codes: Patient History: CHEST PAIN, DIFFICULTY IN BREATHING, ANGINA, NUMBNESS IN FACE/NECK, HTN, CVA, FAMILY HX OF HEART DISEASE, CURRENT SMOKER (1 PPD X 40 YEARS), MS, PRIOR CARDIAC CATH WITH STENTING X 3, CABG X 4, COPD Medications: Meds past 24 hrs: Pretest Chest Pain: STRESS TEST Lexiscan Protocol Exercise Duration (min:sec): 01:[address] Depressions (mm): Angina Score: Moy Score: Resting HR (bpm): 55 Peak HR (bpm): 84 Resting BP (mmHg): 126 / 85 Peak BP (mmHg): 126 / 85 MPHR: 162 Target HR: 138 % MPHR: 52 METS: 1.0 Total Dose: Peak Dose: Atropine: Double Product: 19615 BP Response: Stress Termination: INFUSION COMPLETE Stress Symptoms: DIFFICULTY IN BREATHING,NAUSEA,HEADACHE Stress Summary: ECG ANALYSIS Resting ECG: Normal sinus rhythm normal axis normal intervals Stress ECG: Patient received Lexiscan as a protocol did not have chest pain or diagnostic ST segment depression CONCLUSIONS Negative stress test by EKG criteria cardial lead portion of the stress test will be reported separately Dr. Rober Loyd MD (Electronically Signed) Final Date: 07 February 2023 12:00
--- NOTE | 2023-02-07 12:43 | NM ---
EXAMINATION TYPE: NM stress lexiscan cardiolite DATE OF EXAM: 02/07/2023 COMPARISON: Prior study December 09, 2020 HISTORY: Elevated troponin. History of coronary artery disease. Chest pain and difficulty in breathin g. History of hypertension and tobacco use along with prior CABG and angioplasty. History of COPD. TECHNIQUE: After the intravenous administration of 9.8 mCi Tc 99m Sestamibi - Cardiolite resting SPE CT images acquired 60 minutes post injection. The patient received 0.4mg Lexiscan, 23.7 mCi Tc 99m Sestamibi - Stress images obtained [address] injection FINDINGS: Review of stress and rest SPECT images demonstrates persistent diminished radiotracer uptake involvin g the anteroseptal wall on stress and rest images consistent with old infarct at this level. There is diminished radiotracer uptake involving the inferior lateral wall on stress and rest images suggesti ng old infarct but areas appearing infarct ischemia needs to be considered on today's study as there is some diminished radiotracer uptake on stress images versus rest images at this level. Gated analys is shows overall estimated left ventricular ejection fraction of 54% on today's study. Abnormal end d iastolic volume redemonstrated consistent with dilated cardiomyopathy similar to prior. 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 Possible valeria-infarct Ischemia on today's study involving in ferior lateral left ventricular wall. Correlate clinically and with EKG findings to determine need fo r further investigation with direct catheter angiogram.
--- NOTE | 2023-02-07 13:11 | P.DS ---
Providers Date of admission: 02/06/23 15:26 Expected date of discharge: 02/07/23 Attending physician: Amilcar Hassan MD Consults: 02/06/23 15:19 Consult Physician Routine Consulting Provider: [facility] Consult Reason/Comments: Chest Pain Do you want consulting provider notified?: Yes 02/06/23 15:20 Consult Physician Urgent Consulting Provider: Caleb Chowdhury Consult Reason/Comments: nstemi Do you want consulting provider notified?: Yes Primary care physician: Stated None Hospital Course: Discharge diagnoses; Dizziness elevated troponin Coronary artery disease with previous four-vessel CABG in 2013 and subsequent stenting in 2020 Ischemic cardiomyopathy, ejection fraction 40-45% in 2020 Hypertension Hyperlipidemia Nicotine dependence History of alcohol abuse, patient states he is 6 months sober Hospital course; patient is a 57 year-old male with a known history of COPD, hypertension, hyperlipidemia, history of [place], ischemic cardiomyopathy , EtOH abuse., Currently with a smoker and marijuana use and anxiety/panic disorder and PTSD presents to ER with complaints of dizziness. Patient was in normal state of health this morning when he woke up feeling dizzy, he felt like whole room was spinning, feeling of dizziness was worsened with movement. Patient also started noticing some mild chest pressure and shortness of breath. Because of this he came to the ER. CT head negative for acute intracranial hemorrhage or midline shift Chest x-ray negative for acute cardiac process EKG done showed sinus bradycardia, no acute ST segment changes. Initial lab work done showed initial troponin at 0.144, sodium 137, potassium 4.4, chloride 109, BUN 18, creatinine 0.85 Patient was admitted for further evaluation and treatment 02/07. Patient seen and examined. Patient has a Lexiscan ordered for today, it showed old infarcts, possible valeria-infarct ischemia but EKG part did not show any changes, cardiology recommended from there prospective patient is cleared for discharge, they did not recommend any medication changes at this time, recommend outpatient follow-up PHYSICAL EXAMINATION: GENERAL: The patient is alert and oriented x3, not in any acute distress. Well developed, well nourished. HEENT: Pupils are round and equally reacting to light. EOMI. No scleral icterus. No conjunctival pallor. Normocephalic, atraumatic. No pharyngeal erythema. No thyromegaly. CARDIOVASCULAR: S1 and S2 present. No murmurs, rubs, or gallops. PULMONARY: Chest is clear to auscultation, no wheezing or crackles. ABDOMEN: Soft, nontender, nondistended, normoactive bowel sounds. No palpable organomegaly. MUSCULOSKELETAL: No joint swelling or deformity. EXTREMITIES: No cyanosis, clubbing, or pedal edema. NEUROLOGICAL: Gross neurological examination did not reveal any focal deficits. SKIN: No rashes. Patient Condition at Discharge: Stable Plan - Discharge Summary New Discharge Prescriptions: New Nitroglycerin Sl Tabs [Nitrostat] 0.4 mg SUBLINGUAL Q5M PRN #30 tab PRN Reason: Chest Pain Continue Atorvastatin [Lipitor] 80 mg PO HS #30 tab lisinopriL [Zestril] 5 mg PO DAILY #30 tab Metoprolol Succinate (ER) [Toprol XL] 50 mg PO DAILY Clopidogrel [Plavix] 75 mg PO DAILY #30 tab Isosorbide Mononitrate ER [Imdur] 30 mg PO DAILY #30 tab Discharge Medication List Atorvastatin [Lipitor] 80 mg PO HS #30 tab 07/05/21 [Rx] Clopidogrel [Plavix] 75 mg PO DAILY #30 tab 07/05/21 [Rx] Isosorbide Mononitrate ER [Imdur] 30 mg PO DAILY #30 tab 07/05/21 [Rx] lisinopriL [Zestril] 5 mg PO DAILY #30 tab 07/05/21 [Rx] Metoprolol Succinate (ER) [Toprol XL] 50 mg PO DAILY 12/20/21 [History] Nitroglycerin Sl Tabs [Nitrostat] 0.4 mg SUBLINGUAL Q5M PRN #30 tab 02/07/23 [Rx] Follow up Appointment(s)/Referral(s): Alejandra Johnson MD [STAFF PHYSICIAN] - 1-2 days Rober Loyd MD [STAFF PHYSICIAN] - 1 Week Discharge Disposition: HOME SELF-CARE
[2023-02-07 14:01] VITALS: BP 118/84; PULSE 62; RESP 18
[2023-02-07] MEDS ORDERED: HEPARIN SODIUM,PORCINE/PF 5,000 UNIT/0.5 ML SYRINGE SQ SCH (16:00)
--- NOTE | 2023-02-07 17:13 | CA ---
Transthoracic Echo Report Name: Bob Ellsworth Age: 57 Gender: M : 1965 Exam Date: 02/07/2023 11:37 Exam Location: [place] Echo Ht (in): 73 Wt (lb): 190 Ordering Physician: Anaya Velasquez Attending/Referring Phys: [id number], [employer] Manager Desiree Segovia RDCS Procedure CPT: Indications: LV function Cardiac Hx: Technical Quality: Fair Contrast 1: Total Dose (mL): Contrast 2: Total Dose (mL): MEASUREMENTS (Male / Female) Normal Values 2D ECHO LV Diastolic Diameter PLAX 5.9 cm 4.2 - 5.9 / 3.9 - 5.3 cm LV Systolic Diameter PLAX 4.5 cm IVS Diastolic Thickness 1.4 cm 0.6 - 1.0 / 0.6 - 0.9 cm LVPW Diastolic Thickness 1.3 cm 0.6 - 1.0 / 0.6 - 0.9 cm LV Relative Wall Thickness 0.4 RV Internal Dim ED PLAX 4.1 cm LV Diastolic Volume MOD BP 184.1 cm??? 67 - 155 / 56 - 104 cm??? LV Systolic Volume MOD BP 107.0 cm??? 22 - 58 / 19 - 49 cm??? LV Ejection Fraction MOD BP 41.9 % >= 55 % LV Cardiac Index MOD BP 2153.3 cm???/min???m??? LV Diastolic Volume MOD 4C 206.2 cm??? LV Systolic Volume MOD 4C 116.2 cm??? LV Ejection Fraction MOD 4C 43.7 % LV Cardiac Index MOD 4C 2515.0 cm???/min???m??? LV Diastolic Length 4C 9.6 cm LV Systolic Length 4C 8.4 cm LV Diastolic Volume MOD 2C 141.1 cm??? LV Systolic Volume MOD 2C 88.3 cm??? LV Ejection Fraction MOD 2C 37.4 % LV Cardiac Index MOD 2C 1474.2 cm???/min???m??? LV Diastolic Length 2C 7.9 cm LV Systolic Length 2C 7.5 cm LA Volume 136.1 cm??? 18 - 58 / 22 - 52 cm??? M-MODE Aortic Root Diameter MM 4.0 cm LA Systolic Diameter MM 5.0 cm LA Ao Ratio MM 1.3 AV Cusp Separation MM 2.3 cm DOPPLER AV Peak Velocity 107.9 cm/s AV Peak Gradient 4.7 mmHg LVOT Peak Velocity 107.7 cm/s LVOT Peak Gradient 4.6 mmHg MV Area PHT 4.0 cm??? MR Peak Velocity 673.7 cm/s MR Peak Gradient 181.6 mmHg Mitral E Point Velocity 135.6 cm/s Mitral A Point Velocity 35.3 cm/s Mitral E to A Ratio 3.8 MV Deceleration Time 188.2 ms TR Peak Velocity 324.9 cm/s TR Peak Gradient 42.2 mmHg Right Ventricular Systolic Press 45.9 mmHg FINDINGS Left Ventricle Mildly increased septal wall thickness. Moderately increased left ventricular diastolic volume. Severely increased left ventricular systolic volume. Moderately decreased left ventricular ejection fraction. Left ventricular ejection fraction is estimated at 40-45 %. Abnormal (paradoxical) septal motion consistent with postoperative state. Right Ventricle Moderate right ventricular dilatation. Mild pulmonary hypertension. Right Atrium Mild right atrial dilatation. Left Atrium Severely increased left atrial volume. Moderately increased left atrial area. Mitral Valve Structurally normal mitral valve. Mitral valve thickened. Mild mitral annular calcification. Severe mitral regurgitation. Posteriorly directed mitral regurgitation jet. Aortic Valve Trileaflet aortic valve. Aortic valve sclerosis. No aortic stenosis. No aortic regurgitation. Tricuspid Valve Structurally normal tricuspid valve. Moderate tricuspid regurgitation. Pulmonic Valve Trace to mild pulmonic regurgitation. Pericardium No pericardial effusion. Aorta Normal size aortic root and proximal ascending aorta. CONCLUSIONS Severe posteriorly directed mitral regurgitation Mild LV systolic dysfunction with an ejection fraction of 45% Moderate clear enlarged left atrium Moderate tricuspid regurgitation Mild pulmonary hypertension Consider transesophageal echo for more optimal evaluation of the mitral regurgitation Previewed by: Dr. Rober Loyd MD (Electronically Signed) Final Date: 07 February 2023 17:12
[2023-02-07 19:33] LABS: LDL Cholesterol,Calculated 85.9 mg/dL (0.0-131.0); VLDL Calculation 13.82 mg/dL (5.00-40.00)
== END 2023-02-07 14:01 | disposition home or self-care (01) | DRG 111 ==
LOC: EC 13:08 → 3SCARD 15:26
PROVIDERS: ADMIT Internal Medicine; ATTEND Internal Medicine
DX: R42 Dizziness and giddiness (principal); E78.5 Hyperlipidemia, unspecified; F17.210 Nicotine dependence, cigarettes, uncomplicated; I25.10 Atherosclerotic heart disease of native coronary artery without angina pectoris; I25.5 Ischemic cardiomyopathy; F41.0 Panic disorder [episodic paroxysmal anxiety]; F43.10 Post-traumatic stress disorder, unspecified; G40.909 Epilepsy, unspecified, not intractable, without status epilepticus; R77.8 Other specified abnormalities of plasma proteins; I10 Essential (primary) hypertension; I25.110 Atherosclerotic heart disease of native coronary artery with unstable angina pectoris; Z95.1 Presence of aortocoronary bypass graft; Z95.5 Presence of coronary angioplasty implant and graft; Z79.02 Long term (current) use of antithrombotics/antiplatelets; Z79.899 Other long term (current) drug therapy; I25.2 Old myocardial infarction; Z82.49 Family history of ischemic heart disease and other diseases of the circulatory system
CPT/HCPCS: 36415; 70450; 71046; 78452; 80053; 80061; 83735; 83880; 84484; 85025; 85379; 85610; 85730; 93005; 93017; 93306; 96374; 96376; 99291

== ENCOUNTER 2023-09-24 11:01 | Emergency (ER) | payer OTHER ==
[2023-09-24 11:18] VITALS: BP 161/100; PULSE 90; RESP 18; TEMP 98
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
[2023-09-24 12:02] LABS: Basophils # (A) 0.1 k/uL (0-0.2); Basophils % (A) 1 %; Eosinophils # (A) 0.7 k/uL (0-0.7); Eosinophils % (A) 6 %; HCT 40.5 % (39.0-53.0); HGB 13.4 gm/dL (13.0-17.5); Lymphocytes % (A) 17 %; MCH 30.4 pg (25.0-35.0); MCV 92.1 fL (80.0-100.0); Mean Platelet Volume 8.8; Monocytes # (A) 0.5 k/uL (0-1.0); Monocytes % (A) 4 %; Neutrophils # (A) 8.3 k/uL (1.3-7.7); Neutrophils % (A) 72 %; Platelet Count 291 k/uL (150-450); RDW 15.3 % (11.5-15.5); WBC 11.6 k/uL (3.8-10.6)
--- NOTE | 2023-09-24 12:09 | XR ---
EXAMINATION TYPE: XR chest 2V DATE OF EXAM: 09/24/2023 COMPARISON: 02/06/2023 INDICATION: Short of breath TECHNIQUE: Frontal and lateral views of the chest are obtained. FINDINGS: The heart size is normal. The pulmonary vasculature is normal. There is some mild increased lung markings in the right lower lung field may be some residual pneumon ia.. IMPRESSION: 1. Mild infiltrate right infrahilar region may be some residual pneumonia.
[2023-09-24] MEDS ORDERED: IPRATROPIUM-ALBUTEROL 3 ML NEB INHALATION STA (12:32)
[2023-09-24] MEDS ORDERED: methylPREDNISolone SOD SUCCI 40 MG/ML 1 ML VIAL IV STA (12:32)
[2023-09-24 12:33] LABS: ALT 74 U/L (4-49); AST 25 U/L (17-59); African American GFR (CKD) >90 (>60 ml/min/1.73 sqM); Albumin 4.1 g/dL (3.5-5.0); Alkaline Phosphatase 82 U/L (38-126); Anion Gap 9 mmol/L; Blood Urea Nitrogen 10 mg/dL (9-20); Carbon Dioxide 23 mmol/L (22-30); Chloride 107 mmol/L (98-107); Glucose 95 mg/dL (74-99); Non-African American GFR(CKD) >90 (>60 ml/min/1.73 sqM); Potassium 4.5 mmol/L (3.5-5.1); Sodium 139 mmol/L (137-145); Total Bilirubin 0.9 mg/dL (0.2-1.3); Total Protein 6.6 g/dL (6.3-8.2)
[2023-09-24 12:42] LABS: NT-Pro-B-Type Natriuretic Pept 1570 pg/mL
[2023-09-24] MEDS ORDERED: ALBUTEROL HFA INHALER INHALATION STA (14:15)
[2023-09-24 14:16] LABS: Amphetamine Screen,Urine Not Detected (NotDetected); Barbiturate Screen,Urine Not Detected (NotDetected); Benzodiazepines Screen,Urine Not Detected (NotDetected); Cocaine Screen,Urine Not Detected (NotDetected); Methadone Screen, Urine Not Detected (NotDetected); Opiate Screen,Urine Not Detected (NotDetected); Oxycodone Screen, Urine Not Detected (NotDetected); Phencyclidine Screen,Urine Not Detected (NotDetected); Tricyclic Antidepressant,Urine Not Detected (NotDetected); Urn Cannabinoid Scrn Not Detected (NotDetected)
== END 2023-09-24 14:49 | disposition home or self-care (01) ==
LOC: EC 11:01
DX: U07.1 COVID-19 (principal); J44.9 Chronic obstructive pulmonary disease, unspecified; I10 Essential (primary) hypertension; I25.2 Old myocardial infarction; F17.200 Nicotine dependence, unspecified, uncomplicated; F12.90 Cannabis use, unspecified, uncomplicated; Z86.59 Personal history of other mental and behavioral disorders; Z79.899 Other long term (current) drug therapy; Z88.0 Allergy status to penicillin; Z95.1 Presence of aortocoronary bypass graft; Z95.5 Presence of coronary angioplasty implant and graft; Z02.83 Encounter for blood-alcohol and blood-drug test
CPT/HCPCS: 36415; 94640; 93005; 83880; 80053; 84484; 85025; 80306; 87636; 71046; 99285; 96374; G0480; J2920; 80320

== ENCOUNTER 2023-11-15 12:35 | Inpatient (IN) | payer OTHER ==
[2023-11-15] MEDS ORDERED: SODIUM CHLORIDE 0.9% 1,000 ML IV STA (12:40)
[2023-11-15] MEDS ORDERED: ONDANSETRON 4 MG/2 ML VIAL IVP STA (12:55)
[2023-11-15] MEDS ORDERED: ASPIRIN 81 MG PO STA (12:55)
[2023-11-15 13:09] LABS: Basophils # (A) 0.1 k/uL (0-0.2); Basophils % (A) 1 %; Eosinophils # (A) 0.1 k/uL (0-0.7); Eosinophils % (A) 2 %; HCT 46.3 % (39.0-53.0); HGB 15.4 gm/dL (13.0-17.5); Lymphocytes # (A) 2.1 k/uL (1.0-4.8); Lymphocytes % (A) 26 %; MCH 30.1 pg (25.0-35.0); MCHC 33.3 g/dL (31.0-37.0); MCV 90.6 fL (80.0-100.0); Mean Platelet Volume 8.3; Monocytes # (A) 0.4 k/uL (0-1.0); Monocytes % (A) 5 %; Neutrophils # (A) 5.2 k/uL (1.3-7.7); Neutrophils % (A) 64 %; Platelet Count 263 k/uL (150-450); RBC 5.11 m/uL (4.30-5.90); RDW 13.9 % (11.5-15.5); WBC 8.2 k/uL (3.8-10.6)
[2023-11-15 13:17] LABS: Partial Thromboplastin Time 25.2 sec (22.0-30.0); Prothrombin Time 11.1 sec (10.0-12.5)
--- NOTE | 2023-11-15 13:33 | XR ---
EXAMINATION TYPE: XR chest 2V DATE OF EXAM: 11/15/2023 1:27 PM CLINICAL INDICATION:Male, 58 years old with history of Chest Pain; [facility] COMPARISON: Chest radiographs from 09/24/2023 TECHNIQUE: XR chest 2V Frontal and lateral views of the chest. FINDINGS: Lungs/Pleura: There is flattening of the diaphragm with increased lucency of the lungs. No evidence o f pneumothorax, pleural effusion or focal consolidation. Pulmonary vascularity: Unremarkable. Heart/mediastinum: Cardiomediastinal silhouette is unremarkable. Musculoskeletal: No acute osseous pathology. Midline sternotomy wires are noted. IMPRESSION: 1. No acute cardiopulmonary disease process. 2. COPD changes.
[2023-11-15 13:34] LABS: ALT 17 U/L (4-49); AST 21 U/L (17-59); African American GFR (CKD) >90 (>60 ml/min/1.73 sqM); Albumin 4.1 g/dL (3.5-5.0); Alkaline Phosphatase 92 U/L (38-126); Anion Gap 12 mmol/L; Blood Urea Nitrogen 5 mg/dL (9-20); Calcium 8.9 mg/dL (8.4-10.2); Carbon Dioxide 23 mmol/L (22-30); Chloride 106 mmol/L (98-107); Glucose 112 mg/dL (74-99); Lipase 96 U/L (23-300); Magnesium 1.5 mg/dL (1.6-2.3); Non-African American GFR(CKD) >90 (>60 ml/min/1.73 sqM); Potassium 3.3 mmol/L (3.5-5.1); Sodium 141 mmol/L (137-145); Total Bilirubin 0.5 mg/dL (0.2-1.3); Total Protein 6.6 g/dL (6.3-8.2)
[2023-11-15 13:39] LABS: Alcohol 147 mg/dL
--- NOTE | 2023-11-15 14:38 | ED ---
Chest Pain HPI - General Chief Complaint: Chest Pain Stated Complaint: chest pain Time Seen by Provider: 11/15/23 12:40 Source: patient, EMS, RN notes reviewed Mode of arrival: EMS Limitations: no limitations - History of Present Illness Initial Comments: 58-year-old male presents emergency department via EMS chief complaint of chest pain, alcohol withdrawal. Patient states that he started having chest pain states that centralized chest pain. Patient states he had multiple cardiac stents, CABG in the past. Patient states that he is a smoker he states that he currently abusing alcohol he states that he started having withdrawal symptoms this morning started vomiting but he drank again which helped. Patient denies any fevers or chills - Related Data Home Medications Medication Instructions Recorded Confirmed Metoprolol Succinate (ER) [Toprol 50 mg PO DAILY 12/20/21 02/06/23 XL] Previous Rx's Medication Instructions Recorded Atorvastatin [Lipitor] 80 mg PO HS #30 tab 07/05/21 Clopidogrel [Plavix] 75 mg PO DAILY #30 tab 07/05/21 Isosorbide Mononitrate ER [Imdur] 30 mg PO DAILY #30 tab 07/05/21 lisinopriL [Zestril] 5 mg PO DAILY #30 tab 07/05/21 Nitroglycerin Sl Tabs [Nitrostat] 0.4 mg SUBLINGUAL Q5M PRN #30 tab 02/07/23 Albuterol Inhaler [Ventolin Hfa 2 puff INHALATION QID PRN #8 gm 09/24/23 Inhaler] predniSONE [Deltasone] 40 mg PO DAILY 5 Days #10 tab 09/24/23 Allergies Allergy/AdvReac Type Severity Reaction Status Date / Time Penicillins Allergy Unknown Verified 11/15/23 12:49 Childhood Review of Systems ROS Statement: Those systems with pertinent positive or pertinent negative responses have been documented in the HPI. ROS Other: All systems not noted in ROS Statement are negative. EKG Findings - EKG Comments: EKG Findings:: EKG performed at 12: 49 sinus rhythm with frequent PVCs. Rate of 76 ID 148 QRS 111 QT/QTc 396/427 - EKG Results: EKG: interpreted by SRINIVAS Past Medical History Past Medical History: COPD, Hyperlipidemia, Hypertension, Myocardial Infarction ([place]), Seizure Disorder Additional Past Medical History / Comment(s): ISCHEMIC CARDIOMYOPATHY WITH EF 40-45%. 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 Last Myocardial Infarction Date:: 06/12/14 History of Any Multi-Drug Resistant Organisms: None Reported Past Surgical History: Coronary Bypass/CABG, Heart Catheterization With Stent, Hernia Repair, Orthopedic Surgery Additional Past Surgical History / Comment(s): cabg january 2014-3 vessel, Cardiac caths and stenting with last Cardiac cath Jul [address] Cerda. Past Anesthesia/Blood Transfusion Reactions: No Reported Reaction Additional Past Anesthesia/Blood Transfusion Reaction / Comment(s): NO PROBLEM TOLERATING ANESTHESIA. HAS NEVER RECIEVED BLOOD TO HIS KNOWLEDGE. Date of Last Stent Placement:: 06/12/14 Past Psychological History: Anxiety, Panic Disorder, PTSD Smoking Status: Current every day smoker Past Alcohol Use History: Abuse, Daily, Heavy Past Drug Use History: Marijuana - Past Family History Father Family Medical History: Coronary Artery Disease (CAD), Myocardial Infarction ([place]) Additional Family Medical History / Comment(s): FATHER STILL LIVING Mother Family Medical History: Coronary Artery Disease (CAD), Myocardial Infarction ([place]) Additional Family Medical History / Comment(s): MOTHER 09/23/14 of unknown causes. Sister(s) Family Medical History: Myocardial Infarction ([place]) Additional Family Medical History / Comment(s): SISTER OF [place] AT AGE 53 General Exam Limitations: no limitations General appearance: alert, in no apparent distress Head exam: Present: atraumatic, normocephalic, normal inspection Eye exam: Present: normal appearance, PERRL, EOMI. Absent: scleral icterus, conjunctival injection, periorbital swelling ENT exam: Present: normal exam, mucous membranes moist Neck exam: Present: normal inspection. Absent: tenderness, meningismus, lymphadenopathy Respiratory exam: Present: normal lung sounds bilaterally. Absent: respiratory distress, wheezes, rales, rhonchi, stridor Cardiovascular Exam: Present: regular rate, normal rhythm, normal heart sounds. Absent: systolic murmur, diastolic murmur, rubs, gallop, clicks GI/Abdominal exam: Present: soft, normal bowel sounds. Absent: distended, tenderness, guarding, rebound, rigid Neurological exam: Present: alert, oriented X3 Psychiatric exam: Present: anxious Course Vital Signs 11/15/23 12:42 Temperature 97.8 F Pulse Rate 83 Respiratory 16 Rate Blood Pressure 159/112 O2 Sat by Pulse 97 Oximetry Chest Pain MDM - MDM Was pt. sent in by a medical professional or institution (, PA, PESTICIDE APPLICATOR, urgent care, hospital, or long-term...) When possible be specific @ -No Did you speak to anyone other than the patient for history (EMS, parent, family, police, friend...)? What history was obtained from this source @ -No Did you review nursing and triage notes (agree or disagree)? Why? @ -I reviewed and agree with nursing and triage notes Were old charts reviewed (outside hosp., previous admission, EMS record, old EKG, old radiological studies, urgent care reports/EKG's, long-term records)? Report findings @ -N reviewed prior laboratory studies, cardiology evaluation d Differential Diagnosis (chest pain, altered mental status, abdominal pain women, abdominal pain men, vaginal bleeding, weakness, fever, dyspnea, syncope, headache, dizziness, GI bleed, back pain, seizure, CVA, palpatations, mental health, musculoskeletal)? @ -Differential Chest Pain: Stable Angina, Unstable Angina, STEMI, NSTEMI Aortic Dissection, Pneumothorax, Musculoskeletal, Esophageal Spasm GERD, Cholecystitis, Pancreatitis, Zoster, this is not meant to be an all-inclusive list. EKG interpreted by me (3pts min.). @ -As above X-rays interpreted by me (1pt min.). @ -Chest x-ray shows no acute process. CT interpreted by me (1pt min.). @ -None done U/S interpreted by me (1pt. min.). @ -None done What testing was considered but not performed or refused? (CT, X-rays, U/S, labs)? Why? @ -None What meds were considered but not given or refused? Why? @ -None Did you discuss the management of the patient with other professionals (professionals i.e. , PA, PESTICIDE APPLICATOR, lab, RT, psych nurse, clinical social worker, assembler brazer, teacher, corrections officer, mental health case manager)? Give summary @ -Sound physician for admission secondary to significant cardiac history: Cardiac rule out and alcohol withdrawal Was smoking cessation discussed for >3mins.? @ -No Was critical care preformed (if so, how long)? @ -No Were there social determinants of health that impacted care today? How? (Homelessness, low income, unemployed, alcoholism, drug addiction, transportation, low edu. Level, literacy, decrease access to med. care, long-term, rehab)? @ -No Was there de-escalation of care discussed even if they declined (Discuss DNR or withdrawal of care, Hospice)? DNR status @ -No What co-morbidities impacted this encounter? (DM, HTN, Smoking, COPD, CAD, Cancer, CVA, ARF, Chemo, Hep., AIDS, mental health diagnosis, sleep apnea, morbid obesity)? @ -[CAD, alcohol abuse Was patient admitted / discharged? Hospital course, mention meds given and route , prescriptions, significant lab abnormalities, going to OR and other pertinent info. @ -Admitted patient as significant cardiac history first troponin is negative. Patient be admitted for cardiac rule out patient also has alcohol withdrawal will be placed on withdrawal protocol including CIWA Undiagnosed new problem with uncertain prognosis? @ -[No Drug Therapy requiring intensive monitoring for toxicity (Heparin, Nitro, Insulin, Cardizem)? @ -No Were any procedures done? @ -No Diagnosis/symptom? @ -Chest pain, alcohol withdrawal Acute, or Chronic, or Acute on Chronic? @ -Acute Uncomplicated (without systemic symptoms) or Complicated (systemic symptoms)? @ -[Complicated Side effects of treatment? @ -No Exacerbation, Progression, or Severe Exacerbation? @ -No Poses a threat to life or bodily function? How? (Chest pain, [place], [place], pneumonia, PE, COPD, DKA, ARF, appy, cholecystitis, CVA, Diverticulitis, Homicidal, Suicidal, threat to staff... and all critical care pts) @ -[Yes possible ACS Disposition Clinical Impression: Chest pain, Alcohol withdrawal, Alcohol intoxication Disposition: ADMITTED IP TO THIS HOSP Condition: Fair Referrals: Dav Perez MD [Primary Care Provider] - 1-2 days Time of Disposition: 14:46
[2023-11-15] MEDS ORDERED: MAGNESIUM OXIDE 400 MG TAB PO STA (14:44)
[2023-11-15] MEDS ORDERED: LORazepam 2 MG/ML INJ IV PRN ×2 (14:44)
[2023-11-15] MEDS ORDERED: POTASSIUM CHLORIDE ER 20 MEQ TAB.ER PO STA (14:44)
[2023-11-15] MEDS ORDERED: NITROGLYCERIN SL TABS 0.4 MG TAB SUBLINGUAL PRN ×2 (14:47→14:55)
[2023-11-15] MEDS ORDERED: ALBUTEROL NEBULIZED 2.5 MG/3 ML INHALATION PRN (14:55)
--- NOTE | 2023-11-15 16:01 | P.HPIM ---
History of Present Illness H&P Date: 11/15/23 History of Presenting Illness: Patient is a 58-year-old male with a past medical history of CAD status post stenting and CABG x 3, ischemic cardiomyopathy with a EF of 45%, hypertension, hyperlipidemia, COPD and continued nicotine dependence, alcohol abuse, and alcohol withdrawal seizures. He presented to the emergency department via EMS with a chief complaint of chest pain and alcohol withdrawal with last drink reported to be this morning. Patient reports drinking 1 to 2 pints daily and reports long standing history of alcoholism drinking for the last 40 years. .He reports that he has quit in the past and decided this morning he was going to quit drinking, however he began to experience severe alcohol withdrawal symptoms with chest pain, palpitations, shortness of breath, diaphoresis, nausea, and vomiting. Patient reports he became very concerned because of his cardiac history and new if he tried to detox at home he was going to . Patient reports drinking some alcohol this morning in attempts to improve his symptoms. Patient reports some of his symptoms improved but he continued to have chest pain/tightness to his midsternal chest accompanied by shortness of breath so he called EMS for transport to the hospital. He denies experiencing any fevers, chills, headache, dizziness, lightheadedness, cough or congestion, abdominal pain, changes in her difficulties with urination or bowel movements, or experiencing any numbness/tingling/weakness/swelling in his extremities. Upon arrival to the emergency department, patient underwent full evaluation. Vital signs upon arrival show blood pressure 159/112, heart rate 83, respiratory rate 16, temp 97.8 F, SpO2 of 97% on room air. EKG completed showing sinus rhythm with T wave inversion in lateral lead aVL and frequent PVCs . Chest x-ray showing changes of COPD with flattening of the diaphragm and mild hyperinflation but negative for acute cardiopulmonary process. Labs were completed and reviewed. CBC unremarkable. Coagulation profile normal findings. BMP showing hypokalemia with potassium of 3.3. Magnesium also low at 1.5. Liver profile normal findings. Troponin 0.019. Serum alcohol level was elevated at 147. Patient admitted under our services with consultation to cardiology. Heart score 7. Review of systems: Pertinent positives and negatives as discussed in HPI, a complete review of systems was performed and all other systems are negative. Physical exam: Vital signs reviewed and stable. General: Nontoxic, no distress and appears stated age. Derm: Skin warm and dry, normal coloration for ethnicity. Head: Atraumatic, normocephalic and symmetric. Eyes: EOMs intact, no lid lag, and anicteric sclera Mouth: no lip lesions, mucus membranes moist Cardiovascular: regular rate and rhythm with normal S1S2, systolic murmur, positive posterior tibial pulses bilaterally, and cap refill < 2 seconds. Lungs: Respirations even, regular, and unlabored on room air. Lungs CTA bilaterally, no rhonchi, no rales, no wheezing, and no accessory muscle usage. Abdominal: soft, nontender to palpation, no guarding, no appreciable organomegaly Ext: ROM intact. No gross muscle atrophy, no edema, no contractures Neuro: Speech clear, face symmetrical and CN II-XII grossly intact with no noted focal neuro deficits Psych: Alert and oriented to person, place, time, and situation. Appropriate and pleasant affect. Assessment and Plan of Care: Chest pain, rule out acute coronary event History of CAD status post CABG x 3 Ischemic cardiomyopathy Hypertension Hyperlipidemia -Heart score 7 -Cardiology consulted, appreciate recommendations -Telemetry monitoring -Trend troponins -Cardiac diet, NPO at midnight -Patient to continue daily cardiac medication regimen with aspirin 81 mg daily, atorvastatin 80 mg nightly, Plavix 75 mg daily, isosorbide mononitrate 30 mg daily, lisinopril 5 mg daily, and metoprolol 25 mg daily. -Lipid profille with a.m. labs. -Echocardiogram Acute alcohol withdrawal in pt with longstanding hx of alcoholism -Order placed for monitoring of CIWA scores and patient to be medicated with Ativan 0.5 mg every 4 hours as needed for CIWA score of 4-5, Ativan 1 mg every 4 hours for CIWA score of 6-7, Ativan 2 mg every 3 hours CIWA score of 8-9, and Ativan 2 mg every 2 hours forr CIWA score of 10 or greater. -Thiamine 100 mg daily, Multivitamin daily, and Folate 1 mg daily -Seizure, fall, aspiration, and elopement precautions in place. -Urine drug screen to be obtained -In addition to CIWA protocol with benzodiazepine administration, patient also placed on scheduled Librium 50 mg 3 times daily secondary to extensive longstanding history of alcohol abuse drinking a reported 1 to 2 pints daily. Will titrate Librium dose down every 24-48 hours. -Continued close monitoring of electrolytes and replace as needed. -Telemetry monitoring. COPD with continued nicotine dependence Strongly recommended smoking cessation. Nicotine patch 21 mg daily Continuation of Ventolin inhaler 4 times daily as needed for wheezing/shortness of breath. Data and imaging reviewed: As stated above in HPI. The patient is admitted with an anticipated greater than 2 midnight stay for evaluation of acute alcohol withdrawal in longstanding alcoholic and chest pain CODE STATUS: Full code DVT prophylaxis: Lovenox Anticipated discharge date: Clinical course to determine Anticipated discharge place: Clinical course to determine Patient was seen independently by Nurse Practitioner. This document was prepared using [employer] dictation software. Please allow for errors in funder while rare they do occur. Jozef Mercer NP rendered care for this patient independently, reviewed the findings and plan as documented in the note above. I did not physically speak with or examine the patient on this date. Past Medical History Past Medical History: COPD, Hyperlipidemia, Hypertension, Myocardial Infarction ([place]), Seizure Disorder Additional Past Medical History / Comment(s): ISCHEMIC CARDIOMYOPATHY WITH EF 40-45%. 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 Last Myocardial Infarction Date:: 06/12/14 History of Any Multi-Drug Resistant Organisms: None Reported Past Surgical History: Coronary Bypass/CABG, Heart Catheterization With Stent, Hernia Repair, Orthopedic Surgery Additional Past Surgical History / Comment(s): cabg january 2014-3 vessel, Cardiac caths and stenting with last Cardiac cath Jul [address] Cerda. Past Anesthesia/Blood Transfusion Reactions: No Reported Reaction Additional Past Anesthesia/Blood Transfusion Reaction / Comment(s): NO PROBLEM TOLERATING ANESTHESIA. HAS NEVER RECIEVED BLOOD TO HIS KNOWLEDGE. Date of Last Stent Placement:: 06/12/14 Past Psychological History: Anxiety, Panic Disorder, PTSD Smoking Status: Current every day smoker Past Alcohol Use History: Abuse, Daily, Heavy Past Drug Use History: Marijuana - Past Family History Father Family Medical History: Coronary Artery Disease (CAD), Myocardial Infarction ([place]) Additional Family Medical History / Comment(s): FATHER STILL LIVING Mother Family Medical History: Coronary Artery Disease (CAD), Myocardial Infarction ([place]) Additional Family Medical History / Comment(s): MOTHER 09/23/14 of unknown causes. Sister(s) Family Medical History: Myocardial Infarction ([place]) Additional Family Medical History / Comment(s): SISTER OF [place] AT AGE 53 Medications and Allergies Home Medications Medication Instructions Recorded Confirmed Type Atorvastatin [Lipitor] 80 mg PO HS #30 tab 07/05/21 11/15/23 Rx Clopidogrel [Plavix] 75 mg PO DAILY #30 tab 07/05/21 11/15/23 Rx Isosorbide Mononitrate ER [Imdur] 30 mg PO DAILY #30 tab 07/05/21 11/15/23 Rx lisinopriL [Zestril] 5 mg PO DAILY #30 tab 07/05/21 11/15/23 Rx Nitroglycerin Sl Tabs [Nitrostat] 0.4 mg SUBLINGUAL Q5M PRN #30 tab 02/07/23 11/15/23 Rx Albuterol Inhaler [Ventolin Hfa 2 puff INHALATION RT-QID PRN 11/15/23 11/15/23 History Inhaler] Aspirin EC [Ecotrin Low Dose] 81 mg PO DAILY 11/15/23 11/15/23 History Ibuprofen [Motrin] 800 mg PO Q8H PRN 11/15/23 11/15/23 History Metoprolol Succinate [Metoprolol 25 mg PO DAILY 11/15/23 11/15/23 History Succinate ER] Allergies Allergy/AdvReac Type Severity Reaction Status Date / Time Penicillins Allergy Unknown Verified 11/15/23 14:52 Childhood Physical Exam Vitals: Vital Signs Temp Pulse Resp BP Pulse Ox 11/15/23 12:42 97.8 F 83 16 159/112 97 Intake and Output 11/15/23 11/15/23 11/15/23 06:59 14:59 22:59 Other: Weight 83.915 kg Results CBC & Chem 7: 11/16/23 07:00 11/16/23 07:00 Labs: Abnormal Lab Results - Last 24 Hours (Table) 11/15/23 Range/Units 12:57 Potassium 3.3 L (3.5-5.1) mmol/L BUN 5 L (9-20) mg/dL Glucose 112 H (74-99) mg/dL Magnesium 1.5 L (1.6-2.3) mg/dL
[2023-11-15] MEDS: chlordiazePOXIDE 25 MG CAP PO SCH ×2 (16:12→23:25)
[2023-11-15] MEDS: NICOTINE 21MG/24HR PATCH TRANSDERM SCH (16:15)
[2023-11-15] MEDS: LORazepam 2 MG/ML INJ IV PRN ×2 (16:40→21:34)
[2023-11-15] MEDS ORDERED: ISOSORBIDE MONONITRATE ER 30 MG TAB.ER.24H PO STA (19:03)
[2023-11-15] MEDS ORDERED: lisinopriL 5 MG TAB PO STA (19:04)
[2023-11-15] MEDS ORDERED: LORazepam 1 MG TAB PO PRN (19:08)
[2023-11-15] MEDS ORDERED: LORazepam 0.5 MG TAB PO PRN (19:08)
[2023-11-15] MEDS ORDERED: ATORVASTATIN 80 MG TAB PO SCH (21:00)
[2023-11-16 07:48] LABS: HCT 40.6 % (39.0-53.0); MCH 29.6 pg (25.0-35.0); MCV 92.4 fL (80.0-100.0); Mean Platelet Volume 8.6; Platelet Count 221 k/uL (150-450); RBC 4.39 m/uL (4.30-5.90); WBC 9.1 k/uL (3.8-10.6)
[2023-11-16 08:18] LABS: ALT 14 U/L (4-49); AST 18 U/L (17-59); African American GFR (CKD) >90 (>60 ml/min/1.73 sqM); Albumin 3.3 g/dL (3.5-5.0); Alkaline Phosphatase 90 U/L (38-126); Anion Gap 3 mmol/L; Blood Urea Nitrogen 9 mg/dL (9-20); Calcium 8.6 mg/dL (8.4-10.2); Carbon Dioxide 29 mmol/L (22-30); Chloride 107 mmol/L (98-107); Glucose 98 mg/dL (74-99); Magnesium 1.5 mg/dL (1.6-2.3); Non-African American GFR(CKD) >90 (>60 ml/min/1.73 sqM); Potassium 3.8 mmol/L (3.5-5.1); Sodium 139 mmol/L (137-145); Total Bilirubin 0.9 mg/dL (0.2-1.3); Total Protein 5.6 g/dL (6.3-8.2)
--- NOTE | 2023-11-16 08:36 | P.CRDCN ---
History of Present Illness History of present illness: HISTORY OF PRESENT ILLNESS: This is a 58-year-old male with a past medical history significant for coronary artery disease with previous CABG in 2014 with subsequent stenting of the PLV in 2020, cardiomyopathy, CVA in 2019, severe MR, nicotine dependence, and alcohol abuse. Patient follows in the office with Dr. Loyd but has not been seen since June 2021. We have been asked to see the patient in consultation for chest pain. Patient examined at the bedside. Patient states he was at home yesterday when he was trying to abstain from drinking. He states he normally drinks at least 1 pint of vodka a day. He states that he began to have withdrawal symptoms including a headache and chest pain. He states the pain is in his lower chest mostly near the epigastric region. He does report that the pain radiated to his neck and down his arm. He reports feeling generally weak. He states that he ended up walking to the liquor store and purchased more vodka to help with the symptoms. He states after drinking his symptoms began to improve. He then came to emergency room for further evaluation. He reports mild chest discomfort this morning at time of examination near the epigastric region. He also reports a severe headache this morning. He is also a current cigarette smoker is also least 1 pack/day. DIAGNOSTICS: EKG reveals sinus mechanism with PVCs. No signs of acute ischemia.. Chest xray COPD changes. No acute cardiopulmonary process.. Laboratory data: Troponin negative x 3. Serum alcohol 147. Current home cardiac medications include Lipitor 80 mg at night, Plavix 95 mg daily, Imdur 30 mg daily, metoprolol succinate 25 mg daily, lisinopril 5 mg daily, aspirin 81 mg daily Most recent echocardiogram obtained in January 2023 revealing ejection fraction 4045%, moderate TR, mild pulm hypertension, severe posteriorly directed mitral regurgitation Cardiac catheterization history: 2020 with stenting of totally occluded right PLV. Patient was also found to have chronically occluded LAD and left circumflex. Patent KERR to LAD. Patent SVG to diagonal branch and to the right coronary artery PDA. Occluded SVG to obtuse marginal branch. Elevated LVEDP. Patient underwent Lexiscan stress test in January 2023 with old infarct redemonstrated. Possible valeria-infarct ischemia on today study involving inferior lateral left ventricular wall. Films were reviewed with leading firefighter and no plans for cardiac catheterization were recommended. REVIEW OF SYSTEMS: At the time of my exam: CONSTITUTIONAL: Denies fever or chills. Reports headache HEENT: Denies blurred vision, vision changes, or eye pain. Denies hemoptysis CARDIOVASCULAR: Denies chest pain. Denies orthopnea. Denies PND. Denies palpitations RESPIRATORY: Denies shortness of breath. GASTROINTESTINAL: Denies abdominal pain. Denies nausea or vomiting. HEMATOLOGIC: Denies bleeding disorders. GENITOURINARY: Denies any blood in urine. SKIN: Denies pruitis. Denies rash. PHYSICAL EXAM: VITAL SIGNS: Reviewed. GENERAL: Well-developed in no acute distress. HEENT: Head is normocephalic. Pupils are equal, round. Sclerae anicteric. Mucous membranes of the mouth are moist. Neck supple. No JVD or thyromegaly LUNGS: Respirations even and unlabored. Lungs essentially clear to auscultation bilaterally. HEART: Regular rate and rhythm. S1 and S2 heard. Systolic murmur noted ABDOMEN: Soft. Nondistended. Nontender. EXTREMITIES: Normal range of motion. No clubbing or cyanosis. Peripheral pulses intact. No lower extremity edema NEUROLOGIC: Awake and alert. Oriented x 3. ASSESSMENT: Chest pain/Epigastric pain, troponin negative x 3, likely related to alcohol withdrawal Acute alcohol intoxication Coronary artery disease with previous CABG x 4 and subsequent stenting, 2020 wit h PCI to PLV Ischemic cardiomyopathy Hypertension Hyperlipidemia History of CVA, 2019 Nicotine dependence, patient smokes 1 pack/day Alcohol abuse, patient drinks at least 1 pint per day of vodka Hypomagnesemia PLAN: An acute coronary event has been ruled out Obtain 2D echo to assess cardiac structure and function Resume home cardiac medications Discontinue Plavix Patient may benefit from stress testing on an outpatient basis as he is currently undergoing alcohol withdrawal Further recommendations pending patient course Nurse practitioner note has been reviewed by physician. Signing provider agrees with the documented findings, assessment, and plan of care documented by ASSURANCE SENIOR as a scribe. Past Medical History Past Medical History: COPD, Hyperlipidemia, Hypertension, Myocardial Infarction (ME), Seizure Disorder Additional Past Medical History / Comment(s): ISCHEMIC CARDIOMYOPATHY WITH EF 40-45%. 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 Last Myocardial Infarction Date:: 06/12/14 History of Any Multi-Drug Resistant Organisms: None Reported Past Surgical History: Coronary Bypass/CABG, Heart Catheterization With Stent, Hernia Repair, Orthopedic Surgery Additional Past Surgical History / Comment(s): cabg january 2014-3 vessel, Cardiac caths and stenting with last Cardiac cath Jul [address] Cerda. Past Anesthesia/Blood Transfusion Reactions: No Reported Reaction Additional Past Anesthesia/Blood Transfusion Reaction / Comment(s): NO PROBLEM TOLERATING ANESTHESIA. HAS NEVER RECIEVED BLOOD TO HIS KNOWLEDGE. Date of Last Stent Placement:: 06/12/14 Past Psychological History: Anxiety, Panic Disorder, PTSD Smoking Status: Current every day smoker Past Alcohol Use History: Abuse, Daily, Heavy Past Drug Use History: Marijuana - Past Family History Father Family Medical History: Coronary Artery Disease (CAD), Myocardial Infarction (ME) Additional Family Medical History / Comment(s): FATHER STILL LIVING Mother Family Medical History: Coronary Artery Disease (CAD), Myocardial Infarction (ME) Additional Family Medical History / Comment(s): MOTHER 09/23/14 of unknown causes. Sister(s) Family Medical History: Myocardial Infarction (ME) Additional Family Medical History / Comment(s): SISTER OF ME AT AGE 53 Medications and Allergies Home Medications Medication Instructions Recorded Confirmed Type Atorvastatin [Lipitor] 80 mg PO HS #30 tab 07/05/21 11/15/23 Rx Clopidogrel [Plavix] 75 mg PO DAILY #30 tab 07/05/21 11/15/23 Rx Isosorbide Mononitrate ER [Imdur] 30 mg PO DAILY #30 tab 07/05/21 11/15/23 Rx lisinopriL [Zestril] 5 mg PO DAILY #30 tab 07/05/21 11/15/23 Rx Nitroglycerin Sl Tabs [Nitrostat] 0.4 mg SUBLINGUAL Q5M PRN #30 tab 02/07/23 11/15/23 Rx Albuterol Inhaler [Ventolin Hfa 2 puff INHALATION RT-QID PRN 11/15/23 11/15/23 History Inhaler] Aspirin EC [Ecotrin Low Dose] 81 mg PO DAILY 11/15/23 11/15/23 History Ibuprofen [Motrin] 800 mg PO Q8H PRN 11/15/23 11/15/23 History Metoprolol Succinate [Metoprolol 25 mg PO DAILY 11/15/23 11/15/23 History Succinate ER] Allergies Allergy/AdvReac Type Severity Reaction Status Date / Time Penicillins Allergy Unknown Verified 11/15/23 14:52 Childhood Physical Exam Vitals: Vital Signs Temp Pulse Pulse Resp BP BP Pulse Ox 11/16/23 07:30 97.8 F 82 16 120/82 96 11/16/23 04:00 75 18 105/68 90 L 11/16/23 00:00 71 18 136/89 93 L 11/15/23 20:00 98.2 F 69 18 173/103 96 11/15/23 19:18 85 20 167/111 95 11/15/23 18:08 98.0 F 80 16 166/118 94 L 11/15/23 16:08 98.0 F 85 16 166/119 94 L 11/15/23 15:23 77 16 180/145 98 11/15/23 12:42 97.8 F 83 16 159/112 97 Intake and Output 11/15/23 11/16/23 11/16/23 22:59 06:59 14:59 Intake Total 240 Balance 240 Intake: Oral 240 Other: Voiding Method Toilet Weight 83.915 kg Results 11/16/23 07:00 11/16/23 07:00 Cardiac Enzymes 11/15/23 11/15/23 11/15/23 Range/Units 12:57 12:57 15:23 AST 21 (17-59) U/L Troponin I 0.019 0.017 (0.000-0.034) ng/mL 11/15/23 Range/Units 18:50 AST (17-59) U/L Troponin I 0.021 (0.000-0.034) ng/mL Coagulation 11/15/23 Range/Units 12:57 PT 11.1 (10.0-12.5) sec APTT 25.2 (22.0-30.0) sec CBC 11/15/23 11/16/23 Range/Units 12:57 07:00 WBC 8.2 9.1 (3.8-10.6) k/uL RBC 5.11 4.39 (4.30-5.90) m/uL Hgb 15.4 13.0 (13.0-17.5) gm/dL Hct 46.3 40.6 (39.0-53.0) % Plt Count 263 221 (150-450) k/uL Comprehensive Metabolic Panel 11/15/23 Range/Units 12:57 Sodium 141 (137-145) mmol/L Potassium 3.3 L (3.5-5.1) mmol/L Chloride 106 (98-107) mmol/L Carbon Dioxide 23 (22-30) mmol/L BUN 5 L (9-20) mg/dL Creatinine 0.77 (0.66-1.25) mg/dL Glucose 112 H (74-99) mg/dL Calcium 8.9 (8.4-10.2) mg/dL AST 21 (17-59) U/L ALT 17 (4-49) U/L Alkaline Phosphatase 92 (38-126) U/L Total Protein 6.6 (6.3-8.2) g/dL Albumin 4.1 (3.5-5.0) g/dL Current Medications Generic Name Dose Route Start Last Admin Trade Name Freq PRN Reason Stop Dose Admin Albuterol Sulfate 2.5 mg 11/15/23 14:55 Albuterol Nebulized 2.5 Mg/3 Ml INHALATION RT-QID PRN Dyspnea Aspirin 81 mg 11/16/23 09:00 Aspirin 81 Mg PO DAILY [facility] Atorvastatin Calcium 80 mg 11/15/23 21:00 11/15/23 23:26 Atorvastatin 80 Mg Tab PO 80 mg HS [facility]ILI Administration Chlordiazepoxide HCl 50 mg 11/15/23 16:00 11/15/23 23:25 Chlordiazepoxide 25 Mg Cap PO 50 mg TID WILI Administration Clopidogrel Bisulfate 75 mg 11/16/23 09:00 Clopidogrel 75 Mg Tab PO DAILY [facility] Enoxaparin Sodium 40 mg 11/16/23 09:00 Enoxaparin 40 Mg/0.4 Ml Syringe SQ DAILY [facility] Folic Acid 1 mg 11/16/23 09:00 Folic Acid 1 Mg Tab PO DAILY [facility] Isosorbide Mononitrate 30 mg 11/16/23 09:00 Isosorbide Mononitrate Er 30 Mg Tab.Er.24h PO DAILY [facility] Lisinopril 5 mg 11/16/23 09:00 Lisinopril 5 Mg Tab PO DAILY [facility] Lorazepam 1 mg 11/15/23 14:44 11/15/23 21:51 Lorazepam 2 Mg/Ml Inj IV 1 mg Q1HR PRN Administration CIWA 10 to 15 Lorazepam 1 mg 11/15/23 14:44 Lorazepam 2 Mg/Ml Inj IV Q2HR PRN CIWA 8 or 9 Lorazepam 0.5 mg 11/15/23 19:08 11/15/23 23:25 Lorazepam 0.5 Mg Tab PO 0.5 mg Q4HR PRN Administration Ciwa 4 To 5 Lorazepam 1 mg 11/15/23 19:08 Lorazepam 1 Mg Tab PO Q4HR PRN Ciwa 6 To 7 Metoprolol Succinate 25 mg 11/16/23 09:00 Metoprolol Succinate (Er) 25 Mg Tab.Er.24h PO DAILY [facility] Multivitamins 1 each 11/16/23 09:00 Multivitamins, Thera 1 Each Tab PO DAILY [facility] Nicotine 1 patch 11/15/23 15:45 11/15/23 16:15 Nicotine 21mg/24hr Patch TRANSDERM 1 patch DAILY [facility] Administration Nitroglycerin 0.4 mg 11/15/23 14:47 Nitroglycerin Sl Tabs 0.4 Mg Tab SUBLINGUAL Q5M PRN Chest Pain Thiamine HCl 100 mg 11/16/23 09:00 Thiamine 100 Mg Tab PO DAILY [facility] Intake and Output 11/15/23 11/16/23 11/16/23 22:59 06:59 14:59 Intake Total 240 Balance 240 Intake: Oral 240 Other: Voiding Method Toilet Weight 83.915 kg 11/16/23 07:00 11/15/23 12:57
[2023-11-16] MEDS ORDERED: ISOSORBIDE MONONITRATE ER 30 MG TAB.ER.24H PO SCH (09:00)
[2023-11-16] MEDS ORDERED: ASPIRIN 325 MG TAB PO SCH (09:00)
[2023-11-16] MEDS ORDERED: ENOXAPARIN 40 MG/0.4 ML SYRINGE SQ SCH (09:00)
[2023-11-16] MEDS ORDERED: THIAMINE 100 MG TAB PO SCH (09:00)
[2023-11-16] MEDS ORDERED: MULTIVITAMINS, THERA 1 EACH TAB PO SCH (09:00)
[2023-11-16] MEDS ORDERED: ASPIRIN 81 MG PO SCH (09:00)
[2023-11-16] MEDS ORDERED: lisinopriL 5 MG TAB PO SCH (09:00)
[2023-11-16] MEDS ORDERED: METOPROLOL SUCCINATE (ER) 25 MG TAB.ER.24H PO SCH (09:00)
[2023-11-16] MEDS ORDERED: FOLIC ACID 1 MG TAB PO SCH (09:00)
[2023-11-16] MEDS ORDERED: CLOPIDOGREL 75 MG TAB PO SCH (09:00)
[2023-11-16] MEDS: chlordiazePOXIDE 25 MG CAP PO SCH (09:02)
[2023-11-16 11:44] VITALS: BP 115/71; PULSE 92; RESP 18; TEMP 97.6
[2023-11-16 11:45] VITALS: BMI 24.4
--- NOTE | 2023-11-16 12:16 | CA ---
Transthoracic Echo Report Name: Bob Ellsworth Age: 58 Gender: M : 1965 Exam Date: 11/15/2023 16:59 Exam Location: [facility] Ht (in): 73 Wt (lb): 185 Ordering Physician: Jem Perez Attending/Referring Phys: [id number] Test Director Urvashi Robbins [facility] Procedure CPT: Indications: Chest Pain Cardiac Hx: Technical Quality: Fair Contrast 1: Definity Total Dose (mL): 6 Contrast 2: Total Dose (mL): MEASUREMENTS (Male / Female) Normal Values 2D ECHO LV Diastolic Diameter PLAX 5.9 cm 4.2 - 5.9 / 3.9 - 5.3 cm LV Systolic Diameter PLAX 5.5 cm IVS Diastolic Thickness 1.1 cm 0.6 - 1.0 / 0.6 - 0.9 cm LVPW Diastolic Thickness 1.1 cm 0.6 - 1.0 / 0.6 - 0.9 cm LV Relative Wall Thickness 0.4 LVOT Diameter 2.0 cm LV Diastolic Volume MOD BP 200.6 cm??? 67 - 155 / 56 - 104 cm??? LV Systolic Volume MOD BP 146.5 cm??? 22 - 58 / 19 - 49 cm??? LV Ejection Fraction MOD BP 27.0 % >= 55 % LV Cardiac Index MOD BP 1819.2 cm???/min???m??? LV Diastolic Volume MOD 4C 212.1 cm??? LV Systolic Volume MOD 4C 137.0 cm??? LV Ejection Fraction MOD 4C 35.4 % LV Cardiac Index MOD 4C 2522.8 cm???/min???m??? LV Diastolic Length 4C 9.4 cm LV Systolic Length 4C 8.8 cm LV Diastolic Volume MOD 2C 190.0 cm??? LV Systolic Volume MOD 2C 143.9 cm??? LV Ejection Fraction MOD 2C 24.3 % LV Cardiac Index MOD 2C 1550.4 cm???/min???m??? LV Diastolic Length 2C 9.4 cm LV Systolic Length 2C 8.0 cm Ascending Aorta Diameter 3.7 cm M-MODE Aortic Root Diameter MM 2.8 cm LA Systolic Diameter MM 4.1 cm LA Ao Ratio MM 1.5 AV Cusp Separation MM 1.9 cm DOPPLER AV Peak Velocity 110.6 cm/s AV Peak Gradient 4.9 mmHg AV Mean Velocity 87.7 cm/s AV Mean Gradient 3.3 mmHg AV Velocity Time Integral 17.4 cm LVOT Peak Velocity 88.1 cm/s LVOT Peak Gradient 3.1 mmHg LVOT Velocity Time Integral 14.5 cm LVOT Stroke Volume 46.9 cm??? LVOT Stroke Volume Index 22.6 ml/m??? LVOT Cardiac Index 1577.6 cm???/min???m??? AV Area Cont Eq vti 2.7 cm??? AV Area Cont Eq pk 2.6 cm??? MR Peak Velocity 603.4 cm/s MR Peak Gradient 145.6 mmHg Mitral E Point Velocity 61.0 cm/s Mitral A Point Velocity 82.6 cm/s Mitral E to A Ratio 0.7 MV Deceleration Time 209.8 ms LV E' Lateral Velocity 13.0 cm/s Mitral E to LV E' Lateral Ratio 4.7 LV E' Septal Velocity 6.7 cm/s Mitral E to LV E' Septal Ratio 9.1 TR Peak Velocity 263.5 cm/s TR Peak Gradient 27.8 mmHg Right Atrial Pressure 3.0 mmHg Pulmonary Artery Systolic Pressu 30.8 mmHg Right Ventricular Systolic Press 30.8 mmHg FINDINGS Left Ventricle Moderately increased left ventricular diastolic volume. Severely increased left ventricular systolic volume. Severely decreased left ventricular ejection fraction. Mildly increased left ventricular wall thickness. Mild left ventricular dilatation. Left ventricular ejection fraction is estimated at 35- 40 %. Right Ventricle Mild right ventricular dilatation. Mild pulmonary hypertension. Right Atrium Mild right atrial dilatation. Left Atrium Severe left atrial dilatation. Mitral Valve Mitral valve thickened. Mild mitral annular calcification. Severe mitral regurgitation. Posteriorly directed mitral regurgitation jet. Aortic Valve Mildly calcified trileaflet aortic valve. No aortic regurgitation. Echogenic structure visualized, likely artifact. Tricuspid Valve Structurally normal tricuspid valve. Mild tricuspid regurgitation. Pulmonic Valve Structurally normal pulmonic valve. Mild pulmonic regurgitation. Pericardium No pericardial effusion. Aorta Normal size aortic root and proximal ascending aorta. CONCLUSIONS Dilated LV. Impaired LV systolic function. EF is 35-40% Severe mitral regurgitation with posterior directed jet. The mitral valve leaflets are mildly thickened An echodensity was attached to the LVOT side of the aortic valve likely represent artifact but pathology structure to be ruled out Previewed by: Dr. Radhames Cerda MD (Electronically Signed) Final Date: 16 November 2023 12:14
--- NOTE | 2023-11-16 13:57 | P.PN ---
Subjective Progress Note Date: 11/16/23 Hospital Course: Patient is a 58-year-old male with a past medical history of CAD status post stenting and CABG x 3, ischemic cardiomyopathy with a EF of 45%, hypertension, hyperlipidemia, COPD and continued nicotine dependence, alcohol abuse, and alcohol withdrawal seizures. He presented to the emergency department via EMS with a chief complaint of chest pain and alcohol withdrawal with last drink reported to be this morning. Patient reports drinking 1 to 2 pints daily and reports long standing history of alcoholism drinking for the last 40 years. .He reports that he has quit in the past and decided this morning he was going to quit drinking, however he began to experience severe alcohol withdrawal symptoms with chest pain, palpitations, shortness of breath, diaphoresis, nausea, and vomiting. Patient reports he became very concerned because of his cardiac history and new if he tried to detox at home he was going to . Patient reports drinking some alcohol this morning in attempts to improve his symptoms. Patient reports some of his symptoms improved but he continued to have chest pain/tightness to his midsternal chest accompanied by shortness of breath so he called EMS for transport to the hospital. He denies experiencing any fevers, c hills, headache, dizziness, lightheadedness, cough or congestion, abdominal pain, changes in her difficulties with urination or bowel movements, or experiencing any numbness/tingling/weakness/swelling in his extremities. Upon arrival to the emergency department, patient underwent full evaluation. Vital signs upon arrival show blood pressure 159/112, heart rate 83, respiratory rate 16, temp 97.8 F, SpO2 of 97% on room air. EKG completed showing sinus rhythm with T wave inversion in lateral lead aVL and frequent PVCs . Chest x-ray showing changes of COPD with flattening of the diaphragm and mild hyperinflation but negative for acute cardiopulmonary process. Labs were completed and reviewe d. CBC unremarkable. Coagulation profile normal findings. BMP showing hypokalemia with potassium of 3.3. Magnesium also low at 1.5. Liver profile normal findings. Troponin 0.019. Serum alcohol level was elevated at 147. Patient admitted under our services with consultation to cardiology. Heart score 7. Troponins trended overnight resulting at 0.019, 0.017, and 0.021. Echocardiogram completed pending results. Physical exam: Vital signs reviewed and stable. General: Nontoxic, no distress and appears stated age. Derm: Skin warm and dry, normal coloration for ethnicity. Head: Atraumatic, normocephalic and symmetric. Eyes: EOMs intact, no lid lag, and anicteric sclera Mouth: no lip lesions, mucus membranes moist Cardiovascular: regular rate and rhythm with normal S1S2, systolic murmur, positive posterior tibial pulses bilaterally, and cap refill < 2 seconds. Lungs: Respirations even, regular, and unlabored on room air. Lungs CTA bilaterally, no rhonchi, no rales, no wheezing, and no accessory muscle usage. Abdominal: soft, nontender to palpation, no guarding, no appreciable organomegaly Ext: ROM intact. No gross muscle atrophy, no edema, no contractures Neuro: Speech clear, face symmetrical and CN II-XII grossly intact with no noted focal neuro deficits Psych: Alert and oriented to person, place, time, and situation. Appropriate and pleasant affect. 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 -Telemetry monitoring -Troponins trended overnight resulting at 0.019, 0.017, and 0.021 -Echocardiogram completed pending results. -Cardiac diet -Patient to continue daily cardiac medication regimen with aspirin 81 mg daily, atorvastatin 80 mg nightly, Plavix 75 mg daily, isosorbide mononitrate 30 mg daily, lisinopril 5 mg daily, and metoprolol 25 mg daily. -Lipid profille pending Acute aendingl in pt with longstanding hx of alcoholism Hypomagnesemia -Order placed for monitoring of CIWA scores and patient to be medicated with Ativan 0.5 mg every 4 hours as needed for CIWA score of 4-5, Ativan 1 mg every 4 hours for CIWA score of 6-7, Ativan 2 mg every 3 hours CIWA score of 8-9, and Ativan 2 mg every 2 hours forr CIWA score of 10 or greater. -Thiamine 100 mg daily, Multivitamin daily, and Folate 1 mg daily -Seizure, fall, aspiration, and elopement precautions in place. -Urine drug screen to be obtained -In addition to CIWA protocol with benzodiazepine administration, patient also placed on scheduled Librium 50 mg 3 times daily secondary to extensive longstanding history of alcohol abuse drinking a reported 1 to 2 pints daily. Will titrate Librium dose down every 24-48 hours. -Continued close monitoring of electrolytes and replace as needed. -Telemetry monitoring. -Magnesium was 1.5 this morning orders placed for magnesium sulfate 3 g IVPB x 1 dose. COPD with continued nicotine dependence Strongly recommended smoking cessation. Nicotine patch 21 mg daily Continuation of Ventolin inhaler 4 times daily as needed for wheezing/shortness of breath. Data and imaging reviewed: Morning labs completed and reviewed. Troponins trended overnight resulting at 0.019, 0.017, and 0.021. CBC and BMP unremarkable. Magnesium remains low at 1.5, Vital signs reviewed and stable. Blood pressure 120/82, heart rate 82, respiratory rate 16, temp 97.8 F, and SpO2 of 96% on room air. CODE STATUS: Full code DVT prophylaxis: Lovenox Anticipated discharge date: Clinical course to determine Anticipated discharge place: Clinical course to determine Patient was seen independently by Nurse Practitioner. This document was prepared using [employer] dictation software. Please allow for errors in security control center operator while rare they do occur. Jozef Mercer NP rendered care for this patient independently, reviewed the findings and plan as documented in the note above. I did not physically speak with or examine the patient on this date. Objective - Vital Signs Vital signs: Vital Signs Temp 97.8 F 11/16/23 07:30 Pulse 82 11/16/23 07:30 Resp 16 11/16/23 07:30 BP 120/82 11/16/23 07:30 Pulse Ox 96 11/16/23 07:30 FiO2 Intake & Output 11/15/23 11/16/23 11/16/23 18:59 06:59 18:59 Intake Total 240 Balance 240 Weight 83.915 kg Intake: Oral 240 Other: Voiding Method Toilet - Labs CBC & Chem 7: 11/16/23 07:00 11/16/23 07:00 Labs: Abnormal Lab Results - Last 24 Hours (Table) 11/15/23 Range/Units 12:57 Potassium 3.3 L (3.5-5.1) mmol/L BUN 5 L (9-20) mg/dL Glucose 112 H (74-99) mg/dL Magnesium 1.5 L (1.6-2.3) mg/dL
[2023-11-16] MEDS: MAGNESIUM SULFATE-D5W PMX 1 GM in DEXTROSE/WATER 1 100ML.BAG IVPB SCH ×2 (14:13→15:08)
[2023-11-16 15:31] LABS: Chol/HDL Ratio 2.99 Ratio; LDL Cholesterol,Calculated 76.6 mg/dL (0.0-131.0); VLDL Calculation 16.62 mg/dL (5.00-40.00)
--- NOTE | 2023-11-16 18:41 | P.DS ---
Providers Date of admission: 11/15/23 16:43 Expected date of discharge: 11/16/23 Attending physician: Rah Parish MD Consults: 11/15/23 14:47 Consult Physician Urgent Consulting Provider: Radhames Cerda Consult Reason/Comments: chest pain Do you want consulting provider notified?: Yes Primary care physician: Dav Perez MD Hospital Course: This is not a Discharge Summary, but a Summary of Care as received notification at 4:37 PM that patient had already left AGAINST MEDICAL ADVICE:. Provider was not notified until after patient had left the building. Diagnoses throughout hospitalization Chest pain, acute coronary event ruled out. History of CAD status post CABG x 3 Ischemic cardiomyopathy Acute alcohol withdrawal in pt with longstanding hx of alcoholism Hypomagnesemia COPD with continued nicotine dependence Hospital Course: Patient is a 58-year-old male with a past medical history of CAD status post stenting and CABG x 3, ischemic cardiomyopathy with a EF of 45%, hypertension, hyperlipidemia, COPD and continued nicotine dependence, alcohol abuse, and alcohol withdrawal seizures. He presented to the emergency department via EMS with a chief complaint of chest pain and alcohol withdrawal with last drink reported to be this morning. Patient reports drinking 1 to 2 pints daily and reports long standing history of alcoholism drinking for the last 40 years. .He reports that he has quit in the past and decided this morning he was going to quit drinking, however he began to experience severe alcohol withdrawal symptoms with chest pain, palpitations, shortness of breath, diaphoresis, nausea, and vomiting. Patient reports he became very concerned because of his cardiac history and new if he tried to detox at home he was going to . Patient reports drinking some alcohol this morning in attempts to improve his symptoms. Patient reports some of his symptoms improved but he continued to have chest pain/tightness to his midsternal chest accompanied by shortness of breath so he called EMS for transport to the hospital. He denies experiencing any fevers, chills, headache, dizziness, lightheadedness, cough or congestion, abdominal pain, changes in her difficulties with urination or bowel movements, or experiencing any numbness/tingling/weakness/swelling in his extremities. Upon arrival to the emergency department, patient underwent full evaluation. Vital signs upon arrival show blood pressure 159/112, heart rate 83, respiratory rate 16, temp 97.8 F, SpO2 of 97% on room air. EKG completed showing sinus rhythm with T wave inversion in lateral lead aVL and frequent PVCs . Chest x-ray showing changes of COPD with flattening of the diaphragm and mild hyperinflation but negative for acute cardiopulmonary process. Labs were completed and reviewed. CBC unremarkable. Coagulation profile normal findings. BMP showing hypokalemia with potassium of 3.3. Magnesium also low at 1.5. Liver profile normal findings. Troponin 0.019. Serum alcohol level was elevated at 147. Patient admitted under our services for acute alcohol withdraw and cardiac evaluation with consultation to cardiology. Heart score 7. Troponins trended overnight resulting at 0.019, 0.017, and 0.021. Echocardiogram completed pending results. Received notification from RN on 11/16/2023 that patient had already left AGAINST MEDICAL ADVICE and refused to sign AMA forms. Provider was not notified until after patient had left the building. Received notification at 4:37 PM that patient had already left AGAINST MEDICAL ADVICE This document was prepared using [employer] water systems dictation software. Please allow for errors in hogshead stripper while rare they do occur. Jozef Mercer NP rendered care for this patient independently, reviewed the findings and plan as documented in the note above. I did not physically speak with or examine the patient on this crescencio Patient Condition at Discharge: Undetermined Plan - Discharge Summary Discharge Rx Participant: No New Discharge Prescriptions: No Action Atorvastatin [Lipitor] 80 mg PO HS #30 tab lisinopriL [Zestril] 5 mg PO DAILY #30 tab Nitroglycerin Sl Tabs [Nitrostat] 0.4 mg SUBLINGUAL Q5M PRN #30 tab PRN Reason: Chest Pain Aspirin EC [Ecotrin Low Dose] 81 mg PO DAILY Metoprolol Succinate [Metoprolol Succinate ER] 25 mg PO DAILY Clopidogrel [Plavix] 75 mg PO DAILY #30 tab Isosorbide Mononitrate ER [Imdur] 30 mg PO DAILY #30 tab Ibuprofen [Motrin] 800 mg PO Q8H PRN PRN Reason: Pain Or Fever > 100.5 Albuterol Inhaler [Ventolin Hfa Inhaler] 2 puff INHALATION RT-QID PRN PRN Reason: Dyspnea Discharge Medication List Atorvastatin [Lipitor] 80 mg PO HS #30 tab 07/05/21 [Rx] Clopidogrel [Plavix] 75 mg PO DAILY #30 tab 07/05/21 [Rx] Isosorbide Mononitrate ER [Imdur] 30 mg PO DAILY #30 tab 07/05/21 [Rx] lisinopriL [Zestril] 5 mg PO DAILY #30 tab 07/05/21 [Rx] Nitroglycerin Sl Tabs [Nitrostat] 0.4 mg SUBLINGUAL Q5M PRN #30 tab 02/07/23 [Rx] Albuterol Inhaler [Ventolin Hfa Inhaler] 2 puff INHALATION RT-QID PRN 11/15/23 [History] Aspirin EC [Ecotrin Low Dose] 81 mg PO DAILY 11/15/23 [History] Ibuprofen [Motrin] 800 mg PO Q8H PRN 11/15/23 [History] Metoprolol Succinate [Metoprolol Succinate ER] 25 mg PO DAILY 11/15/23 [History] Follow up Appointment(s)/Referral(s): Dav Perez MD [Primary Care Provider] - 1-2 days Discharge/Stand Alone Forms: AA Meetings [place], Community Resources, Outpatient Counseling, In Substance Abuse Facilities Discharge Disposition: LEFT AGAINST MEDICAL ADVICE
== END 2023-11-16 16:29 | disposition left against medical advice (07) | DRG 770 ==
LOC: EC 12:35 → 3SCARD 14:47 → OBSVTOIN 16:43 → 3SCARD 17:35
PROVIDERS: ADMIT Student in an Organized Health Care Education/Training Program; ATTEND Student in an Organized Health Care Education/Training Program
DX: F10.131 Alcohol abuse with withdrawal delirium (principal); Y90.6 Blood alcohol level of 120-199 mg/100 ml; F10.129 Alcohol abuse with intoxication, unspecified; Z71.6 Tobacco abuse counseling; F17.210 Nicotine dependence, cigarettes, uncomplicated; E78.5 Hyperlipidemia, unspecified; E83.42 Hypomagnesemia; E87.6 Hypokalemia; F41.0 Panic disorder [episodic paroxysmal anxiety]; F43.10 Post-traumatic stress disorder, unspecified; G40.909 Epilepsy, unspecified, not intractable, without status epilepticus; I10 Essential (primary) hypertension; I25.110 Atherosclerotic heart disease of native coronary artery with unstable angina pectoris; I25.2 Old myocardial infarction; I25.5 Ischemic cardiomyopathy; I49.3 Ventricular premature depolarization; K21.9 Gastro-esophageal reflux disease without esophagitis; Z53.29 Procedure and treatment not carried out because of patient's decision for other reasons; Z79.02 Long term (current) use of antithrombotics/antiplatelets; Z79.82 Long term (current) use of aspirin; Z79.899 Other long term (current) drug therapy; Z82.49 Family history of ischemic heart disease and other diseases of the circulatory system; Z86.73 Personal history of transient ischemic attack (TIA), and cerebral infarction without residual deficits; Z95.1 Presence of aortocoronary bypass graft; Z95.5 Presence of coronary angioplasty implant and graft; Z88.0 Allergy status to penicillin
CPT/HCPCS: 36415; 71046; 80053; 80061; 80320; 83690; 83735; 84484; 85025; 85027; 85610; 85730; 93005; 93306; 96361; 96374; 96375; 99285

== ENCOUNTER 2024-01-29 09:00 | Emergency (ER) | payer OTHER ==
[2024-01-29 09:26] VITALS: TEMP 98.4
--- NOTE | 2024-01-29 09:54 | ED ---
Neuro HPI - General Chief Complaint: Neuro Symptoms/Deficit Stated Complaint: R Hand Numbness Source: patient, RN notes reviewed, old records reviewed Mode of arrival: ambulatory Limitations: no limitations - History of Present Illness Is the patient presenting with stroke symptoms?: No -: days(s) Initial Comments: This is a 58-year-old male to the ER for evaluation today. Patient started with yesterday having an episode of significant sweating and diaphoresis and since note noticed that he has right hand tingling. Patient has no headache no chest pain or shortness of breath no abdominal pain no other complaints. Patient states symptoms of started yesterday have been increasingly persistent but no significant weakness noted. Just numbness and tingling to the lower aspect pinky aspect of his right hand. No chest pain or shortness of breath patient has a very complex medical history but does not want further testing does not want testing of his chest heart even though he has had prior NE today. Location: right arm Place: home Severity: mild Quality: weak, numb, tingling Improves With: none Worsens With: none Associated Symptoms: denies other symptoms Treatments Prior to Arrival: none - Related Data Home Medications: Home Medications Medication Instructions Recorded Confirmed Albuterol Inhaler [Ventolin Hfa 2 puff INHALATION RT-QID PRN 11/15/23 11/15/23 Inhaler] Previous Rx's Medication Instructions Recorded Aspirin EC [Ecotrin Low Dose] 81 mg PO DAILY #30 tab 01/29/24 Atorvastatin [Lipitor] 80 mg PO HS #30 tab 01/29/24 Clopidogrel [Plavix] 75 mg PO DAILY #30 tab 01/29/24 Ibuprofen [Motrin] 800 mg PO Q8H PRN #30 tab 01/29/24 Isosorbide Mononitrate ER [Imdur] 30 mg PO DAILY #30 tab 01/29/24 Metoprolol Succinate [Metoprolol 25 mg PO DAILY #30 tab 01/29/24 Succinate ER] Nitroglycerin Sl Tabs [Nitrostat] 0.4 mg SUBLINGUAL Q5M PRN #30 tab 01/29/24 lisinopriL [Zestril] 5 mg PO DAILY #30 tab 01/29/24 Allergies/Adverse Reactions: Allergies Allergy/AdvReac Type Severity Reaction Status Date / Time Penicillins Allergy Unknown Verified 01/29/24 09:22 Childhood Review of Systems ROS Statement: Those systems with pertinent positive or pertinent negative responses have been documented in the HPI. ROS Other: All systems not noted in ROS Statement are negative. General Exam Limitations: no limitations General appearance: alert, in no apparent distress Head exam: Present: atraumatic, normocephalic, normal inspection Eye exam: Present: normal appearance, PERRL, EOMI. Absent: scleral icterus, conjunctival injection, periorbital swelling ENT exam: Present: normal exam, mucous membranes moist Neck exam: Present: normal inspection. Absent: tenderness, meningismus, lymphadenopathy Respiratory exam: Present: normal lung sounds bilaterally. Absent: respiratory distress, wheezes, rales, rhonchi, stridor Cardiovascular Exam: Present: regular rate, normal rhythm, normal heart sounds. Absent: systolic murmur, diastolic murmur, rubs, gallop, clicks GI/Abdominal exam: Present: soft, normal bowel sounds. Absent: distended, tenderness, guarding, rebound, rigid Extremities exam: Present: normal inspection, full ROM, normal capillary refill. Absent: tenderness, pedal edema, joint swelling, calf tenderness Back exam: Present: normal inspection Neurological exam: Present: alert, oriented X3, CN II-XII intact Psychiatric exam: Present: normal affect, normal mood Skin exam: Present: warm, dry, intact, normal color. Absent: rash Stroke MDM - NIH Stroke Scale 1a. Level of Consciousness: (0) alert 1b. LOC Questions: (0) answers correctly 1c. LOC Commands: (0) performs tasks correctly 2. Best Gaze: (0) normal 3. Visual: (0) no visual loss 4. Facial Palsy: (0) normal symmetrical movement 5a. Motor Arm Left: (0) no drift 5b. Motor Arm Right: (0) no drift 6a. Motor Leg Left: (0) no drift 6b. Motor Leg Right: (0) no drift 7. Limb Ataxia: (0) absent 8. Sensory: (0) normal 9. Best Language: (0) no aphasia 10. Dysarthria: (0) normal 11. Extinction/Inattention: (0) no abnormality - Thrombolytic Inclusion/Exclusion Thrombolytic Exclusion Criteria: Symptom Onset > 4.5 Hours - Medical Decision Making 58 male to ER with right arm paresthesias no significant finding on CT scan. Patient does not want further cardiac testing and can be discharged home - Radiology Data Radiology results: report reviewed (CT brain is negative for acute disease), image reviewed - EKG Data -: EKG Interpreted by Me (EKG is A-fib 88 QRS 113 QTc 415) Past Medical History Past Medical History: COPD, Hyperlipidemia, Hypertension, Myocardial Infarction (NE), Seizure Disorder Additional Past Medical History / Comment(s): ISCHEMIC CARDIOMYOPATHY WITH EF 40-45%. 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 Last Myocardial Infarction Date:: 06/12/14 History of Any Multi-Drug Resistant Organisms: None Reported Past Surgical History: Coronary Bypass/CABG, Heart Catheterization With Stent, Hernia Repair, Orthopedic Surgery Additional Past Surgical History / Comment(s): cabg january 2014-3 vessel, Cardiac caths and stenting with last Cardiac cath Jul [address] Cerda. Past Anesthesia/Blood Transfusion Reactions: No Reported Reaction Additional Past Anesthesia/Blood Transfusion Reaction / Comment(s): NO PROBLEM TOLERATING ANESTHESIA. HAS NEVER RECIEVED BLOOD TO HIS KNOWLEDGE. Date of Last Stent Placement:: 06/12/14 Past Psychological History: Anxiety, Panic Disorder, PTSD Smoking Status: Current every day smoker Past Alcohol Use History: Abuse, Daily, Heavy Past Drug Use History: Marijuana - Past Family History Father Family Medical History: Coronary Artery Disease (CAD), Myocardial Infarction (NE) Additional Family Medical History / Comment(s): FATHER STILL LIVING Mother Family Medical History: Coronary Artery Disease (CAD), Myocardial Infarction (NE) Additional Family Medical History / Comment(s): MOTHER 09/23/14 of unknown causes. Sister(s) Family Medical History: Myocardial Infarction (NE) Additional Family Medical History / Comment(s): SISTER OF NE AT AGE 53 Course Vital Signs 01/29/24 01/29/24 09:19 11:27 Temperature 98.4 F Pulse Rate 92 87 Respiratory 20 18 Rate Blood Pressure 145/99 140/98 O2 Sat by Pulse 97 97 Oximetry - Reevaluation(s) Reevaluation #1: 01/29/24 12:37 Medical records reviewed Reevaluation #2: 01/29/24 12:37 Patient symptoms unchanged Reevaluation #3: 01/29/24 12:37 Patient informed of results questions answered Reevaluation #4: Was pt. sent in by a medical professional or institution (MARIA R Guillen, GROUNDSKEEPING MAINTENANCE WORKER, urgent care, hospital, or halfway...) When possible be specific @ -no Did you speak to anyone other than the patient for history (EMS, parent, family, police, friend...)? What history was obtained from this source @ -no Did you review nursing and triage notes (agree or disagree)? Why? @ -agree Are old charts reviewed (outside hosp., previous admission, EMS record, old EKG, old radiological studies, urgent care reports/EKG's, halfway records)? Report findings @ -yes Differential Diagnosis (chest pain, altered mental status, abdominal pain women, abdominal pain men, vaginal bleeding, weakness, fever, dyspnea, syncope, headache, dizziness, GI bleed, back pain, seizure, CVA, palpatations, mental health, musculoskeletal)? @ -prior EKG interpreted by me (3pts min.). @ -yes X-rays interpreted by me (1pt min.). @ -no CT interpreted by me (1pt min.). @ -yes negative for acute disease U/S interpreted by me (1pt. min.). @ -no What testing was considered but not performed or refused? (CT, X-rays, U/S, labs)? Why? @ -none What meds were considered but not given or refused? Why? @ -none Did you discuss the management of the patient with other professionals (professionals i.e. MARIA R Guillen, GROUNDSKEEPING MAINTENANCE WORKER, lab, RT, psych nurse, social work supervisor, driving teacher, teacher, marketing and communications officer, case checker)? Give summary @ -no Was smoking cessation discussed for >3mins.? @ -no Was critical care preformed (if so, how long)? @ -no Were there social determinants of health that impacted care today? How? (Homelessness, low income, unemployed, alcoholism, drug addiction, transportation, low edu. Level, literacy, decrease access to med. care, custodial, rehab)? @ -none Was there de-escalation of care discussed even if they declined (Discuss DNR or withdrawal of care, Hospice)? DNR status @ -no What co-morbidities impacted this encounter? (DM, HTN, Smoking, COPD, CAD, Cancer, CVA, ARF, Chemo, Hep., AIDS, mental health diagnosis, sleep apnea, morbid obesity)? @ -none Was patient admitted / discharged? Hospital course, mention meds given and route, prescriptions, significant lab abnormalities, going to OR and other pertinent info. @ - 58 male to ER with right arm paresthesias no significant finding on CT scan. Patient does not want further cardiac testing and can be discharged home Admitted Undiagnosed new problem with uncertain prognosis? @ -no Drug Therapy requiring intensive monitoring for toxicity (Heparin, Nitro, Insulin, Cardizem)? @ -no Were any procedures done? @ -no Diagnosis/symptom? @ -Right arm paresthesias Acute, or Chronic, or Acute on Chronic? @ -Acute Uncomplicated (without systemic symptoms) or Complicated (systemic symptoms)? @ -Complicated Side effects of treatment? @ -no Exacerbation, Progression, or Severe Exacerbation? @ -exacerbation Poses a threat to life or bodily function? How? (Chest pain, [place], NE, pneumonia, PE, COPD, DKA, ARF, appy, cholecystitis, CVA, Diverticulitis, Homicidal, S uicidal, threat to staff... and all critical care pts) @ -yes significant extremes of age, chest pain, paresthesias Reevaluation #5: Differential CVA Ischemic stroke, hemorrhagic stroke, brain tumor, atypical migraine, Wernicke's encephalopathy, seizure, multiple sclerosis, meningitis, encephalitis, hypoglycemia, Guillain-Le, electrolytes disturbance, myasthenia gravis.... This is not meant to be an all-inclusive list Disposition Clinical Impression: Arm paresthesia, right, Atypical chest pain Disposition: HOME SELF-CARE Condition: Good Instructions (If sedation given, give patient instructions): Paresthesia (ED) Prescriptions: Aspirin EC [Ecotrin Low Dose] 81 mg PO DAILY #30 tab Isosorbide Mononitrate ER [Imdur] 30 mg PO DAILY #30 tab Atorvastatin [Lipitor] 80 mg PO HS #30 tab Metoprolol Succinate [Metoprolol Succinate ER] 25 mg PO DAILY #30 tab Ibuprofen [Motrin] 800 mg PO Q8H PRN #30 tab PRN Reason: Pain Or Fever > 100.5 Nitroglycerin Sl Tabs [Nitrostat] 0.4 mg SUBLINGUAL Q5M PRN #30 tab PRN Reason: Chest Pain Clopidogrel [Plavix] 75 mg PO DAILY #30 tab lisinopriL [Zestril] 5 mg PO DAILY #30 tab Is patient prescribed a controlled substance at d/c from ED?: No Referrals: Nancy Navarro NPC [REFERRING] - 02/08/24 2:45 pm (New patient appointment. Please bring ID cards and Insurance cards. You will need to complete new patient paperwork. ) None,Stated [Primary Care Provider] - 1-2 days Time of Disposition: 10:30
[2024-01-29] MEDS: DILTIAZEM DRIP BOLUS FROM BAG 1 MG SOLN IV ONE (09:58)
[2024-01-29] MEDS ORDERED: DILTIAZEM 125 MG in SODIUM CHLORIDE 0.9% 100 ML IV SCH (10:00)
--- NOTE | 2024-01-29 10:31 | CT ---
EXAMINATION TYPE: CT brain wo con DATE OF EXAM: 01/29/2024 COMPARISON: 02/06/2023 INDICATION: RT arm weakness and numbness DLP: 1148.4 mGycm, Automated exposure control for dose reduction was used. CONTRAST: None CT of the brain is performed utilizing 3 mm thick sections through the posterior fossa and 3 mm thick sections through the remaining calvarium. Study is performed within 24 hours of arrival to the hosp ital. No abnormal hyperdensity is present to suggest an acute intracranial hemorrhage. No mass lesion is evident. No acute infarcts are evident. There is some scattered deep white matter hypodensity, likely in the b asis of chronic white matter ischemic changes. This is greater in the left basal ganglion and left co meghan radiata. Findings appear stable from the comparison study. Ventricles and sulci are appropriate for the patient age. Paranasal sinuses and mastoid air cells within the [id number] are clear. IMPRESSION: 1. Mild chronic appearing periventricular white matter ischemic type changes. 2. No acute intracranial process. Follow-up MRI can be performed as clinically indicated.
[2024-01-29 11:38] VITALS: BP 140/98; PULSE 87; RESP 18
== END 2024-01-29 11:31 | disposition home or self-care (01) ==
LOC: EC 09:00
DX: R20.2 Paresthesia of skin (principal); R07.89 Other chest pain; F17.200 Nicotine dependence, unspecified, uncomplicated; Z88.0 Allergy status to penicillin; Z95.1 Presence of aortocoronary bypass graft; Z95.5 Presence of coronary angioplasty implant and graft
CPT/HCPCS: 70450; 93005; 99284

== ENCOUNTER 2024-08-31 09:29 | Emergency (ER) | payer OTHER ==
[2024-08-31 09:39] VITALS: RESP 18
--- NOTE | 2024-08-31 10:13 | XR ---
EXAMINATION TYPE: XR chest 2V DATE OF EXAM: 08/31/2024 COMPARISON: 11/15/2023 HISTORY: Cough TECHNIQUE: Frontal and lateral views of the chest are obtained. FINDINGS: There is a small focal partially consolidative opacity in the right lung base. Dedicated early pneumo melissa infiltrate. There is mild interstitial prominence which is seen previously and is possibly chronic in nature. The re is no definite pulmonary vascular congestion. Heart size normal. There are median sternotomy wires . There is no pleural effusion or pneumothorax. The osseous structures are otherwise intact.. IMPRESSION: Probable small pneumonic infiltrate in the right lung base. Short-term follow-up to resolution is rec ommended [facility], , 08/31/2024 10:11 AM
--- NOTE | 2024-08-31 10:42 | ED ---
URI HPI - General Chief Complaint: Upper Respiratory Infection Stated Complaint: cough ARYAN Time Seen by Provider: 08/31/24 10:40 Source: patient, RN notes reviewed Mode of arrival: ambulatory Limitations: no limitations - History of Present Illness Initial Comments: 58-year-old male presenting to the ER with a chief complaint of cough and shortness of breath. Patient reports a history of quadruple bypass in 2015 and COPD. Patient states for the past 24 hours he has been having an intense cough which is worse when he lays flat. He denies home O2 use or CPAP use. Denies any peripheral edema. Patient reports he is concerned he may have pneumonia as he has had similar symptoms in the past. He denies chest pain, abdominal pain, nausea/vomiting, diarrhea/constipation, urinary complaints, fevers, chills or nightsweats. - Related Data Home Medications Medication Instructions Recorded Confirmed Albuterol Inhaler [Ventolin Hfa 2 puff INHALATION RT-QID PRN 11/15/23 11/15/23 Inhaler] Previous Rx's Medication Instructions Recorded Aspirin EC [Ecotrin Low Dose] 81 mg PO DAILY #30 tab 01/29/24 Atorvastatin [Lipitor] 80 mg PO HS #30 tab 01/29/24 Clopidogrel [Plavix] 75 mg PO DAILY #30 tab 01/29/24 Ibuprofen [Motrin] 800 mg PO Q8H PRN #30 tab 01/29/24 Isosorbide Mononitrate ER [Imdur] 30 mg PO DAILY #30 tab 01/29/24 Metoprolol Succinate [Metoprolol 25 mg PO DAILY #30 tab 01/29/24 Succinate ER] Nitroglycerin Sl Tabs [Nitrostat] 0.4 mg SUBLINGUAL Q5M PRN #30 tab 01/29/24 lisinopriL [Zestril] 5 mg PO DAILY #30 tab 01/29/24 Albuterol Inhaler [Ventolin Hfa 1 - 2 puff INHALATION Q6H PRN #1 08/31/24 Inhaler] each Azithromycin [Zithromax Z Pack] 0 tab PO DIRECTED #6 tab 08/31/24 Allergies Allergy/AdvReac Type Severity Reaction Status Date / Time Penicillins Allergy Unknown Verified 08/31/24 09:40 Childhood Review of Systems ROS Statement: Those systems with pertinent positive or pertinent negative responses have been documented in the HPI. ROS Other: All systems not noted in ROS Statement are negative. Past Medical History Past Medical History: COPD, Hyperlipidemia, Hypertension, Myocardial Infarction ([place]), Seizure Disorder Additional Past Medical History / Comment(s): ISCHEMIC CARDIOMYOPATHY WITH EF 40-45%. 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 Last Myocardial Infarction Date:: 06/12/14 History of Any Multi-Drug Resistant Organisms: None Reported Past Surgical History: Coronary Bypass/CABG, Heart Catheterization With Stent, Hernia Repair, Orthopedic Surgery Additional Past Surgical History / Comment(s): cabg january 2014-3 vessel, Cardiac caths and stenting with last Cardiac cath Jul [address] Cerda. Past Anesthesia/Blood Transfusion Reactions: No Reported Reaction Additional Past Anesthesia/Blood Transfusion Reaction / Comment(s): NO PROBLEM TOLERATING ANESTHESIA. HAS NEVER RECIEVED BLOOD TO HIS KNOWLEDGE. Date of Last Stent Placement:: 06/12/14 Past Psychological History: Anxiety, Panic Disorder, PTSD Smoking Status: Current every day smoker Past Alcohol Use History: Abuse, Daily, Heavy Past Drug Use History: Marijuana - Past Family History Father Family Medical History: Coronary Artery Disease (CAD), Myocardial Infarction ([place]) Additional Family Medical History / Comment(s): FATHER STILL LIVING Mother Family Medical History: Coronary Artery Disease (CAD), Myocardial Infarction ([place]) Additional Family Medical History / Comment(s): MOTHER 09/23/14 of unknown c auses. Sister(s) Family Medical History: Myocardial Infarction ([place]) Additional Family Medical History / Comment(s): SISTER OF [place] AT AGE 53 General Exam Limitations: no limitations General appearance: alert, in no apparent distress ENT exam: Present: normal exam, normal oropharynx, mucous membranes moist, TM's normal bilaterally Neck exam: Present: normal inspection. Absent: tenderness, meningismus, lymphadenopathy Respiratory exam: Present: wheezes (all lung garcia) Cardiovascular Exam: Present: regular rate, normal rhythm, normal heart sounds. Absent: systolic murmur, diastolic murmur, rubs, gallop, clicks GI/Abdominal exam: Present: soft, normal bowel sounds. Absent: distended, tenderness, guarding, rebound, rigid Neurological exam: Present: alert, oriented X3, CN II-XII intact Skin exam: Present: warm, dry, intact, normal color. Absent: rash Course Vital Signs 08/31/24 08/31/24 08/31/24 09:38 14:37 14:41 Temperature 97.7 F Pulse Rate 79 77 78 Respiratory 18 18 18 Rate Blood Pressure 163/76 O2 Sat by Pulse 96 Oximetry 08/31/24 14:51 Temperature 98.4 F Pulse Rate 74 Respiratory 18 Rate Blood Pressure 154/96 O2 Sat by Pulse 94 L Oximetry Medical Decision Making - Medical Decision Making Was pt. sent in by a medical professional or institution (, MARIA R, DIRECTOR LOSS PREVENTION, urgent care, hospital, or half-way...) When possible be specific @ -No Did you speak to anyone other than the patient for history (EMS, parent, family, police, friend...)? What history was obtained from this source @ -No Did you review nursing and triage notes (agree or disagree)? Why? @ -I reviewed and agree with nursing and triage notes Were old charts reviewed (outside hosp., previous admission, EMS record, old EKG, old radiological studies, urgent care reports/EKG's, half-way records)? Report findings @ -No old charts were reviewed Differential Diagnosis (chest pain, altered mental status, abdominal pain women, abdominal pain men, vaginal bleeding, weakness, fever, dyspnea, syncope, headache, dizziness, GI bleed, back pain, seizure, CVA, palpatations, mental health, musculoskeletal)? @ -Differential Dyspnea:Coronary syndrome, arrhythmia, tamponade, asthma, COPD, pulmonary embolism, pneumonia, pneumothorax, pulmonary effusion, anaphylaxis, diabetic ketoacidosis, flailed chest, pulmonary contusion, diaphragmatic rupture , anemia, neuromuscular, this is not meant to be an all-inclusive list. EKG interpreted by me (3pts min.). @ -None X-rays interpreted by me (1pt min.). @ -CXR interpreted me showing a consolidation at right lung base. CT interpreted by me (1pt min.). @ -None done U/S interpreted by me (1pt. min.). @ -None done What testing was considered but not performed or refused? (CT, X-rays, U/S, labs)? Why? @ -None What meds were considered but not given or refused? Why? @ -None Did you discuss the management of the patient with other professionals (professionals i.e. , PA, DIRECTOR LOSS PREVENTION, lab, RT, psych nurse, medical social worker, welding machine operator arc, teacher, major gifts officer, window caser)? Give summary @ -No Was smoking cessation discussed for >3mins.? @ -I discussed smoking cessation for greater than 3 minutes. The risk of smoking were discussed with the patient including but not limited to risks of cancer, stroke, coronary artery disease and COPD. Also discussed with patient were multiple methods of quitting smoking. Lastly we discussed the financial cost of smoking. Was critical care preformed (if so, how long)? @ -No Were there social determinants of health that impacted care today? How? (Homelessness, low income, unemployed, alcoholism, drug addiction, transportation, low edu. Level, literacy, decrease access to med. care, shelter, rehab)? @ -No Was there de-escalation of care discussed even if they declined (Discuss DNR or withdrawal of care, Hospice)? DNR status @ -No What co-morbidities impacted this encounter? (DM, HTN, Smoking, COPD, CAD, Cancer, CVA, ARF, Chemo, Hep., AIDS, mental health diagnosis, sleep apnea, morbid obesity)? @ -COPD, Hx cardiac bypass 2014, smoker Was patient admitted / discharged? Hospital course, mention meds given and route, prescriptions, significant lab abnormalities, going to OR and other pertinent info. @ -Discharge. 58-year-old male presented to the ER chief complaint of cough. History and physical exam completed. Vitals upon arrival stable. Patient no signs of acute distress but does have a continuous cough on exam. Bilateral expiratory wheezing throughout all lung garcia. Laboratory studies swabs and x- ray will be obtained, patient is agreeable. Laboratory studies unimpressive. Viral swabs negative. CXR concerning of pneumonia patient will be started on azithromycin. Patient received IM Rocephin prior to discharge. Patient also received DuoNeb treatment. Albuterol inhaler prescribed. Strict return parameters discussed. Patient discharged in stable condition with follow-up to PCP. Patient verbally expressed understanding and agreement with care plan. Case discussed with ED attending, Dr. Stern. Undiagnosed new problem with uncertain prognosis? @ -No Drug Therapy requiring intensive monitoring for toxicity (Heparin, Nitro, Insulin, Cardizem)? @ -No Were any procedures done? @ -No Diagnosis/symptom? @ -Pneumonia Acute, or Chronic, or Acute on Chronic? @ -Acute Uncomplicated (without systemic symptoms) or Complicated (systemic symptoms)? @ -Uncomplicated Side effects of treatment? @ -No Exacerbation, Progression, or Severe Exacerbation? @ -No Poses a threat to life or bodily function? How? (Chest pain, [place], [place], pneumonia, PE, COPD, DKA, ARF, appy, cholecystitis, CVA, Diverticulitis, Homicidal, Suicidal, threat to staff... and all critical care pts) @ -Yes, pneumonia can lead to sepsis and/or end organ dysfunction. - Lab Data Result diagrams: 08/31/24 13:09 08/31/24 13:09 Lab Results 08/31/24 08/31/24 08/31/24 Range/Units 09:50 13:09 13:09 WBC 10.6 (3.8-10.6) k/uL RBC 4.44 (4.30-5.90) m/uL Hgb 13.3 (13.0-17.5) gm/dL Hct 41.6 (39.0-53.0) % MCV 93.6 (80.0-100.0) fL MCH 29.9 (25.0-35.0) pg MCHC 32.0 (31.0-37.0) g/dL RDW 15.7 H (11.5-15.5) % Plt Count 277 (150-450) k/uL MPV 8.4 Neutrophils % 73 % Lymphocytes % 15 % Monocytes % 5 % Eosinophils % 5 % Basophils % 0 % Neutrophils # 7.7 (1.3-7.7) k/uL Lymphocytes # 1.6 (1.0-4.8) k/uL Monocytes # 0.5 (0-1.0) k/uL Eosinophils # 0.5 (0-0.7) k/uL Basophils # 0.0 (0-0.2) k/uL Sodium 137 (137-145) mmol/L Potassium 3.9 (3.5-5.1) mmol/L Chloride 105 (98-107) mmol/L Carbon Dioxide 22 (22-30) mmol/L Anion Gap 10 mmol/L BUN 10 (9-20) mg/dL Creatinine 0.58 L (0.66-1.25) mg/dL Est GFR (CKD-EPI)AfAm >90 (>60 ml/min/1.73 sqM) Est GFR (CKD-EPI)NonAf >90 (>60 ml/min/1.73 sqM) Glucose 121 H (74-99) mg/dL Plasma Lactic Acid Jacinto (0.7-2.0) mmol/L Calcium 8.8 (8.4-10.2) mg/dL Total Bilirubin 0.6 (0.2-1.3) mg/dL AST 16 L (17-59) U/L ALT 12 (4-49) U/L Alkaline Phosphatase 65 (38-126) U/L Total Protein 6.7 (6.3-8.2) g/dL Albumin 4.1 (3.5-5.0) g/dL Influenza Type A (PCR) Not Detected (Not Detectd) Influenza Type B (PCR) Not Detected (Not Detectd) RSV (PCR) Not Detected (Not Detectd) SARS-CoV-2 (PCR) Not Detected (Not Detectd) 08/31/24 Range/Units 13:09 WBC (3.8-10.6) k/uL RBC (4.30-5.90) m/uL Hgb (13.0-17.5) gm/dL Hct (39.0-53.0) % MCV (80.0-100.0) fL MCH (25.0-35.0) pg MCHC (31.0-37.0) g/dL RDW (11.5-15.5) % Plt Count (150-450) k/uL MPV Neutrophils % % Lymphocytes % % Monocytes % % Eosinophils % % Basophils % % Neutrophils # (1.3-7.7) k/uL Lymphocytes # (1.0-4.8) k/uL Monocytes # (0-1.0) k/uL Eosinophils # (0-0.7) k/uL Basophils # (0-0.2) k/uL Sodium (137-145) mmol/L Potassium (3.5-5.1) mmol/L Chloride (98-107) mmol/L Carbon Dioxide (22-30) mmol/L Anion Gap mmol/L BUN (9-20) mg/dL Creatinine (0.66-1.25) mg/dL Est GFR (CKD-EPI)AfAm (>60 ml/min/1.73 sqM) Est GFR (CKD-EPI)NonAf (>60 ml/min/1.73 sqM) Glucose (74-99) mg/dL Plasma Lactic Acid Jacinto 1.1 (0.7-2.0) mmol/L Calcium (8.4-10.2) mg/dL Total Bilirubin (0.2-1.3) mg/dL AST (17-59) U/L ALT (4-49) U/L Alkaline Phosphatase (38-126) U/L Total Protein (6.3-8.2) g/dL Albumin (3.5-5.0) g/dL Influenza Type A (PCR) (Not Detectd) Influenza Type B (PCR) (Not Detectd) RSV (PCR) (Not Detectd) SARS-CoV-2 (PCR) (Not Detectd) - Radiology Data Radiology results: report reviewed, image reviewed Disposition Clinical Impression: Pneumonia Disposition: HOME SELF-CARE Condition: Stable Instructions (If sedation given, give patient instructions): Pneumonia (ED) Additional Instructions: Complete full course of antibiotics. Return to the ER for any new or worsening symptoms. Prescriptions: Albuterol Inhaler [Ventolin Hfa Inhaler] 1 - 2 puff INHALATION Q6H PRN #1 each PRN Reason: Shortness Of Breath Azithromycin [Zithromax Z Pack] 0 tab PO DIRECTED #6 tab Is patient prescribed a controlled substance at d/c from ED?: No Referrals: None,Stated [Primary Care Provider] - 1-2 days Forms: Area PCPs Time of Disposition: 13:52
[2024-08-31 13:29] LABS: ALT 12 U/L (4-49); AST 16 U/L (17-59); African American GFR (CKD) >90 (>60 ml/min/1.73 sqM); Albumin 4.1 g/dL (3.5-5.0); Alkaline Phosphatase 65 U/L (38-126); Anion Gap 10 mmol/L; Blood Urea Nitrogen 10 mg/dL (9-20); Calcium 8.8 mg/dL (8.4-10.2); Carbon Dioxide 22 mmol/L (22-30); Chloride 105 mmol/L (98-107); Glucose 121 mg/dL (74-99); Non-African American GFR(CKD) >90 (>60 ml/min/1.73 sqM); Potassium 3.9 mmol/L (3.5-5.1); Sodium 137 mmol/L (137-145); Total Bilirubin 0.6 mg/dL (0.2-1.3); Total Protein 6.7 g/dL (6.3-8.2)
[2024-08-31 13:36] LABS: Basophils % (A) 0 %; Eosinophils # (A) 0.5 k/uL (0-0.7); Eosinophils % (A) 5 %; HCT 41.6 % (39.0-53.0); HGB 13.3 gm/dL (13.0-17.5); Lymphocytes # (A) 1.6 k/uL (1.0-4.8); Lymphocytes % (A) 15 %; MCH 29.9 pg (25.0-35.0); MCV 93.6 fL (80.0-100.0); Mean Platelet Volume 8.4; Monocytes # (A) 0.5 k/uL (0-1.0); Monocytes % (A) 5 %; Neutrophils # (A) 7.7 k/uL (1.3-7.7); Neutrophils % (A) 73 %; Platelet Count 277 k/uL (150-450); RBC 4.44 m/uL (4.30-5.90); RDW 15.7 % (11.5-15.5); WBC 10.6 k/uL (3.8-10.6)
[2024-08-31] MEDS: cefTRIAXone 1,000 MG VIAL (IM USE) IM STA (14:31)
[2024-08-31] MEDS: IPRATROPIUM-ALBUTEROL 3 ML NEB INHALATION STA (14:37)
[2024-08-31 14:53] VITALS: BP 154/96; PULSE 74; TEMP 98.4
== END 2024-08-31 15:19 | disposition home or self-care (01) ==
LOC: EC 09:29
DX: J18.9 Pneumonia, unspecified organism (principal); F17.200 Nicotine dependence, unspecified, uncomplicated; Z88.0 Allergy status to penicillin
CPT/HCPCS: 36415; 94640; 80053; 83605; 85025; 87636; 71046; 99285; 96372; J0696

== ENCOUNTER 2024-09-17 10:40 | Emergency (ER) | payer OTHER ==
--- NOTE | 2024-09-17 11:22 | ED ---
URI HPI - General Chief Complaint: Upper Respiratory Infection Stated Complaint: congestion Time Seen by Provider: 09/17/24 10:58 Source: patient, RN notes reviewed Mode of arrival: ambulatory Limitations: no limitations - History of Present Illness Initial Comments: This is a 58-year-old male with a history of COPD presenting to the emergency department for chief complaint of upper respiratory infection type symptoms that worsened yesterday. Patient states that throughout the night he was experiencing postnasal drip and a worsening productive cough in addition to mild shortness of breath. He denies fevers, chills, nausea, vomiting, chest pain. Patient denies daily steroid use. - Related Data Home Medications Medication Instructions Recorded Confirmed Albuterol Inhaler [Ventolin Hfa 2 puff INHALATION RT-QID PRN 11/15/23 11/15/23 Inhaler] Previous Rx's Medication Instructions Recorded Aspirin EC [Ecotrin Low Dose] 81 mg PO DAILY #30 tab 01/29/24 Atorvastatin [Lipitor] 80 mg PO HS #30 tab 01/29/24 Clopidogrel [Plavix] 75 mg PO DAILY #30 tab 01/29/24 Ibuprofen [Motrin] 800 mg PO Q8H PRN #30 tab 01/29/24 Isosorbide Mononitrate ER [Imdur] 30 mg PO DAILY #30 tab 01/29/24 Metoprolol Succinate [Metoprolol 25 mg PO DAILY #30 tab 01/29/24 Succinate ER] Nitroglycerin Sl Tabs [Nitrostat] 0.4 mg SUBLINGUAL Q5M PRN #30 tab 01/29/24 lisinopriL [Zestril] 5 mg PO DAILY #30 tab 01/29/24 Albuterol Inhaler [Ventolin Hfa 1 - 2 puff INHALATION Q6H PRN #1 08/31/24 Inhaler] each Azithromycin [Zithromax Z Pack] 0 tab PO DIRECTED #6 tab 08/31/24 Levofloxacin [Levaquin] 500 mg PO DAILY #10 tab 09/17/24 predniSONE 50 mg PO DAILY #5 tab 09/17/24 Allergies Allergy/AdvReac Type Severity Reaction Status Date / Time Penicillins Allergy Unknown Verified 09/17/24 10:53 Childhood Review of Systems ROS Statement: Those systems with pertinent positive or pertinent negative responses have been documented in the HPI. ROS Other: All systems not noted in ROS Statement are negative. Past Medical History Past Medical History: COPD, Hyperlipidemia, Hypertension, Myocardial Infarction ([place]), Seizure Disorder Additional Past Medical History / Comment(s): ISCHEMIC CARDIOMYOPATHY WITH EF 40-45%. 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 Last Myocardial Infarction Date:: 06/12/14 History of Any Multi-Drug Resistant Organisms: None Reported Past Surgical History: Coronary Bypass/CABG, Heart Catheterization With Stent, Hernia Repair, Orthopedic Surgery Additional Past Surgical History / Comment(s): cabg january 2014-3 vessel, Cardiac caths and stenting with last Cardiac cath Jul [address] Cerda. Past Anesthesia/Blood Transfusion Reactions: No Reported Reaction Additional Past Anesthesia/Blood Transfusion Reaction / Comment(s): NO PROBLEM TOLERATING ANESTHESIA. HAS NEVER RECIEVED BLOOD TO HIS KNOWLEDGE. Date of Last Stent Placement:: 06/12/14 Past Psychological History: Anxiety, Panic Disorder, PTSD Smoking Status: Current every day smoker Past Alcohol Use History: Abuse, Daily, Heavy Past Drug Use History: Marijuana - Past Family History Father Family Medical History: Coronary Artery Disease (CAD), Myocardial Infarction ([place]) Additional Family Medical History / Comment(s): FATHER STILL LIVING Mother Family Medical History: Coronary Artery Disease (CAD), Myocardial Infarction ([place]) Additional Family Medical History / Comment(s): MOTHER 09/23/14 of unknown causes. Sister(s) Family Medical History: Myocardial Infarction ([place]) Additional Family Medical History / Comment(s): SISTER OF [place] AT AGE 53 General Exam Limitations: no limitations General appearance: alert, in no apparent distress Eye exam: Present: normal appearance, PERRL, EOMI. Absent: scleral icterus, conjunctival injection, periorbital swelling ENT exam: Present: normal exam, mucous membranes moist Neck exam: Present: normal inspection. Absent: tenderness, meningismus, lymphadenopathy Respiratory exam: Present: wheezes, decreased breath sounds. Absent: normal lung sounds bilaterally, respiratory distress, rales, rhonchi, stridor Cardiovascular Exam: Present: regular rate, normal rhythm, normal heart sounds. Absent: systolic murmur, diastolic murmur, rubs, gallop, clicks GI/Abdominal exam: Present: soft, normal bowel sounds. Absent: distended, tenderness, guarding, rebound, rigid Extremities exam: Present: normal inspection, full ROM, normal capillary refill. Absent: tenderness, pedal edema, joint swelling, calf tenderness Back exam: Present: normal inspection Skin exam: Present: warm, dry, intact, normal color. Absent: rash Course Vital Signs 09/17/24 09/17/24 09/17/24 10:52 11:33 11:42 Temperature 97.5 F L Pulse Rate 62 96 95 Respiratory 20 Rate Blood Pressure 148/97 O2 Sat by Pulse 99 Oximetry 09/17/24 12:47 Temperature 98.9 F Pulse Rate 87 Respiratory 18 Rate Blood Pressure 142/95 O2 Sat by Pulse 97 Oximetry Medical Decision Making - Medical Decision Making Was pt. sent in by a medical professional or institution (, PA, MEDICAL EQUIPMENT SALES, urgent care, hospital, or fci...) When possible be specific @ -No Did you speak to anyone other than the patient for history (EMS, parent, family, police, friend...)? What history was obtained from this source @ -No Did you review nursing and triage notes (agree or disagree)? Why? @ -I reviewed and agree with nursing and triage notes Were old charts reviewed (outside hosp., previous admission, EMS record, old EKG, old radiological studies, urgent care reports/EKG's, fci records)? Report findings @ -No old charts were reviewed Differential Diagnosis (chest pain, altered mental status, abdominal pain women, abdominal pain men, vaginal bleeding, weakness, fever, dyspnea, syncope, headache, dizziness, GI bleed, back pain, seizure, CVA, palpatations, mental health, musculoskeletal)? @ -COVID 19, RSV, influenza, pneumonia, acute bronchitis, URI, this list is not all inclusive EKG interpreted by me (3pts min.). @ -none X-rays interpreted by me (1pt min.). @ -Chest x-ray reveals COPD and post CABG changes with no definitive acute process CT interpreted by me (1pt min.). @ -None done U/S interpreted by me (1pt. min.). @ -None done What testing was considered but not performed or refused? (CT, X-rays, U/S, labs)? Why? @ -None What meds were considered but not given or refused? Why? @ -None Did you discuss the management of the patient with other professionals (professionals i.e. , PA, MEDICAL EQUIPMENT SALES, lab, RT, psych nurse, social media manager, offset press operator apprentice, teacher, youth probation officer, home health care case manager)? Give summary @ -No Was smoking cessation discussed for >3mins.? @ -No Was critical care preformed (if so, how long)? @ -No Were there social determinants of health that impacted care today? How? (Homelessness, low income, unemployed, alcoholism, drug addiction, transportation, low edu. Level, literacy, decrease access to med. care, retirement, rehab)? @ -No Was there de-escalation of care discussed even if they declined (Discuss DNR or withdrawal of care, Hospice)? DNR status @ -No What co-morbidities impacted this encounter? (DM, HTN, Smoking, COPD, CAD, Cancer, CVA, ARF, Chemo, Hep., AIDS, mental health diagnosis, sleep apnea, morbid obesity)? @ -None Was patient admitted / discharged? Hospital course, mention meds given and route, prescriptions, significant lab abnormalities, going to OR and other pertinent info. @ -Discharge. 58-year-old male with productive cough and URI symptoms. Patient noted to have bilateral diffuse wheezing. He is provided with dose of Solu- Medrol and breathing treatment pending workup. Chest x-ray unremarkable for acute process. Viral swab is negative. With concern for chronic bronchitis patient is provided with prescription for steroids and antibiotics instructed follow-up outpatient with primary care provider for further evaluation. Discussed with Dr. Merida Undiagnosed new problem with uncertain prognosis? @ -No Drug Therapy requiring intensive monitoring for toxicity (Heparin, Nitro, Insulin, Cardizem)? @ -No Were any procedures done? @ -No Diagnosis/symptom? @ -chronic bronchitis, COPD exacerbation Acute, or Chronic, or Acute on Chronic? @ -acute Uncomplicated (without systemic symptoms) or Complicated (systemic symptoms)? @ -uncomplicated Side effects of treatment? @ -No Exacerbation, Progression, or Severe Exacerbation? @ -No Poses a threat to life or bodily function? How? (Chest pain, [place], [place], pneumonia, PE, COPD, DKA, ARF, appy, cholecystitis, CVA, Diverticulitis, Homicidal, Suicidal, threat to staff... and all critical care pts) @ -No - Lab Data Lab Results 11/26/24 Range/Units 11:29 Influenza Type A (PCR) Not Detected (Not Detectd) Influenza Type B (PCR) Not Detected (Not Detectd) RSV (PCR) Not Detected (Not Detectd) SARS-CoV-2 (PCR) Not Detected (Not Detectd) Disposition Clinical Impression: Chronic bronchitis, Productive cough Disposition: HOME SELF-CARE Condition: Good Instructions (If sedation given, give patient instructions): COPD (Chronic Obstructive Pulmonary Disease) (ED) Additional Instructions: Please return to the Emergency Department if symptoms worsen or any other concerns. Begin steroids tomorrow and take as directed. Take antibiotics as prescribed. Prescriptions: Levofloxacin [Levaquin] 500 mg PO DAILY #10 tab predniSONE 50 mg PO DAILY #5 tab Is patient prescribed a controlled substance at d/c from ED?: No Referrals: [facility] [NON-STAFF] - 1-2 days [facility] [NON-STAFF] - 1-2 days None,Stated [Primary Care Provider] - 1-2 days Forms: Area PCPs Time of Disposition: 12:35
[2024-09-17] MEDS: IPRATROPIUM-ALBUTEROL 3 ML NEB INHALATION STA (11:32)
[2024-09-17] MEDS: methylPREDNISolone SOD SUCCI 125 MG/2 ML VIAL IM ONE (11:34)
--- NOTE | 2024-09-17 11:40 | XR ---
EXAMINATION TYPE: XR chest 2V DATE OF EXAM: 09/17/2024 11:28 AM COMPARISON: 08/31/2024 CLINICAL INDICATION: Male, 58 years old with history of productive cough, hx COPD, , TECHNIQUE: PA and lateral views FINDINGS: Median sternotomy wires are present with post-CABG clips. Heart normal size. Mild hyperinflation of m ild interstitial prominence. No consolidation or pleural effusion. IMPRESSION: COPD and post CABG changes. No definite acute process. [facility], , 09/17/2024 11:37 AM
[2024-09-17 12:49] VITALS: BP 142/95; PULSE 87; RESP 18; TEMP 98.9
== END 2024-09-17 13:04 | disposition home or self-care (01) ==
LOC: EC 10:40
DX: J42 Unspecified chronic bronchitis (principal); F17.200 Nicotine dependence, unspecified, uncomplicated; Z88.0 Allergy status to penicillin
CPT/HCPCS: 94640; 87636; 71046; 99283; 96372; J2919

== ENCOUNTER 2024-10-21 08:57 | Emergency (ER) | payer OTHER ==
[2024-10-21] MEDS: KETOROLAC 15 MG/ML 1 ML VIAL IM STA (09:17)
[2024-10-21] MEDS: HYDROcodone/APAP 7.5-325MG 1 EACH TAB PO ONE ×2 (09:18→09:37)
[2024-10-21] MEDS: ORPHENADRINE 30 MG/ML 2 ML VIAL IM STA (09:18)
--- NOTE | 2024-10-21 09:57 | ED ---
Back Pain HPI - General Chief Complaint: Back Pain/Injury Stated Complaint: Back pain Time Seen by Provider: 10/21/24 09:01 Source: patient, RN notes reviewed Mode of arrival: ambulatory Limitations: no limitations - History of Present Illness Initial Comments: This is a 59-year-old male who presents to the emergency department for back pain. Patient slipped on ice a few days ago and in the process twisted his back. He did not fall, states that he just twisted his back and has since had increasing pain. Pain is all right-sided, but states that it goes from his neck down to his lumbar spine. He tried taking [id number] medication which was initially effective, but has since stopped working. Denies any loss of bowel/bladder control or saddle anesthesia. MD Complaint: back pain - Related Data Home Medications Medication Instructions Recorded Confirmed Albuterol Inhaler [Ventolin Hfa 2 puff INHALATION RT-QID PRN 11/15/23 11/15/23 Inhaler] Previous Rx's Medication Instructions Recorded Aspirin EC [Ecotrin Low Dose] 81 mg PO DAILY #30 tab 01/29/24 Atorvastatin [Lipitor] 80 mg PO HS #30 tab 01/29/24 Clopidogrel [Plavix] 75 mg PO DAILY #30 tab 01/29/24 Ibuprofen [Motrin] 800 mg PO Q8H PRN #30 tab 01/29/24 Isosorbide Mononitrate ER [Imdur] 30 mg PO DAILY #30 tab 01/29/24 Metoprolol Succinate [Metoprolol 25 mg PO DAILY #30 tab 01/29/24 Succinate ER] Nitroglycerin Sl Tabs [Nitrostat] 0.4 mg SUBLINGUAL Q5M PRN #30 tab 01/29/24 lisinopriL [Zestril] 5 mg PO DAILY #30 tab 01/29/24 Albuterol Inhaler [Ventolin Hfa 1 - 2 puff INHALATION Q6H PRN #1 08/31/24 Inhaler] each Azithromycin [Zithromax Z Pack] 0 tab PO DIRECTED #6 tab 08/31/24 Levofloxacin [Levaquin] 500 mg PO DAILY #10 tab 09/17/24 predniSONE 50 mg PO DAILY #5 tab 09/17/24 Meloxicam [Mobic] 15 mg PO DAILY PRN #20 tab 10/21/24 methocarbamoL [Robaxin-750] 1,500 mg PO TID PRN #30 tab 10/21/24 Allergies Allergy/AdvReac Type Severity Reaction Status Date / Time Penicillins Allergy Unknown Verified 10/21/24 09:00 Childhood Review of Systems ROS Statement: Those systems with pertinent positive or pertinent negative responses have been documented in the HPI. ROS Other: All systems not noted in ROS Statement are negative. Past Medical History Past Medical History: COPD, Hyperlipidemia, Hypertension, Myocardial Infarction (CA), Seizure Disorder Additional Past Medical History / Comment(s): ISCHEMIC CARDIOMYOPATHY WITH EF 40-45%. 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 Last Myocardial Infarction Date:: 06/12/14 History of Any Multi-Drug Resistant Organisms: None Reported Past Surgical History: Coronary Bypass/CABG, Heart Catheterization With Stent, Hernia Repair, Orthopedic Surgery Additional Past Surgical History / Comment(s): cabg january 2014-3 vessel, Cardiac caths and stenting with last Cardiac cath Jul [address] Cerda. Past Anesthesia/Blood Transfusion Reactions: No Reported Reaction Additional Past Anesthesia/Blood Transfusion Reaction / Comment(s): NO PROBLEM TOLERATING ANESTHESIA. HAS NEVER RECIEVED BLOOD TO HIS KNOWLEDGE. Date of Last Stent Placement:: 06/12/14 Past Psychological History: Anxiety, Panic Disorder, PTSD Smoking Status: Current every day smoker Past Alcohol Use History: None Reported Past Drug Use History: Marijuana - Past Family History Father Family Medical History: Coronary Artery Disease (CAD), Myocardial Infarction (CA) Additional Family Medical History / Comment(s): FATHER STILL LIVING Mother Family Medical History: Coronary Artery Disease (CAD), Myocardial Infarction (CA) Additional Family Medical History / Comment(s): MOTHER 09/23/14 of unknown causes. Sister(s) Family Medical History: Myocardial Infarction (CA) Additional Family Medical History / Comment(s): SISTER OF CA AT AGE 53 General Exam Limitations: no limitations General appearance: alert, in no apparent distress Head exam: Present: atraumatic, normocephalic, normal inspection Respiratory exam: Present: normal lung sounds bilaterally. Absent: respiratory distress, wheezes, rales, rhonchi, stridor Cardiovascular Exam: Present: regular rate, normal rhythm, normal heart sounds. Absent: systolic murmur, diastolic murmur, rubs, gallop, clicks Back exam: Present: other (Tenderness to palpation over the right mid and lower back) Neurological exam: Present: alert, oriented X3, CN II-XII intact Psychiatric exam: Present: normal affect, normal mood Skin exam: Present: warm, dry, intact, normal color. Absent: rash Course Vital Signs 10/21/24 10/21/24 08:58 10:53 Temperature 97.4 F L 98.0 F Pulse Rate 18 L 74 Respiratory 78 H 18 Rate Blood Pressure 145/91 136/86 O2 Sat by Pulse 99 99 Oximetry Medical Decision Making - Medical Decision Making This is a 59-year-old male who presents to the emergency department for back pain. Was pt. sent in by a medical professional or institution? @ -No Did you speak to anyone other than the patient for history? @ -No Did you review nursing and triage notes? @ -Yes, and I agree, it is accurate with regards to the patient's symptoms. Were old charts reviewed? @ -No Differential Diagnosis? @ -Differential Back Pain: Strain, zoster, cauda equina syndrome, epidural abscess, vertebral osteomyelitis, discitis, fracture, subluxation, disc herniation, DJD, spinal stenosis, dissection, AAA, pancreatitis, peptic ulcer disease, pyelonephritis, kidney stone, this is not meant to be an all-inclusive list. EKG interpreted by me (3pts min.)? @ -Not obtained X-rays interpreted by me (1pt min.)? @ -X-ray of the spine obtained. My interpretation identifies no acute fractures. CT interpreted by me (1pt min.)? @ -Not obtained U/S interpreted by me (1pt. min.)? @ -Not obtained What testing was considered but not performed? (CT, X-rays, U/S, labs)? Why? @ -None What meds were considered but not given? Why? @ -None Did you discuss the management of the patient with other professionals? @ -No Did you reconcile home meds? @ -No Was smoking cessation discussed for >3mins.? @ -I discussed smoking cessation for greater than 3 minutes. The risk of smoking were discussed with the patient including but not limited to risks of cancer, stroke, coronary artery disease and COPD. Also discussed with patient were multiple methods of quitting smoking. Lastly we discussed the financial cost of smoking. Was critical care preformed (if so, how long)? @ -No Were there social determinants of health that impacted care today? How? (Homelessness, low income, unemployed, alcoholism, drug addiction, transportation, low edu. Level, literacy, decrease access to med. care, long term, rehab)? @ -No Was there de-escalation of care discussed even if they declined? (Discuss DNR or withdrawal of care, Hospice)? @ -No What co-morbidities impacted this encounter? (DM, HTN, Smoking, COPD, CAD, Cancer, CVA, Hep., AIDS, mental health diagnosis, sleep apnea, morbid obesity)? @ -Smoking Was patient admitted / discharged? @ -Discharged. X-ray of the spine obtained revealing degenerative changes without any acute process. Pain was managed in the emergency department. Advised that this is likely related to a muscle strain. Prescription for Mobic and Robaxin provided. Advised follow-up with his PCP for reevaluation. Patient discharged home in stable condition. Case discussed with ED attending Dr. Kaplan. Return precautions reviewed in depth, the patient is instructed to return to the emergency department with any new, worsening, or concerning symptoms. Patient verbalized understanding. Undiagnosed new problem with uncertain prognosis? @ -None Drug Therapy requiring intensive monitoring for toxicity (Heparin, Nitro, Insulin, Cardizem)? @ -None Were any procedures done? @ -None Diagnosis/symptom? @ -Back strain Acute, or Chronic, or Acute on Chronic? @ -Acute Uncomplicated (without systemic symptoms) or Complicated (systemic symptoms)? @ -Uncomplicated Side effects of treatment? @ -None Exacerbation, Progression, or Severe Exacerbation] @ -Not applicable Poses a threat to life or bodily function? @ -No - Radiology Data Radiology results: report reviewed, image reviewed Disposition Clinical Impression: Back strain, Nicotine dependence Disposition: HOME SELF-CARE Instructions (If sedation given, give patient instructions): Low Back Strain (ED), Thoracic Back Strain (ED) Additional Instructions: Return to the emergency department with any new, worsening, or concerning symptoms. Take the Mobic once daily for pain relief. Take the Robaxin as 1 to 2 tablets up to 3-4 times daily. Follow up with your primary care provider in 1-2 days. Prescriptions: Meloxicam [Mobic] 15 mg PO DAILY PRN #20 tab PRN Reason: Pain methocarbamoL [Robaxin-750] 1,500 mg PO TID PRN #30 tab PRN Reason: Pain Is patient prescribed a controlled substance at d/c from ED?: No Referrals: [facility] [NON-STAFF] - 1-2 days [facility] [NON-STAFF] - 1-2 days None,Stated [Primary Care Provider] - 1-2 days Forms: PH Area PCPs Time of Disposition: 10:47
--- NOTE | 2024-10-21 10:39 | XR ---
EXAMINATION TYPE: XR spine complete AP and Lat DATE OF EXAM: 10/21/2024 9:40 AM COMPARISON: None. CLINICAL INDICATION: Male, 59 years old with history of Pain, injury, pain, fall 6 days prior TECHNIQUE: 8 view(s) obtained. FINDINGS: Cervical spine: Some mild facet changes are evident. Odontoid is visualized appears intact. There is some limitation of overlying occiput. Some disc space narrowing is present greatest at C6-7. Anterior vertebral body spurring is present. Prevertebral space is normal. Posterior spinal lamellar line is intact. Thoracic spine: There are 12 thoracic type vertebral bodies. Pedicles are intact. Vertebral body heig hts and disc heights appear preserved. Alignment is preserved. Lumbar spine: There are 5 lumbar-type vertebral bodies. The pedicles are intact. Vertebral body heigh ts are preserved. There is a grade 1 approaching grade 2 spondylolisthesis of L5 anteriorly on S1. Th ere is loss of disc height at L5-S1. IMPRESSION: 1. Grade 1 to grade 2 spondylolisthesis of L5 anteriorly on S1. 2. No suspicious compression deformities cervical thoracic or lumbar spine. 3. Degenerative disc changes within the L5-S1 level and within the cervical spine greatest at C6-7. [facility], , 10/21/2024 10:37 AM
[2024-10-21] MEDS: ACET/COD 300 MG/30 MG STARTER PACK 6 TAB BTL PO STA (10:51)
[2024-10-21 10:54] VITALS: BP 136/86; PULSE 74; RESP 18; TEMP 98
== END 2024-10-21 10:54 | disposition home or self-care (01) ==
LOC: EC 08:57
DX: S39.012A Strain of muscle, fascia and tendon of lower back, initial encounter (principal); F17.200 Nicotine dependence, unspecified, uncomplicated; Z88.0 Allergy status to penicillin; W00.0XXA Fall on same level due to ice and snow, initial encounter
CPT/HCPCS: 72082; 99284; 96372 ×2; 99406; J2360; J1885

== ENCOUNTER 2024-11-01 15:40 | Observation (INO) | payer OTHER ==
--- NOTE | 2024-11-01 16:36 | XR ---
EXAMINATION TYPE: XR chest 2V DATE OF EXAM: 11/01/2024 4:30 PM COMPARISON: Prior chest x-ray September 17, 2024 CLINICAL INDICATION: Male, 59 years old with history of Chest Pain, TECHNIQUE: Frontal and lateral views of the chest are obtained. FINDINGS: Overlying sternal wires are redemonstrated. Underlying emphysematous change is present. T here is no suspicious focal air space opacity, pleural effusion, or pneumothorax seen. The cardiac s ilhouette size is stable and within normal limits. The osseous structures are intact. IMPRESSION: Chronic emphysematous change without acute pulmonary process. No significant change from most recent prior. [facility], , 11/01/2024 4:34 PM
[2024-11-01 16:50] LABS: Basophils # (A) 0.1 k/uL (0-0.2); Basophils % (A) 1 %; Eosinophils # (A) 0.6 k/uL (0-0.7); Eosinophils % (A) 6 %; HCT 42.5 % (39.0-53.0); HGB 13.9 gm/dL (13.0-17.5); Lymphocytes # (A) 2.3 k/uL (1.0-4.8); Lymphocytes % (A) 25 %; MCH 28.9 pg (25.0-35.0); MCHC 32.8 g/dL (31.0-37.0); Mean Platelet Volume 8.6; Monocytes # (A) 0.5 k/uL (0-1.0); Monocytes % (A) 6 %; Neutrophils # (A) 5.8 k/uL (1.3-7.7); Neutrophils % (A) 62 %; Platelet Count 285 k/uL (150-450); RBC 4.82 m/uL (4.30-5.90); RDW 14.4 % (11.5-15.5); WBC 9.4 k/uL (3.8-10.6)
[2024-11-01 16:52] LABS: MCV 88.1 fL (80.0-100.0)
[2024-11-01 16:54] LABS: ALT 13 U/L (4-49); AST 18 U/L (17-59); African American GFR (CKD) >90 (>60 ml/min/1.73 sqM); Albumin 4.6 g/dL (3.5-5.0); Alkaline Phosphatase 67 U/L (38-126); Anion Gap 11 mmol/L; Blood Urea Nitrogen 22 mg/dL (9-20); Calcium 9.8 mg/dL (8.4-10.2); Carbon Dioxide 23 mmol/L (22-30); Chloride 101 mmol/L (98-107); Glucose 94 mg/dL (74-99); Lipase 94 U/L (23-300); Magnesium 1.6 mg/dL (1.6-2.3); Non-African American GFR(CKD) 85 (>60 ml/min/1.73 sqM); Sodium 135 mmol/L (137-145); Total Bilirubin 0.6 mg/dL (0.2-1.3); Total Protein 6.9 g/dL (6.3-8.2)
[2024-11-01 16:55] LABS: Partial Thromboplastin Time 23.7 sec (22.0-30.0); Prothrombin Time 11.5 sec (10.0-12.5)
[2024-11-01 17:02] LABS: NT-Pro-B-Type Natriuretic Pept 931 pg/mL
--- NOTE | 2024-11-01 19:46 | ED ---
General Adult HPI - General Chief complaint: Chest Pain Stated complaint: sore neck, sweating, headache, chest pressure Time Seen by Provider: 11/01/24 16:01 Source: patient Mode of arrival: wheelchair Limitations: no limitations - History of Present Illness Initial comments: 59-year-old male with past medical history of coronary artery disease, ischemic cardiomyopathy who presents emergency department with chest pain. States that he used meth last night that a friend had. Today he has not felt well. He reports a diaphoresis, headache, lightheadedness and chest pressure. Patient states he has been fatigued, short of breath. He does have a history of DC with stent placement. Patient denies fevers, chills or cough. No other alleviating, precipitating or modifying factors - Related Data Previous Rx's Medication Instructions Recorded Meloxicam [Mobic] 15 mg PO DAILY PRN #20 tab 10/21/24 methocarbamoL [Robaxin-750] 1,500 mg PO TID PRN #30 tab 10/21/24 Allergies Allergy/AdvReac Type Severity Reaction Status Date / Time Penicillins Allergy Unknown Verified 11/01/24 16:59 Childhood Review of Systems ROS Statement: Those systems with pertinent positive or pertinent negative responses have been documented in the HPI. ROS Other: All systems not noted in ROS Statement are negative. Past Medical History Past Medical History: COPD, Hyperlipidemia, Hypertension, Myocardial Infarction ([place]), Seizure Disorder Additional Past Medical History / Comment(s): ISCHEMIC CARDIOMYOPATHY WITH EF 40-45%. 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 Last Myocardial Infarction Date:: 06/12/14 History of Any Multi-Drug Resistant Organisms: None Reported Past Surgical History: Coronary Bypass/CABG, Heart Catheterization With Stent, Hernia Repair, Orthopedic Surgery Additional Past Surgical History / Comment(s): cabg january 2014-3 vessel, Cardiac caths and stenting with last Cardiac cath Jul [address] Cerda. Past Anesthesia/Blood Transfusion Reactions: No Reported Reaction Additional Past Anesthesia/Blood Transfusion Reaction / Comment(s): NO PROBLEM TOLERATING ANESTHESIA. HAS NEVER RECIEVED BLOOD TO HIS KNOWLEDGE. Date of Last Stent Placement:: 06/12/14 Past Psychological History: Anxiety, Panic Disorder, PTSD Smoking Status: Current every day smoker Past Alcohol Use History: None Reported Past Drug Use History: Marijuana, Methamphetamine - Past Family History Father Family Medical History: Coronary Artery Disease (CAD), Myocardial Infarction (DC) Additional Family Medical History / Comment(s): FATHER STILL LIVING Mother Family Medical History: Coronary Artery Disease (CAD), Myocardial Infarction (DC) Additional Family Medical History / Comment(s): MOTHER 09/23/14 of unknown causes. 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 sent in by a medical professional or institution (, [place], [facility], urgent care, hospital, or halfway...) When possible be specific @ -[No] Did you speak to anyone other than the patient for history (EMS, parent, family, police, friend...)? What history was obtained from this source @ -[No] Did you review nursing and triage notes (agree or disagree)? Why? @ -[I reviewed and agree with nursing and triage notes] Were old charts reviewed (outside hosp., previous admission, EMS record, old EKG, old radiological studies, urgent care reports/EKG's, halfway records)? Report findings @ -[No old charts were reviewed] Differential Diagnosis (chest pain, altered mental status, abdominal pain women, abdominal pain men, vaginal bleeding, weakness, fever, dyspnea, syncope, headache, dizziness, GI bleed, back pain, seizure, CVA, palpatations, mental health, musculoskeletal)? @ -[not applicable] EKG interpreted by me (3pts min.). @ -Yes and demonstrates suspected sinus with a rate of 97. ME interval 109. QRS 115. QTc of 438. Some PVCs present. No acute ST segment elevation X-rays interpreted by me (1pt min.). @ -[None done] CT interpreted by me (1pt min.). @ -[None done] U/S interpreted by me (1pt. min.). @ -[None done] What testing was considered but not performed or refused? (CT, X-rays, U/S, labs)? Why? @ -[None] What meds were considered but not given or refused? Why? @ -[None] Did you discuss the management of the patient with other professionals (professionals i.e. , PA, [facility], lab, RT, psych nurse, psychiatric social worker, sensitometrist, teacher, contracts officer, case packer and sealer)? Give summary @ -[No] Was smoking cessation discussed for >3mins.? @ -[No] Was critical care preformed (if so, how long)? @ -[No] Were there social determinants of health that impacted care today? How? (Homelessness, low income, unemployed, alcoholism, drug addiction, transportation, low edu. Level, literacy, decrease access to med. care, custodial, rehab)? @ -[No] Was there de-escalation of care discussed even if they declined (Discuss DNR or withdrawal of care, Hospice)? DNR status @ -[No] What co-morbidities impacted this encounter? (DM, HTN, Smoking, COPD, CAD, Cancer, CVA, ARF, Chemo, Hep., AIDS, mental health diagnosis, sleep apnea, morbid obesity)? @ -[None] Was patient admitted / discharged? Hospital course, mention meds given and route, prescriptions, significant lab abnormalities, going to OR and other pertinent info. @ -[hospital course] Undiagnosed new problem with uncertain prognosis? @ -[No] Drug Therapy requiring intensive monitoring for toxicity (Heparin, Nitro, Insulin, Cardizem)? @ -[No] Were any procedures done? @ -[No] Diagnosis/symptom? @ -[default] Acute, or Chronic, or Acute on Chronic? @ -[default] Uncomplicated (without systemic symptoms) or Complicated (systemic symptoms)? @ -[default] Side effects of treatment? @ -[No] Exacerbation, Progression, or Severe Exacerbation? @ -[No] Poses a threat to life or bodily function? How? (Chest pain, [place], DC, pneumonia, PE, COPD, DKA, ARF, appy, cholecystitis, CVA, Diverticulitis, Homicidal, Suicidal, threat to staff... and all critical care pts) @ -[No] - Lab Data Result diagrams: 11/01/24 16:22 11/01/24 16:22 Lab Results 11/01/24 11/01/24 11/01/24 Range/Units 16:22 16:22 16:22 WBC 9.4 (3.8-10.6) k/uL RBC 4.82 (4.30-5.90) m/uL Hgb 13.9 (13.0-17.5) gm/dL Hct 42.5 (39.0-53.0) % MCV 88.1 D (80.0-100.0) fL MCH 28.9 (25.0-35.0) pg MCHC 32.8 (31.0-37.0) g/dL RDW 14.4 (11.5-15.5) % Plt Count 285 (150-450) k/uL MPV 8.6 Neutrophils % 62 % Lymphocytes % 25 % Monocytes % 6 % Eosinophils % 6 % Basophils % 1 % Neutrophils # 5.8 (1.3-7.7) k/uL Lymphocytes # 2.3 (1.0-4.8) k/uL Monocytes # 0.5 (0-1.0) k/uL Eosinophils # 0.6 (0-0.7) k/uL Basophils # 0.1 (0-0.2) k/uL PT 11.5 (10.0-12.5) sec INR 1.0 (<1.2) APTT 23.7 (22.0-30.0) sec Sodium 135 L (137-145) mmol/L Potassium 4.0 (3.5-5.1) mmol/L Chloride 101 (98-107) mmol/L Carbon Dioxide 23 (22-30) mmol/L Anion Gap 11 mmol/L BUN 22 H (9-20) mg/dL Creatinine 0.97 (0.66-1.25) mg/dL Est GFR (CKD-EPI)AfAm >90 (>60 ml/min/1.73 sqM) Est GFR (CKD-EPI)NonAf 85 (>60 ml/min/1.73 sqM) Glucose 94 (74-99) mg/dL Calcium 9.8 (8.4-10.2) mg/dL Magnesium 1.6 (1.6-2.3) mg/dL Total Bilirubin 0.6 (0.2-1.3) mg/dL AST 18 (17-59) U/L ALT 13 (4-49) U/L Alkaline Phosphatase 67 (38-126) U/L Troponin I (0.000-0.034) ng/mL NT-Pro-B Natriuret Pep 931 pg/mL Total Protein 6.9 (6.3-8.2) g/dL Albumin 4.6 (3.5-5.0) g/dL Lipase 94 (23-300) U/L 11/01/24 Range/Units 16:22 WBC (3.8-10.6) k/uL RBC (4.30-5.90) m/uL Hgb (13.0-17.5) gm/dL Hct (39.0-53.0) % MCV (80.0-100.0) fL MCH (25.0-35.0) pg MCHC (31.0-37.0) g/dL RDW (11.5-15.5) % Plt Count (150-450) k/uL MPV Neutrophils % % Lymphocytes % % Monocytes % % Eosinophils % % Basophils % % Neutrophils # (1.3-7.7) k/uL Lymphocytes # (1.0-4.8) k/uL Monocytes # (0-1.0) k/uL Eosinophils # (0-0.7) k/uL Basophils # (0-0.2) k/uL PT (10.0-12.5) sec INR (<1.2) APTT (22.0-30.0) sec Sodium (137-145) mmol/L Potassium (3.5-5.1) mmol/L Chloride (98-107) mmol/L Carbon Dioxide (22-30) mmol/L Anion Gap mmol/L BUN (9-20) mg/dL Creatinine (0.66-1.25) mg/dL Est GFR (CKD-EPI)AfAm (>60 ml/min/1.73 sqM) Est GFR (CKD-EPI)NonAf (>60 ml/min/1.73 sqM) Glucose (74-99) mg/dL Calcium (8.4-10.2) mg/dL Magnesium (1.6-2.3) mg/dL Total Bilirubin (0.2-1.3) mg/dL AST (17-59) U/L ALT (4-49) U/L Alkaline Phosphatase (38-126) U/L Troponin I <0.012 (0.000-0.034) ng/mL NT-Pro-B Natriuret Pep pg/mL Total Protein (6.3-8.2) g/dL Albumin (3.5-5.0) g/dL Lipase (23-300) U/L Disposition Clinical Impression: Chest pain, COPD with exacerbation, Coronary artery disease Disposition: ADMITTED IP TO THIS HOSP Condition: Stable Is patient prescribed a controlled substance at d/c from ED?: No Referrals: None,Stated [Primary Care Provider] - 1-2 days Time of Disposition: 19:48 Decision to Admit Reason: Admit from EC Decision Date: 11/01/24 Decision Time: 19:48
[2024-11-01] MEDS ORDERED: NALOXONE 0.4 MG/ML 1 ML VIAL IV PRN (19:49)
[2024-11-01] MEDS: ASPIRIN 81 MG PO STA (20:14)
[2024-11-01] MEDS: NITROGLYCERIN OINT 1 INCH/GM PACKET TOPICAL STA (20:17)
[2024-11-01] MEDS: IPRATROPIUM-ALBUTEROL 3 ML NEB INHALATION STA (20:54)
[2024-11-01] MEDS ORDERED: MELOXICAM 7.5 MG TAB PO PRN (21:59)
[2024-11-01] MEDS ORDERED: ONDANSETRON 4 MG/2 ML VIAL IVP PRN (21:59)
[2024-11-01] MEDS ORDERED: methocarbamoL 750 MG TAB PO PRN (21:59)
[2024-11-02] MEDS ORDERED: guaiFENesin 600 MG TABLET.ER PO PRN (02:58)
[2024-11-02] MEDS ORDERED: IPRATROPIUM-ALBUTEROL 3 ML NEB INHALATION PRN (05:50)
[2024-11-02 07:32] LABS: Basophils # (A) 0.1 k/uL (0-0.2); Basophils % (A) 1 %; Eosinophils # (A) 1.1 k/uL (0-0.7); Eosinophils % (A) 11 %; HCT 42.1 % (39.0-53.0); HGB 13.8 gm/dL (13.0-17.5); Lymphocytes # (A) 2.1 k/uL (1.0-4.8); Lymphocytes % (A) 21 %; MCH 29.3 pg (25.0-35.0); MCHC 32.7 g/dL (31.0-37.0); MCV 89.7 fL (80.0-100.0); Mean Platelet Volume 8.4; Monocytes # (A) 0.5 k/uL (0-1.0); Monocytes % (A) 5 %; Neutrophils % (A) 60 %; Platelet Count 282 k/uL (150-450); RBC 4.69 m/uL (4.30-5.90); RDW 14.6 % (11.5-15.5); WBC 9.9 k/uL (3.8-10.6)
[2024-11-02 07:41] LABS: African American GFR (CKD) >90 (>60 ml/min/1.73 sqM); Anion Gap 11 mmol/L; Blood Urea Nitrogen 25 mg/dL (9-20); Calcium 9.4 mg/dL (8.4-10.2); Carbon Dioxide 22 mmol/L (22-30); Chloride 104 mmol/L (98-107); Glucose 105 mg/dL (74-99); Non-African American GFR(CKD) >90 (>60 ml/min/1.73 sqM); Potassium 4.1 mmol/L (3.5-5.1); Sodium 137 mmol/L (137-145)
[2024-11-02] MEDS: PANTOPRAZOLE 40 MG TABLET PO SCH (08:06)
[2024-11-02] MEDS: ACETAMINOPHEN TAB 325 MG TAB PO PRN (08:15)
[2024-11-02] MEDS: ASPIRIN 81 MG PO SCH (10:30)
[2024-11-02] MEDS: ISOSORBIDE MONONITRATE ER 30 MG TAB.ER.24H PO SCH (10:30)
[2024-11-02] MEDS: METOPROLOL TARTRATE 25 MG TAB PO SCH (10:30)
[2024-11-02] MEDS: lisinopriL 5 MG TAB PO SCH (10:30)
--- NOTE | 2024-11-02 12:21 | P.CRDCN ---
History of Present Illness Consult date: 11/02/24 Reason for Consult (text): Chest pain, history of ASCAD History of present illness: This is a 59-year-old male patient of Dr. Meghann Loyd with past medical history of coronary artery disease with previous CABG in 2013 and subsequent stenting of t he PLV in 2020, ischemic cardiomyopathy, CVA in 2019, severe MR, tobacco use and dependence, alcohol abuse. We have been asked to evaluate the patient for chest pain. Patient presented to the emergency center due to chest pain and had been doing methamphetamines the night before with a friend and has not felt well according to ER record. Patient states that he is come planing of weak and feeling tired. He states he was at the gas station getting a coffee and then he had to run to the bus stop with his boots on and heavy clothing and by the time he got to the bus stop he was feeling dizzy thought he was going to pass out with nausea and a bad achy neck. He states he then went down and fell onto the ground with possible loss of consciousness and when he came around he did not know why he was at the bus stop. All the symptoms eased up in about 15 minutes except he still had a headache and felt fatigued. Patient states that this is more intense activity than he is used to. Patient is also stating that he stopped taking all of his cardiac medications about 3 weeks ago. Patient has been feeling more fatigued ever since he stopped taking his medications. Patient also has not followed up in the office since 2020. He is an active smoker of 1/2 to 1 pack/day Blood pressure 150/99, heart rate 70, pulse ox 95% on room air. -EKG: Sinus rhythm ST depression unchanged from previous EKGs. PVCs. -Chest x-ray: Chronic emphysematous change without acute process. -Laboratory studies: WBC 9.9, hemoglobin 13.8. Electrolytes are normal. BUN 25 creatinine 0.92. Troponin negative x 3. proBNP 931. -Home cardiac medications: Plavix 75 mg daily, aspirin 81 mg daily, Lipitor 80 mg at bedtime, Imdur 30 mg daily, lisinopril 5 mg daily, Lopressor 25 mg twice daily. -Most recent echocardiogram obtained in October 2023 revealing ejection fraction 3540 %, severe mitral regurgitation with posterior directed jet. -Cardiac catheterization history: 2020 with stenting of totally occluded right PLV. Patient was also found to have chronically occluded LAD and left circumflex. Patent KERR to LAD. Patent SVG to diagonal branch and to the right coronary artery PDA. Occluded SVG to obtuse marginal branch. Elevated LVEDP. -Patient underwent Lexiscan stress test in January 2023 with old infarct redemonstrated. Possible valeria-infarct ischemia on today study involving inferior lateral left ventricular wall. Films were reviewed with manager talent and no plans for cardiac catheterization were recommended. Review Of Systems: At the time of my exam: CONSTITUTIONAL: Denies fever or chills. HEENT: Denies blurred vision, vision changes, or eye pain. Denies hemoptysis CARDIOVASCULAR: Denies chest pain. Denies orthopnea. Denies PND. Denies palpitations RESPIRATORY: Denies shortness of breath. GASTROINTESTINAL: Denies abdominal pain. Denies nausea or vomiting. HEMATOLOGIC: Denies bleeding disorders. GENITOURINARY: Denies any blood in urine. SKIN: Denies puritis. Denies rash. Physical examination: Gen: This is 59-year-old male in no acute distress VS: reviewed HEENT: Head is atraumatic, normocephalic. Pupils equal, round. Sclerae is anicteric. NECK: Supple. No JVD. LUNGS: Clear to auscultation. No wheezes or rhonchi. No intercostal retractions. HEART: Regular rate and rhythm. Systolic murmur. ABDOMEN: Soft No tenderness. EXTREMITIES: No pedal edema. No calf tenderness. NEUROLOGICAL: Patient is awake, alert and oriented x3. Assessment: Atypical chest pain, acute coronary syndrome ruled out Noncompliance with medications Methamphetamine use Coronary artery disease with previous CABG x 4 and subsequent stenting, 2020 with PCI to PLV Ischemic cardiomyopathy Hypertension Hyperlipidemia History of CVA, 2019 Nicotine dependence, patient smokes 1 pack/day Alcohol abuse, patient drinks at least 1 pint per day of vodka Plan: Resume patient's home cardiac medications except for Plavix If patient is feeling well later this morning, patient is cleared for discharge. No plan for any further cardiac workup at this time. Patient may follow-up in the office in the next 1 to 2 weeks and will be reevaluated for cardiac workup Obtain 2-D echocardiogram and Doppler study to assess cardiac structure and function Thank you kindly for this consultation. Nurse practitioner note has been reviewed, I agree with documented findings and plan of care. Patient was seen and examined. Past Medical History Past Medical History: COPD, Hyperlipidemia, Hypertension, Myocardial Infarction ([place]), Seizure Disorder Additional Past Medical History / Comment(s): ISCHEMIC CARDIOMYOPATHY WITH EF 40-45%. 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 Last Myocardial Infarction Date:: 06/12/14 History of Any Multi-Drug Resistant Organisms: None Reported Past Surgical History: Coronary Bypass/CABG, Heart Catheterization With Stent, Hernia Repair, Orthopedic Surgery Additional Past Surgical History / Comment(s): cabg january 2014-3 vessel, Cardiac caths and stenting with last Cardiac cath Jul [address] Cerda. Past Anesthesia/Blood Transfusion Reactions: No Reported Reaction Additional Past Anesthesia/Blood Transfusion Reaction / Comment(s): NO PROBLEM TOLERATING ANESTHESIA. HAS NEVER RECIEVED BLOOD TO HIS KNOWLEDGE. Date of Last Stent Placement:: 06/12/14 Past Psychological History: Anxiety, Panic Disorder, PTSD Additional Psychological History / Comment(s): Patient is homeless, been homeless for 8 months. Living whereever he can Smoking Status: Current every day smoker Past Alcohol Use History: None Reported Additional Past Alcohol Use History / Comment(s): drinks 1 pint/day Past Drug Use History: Marijuana, Methamphetamine Additional Drug Use History / Comment(s): uses marijuanan occaisionally - Past Family History Father Family Medical History: Coronary Artery Disease (CAD), Myocardial Infarction ([place]) Additional Family Medical History / Comment(s): FATHER STILL LIVING Mother Family Medical History: Coronary Artery Disease (CAD), Myocardial Infarction ([place]) Additional Family Medical History / Comment(s): MOTHER 09/23/14 of unknown causes. Sister(s) Family Medical History: Myocardial Infarction ([place]) Additional Family Medical History / Comment(s): SISTER OF [place] AT AGE 53 Medications and Allergies Home Medications Medication Instructions Recorded Confirmed Type Meloxicam [Mobic] 15 mg PO DAILY PRN #20 tab 10/21/24 11/01/24 Rx methocarbamoL [Robaxin-750] 1,500 mg PO TID PRN #30 tab 10/21/24 11/01/24 Rx Allergies Allergy/AdvReac Type Severity Reaction Status Date / Time Penicillins Allergy Unknown Verified 11/01/24 16:59 Childhood Physical Exam Vitals: Vital Signs Temp Pulse Pulse Resp BP BP Pulse Ox 11/02/24 07:00 98.4 F 70 17 150/99 95 11/02/24 02:28 98.1 F 86 18 133/92 94 L 11/01/24 21:33 98.1 F 103 H 17 145/94 93 L 11/01/24 20:45 87 18 139/113 94 L 11/01/24 17:45 84 22 121/89 95 11/01/24 16:27 76 11/01/24 15:53 97.7 F 76 24 104/66 97 Intake and Output 11/01/24 11/02/24 11/02/24 22:59 06:59 14:59 Intake Total 540 Balance 540 Intake: Tube Feeding 540 Other: # Bowel Movements 0 Weight 79.379 kg Results 11/02/24 06:53 11/02/24 06:53 Cardiac Enzymes 11/01/24 11/01/24 11/01/24 Range/Units 16:22 16:22 20:58 AST 18 (17-59) U/L Troponin I <0.012 <0.012 (0.000-0.034) ng/mL 11/01/24 Range/Units 23:50 AST (17-59) U/L Troponin I <0.012 (0.000-0.034) ng/mL Coagulation 11/01/24 Range/Units 16:22 PT 11.5 (10.0-12.5) sec APTT 23.7 (22.0-30.0) sec CBC 11/01/24 11/02/24 Range/Units 16:22 06:53 WBC 9.4 9.9 (3.8-10.6) k/uL RBC 4.82 4.69 (4.30-5.90) m/uL Hgb 13.9 13.8 (13.0-17.5) gm/dL Hct 42.5 42.1 (39.0-53.0) % Plt Count 285 282 (150-450) k/uL Comprehensive Metabolic Panel 11/01/24 11/02/24 Range/Units 16:22 06:53 Sodium 135 L 137 (137-145) mmol/L Potassium 4.0 4.1 (3.5-5.1) mmol/L Chloride 101 104 (98-107) mmol/L Carbon Dioxide 23 22 (22-30) mmol/L BUN 22 H 25 H (9-20) mg/dL Creatinine 0.97 0.92 (0.66-1.25) mg/dL Glucose 94 105 H (74-99) mg/dL Calcium 9.8 9.4 (8.4-10.2) mg/dL AST 18 (17-59) U/L ALT 13 (4-49) U/L Alkaline Phosphatase 67 (38-126) U/L Total Protein 6.9 (6.3-8.2) g/dL Albumin 4.6 (3.5-5.0) g/dL Current Medications Generic Name Dose Route Start Last Admin Trade Name Jeremyq PRN Reason Stop Dose Admin Acetaminophen 650 mg 11/01/24 19:49 11/02/24 08:15 Acetaminophen Tab 325 Mg Tab PO 650 mg Q6HR PRN Administration Mild Pain or Fever > 100.5 Albuterol/Ipratropium 3 ml 11/02/24 05:50 Ipratropium-Albuterol 3 Ml Neb INHALATION RT-TID PRN Shortness Of Breath Or Wheezing Guaifenesin 600 mg 11/02/24 02:58 Guaifenesin 600 Mg Tablet.Er PO Q12HR PRN Congestion Meloxicam 15 mg 11/01/24 21:59 Meloxicam 7.5 Mg Tab PO DAILY PRN Pain Methocarbamol 1,500 mg 11/01/24 21:59 Methocarbamol 750 Mg Tab PO TID PRN Pain Naloxone HCl 0.2 mg 11/01/24 19:49 Naloxone 0.4 Mg/Ml 1 Ml Vial IV Q2M PRN Opioid Reversal Ondansetron HCl 4 mg 11/01/24 21:59 Ondansetron 4 Mg/2 Ml Vial IVP Q6HR PRN Nausea And Vomiting Pantoprazole Sodium 40 mg 11/02/24 07:30 11/02/24 08:06 Pantoprazole 40 Mg Tablet PO 40 mg [id number] WILI Administration Intake and Output 11/01/24 11/02/24 11/02/24 22:59 06:59 14:59 Intake Total 540 Balance 540 Intake: Tube Feeding 540 Other: # Bowel Movements 0 Weight 79.379 kg 11/02/24 06:53 11/02/24 06:53
[2024-11-02 14:09] VITALS: BP 114/70; PULSE 65; RESP 16; TEMP 97.6
--- NOTE | 2024-11-02 14:36 | P.HPIM ---
History of Present Illness Patient is a 59-year-old male came in after he had a chest pain and dizziness. Patient has history of coronary disease CABG in the past and ischemic cardiomyopathy CVA in 2019 and severe MR tobacco and alcohol abuse history patient continues to smoke. Patient stopped taking all of his medications patient is noncompliant, patient has not seen a procurement clerk or PCP for more than an year. Patient was at a gas station getting coffee has run to the bus felt dizzy had chest pain came to the ER. Patient had EKG which showed sinus rh ythm without any significant changes in ST-T wave compared to the old EKGs chest x-ray chronic emphysematous changes. Patient had an EF of around 30 to 35% with severe mitral regurgitation. Patient was eval by cardiology cleared by cardiology if he is feeling well later in the day and patient will be started back on all his medications patient will need to follow-up with his cardiology and PCP extensive counseling regarding this was provided REVIEW OF SYSTEMS: All other systems are negative except those mentioned in the HPI PHYSICAL EXAMINATION: GENERAL: The patient is alert and oriented x3, not in any acute distress. Well developed, well nourished. HEENT: Pupils are round and equally reacting to light. EOMI. No scleral icterus. No conjunctival pallor. Normocephalic, atraumatic. No pharyngeal erythema. No thyromegaly. CARDIOVASCULAR: S1 and S2 present. No murmurs, rubs, or gallops. PULMONARY: Mild expiratory wheezing, no crackles. ABDOMEN: Soft, nontender, nondistended, normoactive bowel sounds. No palpable organomegaly. MUSCULOSKELETAL: No joint swelling or deformity. EXTREMITIES: No cyanosis, clubbing, or pedal edema. NEUROLOGICAL: Gross neurological examination did not reveal any focal deficits. SKIN: No rashes. Assessment and plan Chest pain rule out acute coronary syndromes, cardiology evaluate the patient noncompliance with medications counseling was provided patient will be discharged with prescriptions for all the medications chest pain is secondary to methamphetamine use -Nicotine use and methamphetamine use extensive counseling was provided rosario perezing this -Coronary disease with CABG in the past -COPD without any acute exacerbation -Ischemic myopathy EF around 30 to 35% without any acute exacerbation -Hypertension -Hyperlipidemia -History of CVA in the past Patient was monitored overnight no further symptoms counseling regarding cessation of smoking, medication compliance and cessation of methamphetamine was provided and patient will be discharged today Past Medical History Past Medical History: COPD, Hyperlipidemia, Hypertension, Myocardial Infarction ([place]), Seizure Disorder Additional Past Medical History / Comment(s): ISCHEMIC CARDIOMYOPATHY WITH EF 40-45%. 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 Last Myocardial Infarction Date:: 06/12/14 History of Any Multi-Drug Resistant Organisms: None Reported Past Surgical History: Coronary Bypass/CABG, Heart Catheterization With Stent, Hernia Repair, Orthopedic Surgery Additional Past Surgical History / Comment(s): cabg january 2014-3 vessel, Cardiac caths and stenting with last Cardiac cath Jul [address] Cerda. Past Anesthesia/Blood Transfusion Reactions: No Reported Reaction Additional Past Anesthesia/Blood Transfusion Reaction / Comment(s): NO PROBLEM TOLERATING ANESTHESIA. HAS NEVER RECIEVED BLOOD TO HIS KNOWLEDGE. Date of Last Stent Placement:: 06/12/14 Past Psychological History: Anxiety, Panic Disorder, PTSD Additional Psychological History / Comment(s): Patient is homeless, been homeless for 8 months. Living whereever he can Smoking Status: Current every day smoker Past Alcohol Use History: None Reported Additional Past Alcohol Use History / Comment(s): drinks 1 pint/day Past Drug Use History: Marijuana, Methamphetamine Additional Drug Use History / Comment(s): uses marijuanan occaisionally - Past Family History Father Family Medical History: Coronary Artery Disease (CAD), Myocardial Infarction ([place]) Additional Family Medical History / Comment(s): FATHER STILL LIVING Mother Family Medical History: Coronary Artery Disease (CAD), Myocardial Infarction ([place]) Additional Family Medical History / Comment(s): MOTHER 09/23/14 of unknown causes. Sister(s) Family Medical History: Myocardial Infarction ([place]) Additional Family Medical History / Comment(s): SISTER OF [place] AT AGE 53 Medications and Allergies Home Medications Medication Instructions Recorded Confirmed Type Meloxicam [Mobic] 15 mg PO DAILY PRN #20 tab 10/21/24 11/01/24 Rx methocarbamoL [Robaxin-750] 1,500 mg PO TID PRN #30 tab 10/21/24 11/01/24 Rx Albuterol Inhaler [Ventolin Hfa 1 - 2 puff INHALATION Q6HR PRN #1 11/02/24 Rx Inhaler] each Aspirin 81 mg PO DAILY #30 tab 11/02/24 Rx Atorvastatin [Lipitor] 80 mg PO HS #30 tab 11/02/24 Rx Isosorbide Mononitrate ER [Imdur] 30 mg PO DAILY #30 tab 11/02/24 Rx lisinopriL [Zestril] 2.5 mg PO DAILY #30 tab 11/02/24 Rx Allergies Allergy/AdvReac Type Severity Reaction Status Date / Time Penicillins Allergy Unknown Verified 11/01/24 16:59 Childhood Physical Exam Vitals: Vital Signs Temp Pulse Pulse Resp BP BP Pulse Ox 11/02/24 14:09 97.6 F 65 16 114/70 94 L 11/02/24 07:00 98.4 F 70 17 150/99 95 11/02/24 02:28 98.1 F 86 18 133/92 94 L 11/01/24 21:33 98.1 F 103 H 17 145/94 93 L 11/01/24 20:45 87 18 139/113 94 L 11/01/24 17:45 84 22 121/89 95 11/01/24 16:27 76 11/01/24 15:53 97.7 F 76 24 104/66 97 Intake and Output 11/01/24 11/02/24 11/02/24 22:59 06:59 14:59 Intake Total 540 118 Balance 540 118 Intake: Oral 118 Tube Feeding 540 Other: # Voids 2 # Bowel Movements 0 1 Weight 79.379 kg Results CBC & Chem 7: 11/02/24 06:53 11/02/24 06:53 Labs: Abnormal Lab Results - Last 24 Hours (Table) 11/01/24 11/02/24 11/02/24 Range/Units 16:22 06:53 06:53 Eosinophils # 1.1 H (0-0.7) k/uL Sodium 135 L (137-145) mmol/L BUN 22 H 25 H (9-20) mg/dL Glucose 105 H (74-99) mg/dL Thrombosis Risk Factor Assmnt - Choose All That Apply Any of the Below Risk Factors Present?: Yes Each Factor Represents 1 point: Abnormal pulmonary function (COPD), Age 41-60 years Other Risk Factors: No Other congenital or acquired thrombophilia - If yes, enter type in comment: No Thrombosis Risk Factor Assessment Total Risk Factor Score: 2 Thrombosis Risk Factor Assessment Level: Low Risk
--- NOTE | 2024-11-02 14:37 | P.DS ---
Providers Date of admission: 11/01/24 19:49 Attending physician: Yair Alvares Consults: 11/01/24 19:49 Consult Physician Urgent Consulting Provider: [facility] Consult Reason/Comments: chest pain, hx ascad Do you want consulting provider notified?: Yes Primary care physician: Stated None Hospital Course: Patient is a 59-year-old male came in after he had a chest pain and dizziness. Patient has history of coronary disease CABG in the past and ischemic cardiomyopathy CVA in 2019 and severe MR tobacco and alcohol abuse history patient continues to smoke. Patient stopped taking all of his medications patient is noncompliant, patient has not seen a electric crane operator or PCP for more than an year. Patient was at a gas station getting coffee has run to the bus felt dizzy had chest pain came to the ER. Patient had EKG which showed sinus rhythm without any significant changes in ST-T wave compared to the old EKGs chest x-ray chronic emphysematous changes. Patient had an EF of around 30 to 35% with severe mitral regurgitation. Patient was eval by cardiology cleared by cardiology if he is feeling well later in the day and patient will be started back on all his medications patient will need to follow-up with his cardiology and PCP extensive counseling regarding this was provided REVIEW OF SYSTEMS: All other systems are negative except those mentioned in the HPI PHYSICAL EXAMINATION: GENERAL: The patient is alert and oriented x3, not in any acute distress. Well developed, well nourished. HEENT: Pupils are round and equally reacting to light. EOMI. No scleral icterus. No conjunctival pallor. Normocephalic, atraumatic. No pharyngeal erythema. No thyromegaly. CARDIOVASCULAR: S1 and S2 present. No murmurs, rubs, or gallops. PULMONARY: Mild expiratory wheezing, no crackles. ABDOMEN: Soft, nontender, nondistended, normoactive bowel sounds. No palpable organomegaly. MUSCULOSKELETAL: No joint swelling or deformity. EXTREMITIES: No cyanosis, clubbing, or pedal edema. NEUROLOGICAL: Gross neurological examination did not reveal any focal deficits. SKIN: No rashes. Assessment and plan Chest pain rule out acute coronary syndromes, cardiology evaluate the patient noncompliance with medications counseling was provided patient will be discharged with prescriptions for all the medications chest pain is secondary to methamphetamine use -Nicotine use and methamphetamine use extensive counseling was provided regarding this -Coronary disease with CABG in the past -COPD without any acute exacerbation -Ischemic myopathy EF around 30 to 35% without any acute exacerbation -Hypertension -Hyperlipidemia -History of CVA in the past Patient was monitored overnight no further symptoms counseling regarding cessation of smoking, medication compliance and cessation of methamphetamine was provided and patient will be discharged today Patient Condition at Discharge: Stable Plan - Discharge Summary Discharge Rx Participant: No New Discharge Prescriptions: New Isosorbide Mononitrate ER [Imdur] 30 mg PO DAILY #30 tab Atorvastatin [Lipitor] 80 mg PO HS #30 tab lisinopriL [Zestril] 2.5 mg PO DAILY #30 tab Albuterol Inhaler [Ventolin Hfa Inhaler] 1 - 2 puff INHALATION Q6HR PRN #1 each PRN Reason: Shortness Of Breath Or Wheezing Aspirin 81 mg PO DAILY #30 tab Continue methocarbamoL [Robaxin-750] 1,500 mg PO TID PRN #30 tab PRN Reason: Pain Meloxicam [Mobic] 15 mg PO DAILY PRN #20 tab PRN Reason: Pain Discharge Medication List Meloxicam [Mobic] 15 mg PO DAILY PRN #20 tab 10/21/24 [Rx] methocarbamoL [Robaxin-750] 1,500 mg PO TID PRN #30 tab 10/21/24 [Rx] Albuterol Inhaler [Ventolin Hfa Inhaler] 1 - 2 puff INHALATION Q6HR PRN #1 each 11/02/24 [Rx] Aspirin 81 mg PO DAILY #30 tab 11/02/24 [Rx] Atorvastatin [Lipitor] 80 mg PO HS #30 tab 11/02/24 [Rx] Isosorbide Mononitrate ER [Imdur] 30 mg PO DAILY #30 tab 11/02/24 [Rx] lisinopriL [Zestril] 2.5 mg PO DAILY #30 tab 11/02/24 [Rx] Follow up Appointment(s)/Referral(s): [facility] [Provider Group] - 1 Week Alejandra Johnson MD [STAFF PHYSICIAN] - 1 Week Discharge Disposition: HOME SELF-CARE
--- NOTE | 2024-11-02 16:26 | CA ---
Transthoracic Echo Report Name: Bob Ellsworth Age: 59 Gender: M : 1965 Exam Date: 11/02/2024 11:08 Exam Location: [place] [facility] Ht (in): 73 Wt (lb): 175 Ordering Physician: Sheila Curiel Attending/Referring Phys: [id number], Moisés Loom Fixer Helper Desiree Segovia RDCS Procedure CPT: Indications: LVF Cardiac Hx: Technical Quality: Fair Contrast 1: Total Dose (mL): Contrast 2: Total Dose (mL): MEASUREMENTS (Male / Female) Normal Values 2D ECHO LV Diastolic Diameter PLAX 4.6 cm 4.2 - 5.9 / 3.9 - 5.3 cm LV Systolic Diameter PLAX 3.9 cm IVS Diastolic Thickness 1.7 cm 0.6 - 1.0 / 0.6 - 0.9 cm LVPW Diastolic Thickness 1.7 cm 0.6 - 1.0 / 0.6 - 0.9 cm LV Relative Wall Thickness 0.8 RV Internal Dim ED PLAX 4.4 cm LVOT Diameter 1.9 cm LA Systolic Diameter LX 4.1 cm 3.0 - 4.0 / 2.7 - 3.8 cm LV Diastolic Volume MOD BP 202.6 cm??? 67 - 155 / 56 - 104 cm??? LV Systolic Volume MOD BP 118.9 cm??? 22 - 58 / 19 - 49 cm??? LV Ejection Fraction MOD BP 41.3 % >= 55 % LV Cardiac Index MOD BP 3188.7 cm???/min???m??? LV Diastolic Volume MOD 4C 214.2 cm??? LV Systolic Volume MOD 4C 120.1 cm??? LV Ejection Fraction MOD 4C 43.9 % LV Cardiac Index MOD 4C 3582.9 cm???/min???m??? LV Diastolic Length 4C 10.0 cm LV Systolic Length 4C 8.9 cm LV Diastolic Volume MOD 2C 177.5 cm??? LV Systolic Volume MOD 2C 114.6 cm??? LV Ejection Fraction MOD 2C 35.4 % LV Cardiac Index MOD 2C 2394.6 cm???/min???m??? LV Diastolic Length 2C 9.1 cm LV Systolic Length 2C 8.4 cm LA Volume 102.3 cm??? 18 - 58 / 22 - 52 cm??? LA Volume Index 50.6 cm???/m??? 16 - 28 cm???/m??? DOPPLER AV Peak Velocity 109.9 cm/s AV Peak Gradient 4.8 mmHg AV Mean Velocity 71.8 cm/s AV Mean Gradient 2.4 mmHg AV Velocity Time Integral 18.6 cm LVOT Peak Velocity 74.7 cm/s LVOT Peak Gradient 2.2 mmHg LVOT Velocity Time Integral 11.1 cm LVOT Stroke Volume 31.6 cm??? LVOT Stroke Volume Index 15.5 ml/m??? LVOT Cardiac Index 1204.0 cm???/min???m??? AV Area Cont Eq vti 1.7 cm??? AV Area Cont Eq pk 1.9 cm??? MV Peak Velocity 47.7 cm/s MV Peak Gradient 0.9 mmHg MV Mean Velocity 22.9 cm/s MV Mean Gradient 0.3 mmHg MV Velocity Time Integral 11.5 cm MV Area PHT 4.2 cm??? Mitral E Point Velocity 61.8 cm/s Mitral A Point Velocity 44.3 cm/s Mitral E to A Ratio 1.4 MV Deceleration Time 178.9 ms MV E' Velocity 5.7 cm/s Mitral E to MV E' Ratio 10.9 TR Peak Velocity 232.4 cm/s TR Peak Gradient 21.6 mmHg FINDINGS Left Ventricle Severely increased septal wall thickness. Severely increased left ventricular diastolic volume. Severely increased left ventricular systolic volume. Moderately decreased left ventricular ejection fraction. Left ventricular ejection fraction is estimated at 35- 40 %. Abnormal left ventricular diastolic filling pattern. Right Ventricle Mild right ventricular dilatation. Right ventricular systolic pressure within normal limits. Right Atrium Normal right atrial size. Left Atrium Severely increased left atrial volume. Mildly increased left atrial area. Mitral Valve Structurally normal mitral valve. [id number] mitral regurgitation. Systolic flow reversal in the pulmonary veins. Posterior directed mitral regurgitation jet. Aortic Valve Trileaflet aortic valve. No aortic stenosis. No aortic regurgitation. Aortic valve sclerosis. Tricuspid Valve Structurally normal tricuspid valve. Mild tricuspid regurgitation. Pulmonic Valve Structurally normal pulmonic valve. Mild pulmonic regurgitation. Pericardium No pericardial effusion. Aorta Normal size aortic root and proximal ascending aorta. CONCLUSIONS Left ventricular ejection fraction 35-40% with predominantly anterior septal thickening and hypokinesis Moderately dilated left atrium Severe mitral regurgitation with a posteriorly directed jet. Consider ARELIS if clinically indicated Mild tricuspid regurgitation No pericardial effusion Previewed by: Dr. Johan Cardona DO (Electronically Signed) Final Date: 02 November 2024 16:25
[2024-11-02] MEDS ORDERED: ATORVASTATIN 80 MG TAB PO SCH (21:00)
== END 2024-11-02 15:00 | disposition home or self-care (01) ==
LOC: EC 15:40 → 6NMEDSUR 19:49
PROVIDERS: ADMIT Hospitalist; ATTEND Hospitalist
DX: F15.90 Other stimulant use, unspecified, uncomplicated (principal); I25.810 Atherosclerosis of coronary artery bypass graft(s) without angina pectoris; I25.5 Ischemic cardiomyopathy; T50.916A Underdosing of multiple unspecified drugs, medicaments and biological substances, initial encounter; Z91.128 Patient's intentional underdosing of medication regimen for other reason; J44.9 Chronic obstructive pulmonary disease, unspecified; F10.10 Alcohol abuse, uncomplicated; I49.3 Ventricular premature depolarization; I10 Essential (primary) hypertension; E78.5 Hyperlipidemia, unspecified; I34.0 Nonrheumatic mitral (valve) insufficiency; I25.2 Old myocardial infarction; F17.210 Nicotine dependence, cigarettes, uncomplicated; Z79.02 Long term (current) use of antithrombotics/antiplatelets; Z79.82 Long term (current) use of aspirin; Z79.899 Other long term (current) drug therapy; Z88.0 Allergy status to penicillin; Z95.5 Presence of coronary angioplasty implant and graft; Z86.73 Personal history of transient ischemic attack (TIA), and cerebral infarction without residual deficits; Z71.51 Drug abuse counseling and surveillance of drug abuser; Z71.6 Tobacco abuse counseling
CPT/HCPCS: 99285; 36415; 93005; 93306; 83880; 80053; 80048; 83690; 83735; 84484; 85025 ×2; 85610; 85730; 71046; G0378 ×2

== ENCOUNTER 2025-02-25 12:02 | Emergency (ER) | payer OTHER ==
[2025-02-25 12:06] VITALS: BP 132/89; PULSE 70; RESP 16; TEMP 97.5
--- NOTE | 2025-02-25 12:24 | ED ---
General Adult HPI - General Chief complaint: Dizziness Stated complaint: Dizziness,SOB Time Seen by Provider: 02/25/25 12:05 Source: patient, RN notes reviewed, old records reviewed Mode of arrival: wheelchair Limitations: no limitations - History of Present Illness Initial comments: This is a 59-year-old male who presents to the emergency department past medical history significant for coronary artery disease and stents. Patient also was a smoker. Patient states he did not feel well yesterday so he did not eat all day except for a bologna sandwich. Patient states this morning he got up he normally eats breakfast but he did not and he only drank half of a Mountain Dew. Patient states that he was walking quite a bit and felt a little weak so he sat down and drink some water and felt a little better got up started walking again felt a little weak and sat down again he states that when he said the word dizziness he was an accurate he means weakness. Patient states he also did not sleep well last night. Patient denies any chest pain difficulty breathing or shortness of breath. Patient has any recent fever chills or cough. Patient sta gladys currently he feels back to his baseline. - Related Data Previous Rx's Medication Instructions Recorded Meloxicam [Mobic] 15 mg PO DAILY PRN #20 tab 10/21/24 methocarbamoL [Robaxin-750] 1,500 mg PO TID PRN #30 tab 10/21/24 Albuterol Inhaler [Ventolin Hfa 1 - 2 puff INHALATION Q6HR PRN #1 11/02/24 Inhaler] each Aspirin 81 mg PO DAILY #30 tab 11/02/24 Atorvastatin [Lipitor] 80 mg PO HS #30 tab 11/02/24 Isosorbide Mononitrate ER [Imdur] 30 mg PO DAILY #30 tab 11/02/24 Metoprolol Tartrate [Lopressor] 25 mg PO BID #60 tab 11/02/24 lisinopriL [Zestril] 2.5 mg PO DAILY #30 tab 11/02/24 Allergies Allergy/AdvReac Type Severity Reaction Status Date / Time Penicillins Allergy Unknown Verified 02/25/25 12:06 Childhood Review of Systems ROS Statement: Those systems with pertinent positive or pertinent negative responses have been documented in the HPI. ROS Other: All systems not noted in ROS Statement are negative. Past Medical History Past Medical History: COPD, Hyperlipidemia, Hypertension, Myocardial Infarction ([place]), Seizure Disorder Additional Past Medical History / Comment(s): ISCHEMIC CARDIOMYOPATHY WITH EF 40-45%. 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 Last Myocardial Infarction Date:: 06/12/14 History of Any Multi-Drug Resistant Organisms: None Reported Past Surgical History: Coronary Bypass/CABG, Heart Catheterization With Stent, Hernia Repair, Orthopedic Surgery Additional Past Surgical History / Comment(s): cabg january 2014-3 vessel, Cardiac caths and stenting with last Cardiac cath Jul [address] Cerda. Past Anesthesia/Blood Transfusion Reactions: No Reported Reaction Additional Past Anesthesia/Blood Transfusion Reaction / Comment(s): NO PROBLEM TOLERATING ANESTHESIA. HAS NEVER RECIEVED BLOOD TO HIS KNOWLEDGE. Date of Last Stent Placement:: 06/12/14 Past Psychological History: Anxiety, Panic Disorder, PTSD Smoking Status: Current every day smoker Past Alcohol Use History: None Reported Past Drug Use History: Marijuana, Methamphetamine - Past Family History Father Family Medical History: Coronary Artery Disease (CAD), Myocardial Infarction ([place]) Additional Family Medical History / Comment(s): FATHER STILL LIVING Mother Family Medical History: Coronary Artery Disease (CAD), Myocardial Infarction ([place]) Additional Family Medical History / Comment(s): MOTHER 09/23/14 of unknown causes. Sister(s) Family Medical History: Myocardial Infarction ([place]) Additional Family Medical History / Comment(s): SISTER OF [place] AT AGE 53 General Exam - General Exam Comments Initial Comments: GENERAL: Patient is well-developed and well-nourished. Patient is nontoxic and well- hydrated and is in no acute distress. ENT: Neck is soft and supple. No significant lymphadenopathy is noted. Oropharynx is clear. Moist mucous membranes. Neck has full range of motion without eliciting any pain. EYES: The sclera were anicteric and conjunctiva were pink and moist. Extraocular movements were intact and pupils were equal round and reactive to light. Eyelids were unremarkable. PULMONARY: Unlabored respirations. Good breath sounds bilaterally. No audible rales rhonchi or wheezing was noted. CARDIOVASCULAR: There is a regular rate and rhythm without any murmurs gallops or rubs. ABDOMEN: Soft and nontender with normal bowel sounds. SKIN: Skin is clear with no lesions or rashes and otherwise unremarkable. NEUROLOGIC: Patient is alert and oriented x3. Cranial nerves II through XII are grossly intact. Motor and sensory are also intact. Normal speech, volume and content. Symmetrical smile. MUSCULOSKELETAL: Normal extremities with adequate strength and full range of motion. No lower extremity swelling or edema. No calf tenderness. LYMPHATICS: No significant lymphadenopathy is noted PSYCHIATRIC: Normal psychiatric evaluation. Limitations: no limitations Course Vital Signs 02/25/25 12:03 Temperature 97.5 F L Pulse Rate 70 Respiratory 16 Rate Blood Pressure 132/89 O2 Sat by Pulse 99 Oximetry Medical Decision Making - Medical Decision Making EKG is interpreted by myself EKG shows a sinus rhythm with occasional PVC at a rate of 85 bpm RI interval is 140 QRS is 104 QT interval is 371 QTc is 414. Was pt. sent in by a medical professional or institution (, PA, SYSTEMS INTEGRATOR, urgent care, hospital, or long-term...) When possible be specific @ -[No] Did you speak to anyone other than the patient for history (EMS, parent, family, police, friend...)? What history was obtained from this source @ -[No] Did you review nursing and triage notes (agree or disagree)? Why? @ -[I reviewed and agree with nursing and triage notes] Were old charts reviewed (outside hosp., previous admission, EMS record, old EKG, old radiological studies, urgent care reports/EKG's, long-term records)? Report findings @ -[No old charts were reviewed] Differential Diagnosis? @ -Differential Weakness: Hypoglycemia, shock, sepsis, hyponatremia, anemia, infection, [place], ETOH, adverse medicine reaction, overdose, stroke, this is not meant to be an all-inclusive list. EKG interpreted by me (3pts min.). @ -[As above] X-rays interpreted by me (1pt min.). @ -[None done] CT interpreted by me (1pt min.). @ -[None done] U/S interpreted by me (1pt. min.). @ -[None done] What testing was considered but not performed or refused? (CT, X-rays, U/S, labs)? Why? @ -[None] What meds were considered but not given or refused? Why? @ -[None] Did you discuss the management of the patient with other professionals (professionals i.e. , PA, SYSTEMS INTEGRATOR, lab, RT, psych nurse, social insurance adviser, supervisor electronic coils, teacher, aerospace engineer officer armament, immigration case worker)? Give summary @ -[No] Was smoking cessation discussed for >3mins.? @ -[No] Was critical care preformed (if so, how long)? @ -[No] Were there social determinants of health that impacted care today? How? (Homelessness, low income, unemployed, alcoholism, drug addiction, transportation, low edu. Level, literacy, decrease access to med. care, penitentiary, rehab)? @ -[No] Was there de-escalation of care discussed even if they declined (Discuss DNR or withdrawal of care, Hospice)? DNR status @ -[No] What co-morbidities impacted this encounter? (DM, HTN, Smoking, COPD, CAD, C ancer, CVA, ARF, Chemo, Hep., AIDS, mental health diagnosis, sleep apnea, morbid obesity)? @ -[None] Was patient admitted / discharged? Hospital course, mention meds given and route, prescriptions, significant lab abnormalities, going to OR and other pertinent info. @ -I told the patient we would draw some blood work and give him a liter of fluid because it sounded like he had not eaten today and maybe was a little dehydrated. I did the patient we would workup his heart look at his lungs and see if we have any electrolyte abnormalities and we would proceed from there and he agreed and was pleasant about it. I left the room after about 15 minutes the nurse called me and told me he walked out AMA Undiagnosed new problem with uncertain prognosis? @ -[No] Drug Therapy requiring intensive monitoring for toxicity (Heparin, Nitro, Insulin, Cardizem)? @ -[No] Were any procedures done? @ -[No] Diagnosis/symptom? @ -Weakness Acute, or Chronic, or Acute on Chronic? @ -Acute Uncomplicated (without systemic symptoms) or Complicated (systemic symptoms)? @ -Complicated Side effects of treatment? @ -[No] Exacerbation, Progression, or Severe Exacerbation? @ -[No] Poses a threat to life or bodily function? How? (Chest pain, [place], [place], pneumonia, PE, COPD, DKA, ARF, appy, cholecystitis, CVA, Diverticulitis, Homicidal, Suicidal, threat to staff... and all critical care pts) @ -Yes because he did not stick around for blood work had shown something life- threatening but he left before I results - Lab Data Result diagrams: 02/25/25 12:27 Lab Results 02/25/25 02/25/25 Range/Units 12:22 12:27 WBC 11.89 H (4.50-10.00) 10*3/uL RBC 5.61 H (4.40-5.60) 10*6/uL Hgb 15.8 (13.0-17.0) g/dL Hct 47.6 (39.6-50.0) % MCV 84.8 (80.0-97.0) fL MCH 28.2 (27.0-32.0) pg MCHC 33.2 (32.0-37.0) g/dL Plt Count 400 (140-440) 10*3/uL MPV 10.0 (9.5-12.2) fL Immature Gran % (Auto) 0.4 % Neutrophils % 74.0 % Lymphocytes % 17.7 % Monocytes % 6.1 % Eosinophils % 1.0 % Basophils % 0.8 % Immature Gran # 0.05 H (0.00-0.04) 10*3/uL Neutrophils # 8.81 H (1.80-7.70) 10*3/uL Lymphocytes # 2.10 (0.90-5.00) 10*3/uL Monocytes # 0.72 (0.20-1.00) 10*3/uL Eosinophils # 0.12 (0.04-0.35) 10*3/uL Basophils # 0.09 (0.00-0.10) 10*3/uL POC Glucose (mg/dL) 113 H (70-110) mg/dL POC Glu Audit Control Clerk ID Addi Benjamin Disposition Clinical Impression: Weakness Disposition: LEFT AGAINST MEDICAL ADVICE Referrals: Monty Maher MD [Primary Care Provider] - 1-2 days Time of Disposition: 12:56
[2025-02-25 12:26] LABS: Glucose,Whole Blood 113 mg/dL (70-110)
[2025-02-25 12:46] LABS: Basophils # (A) 0.09 10*3/uL (0.00-0.10); Basophils % (A) 0.8 %; Eosinophils # (A) 0.12 10*3/uL (0.04-0.35); HCT 47.6 % (39.6-50.0); HGB 15.8 g/dL (13.0-17.0); Lymphocytes % (A) 17.7 %; MCH 28.2 pg (27.0-32.0); MCHC 33.2 g/dL (32.0-37.0); MCV 84.8 fL (80.0-97.0); Monocytes # (A) 0.72 10*3/uL (0.20-1.00); Monocytes % (A) 6.1 %; Neutrophils # (A) 8.81 10*3/uL (1.80-7.70); Platelet Count 400 10*3/uL (140-440); RBC 5.61 10*6/uL (4.40-5.60); RDW 16.5 % (11.5-14.5); WBC 11.89 10*3/uL (4.50-10.00)
[2025-02-25] MEDS: LACTATED RINGERS 1,000 ML IV ONE (12:51)
[2025-02-25 13:04] LABS: ALT 32 U/L (4-49); AST 24 U/L (17-59); African American GFR (CKD) >90 (>60 ml/min/1.73 sqM); Albumin 4.7 g/dL (3.5-5.0); Alkaline Phosphatase 87 U/L (38-126); Anion Gap 10 mmol/L; Blood Urea Nitrogen 9 mg/dL (9-20); Calcium 9.9 mg/dL (8.4-10.2); Carbon Dioxide 24 mmol/L (22-30); Chloride 104 mmol/L (98-107); Glucose 108 mg/dL (74-99); Magnesium 1.9 mg/dL (1.6-2.3); Non-African American GFR(CKD) >90 (>60 ml/min/1.73 sqM); Potassium 4.2 mmol/L (3.5-5.1); Sodium 138 mmol/L (137-145); Total Bilirubin 0.9 mg/dL (0.2-1.3); Total Protein 7.4 g/dL (6.3-8.2)
[2025-02-25 13:05] LABS: Partial Thromboplastin Time 24.4 sec (22.0-30.0)
== END 2025-02-25 12:57 | disposition left against medical advice (07) ==
LOC: EC 12:02
DX: R53.1 Weakness (principal); Z53.29 Procedure and treatment not carried out because of patient's decision for other reasons; F17.200 Nicotine dependence, unspecified, uncomplicated; Z88.0 Allergy status to penicillin
CPT/HCPCS: 36415; 71046; 80053; 83605; 83735; 84484; 85025; 85610; 85730; 93005; 99284

== ENCOUNTER 2025-04-13 17:16 | Observation (INO) | payer OTHER ==
--- NOTE | 2025-04-13 17:29 | ED ---
General Adult HPI - General Chief complaint: Recheck/Abnormal Lab/Rx Stated complaint: Heat Exhaustion Time Seen by Provider: 04/13/25 17:17 Source: patient, RN notes reviewed Mode of arrival: EMS Limitations: no limitations - History of Present Illness Initial comments: This is a 59-year-old male who presents to the emergency department for concerns of heat exhaustion. Patient states that he drank a fifth of alcohol this morning like he usually does each day and then went to walk over to the other side of town. When he was walking in the heat he suddenly became very weak, dizzy, nauseous, and lightheaded. States that it then felt like it was hard to breathe and he started sweating. Believes that being out in the heat is what made him feel ill. The breathing is now feeling better than it did. Denies any chest pain. He is concerned about starting to go through alcohol withdrawals and he reports a history of withdrawal seizures. - Related Data Previous Rx's Medication Instructions Recorded Meloxicam [Mobic] 15 mg PO DAILY PRN #20 tab 10/21/24 methocarbamoL [Robaxin-750] 1,500 mg PO TID PRN #30 tab 10/21/24 Albuterol Inhaler [Ventolin Hfa 1 - 2 puff INHALATION Q6HR PRN #1 11/02/24 Inhaler] each Aspirin 81 mg PO DAILY #30 tab 11/02/24 Atorvastatin [Lipitor] 80 mg PO HS #30 tab 11/02/24 Isosorbide Mononitrate ER [Imdur] 30 mg PO DAILY #30 tab 11/02/24 Metoprolol Tartrate [Lopressor] 25 mg PO BID #60 tab 11/02/24 lisinopriL [Zestril] 2.5 mg PO DAILY #30 tab 11/02/24 Allergies Allergy/AdvReac Type Severity Reaction Status Date / Time Penicillins Allergy Unknown Verified 04/13/25 17:25 Childhood Review of Systems ROS Statement: Those systems with pertinent positive or pertinent negative responses have been documented in the HPI. ROS Other: All systems not noted in ROS Statement are negative. Past Medical History Past Medical History: COPD, Hyperlipidemia, Hypertension, Myocardial Infarction ([place]), Seizure Disorder Additional Past Medical History / Comment(s): ISCHEMIC CARDIOMYOPATHY WITH EF 40-45%. 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 Last Myocardial Infarction Date:: 06/12/14 History of Any Multi-Drug Resistant Organisms: None Reported Past Surgical History: Coronary Bypass/CABG, Heart Catheterization With Stent, Hernia Repair, Orthopedic Surgery Additional Past Surgical History / Comment(s): cabg january 2014-3 vessel, Cardiac caths and stenting with last Cardiac cath Jul [address] Cerda. Past Anesthesia/Blood Transfusion Reactions: No Reported Reaction Additional Past Anesthesia/Blood Transfusion Reaction / Comment(s): NO PROBLEM TOLERATING ANESTHESIA. HAS NEVER RECIEVED BLOOD TO HIS KNOWLEDGE. Date of Last Stent Placement:: 06/12/14 Past Psychological History: Anxiety, Panic Disorder, PTSD Smoking Status: Current every day smoker Past Alcohol Use History: None Reported Past Drug Use History: Marijuana, Methamphetamine - Past Family History Father Family Medical History: Coronary Artery Disease (CAD), Myocardial Infarction ([place]) Additional Family Medical History / Comment(s): FATHER STILL LIVING Mother Family Medical History: Coronary Artery Disease (CAD), Myocardial Infarction ([place]) Additional Family Medical History / Comment(s): MOTHER 09/23/14 of unknown causes. Sister(s) Family Medical History: Myocardial Infarction ([place]) Additional Family Medical History / Comment(s): SISTER OF [place] AT AGE 53 General Exam Limitations: no limitations General appearance: alert, in no apparent distress Head exam: Present: atraumatic, normocephalic, normal inspection Respiratory exam: Present: normal lung sounds bilaterally. Absent: respiratory distress, wheezes, rales, rhonchi, stridor Cardiovascular Exam: Present: regular rate, normal rhythm GI/Abdominal exam: Present: soft. Absent: distended, tenderness Neurological exam: Present: alert, oriented X3, CN II-XII intact Psychiatric exam: Present: normal affect, normal mood Course Vital Signs 04/13/25 04/13/25 04/14/25 17:17 22:52 02:00 Temperature 98.1 F Pulse Rate 95 103 H 79 Respiratory 18 18 18 Rate Blood Pressure 142/101 149/93 142/91 O2 Sat by Pulse 99 94 L 98 Oximetry Medical Decision Making - Medical Decision Making This is a 59 year old male who presents to the emergency department for weakness. Was pt. sent in by a medical professional or institution? @ -No Did you speak to anyone other than the patient for history? @ -No Did you review nursing and triage notes? @ -Yes, and I agree, it is accurate with regards to the patient's symptoms. Were old charts reviewed? @ -No Differential Diagnosis? @ -Differential Weakness: Hypoglycemia, shock, sepsis, hyponatremia, anemia, infection, [place], ETOH, adverse medicine reaction, overdose, stroke, this is not meant to be an all-inclusive list. EKG interpreted by me (3pts min.)? @ -EKG interpreted by me demonstrating the following: Sinus rhythm. Ventricular rate 89 bpm, MI interval 133 ms, QRS duration 117 ms, QTc 417 ms X-rays interpreted by me (1pt min.)? @ -Chest x-ray obtained, my interpretation identifies no localized consolidations or infiltrates. CT interpreted by me (1pt min.)? @ -Not obtained U/S interpreted by me (1pt. min.)? @ -Not obtained What testing was considered but not performed? (CT, X-rays, U/S, labs)? Why? @ -None What meds were considered but not given? Why? @ -None Did you discuss the management of the patient with other professionals? @ -Yes, Jocelyn Buck with [facility], who accepts the patient for admission to medicine. Did you reconcile home meds? @ -No Was smoking cessation discussed for >3mins.? @ -I discussed smoking cessation for greater than 3 minutes. The risk of smoking were discussed with the patient including but not limited to risks of cancer, stroke, coronary artery disease and COPD. Also discussed with patient were multiple methods of quitting smoking. Lastly we discussed the financial cost of smoking. Was critical care preformed (if so, how long)? @ -No Were there social determinants of health that impacted care today? How? (Homelessness, low income, unemployed, alcoholism, drug addiction, transportat ion, low edu. Level, literacy, decrease access to med. care, residential, rehab)? @ -No Was there de-escalation of care discussed even if they declined? (Discuss DNR or withdrawal of care, Hospice)? @ -No What co-morbidities impacted this encounter? (DM, HTN, Smoking, COPD, CAD, Cancer, CVA, Hep., AIDS, mental health diagnosis, sleep apnea, morbid obesity)? @ -Alcoholism, smoking, COPD Was patient admitted / discharged? @ -Admitted. Lab work demonstrates leukocytosis with a white blood cell count of 14.85. He also has lactic acidosis with a lactic acid of 4.2, anion gap of 19, and bicarb of 16. Alcohol level is 36. Chest x-ray reveals no acute process. Patient treated with IV fluids but did require several nausea medications. He also started to exhibit alcohol withdrawal symptoms and was overall feeling very unwell. Given the alcohol withdrawals with lactic acidosis and intractable nausea/vomiting, patient was admitted to medicine for further management. [facility] protocol initiated. Case discussed with ED attending Dr. Rowe. Undiagnosed new problem with uncertain prognosis? @ -None Drug Therapy requiring intensive monitoring for toxicity (Heparin, Nitro, Insulin, Cardizem)? @ -None Were any procedures done? @ -None Diagnosis/symptom? @ -Alcohol withdrawals, lactic acidosis, N/V Acute, or Chronic, or Acute on Chronic? @ -Acute Uncomplicated (without systemic symptoms) or Complicated (systemic symptoms)? @ -Complicated Side effects of treatment? @ -None Exacerbation, Progression, or Severe Exacerbation] @ -Not applicable Poses a threat to life or bodily function? @ -Yes, can lead to DTs, which can be life-threatening - Lab Data Result diagrams: 04/13/25 17:21 04/13/25 17:21 Lab Results 04/13/25 04/13/25 04/13/25 Range/Units 17:21 17:21 17:21 WBC 14.85 H (4.50-10.00) 10*3/uL RBC 5.44 (4.40-5.60) 10*6/uL Hgb 15.1 (13.0-17.0) g/dL Hct 44.8 (39.6-50.0) % MCV 82.4 (80.0-97.0) fL MCH 27.8 (27.0-32.0) pg MCHC 33.7 (32.0-37.0) g/dL Plt Count 388 (140-440) 10*3/uL MPV 9.4 L (9.5-12.2) fL Immature Gran % (Auto) 0.3 % Neutrophils % 83.3 % Lymphocytes % 11.0 % Monocytes % 4.4 % Eosinophils % 0.4 % Basophils % 0.6 % Immature Gran # 0.05 H (0.00-0.04) 10*3/uL Neutrophils # 12.35 H (1.80-7.70) 10*3/uL Lymphocytes # 1.64 (0.90-5.00) 10*3/uL Monocytes # 0.66 (0.20-1.00) 10*3/uL Eosinophils # 0.06 (0.04-0.35) 10*3/uL Basophils # 0.09 (0.00-0.10) 10*3/uL Sodium 139 (137-145) mmol/L Potassium 4.3 (3.5-5.1) mmol/L Chloride 104 (98-107) mmol/L Carbon Dioxide 16 L (22-30) mmol/L Anion Gap 19 mmol/L BUN 13 (9-20) mg/dL Creatinine 0.86 (0.66-1.25) mg/dL Est GFR (CKD-EPI)AfAm >90 (>60 ml/min/1.73 sqM) Est GFR (CKD-EPI)NonAf >90 (>60 ml/min/1.73 sqM) Glucose 88 (74-99) mg/dL Lactic Ac Sepsis Rflx Plasma Lactic Acid Jacinto 4.2 H* (0.7-2.0) mmol/L Calcium 9.6 (8.4-10.2) mg/dL Magnesium 1.4 L (1.6-2.3) mg/dL Total Bilirubin 1.2 (0.2-1.3) mg/dL AST 27 (17-59) U/L ALT 25 (4-49) U/L Alkaline Phosphatase 107 (38-126) U/L Creatine Kinase 246 H (55-170) U/L Total Protein 7.5 (6.3-8.2) g/dL Albumin 5.0 (3.5-5.0) g/dL Serum Alcohol 36 mg/dL 04/13/25 Range/Units 18:46 WBC (4.50-10.00) 10*3/uL RBC (4.40-5.60) 10*6/uL Hgb (13.0-17.0) g/dL Hct (39.6-50.0) % MCV (80.0-97.0) fL MCH (27.0-32.0) pg MCHC (32.0-37.0) g/dL Plt Count (140-440) 10*3/uL MPV (9.5-12.2) fL Immature Gran % (Auto) % Neutrophils % % Lymphocytes % % Monocytes % % Eosinophils % % Basophils % % Immature Gran # (0.00-0.04) 10*3/uL Neutrophils # (1.80-7.70) 10*3/uL Lymphocytes # (0.90-5.00) 10*3/uL Monocytes # (0.20-1.00) 10*3/uL Eosinophils # (0.04-0.35) 10*3/uL Basophils # (0.00-0.10) 10*3/uL Sodium (137-145) mmol/L Potassium (3.5-5.1) mmol/L Chloride (98-107) mmol/L Carbon Dioxide (22-30) mmol/L Anion Gap mmol/L BUN (9-20) mg/dL Creatinine (0.66-1.25) mg/dL Est GFR (CKD-EPI)AfAm (>60 ml/min/1.73 sqM) Est GFR (CKD-EPI)NonAf (>60 ml/min/1.73 sqM) Glucose (74-99) mg/dL Lactic Ac Sepsis Rflx Y Plasma Lactic Acid Jacinto (0.7-2.0) mmol/L Calcium (8.4-10.2) mg/dL Magnesium (1.6-2.3) mg/dL Total Bilirubin (0.2-1.3) mg/dL AST (17-59) U/L ALT (4-49) U/L Alkaline Phosphatase (38-126) U/L Creatine Kinase (55-170) U/L Total Protein (6.3-8.2) g/dL Albumin (3.5-5.0) g/dL Serum Alcohol mg/dL - Radiology Data Radiology results: report reviewed, image reviewed Disposition Clinical Impression: Alcohol withdrawal, Lactic acidosis, Nausea and vomiting Disposition: ADMITTED IP TO THIS HOSP
[2025-04-13] MEDS: SODIUM CHLORIDE 0.9% 1,000 ML IV ONE (17:53)
[2025-04-13] MEDS: ONDANSETRON 4 MG/2 ML VIAL IVP STA (17:53)
[2025-04-13 18:13] LABS: Basophils # (A) 0.09 10*3/uL (0.00-0.10); Basophils % (A) 0.6 %; Eosinophils # (A) 0.06 10*3/uL (0.04-0.35); Eosinophils % (A) 0.4 %; HCT 44.8 % (39.6-50.0); HGB 15.1 g/dL (13.0-17.0); Lymphocytes # (A) 1.64 10*3/uL (0.90-5.00); MCH 27.8 pg (27.0-32.0); MCHC 33.7 g/dL (32.0-37.0); MCV 82.4 fL (80.0-97.0); Mean Platelet Volume 9.4 fL (9.5-12.2); Monocytes # (A) 0.66 10*3/uL (0.20-1.00); Monocytes % (A) 4.4 %; Neutrophils # (A) 12.35 10*3/uL (1.80-7.70); Neutrophils % (A) 83.3 %; Platelet Count 388 10*3/uL (140-440); RBC 5.44 10*6/uL (4.40-5.60); RDW 16.9 % (11.5-14.5); WBC 14.85 10*3/uL (4.50-10.00)
[2025-04-13 18:36] LABS: ALT 25 U/L (4-49); AST 27 U/L (17-59); African American GFR (CKD) >90 (>60 ml/min/1.73 sqM); Alcohol 36 mg/dL; Alkaline Phosphatase 107 U/L (38-126); Anion Gap 19 mmol/L; Blood Urea Nitrogen 13 mg/dL (9-20); Calcium 9.6 mg/dL (8.4-10.2); Carbon Dioxide 16 mmol/L (22-30); Chloride 104 mmol/L (98-107); Creatine Kinase 246 U/L (55-170); Glucose 88 mg/dL (74-99); Magnesium 1.4 mg/dL (1.6-2.3); Non-African American GFR(CKD) >90 (>60 ml/min/1.73 sqM); Potassium 4.3 mmol/L (3.5-5.1); Sodium 139 mmol/L (137-145); Total Bilirubin 1.2 mg/dL (0.2-1.3); Total Protein 7.5 g/dL (6.3-8.2)
[2025-04-13] MEDS ORDERED: LORazepam 1 MG TAB PO PRN ×2 (18:47)
[2025-04-13] MEDS ORDERED: LORazepam 1 MG/0.5 ML VIAL IV PRN (18:47)
[2025-04-13] MEDS: SODIUM CHLORIDE 0.9% 500 ML 500 ML IV ONE (18:58)
[2025-04-13] MEDS: THIAMINE 100 MG/ML 2 ML VIAL IM STA (18:58)
[2025-04-13] MEDS: DEXTROSE 5%-0.45% NACL 1,000 ML IV SCH (19:02)
--- NOTE | 2025-04-13 20:27 | XR ---
EXAMINATION TYPE: XR chest 2V DATE OF EXAM: 04/13/2025 8:23 PM COMPARISON: Chest radiograph 11/01/2024. CLINICAL INDICATION: Male, 59 years old with history of ARYAN; [facility] TECHNIQUE: XR chest 2V Frontal and lateral views of the chest. FINDINGS: Lungs/Pleura: There is no evidence of pleural effusion, focal consolidation, or pneumothorax. Pulmonary vascularity: Unremarkable. Heart/mediastinum: Cardiomediastinal silhouette is prominent in size. Musculoskeletal: No acute osseous pathology. Median sternotomy wires. Other findings: None IMPRESSION: No acute cardiopulmonary disease/process. [facility], , 04/13/2025 8:24 PM
[2025-04-13] MEDS ORDERED: NALOXONE 0.4 MG/ML 1 ML VIAL IV PRN (21:49)
[2025-04-13] MEDS ORDERED: IBUPROFEN 400 MG TAB PO PRN (21:49)
[2025-04-13] MEDS ORDERED: KETOROLAC 15 MG/ML 1 ML VIAL IVP PRN (21:49)
[2025-04-13] MEDS ORDERED: ACETAMINOPHEN TAB 325 MG TAB PO PRN (21:49)
[2025-04-13] MEDS ORDERED: ONDANSETRON 4 MG/2 ML VIAL IVP PRN (21:49)
[2025-04-13] MEDS ORDERED: MORPHINE SULFATE 4 MG/ML SYRINGE IV PRN (21:49)
[2025-04-13] MEDS: PROCHLORPERAZINE INJ 10 MG/2 ML VIAL IVP STA (22:51)
[2025-04-13] MEDS: LORazepam 1 MG TAB PO PRN (23:09)
[2025-04-14] MEDS ORDERED: Magnesium Replacement Protocol 1 EACH MISC MISCELLANE PRN (09:24)
[2025-04-14 10:13] LABS: African American GFR (CKD) >90 (>60 ml/min/1.73 sqM); Anion Gap 7 mmol/L; Blood Urea Nitrogen 15 mg/dL (9-20); Calcium 9.4 mg/dL (8.4-10.2); Carbon Dioxide 26 mmol/L (22-30); Chloride 105 mmol/L (98-107); Glucose 127 mg/dL (74-99); Non-African American GFR(CKD) >90 (>60 ml/min/1.73 sqM); Potassium 4.2 mmol/L (3.5-5.1); Sodium 138 mmol/L (137-145)
[2025-04-14] MEDS: MAGNESIUM SULFATE-D5W PMX 1 GM in DEXTROSE/WATER 1 100ML.BAG IVPB SCH (12:06)
[2025-04-14] MEDS: THIAMINE 100 MG TAB PO SCH (12:07)
[2025-04-14] MEDS: FOLIC ACID 1 MG TAB PO SCH (12:07)
[2025-04-14] MEDS: MULTIVITAMINS, THERA 1 EACH TAB PO SCH (12:07)
[2025-04-14] MEDS: PANTOPRAZOLE 40 MG/10 ML VIAL IV SCH (12:07)
[2025-04-14] MEDS ORDERED: ALBUTEROL NEBULIZED 2.5 MG/3 ML INHALATION PRN (12:46)
[2025-04-14] MEDS ORDERED: IPRATROPIUM-ALBUTEROL 3 ML NEB INHALATION PRN (12:48)
[2025-04-14] MEDS: NICOTINE 21MG/24HR PATCH TRANSDERM SCH (14:41)
[2025-04-14] MEDS: ISOSORBIDE MONONITRATE ER 30 MG TAB.ER.24H PO SCH (14:41)
[2025-04-14] MEDS: lisinopriL 10 MG TAB PO SCH (14:42)
[2025-04-14] MEDS: ASPIRIN 81 MG PO SCH (14:42)
[2025-04-14] MEDS: CLOPIDOGREL 75 MG TAB PO SCH (14:42)
[2025-04-14] MEDS: METOPROLOL SUCCINATE (ER) 25 MG TAB.ER.24H PO SCH (14:42)
--- NOTE | 2025-04-14 15:17 | P.HPIM ---
History of Present Illness H&P Date: 04/14/25 This is a 59-year-old male with medical history significant for COPD, hypertension, hyperlipidemia, ischemic cardiomyopathy with known ejection fraction of 40 to 45%. Patient presents to the emergency room yesterday afternoon with concern for heat exhaustion. Patient does drink 1/5 of vodka daily. He was walking out side became weak dizzy nauseous and lightheaded. He is now concerned for alcohol withdrawal and has history of alcohol withdrawal seizure. EKG reveals normal sinus rhythm heart rate of 89. X-ray negative for acute findings. White blood cell count of 14.85, BUN of 13 creatinine 0.86 lactic acid of 4.2 magnesium 1.4 creat kinase of 246. His serum alcohol level was 36 on presentation. Patient was admitted to the hospital for IV hydration received a 2 L fluid bolus was started on D5 half-normal saline and IV Ativan CIWA protocol. He will also receive magnesium supplementation. He was admitted in observation for the acute alcohol withdrawal. REVIEW OF SYSTEMS: CONSTITUTIONAL: No fever, no malaise, no fatigue. HEENT: No recent visual problems or hearing problems. Denied any sore throat. CARDIOVASCULAR: No chest pain, orthopnea, PND, no palpitations, no syncope. PULMONARY: No shortness of breath, no cough, no hemoptysis. GASTROINTESTINAL: No diarrhea, no nausea, no vomiting, no abdominal pain. NEUROLOGICAL: No headaches, no weakness, no numbness. HEMATOLOGICAL: Denies any bleeding or petechiae. GENITOURINARY: Denies any burning micturition, frequency, or urgency. MUSCULOSKELETAL/RHEUMATOLOGICAL: Denies any joint pain, swelling, or any muscle pain. ENDOCRINE: Denies any polyuria or polydipsia. The rest of the 14-point review of systems is negative. PHYSICAL EXAMINATION: GENERAL: The patient is alert and oriented x3, not in any acute distress. Well developed, well nourished. HEENT: Pupils are round and equally reacting to light. EOMI. No scleral icterus. No conjunctival pallor. Normocephalic, atraumatic. No pharyngeal erythema. No thyromegaly. CARDIOVASCULAR: S1 and S2 present. No murmurs, rubs, or gallops. PULMONARY: Chest is clear to auscultation, no wheezing or crackles. ABDOMEN: Soft, nontender, nondistended, normoactive bowel sounds. No palpable organomegaly. MUSCULOSKELETAL: No joint swelling or deformity. EXTREMITIES: No cyanosis, clubbing, or pedal edema. NEUROLOGICAL: Gross neurological examination did not reveal any focal deficits. SKIN: No rashes. Assessment Acute alcohol intoxication and concern for alcohol withdrawal seizure and early DTs Lactic acidosis secondary to dehydration Reactive leukocytosis COPD with no acute exacerbation Hypertension Hyperlipidemia Ischemic cardiomyopathy with known EF of 40 to 45% Chronic alcoholism Chronic and ongoing nicotine use counseling was provided GI prophylaxis Full code Plan Continue IV Ativan CIWA protocol Patient does want to quit alcohol so he will be monitored for withdrawal Seizure precautions Supplement magnesium with 2 g of IV per protocol Continue IV fluids Resume home medications Nicotine patch Monitor electrolytes and renal function The impression and plan of care has been dictated by Nathaly Larios Nurse Practitioner as directed. Dr. Catrachito MD I have performed a history and physical examination and medical decision making of this patient, discussed the same with the dictator, and agree with the dictators assessment and plan as written, documented as a scribe. Based on total visit time, I have performed more than 50% of this visit. Past Medical History Past Medical History: COPD, Hyperlipidemia, Hypertension, Myocardial Infarction ([place]), Seizure Disorder Additional Past Medical History / Comment(s): ISCHEMIC CARDIOMYOPATHY WITH EF 40-45%. 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 Last Myocardial Infarction Date:: 06/12/14 History of Any Multi-Drug Resistant Organisms: None Reported Past Surgical History: Coronary Bypass/CABG, Heart Catheterization With Stent, Hernia Repair, Orthopedic Surgery Additional Past Surgical History / Comment(s): cabg january 2014-3 vessel, Cardiac caths and stenting with last Cardiac cath Jul [address] Cerda. Past Anesthesia/Blood Transfusion Reactions: No Reported Reaction Additional Past Anesthesia/Blood Transfusion Reaction / Comment(s): NO PROBLEM TOLERATING ANESTHESIA. HAS NEVER RECIEVED BLOOD TO HIS KNOWLEDGE. Date of Last Stent Placement:: 06/12/14 Past Psychological History: Anxiety, Panic Disorder, PTSD Additional Psychological History / Comment(s): Patient is homeless, been homeless for 8 months. Living whereever he can Smoking Status: Current every day smoker Past Alcohol Use History: None Reported Additional Past Alcohol Use History / Comment(s): drinks 1 pint/day Past Drug Use History: Marijuana, Methamphetamine Additional Drug Use History / Comment(s): uses marijuanan occaisionally - Past Family History Father Family Medical History: Coronary Artery Disease (CAD), Myocardial Infarction ([place]) Additional Family Medical History / Comment(s): FATHER STILL LIVING Mother Family Medical History: Coronary Artery Disease (CAD), Myocardial Infarction ([place]) Additional Family Medical History / Comment(s): MOTHER 09/23/14 of unknown causes. Sister(s) Family Medical History: Myocardial Infarction ([place]) Additional Family Medical History / Comment(s): SISTER OF [place] AT AGE 53 Medications and Allergies Home Medications Medication Instructions Recorded Confirmed Type Aspirin 81 mg PO DAILY #30 tab 11/02/24 04/14/25 Rx Atorvastatin [Lipitor] 80 mg PO HS #30 tab 11/02/24 04/14/25 Rx Isosorbide Mononitrate ER [Imdur] 30 mg PO DAILY #30 tab 11/02/24 04/14/25 Rx Albuterol Inhaler [Ventolin Hfa 2 puff INHALATION Q6HR PRN 04/14/25 04/14/25 History Inhaler] Clopidogrel [Plavix] 75 mg PO DAILY 04/14/25 04/14/25 History Empagliflozin [Jardiance] 10 mg PO DAILY 04/14/25 04/14/25 History Metoprolol Succinate (ER) [Toprol 25 mg PO DAILY 04/14/25 04/14/25 History Xl] lisinopriL [Prinivil] 10 mg PO DAILY 04/14/25 04/14/25 History Allergies Allergy/AdvReac Type Severity Reaction Status Date / Time Penicillins Allergy Unknown Verified 04/14/25 09:51 Childhood Physical Exam Vitals: Vital Signs Temp Pulse Resp BP Pulse Ox 04/14/25 08:09 98.1 F 04/14/25 05:29 97.9 F 78 18 155/100 94 L 04/14/25 02:00 79 18 142/91 98 04/13/25 22:52 103 H 18 149/93 94 L 04/13/25 17:17 98.1 F 95 18 142/101 99 Intake and Output 04/13/25 04/14/25 04/14/25 22:59 06:59 14:59 Other: Weight 79.379 kg 79.379 kg Results CBC & Chem 7: 04/13/25 17:21 04/14/25 09:36 Labs: Abnormal Lab Results - Last 24 Hours (Table) 04/13/25 04/13/25 04/13/25 Range/Units 17:21 17:21 17:21 WBC 14.85 H (4.50-10.00) 10*3/uL MPV 9.4 L (9.5-12.2) fL Immature Gran # 0.05 H (0.00-0.04) 10*3/uL Neutrophils # 12.35 H (1.80-7.70) 10*3/uL Carbon Dioxide 16 L (22-30) mmol/L Plasma Lactic Acid Jacinto 4.2 H* (0.7-2.0) mmol/L Magnesium 1.4 L (1.6-2.3) mg/dL Creatine Kinase 246 H (55-170) U/L Assessment and Plan Time with Patient: Less than 30
[2025-04-14] MEDS: LORazepam 0.5 MG TAB PO PRN (16:31)
[2025-04-14] MEDS: DAPAGLIFLOZIN PROPANEDIOL 5 MG TABLET PO SCH (16:35)
[2025-04-14] MEDS: ATORVASTATIN 80 MG TAB PO SCH (20:55)
[2025-04-15] MEDS: LORazepam 1 MG TAB PO PRN (05:51)
[2025-04-15 08:51] VITALS: BP 102/65; PULSE 57; RESP 17; TEMP 97.5
[2025-04-15] MEDS: chlordiazePOXIDE 25 MG CAP PO SCH (10:07)
--- NOTE | 2025-04-15 13:58 | P.PN ---
Subjective Progress Note Date: 04/15/25 This is a 59-year-old male with medical history significant for COPD, hypertension, hyperlipidemia, ischemic cardiomyopathy with known ejection fraction of 40 to 45%. Patient presents to the emergency room yesterday afternoon with concern for heat exhaustion. Patient does drink 1/5 of vodka daily. He was walking out side became weak dizzy nauseous and lightheaded. He is now concerned for alcohol withdrawal and has history of alcohol withdrawal seizure. EKG reveals normal sinus rhythm heart rate of 89. X-ray negative for acute findings. White blood cell count of 14.85, BUN of 13 creatinine 0.86 lactic acid of 4.2 magnesium 1.4 creat kinase of 246. His serum alcohol level was 36 on presentation. Patient was admitted to the hospital for IV hydration received a 2 L fluid bolus was started on D5 half-normal saline and IV Ativan CIWA protocol. He will also receive magnesium supplementation. He was admitted in observation for the acute alcohol withdrawal. 04/11/2025 Patient is evaluated in follow-up in the observation unit. He continues to have tremors agitation and still feels like he is withdrawing from alcohol. He has required multiple doses of IV Ativan this morning for CIWA of 3 or 10 and oral Librium 3 times daily has been added. Patient is homeless with staying in a shelter house in the past states that he has gone to alcohol withdrawal and is not interested in going again. Will continue to monitor the patient overnight possible discharge home tomorrow. REVIEW OF SYSTEMS: CONSTITUTIONAL: No fever, no malaise, no fatigue. HEENT: No recent visual problems or hearing problems. Denied any sore throat. CARDIOVASCULAR: No chest pain, orthopnea, PND, no palpitations, no syncope. PULMONARY: No shortness of breath, no cough, no hemoptysis. GASTROINTESTINAL: No diarrhea, no nausea, no vomiting, no abdominal pain. NEUROLOGICAL: No headaches, no weakness, no numbness. PHYSICAL EXAMINATION: GENERAL: The patient is alert and oriented x3, not in any acute distress. Well developed, well nourished. HEENT: Pupils are round and equally reacting to light. EOMI. No scleral icterus. No conjunctival pallor. Normocephalic, atraumatic. No pharyngeal erythema. No thyromegaly. CARDIOVASCULAR: S1 and S2 present. No murmurs, rubs, or gallops. PULMONARY: Chest is clear to auscultation, no wheezing or crackles. ABDOMEN: Soft, nontender, nondistended, normoactive bowel sounds. No palpable organomegaly. MUSCULOSKELETAL: No joint swelling or deformity. EXTREMITIES: No cyanosis, clubbing, or pedal edema. NEUROLOGICAL: Gross neurological examination did not reveal any focal deficits. SKIN: No rashes. Assessment Acute alcohol intoxication and concern for alcohol withdrawal seizure and early DTs Lactic acidosis secondary to dehydration Reactive leukocytosis COPD with no acute exacerbation Hypertension Hyperlipidemia Ischemic cardiomyopathy with known EF of 40 to 45% Chronic alcoholism Chronic and ongoing nicotine use counseling was provided GI prophylaxis Full code Plan Continue IV Ativan CIWA protocol Add Librium 25 mg 3 times daily Patient does want to quit alcohol so he will be monitored for withdrawal Seizure precautions Continue IV fluids Resume home medications Nicotine patch Monitor electrolytes and renal function The impression and plan of care has been dictated by Nathaly Larios, Nurse Practitioner as directed. Dr. Catrachito MD I have performed a history and physical examination and medical decision making of this patient, discussed the same with the dictator, and agree with the dictators assessment and plan as written, documented as a scribe. Based on total visit time, I have performed more than 50% of this visit. Objective - Vital Signs Vital signs: Vital Signs Temp 97.5 F L 04/15/25 07:00 Pulse 57 L 04/15/25 07:00 Resp 17 04/15/25 07:00 BP 102/65 04/15/25 07:00 Pulse Ox 95 04/15/25 07:00 FiO2 Intake & Output 04/14/25 04/15/25 04/15/25 18:59 06:59 18:59 Weight 79.379 kg Other: # Voids 2 - Labs CBC & Chem 7: 04/13/25 17:21 04/14/25 09:36 Labs: Abnormal Lab Results - Last 24 Hours (Table) 04/14/25 Range/Units 09:36 Glucose 127 H (74-99) mg/dL
--- NOTE | 2025-04-16 17:00 | P.DS ---
Providers Date of admission: 04/13/25 21:50 Attending physician: Yair Alvares Primary care physician: Monty Maher Hospital Course: Final Diagnosis Acute alcohol intoxication and concern for alcohol withdrawal seizure and early DTs Lactic acidosis secondary to dehydration Reactive leukocytosis COPD with no acute exacerbation Hypertension Hyperlipidemia Ischemic cardiomyopathy with known EF of 40 to 45% Chronic alcoholism Chronic and ongoing nicotine use counseling was provided GI prophylaxis Full code Discharge Disposition Patient stable for discharge home recommending to avoid alcohol. He has been given community resources. Hospital Course This is a 59-year-old male with medical history significant for COPD, hypertension, hyperlipidemia, ischemic cardiomyopathy with known ejection fraction of 40 to 45%. Patient presents to the emergency room yesterday afternoon with concern for heat exhaustion. Patient does drink 1/5 of vodka daily. He was walking out side became weak dizzy nauseous and lightheaded. He is now concerned for alcohol withdrawal and has history of alcohol withdrawal seizure. EKG reveals normal sinus rhythm heart rate of 89. X-ray negative for acute findings. White blood cell count of 14.85, BUN of 13 creatinine 0.86 lact ic acid of 4.2 magnesium 1.4 creat kinase of 246. His serum alcohol level was 36 on presentation. Patient was admitted to the hospital for IV hydration received a 2 L fluid bolus was started on D5 half-normal saline and IV Ativan CIWA protocol. He will also receive magnesium supplementation. He was admitted in observation for the acute alcohol withdrawal. He has required multiple doses of IV Ativan this morning for CIWA of 3 or 10 and oral Librium 3 times daily has been added. Patient is homeless with staying in a longterm house in the past states that he has gone to alcohol withdrawal and is not interested in going again. He wants to discharge home has been up ambulating later on this afternoon on the . States he feels his withdrawals are better. He was going to leave AMA but he can be discharged home and recommending to avoid alcohol. He is given community resources. Review of Systems Constitutional: Denied any fatigue denied any fever. Cardio vascular: denied any chest pain, palpitations Gastrointestinal: denied any nausea, vomiting, diarrhea Pulmonary: Denied any shortness of breath cough Neurologic denied any new focal deficits All inpatient medications were reviewed and appropriate changes in these medications as dictated in the interval history and assessment and plan. PHYSICAL EXAMINATION: GENERAL: The patient is alert and oriented x3, not in any acute distress. Well developed, well nourished. HEENT: Pupils are round and equally reacting to light. EOMI. No scleral icterus. No conjunctival pallor. Normocephalic, atraumatic. No pharyngeal erythema. No thyromegaly. CARDIOVASCULAR: S1 and S2 present. No murmurs, rubs, or gallops. PULMONARY: Chest is clear to auscultation, no wheezing or crackles. ABDOMEN: Soft, nontender, nondistended, normoactive bowel sounds. No palpable organomegaly. MUSCULOSKELETAL: No joint swelling or deformity. EXTREMITIES: No cyanosis, clubbing, or pedal edema. NEUROLOGICAL: Gross neurological examination did not reveal any focal deficits. SKIN: No rashes. Please see medication reconciliation for a list of current medications. Thank you for allowing us to participate in the care of this patient. The impression and plan of care has been dictated by Nathaly Larios, Nurse Practitioner as directed. Dr. Catrachito MD I have performed a history and physical examination and medical decision making of this patient, discussed the same with the dictator, and agree with the dictators assessment and plan as written, documented as a scribe. Based on total visit time, I have performed more than 50% of this visit. Plan - Discharge Summary Discharge Rx Participant: Yes New Discharge Prescriptions: New Folic Acid 1 mg PO DAILY tab Thiamine [Vitamin B-1] 100 mg PO DAILY tab Continue Isosorbide Mononitrate ER [Imdur] 30 mg PO DAILY #30 tab Atorvastatin [Lipitor] 80 mg PO HS #30 tab Metoprolol Succinate (ER) [Toprol XL] 25 mg PO DAILY Aspirin 81 mg PO DAILY #30 tab Albuterol Inhaler [Ventolin Hfa Inhaler] 2 puff INHALATION RT-Q6H PRN PRN Reason: Shortness Of Breath Or Wheezing lisinopriL [Prinivil] 10 mg PO DAILY Clopidogrel [Plavix] 75 mg PO DAILY Empagliflozin [Jardiance] 10 mg PO DAILY No Action Multivitamins, Thera [Multivitamin (formulary)] 1 tab PO DAILY Discharge Medication List Aspirin 81 mg PO DAILY #30 tab 11/02/24 [Rx] Atorvastatin [Lipitor] 80 mg PO HS #30 tab 11/02/24 [Rx] Isosorbide Mononitrate ER [Imdur] 30 mg PO DAILY #30 tab 11/02/24 [Rx] Albuterol Inhaler [Ventolin Hfa Inhaler] 2 puff INHALATION RT-Q6H PRN 04/14/25 [History] Clopidogrel [Plavix] 75 mg PO DAILY 04/14/25 [History] Empagliflozin [Jardiance] 10 mg PO DAILY 04/14/25 [History] Metoprolol Succinate (ER) [Toprol XL] 25 mg PO DAILY 04/14/25 [History] lisinopriL [Prinivil] 10 mg PO DAILY 04/14/25 [History] Folic Acid 1 mg PO DAILY tab 04/15/25 [Rx] Thiamine [Vitamin B-1] 100 mg PO DAILY tab 04/15/25 [Rx] Multivitamins, Thera [Multivitamin (formulary)] 1 tab PO DAILY 04/16/25 [History] Follow up Appointment(s)/Referral(s): Monty Maher MD [Primary Care Provider] - 1-2 days Discharge/Stand Alone Forms: AA Meetings [facility], [facility], [place], Community Resources Discharge Disposition: HOME SELF-CARE
== END 2025-04-15 15:23 | disposition home or self-care (01) ==
LOC: EC 17:16 → 6NMEDSUR 21:50 → 1SOBS 04-14 06:32
PROVIDERS: ADMIT Hospitalist; ATTEND Hospitalist
DX: F10.229 Alcohol dependence with intoxication, unspecified (principal); E87.20 Acidosis, unspecified; E86.0 Dehydration; D72.829 Elevated white blood cell count, unspecified; I10 Essential (primary) hypertension; J44.9 Chronic obstructive pulmonary disease, unspecified; E78.5 Hyperlipidemia, unspecified; I25.2 Old myocardial infarction; I25.5 Ischemic cardiomyopathy; F41.0 Panic disorder [episodic paroxysmal anxiety]; F17.200 Nicotine dependence, unspecified, uncomplicated; Y90.1 Blood alcohol level of 20-39 mg/100 ml; Z59.00 Homelessness unspecified; Z95.5 Presence of coronary angioplasty implant and graft; Z79.82 Long term (current) use of aspirin; Z79.899 Other long term (current) drug therapy; Z88.0 Allergy status to penicillin
CPT/HCPCS: 96365; 96366; 96375 ×2; 96376; 96361; 96372; 96374; 99285; 36415; 93005; 80053; 80048; 82550; 83605; 83735 ×2; 85025; 80320; 71046; G0378 ×3; S4990 ×2; J0780; J3411; J2405; J3475; J2470 ×2

== ENCOUNTER 2025-04-16 09:46 | Emergency (ER) | payer OTHER ==
--- NOTE | 2025-04-16 09:55 | ED ---
General Adult HPI - General Stated complaint: Petition Time Seen by Provider: 04/16/25 09:52 Source: patient, RN notes reviewed Mode of arrival: ambulatory Limitations: no limitations - History of Present Illness Initial comments: 59-year-old male presents emergency department chief complaint of depression, suicide nation. Patient was brought in by police petition. Patient reportedly was making threats to kill himself using a jump. Patient states that he was recently discharged in the hospital after hospitalization for dehydration alcohol abuse states he did start drinking is gone rehab in the past he does admit to marijuana use. Patient denies any physical complaints. - Related Data Home Medications Medication Instructions Recorded Confirmed Albuterol Inhaler [Ventolin Hfa 2 puff INHALATION RT-Q6H PRN 04/14/25 04/16/25 Inhaler] Clopidogrel [Plavix] 75 mg PO DAILY 04/14/25 04/16/25 Empagliflozin [Jardiance] 10 mg PO DAILY 04/14/25 04/16/25 Metoprolol Succinate (ER) [Toprol 25 mg PO DAILY 04/14/25 04/16/25 XL] lisinopriL [Prinivil] 10 mg PO DAILY 04/14/25 04/16/25 Multivitamins, Thera [Multivitamin 1 tab PO DAILY 04/16/25 04/16/25 (formulary)] Previous Rx's Medication Instructions Recorded Aspirin 81 mg PO DAILY #30 tab 11/02/24 Atorvastatin [Lipitor] 80 mg PO HS #30 tab 11/02/24 Isosorbide Mononitrate ER [Imdur] 30 mg PO DAILY #30 tab 11/02/24 Folic Acid 1 mg PO DAILY tab 04/15/25 Thiamine [Vitamin B-1] 100 mg PO DAILY tab 04/15/25 Allergies Allergy/AdvReac Type Severity Reaction Status Date / Time Penicillins Allergy Unknown Verified 04/16/25 13:45 Childhood Review of Systems ROS Statement: Those systems with pertinent positive or pertinent negative responses have been documented in the HPI. ROS Other: All systems not noted in ROS Statement are negative. Past Medical History Past Medical History: COPD, Hyperlipidemia, Hypertension, Myocardial Infarction ([place]), Seizure Disorder Additional Past Medical History / Comment(s): ISCHEMIC CARDIOMYOPATHY WITH EF 40-45%. 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 Last Myocardial Infarction Date:: 06/12/14 History of Any Multi-Drug Resistant Organisms: None Reported Past Surgical History: Coronary Bypass/CABG, Heart Catheterization With Stent, Hernia Repair, Orthopedic Surgery Additional Past Surgical History / Comment(s): cabg january 2014-3 vessel, Cardiac caths and stenting with last Cardiac cath Jul [address] Cerda. Past Anesthesia/Blood Transfusion Reactions: No Reported Reaction Additional Past Anesthesia/Blood Transfusion Reaction / Comment(s): NO PROBLEM TOLERATING ANESTHESIA. HAS NEVER RECIEVED BLOOD TO HIS KNOWLEDGE. Date of Last Stent Placement:: 06/12/14 Past Psychological History: Anxiety, Panic Disorder, PTSD Additional Psychological History / Comment(s): Patient is homeless, been homeless for 8 months. Living whereever he can Smoking Status: Current every day smoker Past Alcohol Use History: None Reported Additional Past Alcohol Use History / Comment(s): drinks 1 pint/day Past Drug Use History: Marijuana, Methamphetamine Additional Drug Use History / Comment(s): uses marijuanan occaisionally - Past Family History Father Family Medical History: Coronary Artery Disease (CAD), Myocardial Infarction ([place]) Additional Family Medical History / Comment(s): FATHER STILL LIVING Mother Family Medical History: Coronary Artery Disease (CAD), Myocardial Infarction ([place]) Additional Family Medical History / Comment(s): MOTHER 09/23/14 of unknown causes. Sister(s) Family Medical History: Myocardial Infarction ([place]) Additional Family Medical History / Comment(s): SISTER OF [place] AT AGE 53 General Exam Limitations: no limitations General appearance: alert, in no apparent distress Head exam: Present: atraumatic, normocephalic, normal inspection Eye exam: Present: normal appearance, PERRL, EOMI. Absent: scleral icterus, conjunctival injection, periorbital swelling ENT exam: Present: normal exam, normal oropharynx, mucous membranes moist Neck exam: Present: normal inspection, full ROM. Absent: tenderness, meningismus, lymphadenopathy Respiratory exam: Present: normal lung sounds bilaterally. Absent: respiratory distress, wheezes, rales, rhonchi, stridor Cardiovascular Exam: Present: regular rate, normal rhythm, normal heart sounds. Absent: systolic murmur, diastolic murmur, rubs, gallop, clicks GI/Abdominal exam: Present: soft, normal bowel sounds. Absent: distended, tenderness, guarding, rebound, rigid Neurological exam: Present: alert, oriented X3, CN II-XII intact, reflexes normal. Absent: motor sensory deficit Psychiatric exam: Present: depressed Course Vital Signs 04/16/25 10:09 Temperature 97.9 F Pulse Rate 83 Respiratory 18 Rate Blood Pressure 154/94 O2 Sat by Pulse 98 Oximetry Medical Decision Making - Medical Decision Making Was pt. sent in by a medical professional or institution (, PA, CASH SHORTAGE INVESTIGATOR, urgent care, hospital, or senior care...) When possible be specific @ -No Did you speak to anyone other than the patient for history (EMS, parent, family, police, friend...)? What history was obtained from this source @ -No Did you review nursing and triage notes (agree or disagree)? Why? @ -I reviewed and agree with nursing and triage notes Were old charts reviewed (outside hosp., previous admission, EMS record, old EKG, old radiological studies, urgent care reports/EKG's, senior care records)? Report findings @ -No old charts were reviewed Differential Diagnosis (chest pain, altered mental status, abdominal pain women, abdominal pain men, vaginal bleeding, weakness, fever, dyspnea, syncope, headache, dizziness, GI bleed, back pain, seizure, CVA, palpatations, mental health, musculoskeletal)? @ -Differential Mental Health Depression, anxiety, bipolar, psychosis, schizophrenia, borderline personality, situational depression, adjustment disorder, behavioral disorder, brain tumor, malingering, substance abuse, encephalopathy, medication reaction, dementia, hypothyroidism, degenerative neurologic disorder, lupus.... This is not meant to be all-inclusive list EKG interpreted by me (3pts min.). @ -None X-rays interpreted by me (1pt min.). @ -None done CT interpreted by me (1pt min.). @ -None done U/S interpreted by me (1pt. min.). @ -None done What testing was considered but not performed or refused? (CT, X-rays, U/S, labs)? Why? @ -None What meds were considered but not given or refused? Why? @ -None Did you discuss the management of the patient with other professionals (professionals i.e. , PA, CASH SHORTAGE INVESTIGATOR, lab, RT, psych nurse, director social service, grain origination specialist, teacher, telecommunications officer, welfare case worker)? Give summary @ -[EPS evaluation and recommended inpatient treatment will require transfer Was smoking cessation discussed for >3mins.? @ -No Was critical care preformed (if so, how long)? @ -No Were there social determinants of health that impacted care today? How? (Homelessness, low income, unemployed, alcoholism, drug addiction, tra nsportation, low edu. Level, literacy, decrease access to med. care, retirement, rehab)? @ -No Was there de-escalation of care discussed even if they declined (Discuss DNR or withdrawal of care, Hospice)? DNR status @ -No What co-morbidities impacted this encounter? (DM, HTN, Smoking, COPD, CAD, Cancer, CVA, ARF, Chemo, Hep., AIDS, mental health diagnosis, sleep apnea, morbid obesity)? @ -None Was patient admitted / discharged? Hospital course, mention meds given and route, prescriptions, significant lab abnormalities, going to OR and other pertinent info. @ -Transferred to psychiatric facility for further treatment and management. Undiagnosed new problem with uncertain prognosis? @ -No Drug Therapy requiring intensive monitoring for toxicity (Heparin, Nitro, Insulin, Cardizem)? @ -No Were any procedures done? @ -No Diagnosis/symptom? @Depression, suicide ideation, alcohol abuse Acute, or Chronic, or Acute on Chronic? @ -Acute Uncomplicated (without systemic symptoms) or Complicated (systemic symptoms)? @ -Complicated Side effects of treatment? @ -No Exacerbation, Progression, or Severe Exacerbation? @ -No Poses a threat to life or bodily function? How? (Chest pain, [place], [place], pneumonia, PE, COPD, DKA, ARF, appy, cholecystitis, CVA, Diverticulitis, Homicidal, Suicidal, threat to staff... and all critical care pts) @ -Yes suicidal - Lab Data Lab Results 04/16/25 Range/Units 10:51 Urine Opiates Screen Not Detected (NotDetected) Ur Oxycodone Screen Not Detected (NotDetected) Urine Methadone Screen Not Detected (NotDetected) Ur Barbiturates Screen Not Detected (NotDetected) U Tricyclic Antidepress Not Detected (NotDetected) Ur Phencyclidine Scrn Not Detected (NotDetected) Ur Amphetamines Screen Not Detected (NotDetected) U Methamphetamines Scrn Not Detected (NotDetected) U Benzodiazepines Scrn Detected H (NotDetected) Urine Cocaine Screen Not Detected (NotDetected) U Marijuana (THC) Screen Detected H (NotDetected) Disposition Clinical Impression: Alcohol intoxication, Alcohol use disorder, Suicidal behavior, Depression Disposition: TRANSFER TO PSYCH HOSP/UNIT Referrals: Monty Maher MD [Primary Care Provider] - 1-2 days Time of Disposition: 13:58
[2025-04-16 11:21] LABS: Amphetamine Screen,Urine Not Detected (NotDetected); Barbiturate Screen,Urine Not Detected (NotDetected); Benzodiazepines Screen,Urine Detected (NotDetected); Cocaine Screen,Urine Not Detected (NotDetected); Methadone Screen, Urine Not Detected (NotDetected); Opiate Screen,Urine Not Detected (NotDetected); Oxycodone Screen, Urine Not Detected (NotDetected); Phencyclidine Screen,Urine Not Detected (NotDetected); Tricyclic Antidepressant,Urine Not Detected (NotDetected); Urn Cannabinoid Scrn Detected (NotDetected)
[2025-04-16] MEDS ORDERED: ALBUTEROL NEBULIZED 2.5 MG/3 ML INHALATION PRN (13:59)
[2025-04-16] MEDS ORDERED: chlordiazePOXIDE 25 MG CAP PO PRN ×4 (14:00)
[2025-04-16 14:22] LABS: Basophils # (A) 0.07 10*3/uL (0.00-0.10); Basophils % (A) 0.7 %; Eosinophils # (A) 0.37 10*3/uL (0.04-0.35); Eosinophils % (A) 3.7 %; HCT 38.1 % (39.6-50.0); HGB 12.7 g/dL (13.0-17.0); Lymphocytes # (A) 1.78 10*3/uL (0.90-5.00); Lymphocytes % (A) 17.6 %; MCHC 33.3 g/dL (32.0-37.0); MCV 84.1 fL (80.0-97.0); Mean Platelet Volume 10.2 fL (9.5-12.2); Monocytes # (A) 0.62 10*3/uL (0.20-1.00); Monocytes % (A) 6.1 %; Neutrophils # (A) 7.25 10*3/uL (1.80-7.70); Neutrophils % (A) 71.5 %; Platelet Count 277 10*3/uL (140-440); RBC 4.53 10*6/uL (4.40-5.60); RDW 16.8 % (11.5-14.5); WBC 10.13 10*3/uL (4.50-10.00)
[2025-04-16 14:45] LABS: Appearance,Urine Clear (Clear); Bilirubin,Urine Negative (Negative); Blood,Urine Negative (Negative); Color,Urine Light Yellow; Glucose,Urine (UA) 2+ (Negative); Ketones,Urine Negative (Negative); Leukocyte Esterase,Urine Negative (Negative); Nitrite,Urine Negative (Negative); PH, Urine 5.5 (5.0-8.0); Protein,Urine Negative (Negative); Specific Gravity,Urine 1.013 (1.001-1.035); Urobilinogen,Urine <2.0 mg/dL (<2.0)
[2025-04-16 14:47] LABS: ALT 23 U/L (4-49); AST 26 U/L (17-59); African American GFR (CKD) >90 (>60 ml/min/1.73 sqM); Alkaline Phosphatase 79 U/L (38-126); Anion Gap 10 mmol/L; Blood Urea Nitrogen 9 mg/dL (9-20); Calcium 9.1 mg/dL (8.4-10.2); Carbon Dioxide 24 mmol/L (22-30); Chloride 103 mmol/L (98-107); Glucose 85 mg/dL (74-99); Non-African American GFR(CKD) >90 (>60 ml/min/1.73 sqM); Potassium 4.1 mmol/L (3.5-5.1); Sodium 137 mmol/L (137-145); Total Bilirubin 0.4 mg/dL (0.2-1.3); Total Protein 6.2 g/dL (6.3-8.2)
[2025-04-16 19:16] VITALS: BP 159/87; PULSE 67; RESP 20; TEMP 98.7
[2025-04-16] MEDS ORDERED: ATORVASTATIN 80 MG TAB PO SCH (21:00)
[2025-04-17] MEDS ORDERED: THIAMINE 100 MG TAB PO SCH (09:00)
[2025-04-17] MEDS ORDERED: ASPIRIN 81 MG PO SCH (09:00)
[2025-04-17] MEDS ORDERED: CLOPIDOGREL 75 MG TAB PO SCH (09:00)
[2025-04-17] MEDS ORDERED: lisinopriL 10 MG TAB PO SCH (09:00)
[2025-04-17] MEDS ORDERED: DAPAGLIFLOZIN PROPANEDIOL 5 MG TABLET PO SCH (09:00)
[2025-04-17] MEDS ORDERED: METOPROLOL SUCCINATE (ER) 25 MG TAB.ER.24H PO SCH (09:00)
[2025-04-17] MEDS ORDERED: FOLIC ACID 1 MG TAB PO SCH (09:00)
[2025-04-17] MEDS ORDERED: ISOSORBIDE MONONITRATE ER 30 MG TAB.ER.24H PO SCH (09:00)
[2025-04-17] MEDS ORDERED: MULTIVITAMINS, THERA 1 EACH TAB PO SCH (09:00)
== END 2025-04-16 19:19 ==
LOC: EC 09:46
DX: F10.129 Alcohol abuse with intoxication, unspecified (principal); F32.A Depression, unspecified; R45.851 Suicidal ideations; F17.200 Nicotine dependence, unspecified, uncomplicated; Z88.0 Allergy status to penicillin; Y90.9 Presence of alcohol in blood, level not specified
CPT/HCPCS: 36415; 80053; 80306; 81003; 82075; 85025; 87635; 99285

== ENCOUNTER 2025-05-13 17:39 | Observation (INO) | payer OTHER ==
--- NOTE | 2025-05-13 17:57 | ED ---
General Adult HPI - General Chief complaint: Chest Pain Stated complaint: chest pain, difficulty breathing Time Seen by Provider: 05/13/25 17:45 Source: patient, RN notes reviewed Mode of arrival: ambulatory Limitations: no limitations - History of Present Illness Initial comments: Patient is a 59-year-old male present to the emergency department with chest tightness. [place]set of symptoms [place] Patient stopped drinking alcohol earlier today and is concerned about withdrawal. Patient does have history of previous cardiac disease with heart attack with similar symptoms. Patient also has associated dyspnea. - Related Data Home Medications Medication Instructions Recorded Confirmed Albuterol Inhaler [Ventolin Hfa 2 puff INHALATION RT-Q6H PRN 04/14/25 04/16/25 Inhaler] Clopidogrel [Plavix] 75 mg PO DAILY 04/14/25 04/16/25 Empagliflozin [Jardiance] 10 mg PO DAILY 04/14/25 04/16/25 Metoprolol Succinate (ER) [Toprol 25 mg PO DAILY 04/14/25 04/16/25 XL] lisinopriL [Prinivil] 10 mg PO DAILY 04/14/25 04/16/25 Multivitamins, Thera [Multivitamin 1 tab PO DAILY 04/16/25 04/16/25 (formulary)] Previous Rx's Medication Instructions Recorded Aspirin 81 mg PO DAILY #30 tab 11/02/24 Atorvastatin [Lipitor] 80 mg PO HS #30 tab 11/02/24 Isosorbide Mononitrate ER [Imdur] 30 mg PO DAILY #30 tab 11/02/24 Folic Acid 1 mg PO DAILY tab 04/15/25 Thiamine [Vitamin B-1] 100 mg PO DAILY tab 04/15/25 Allergies Allergy/AdvReac Type Severity Reaction Status Date / Time Penicillins Allergy Unknown Verified 05/13/25 17:42 Childhood Review of Systems ROS Statement: Those systems with pertinent positive or pertinent negative responses have been documented in the HPI. ROS Other: All systems not noted in ROS Statement are negative. Constitutional: Denies: fever Eyes: Denies: eye pain ENT: Denies: ear pain Respiratory: Reports: as per HPI Cardiovascular: Reports: as per HPI, chest pain Gastrointestinal: Reports: nausea Musculoskeletal: Denies: back pain Past Medical History Past Medical History: COPD, Hyperlipidemia, Hypertension, Myocardial Infarction (MT), Seizure Disorder Additional Past Medical History / Comment(s): ISCHEMIC CARDIOMYOPATHY WITH EF 40-45%. 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 Last Myocardial Infarction Date:: 06/12/14 History of Any Multi-Drug Resistant Organisms: None Reported Past Surgical History: Coronary Bypass/CABG, Heart Catheterization With Stent, Hernia Repair, Orthopedic Surgery Additional Past Surgical History / Comment(s): cabg january 2014-3 vessel, Cardiac caths and stenting with last Cardiac cath Jul [address] Cerda. Past Anesthesia/Blood Transfusion Reactions: No Reported Reaction Additional Past Anesthesia/Blood Transfusion Reaction / Comment(s): NO PROBLEM TOLERATING ANESTHESIA. HAS NEVER RECIEVED BLOOD TO HIS KNOWLEDGE. Date of Last Stent Placement:: 06/12/14 Past Psychological History: Anxiety, Panic Disorder, PTSD Smoking Status: Current every day smoker Past Alcohol Use History: Daily Past Drug Use History: Marijuana, Methamphetamine - Past Family History Father Family Medical History: Coronary Artery Disease (CAD), Myocardial Infarction (MT) Additional Family Medical History / Comment(s): FATHER STILL LIVING Mother Family Medical History: Coronary Artery Disease (CAD), Myocardial Infarction (MT) Additional Family Medical History / Comment(s): MOTHER 09/23/14 of unknown causes. Sister(s) Family Medical History: Myocardial Infarction (MT) Additional Family Medical History / Comment(s): SISTER OF MT AT AGE 53 General Exam Limitations: no limitations General appearance: alert, in no apparent distress Head exam: Present: normocephalic Eye exam: Present: normal appearance Neck exam: Present: normal inspection Respiratory exam: Present: normal lung sounds bilaterally Cardiovascular Exam: Present: regular rate, normal rhythm, normal heart sounds Expanded Peripheral pulses: 2+: Radial (R), Radial (L), Posterior Tibialis (R), Posterior Tibialis (L) GI/Abdominal exam: Present: soft. Absent: tenderness Extremities exam: Present: normal inspection. Absent: pedal edema, calf tenderness Neurological exam: Present: alert Psychiatric exam: Present: normal affect, normal mood Skin exam: Present: normal color Course Vital Signs 05/13/25 05/13/25 17:40 18:22 Temperature 98.5 F Pulse Rate 104 H 84 Respiratory 20 22 Rate Blood Pressure 126/77 142/87 O2 Sat by Pulse 98 93 L Oximetry EKG Findings - EKG Results: EKG: interpreted by ERMD (Left axis. Q wave V1 V2.), sinus rhythm, normal ST/T Medical Decision Making - Medical Decision Making Was pt. sent in by a medical professional or institution (, [facility], [facility], urgent care, hospital, or fdc...) When possible be specific @ -No Did you speak to anyone other than the patient for history (EMS, parent, family, police, friend...)? What history was obtained from this source @ -No Did you review nursing and triage notes (agree or disagree)? Why? @ -I reviewed and agree with nursing and triage notes Were old charts reviewed (outside hosp., previous admission, EMS record, old EKG, old radiological studies, urgent care reports/EKG's, fdc records)? Report findings @ -No old charts were reviewed Differential Diagnosis (chest pain, altered mental status, abdominal pain women, abdominal pain men, vaginal bleeding, weakness, fever, dyspnea, syncope, headac he, dizziness, GI bleed, back pain, seizure, CVA, palpatations, mental health, musculoskeletal)? @ -Differential Chest Pain: Stable Angina, Unstable Angina, STEMI, NSTEMI Aortic Dissection, Pneumothorax, Musculoskeletal, Esophageal Spasm GERD, Cholecystitis, Pancreatitis, Zoster, this is not meant to be an all-inclusive list. EKG interpreted by me (3pts min.). @ -As above X-rays interpreted by me (1pt min.). @ -Checks x-ray shows no acute process CT interpreted by me (1pt min.). @ -Pending U/S interpreted by me (1pt. min.). @ -None done What testing was considered but not performed or refused? (CT, X-rays, U/S, labs)? Why? @ -CT scan ordered and pending What meds were considered but not given or refused? Why? @ -None Did you discuss the management of the patient with other professionals (professionals i.e. [facility] Guillen, [facility], lab, RT, psych nurse, psychiatric social worker, physician liaison, teacher, contact officer, case resolution specialist)? Give summary @ -Case discussed with practitioner Malka Washington who will admit covering Dr. Dupotn. She is made aware of CT scan pending Was smoking cessation discussed for >3mins.? @ -No Was critical care preformed (if so, how long)? @ -No Were there social determinants of health that impacted care today? How? (Homelessness, low income, unemployed, alcoholism, drug addiction, transportation, low edu. Level, literacy, decrease access to med. care, group home, rehab)? @ -No Was there de-escalation of care discussed even if they declined (Discuss DNR or withdrawal of care, Hospice)? DNR status @ -No What co-morbidities impacted this encounter? (DM, HTN, Smoking, COPD, CAD, Cancer, CVA, ARF, Chemo, Hep., AIDS, mental health diagnosis, sleep apnea, morbid obesity)? @ -Cardiac disease Was patient admitted / discharged? Hospital course, mention meds given and route, prescriptions, significant lab abnormalities, going to OR and other pertinent info. @ -Patient presents with chest discomfort, initially evaluation unremarkable. CT pending. Patient reevaluated and updated. Patient also having alcohol withdrawal. Patient will be admitted with cardiac consult. Admission orders written. Undiagnosed new problem with uncertain prognosis? @ -No Drug Therapy requiring intensive monitoring for toxicity (Heparin, Nitro, Insulin, Cardizem)? @ -No Were any procedures done? @ -No Diagnosis/symptom? @ -Chest pain Acute, or Chronic, or Acute on Chronic? @ -Acute Uncomplicated (without systemic symptoms) or Complicated (systemic symptoms)? @ -Complicated with alcohol withdrawal Side effects of treatment? @ -No Exacerbation, Progression, or Severe Exacerbation? @ -No Poses a threat to life or bodily function? How? (Chest pain, [place], MT, pneumonia, PE, COPD, DKA, ARF, appy, cholecystitis, CVA, Diverticulitis, Homicidal, Suicidal, threat to staff... and all critical care pts) @ -Threat to cardiac function - Lab Data Result diagrams: 05/13/25 18:03 05/13/25 18:03 Lab Results 05/13/25 05/13/25 05/13/25 Range/Units 18:03 18:03 18:03 WBC 8.33 (4.50-10.00) 10*3/uL RBC 5.01 (4.40-5.60) 10*6/uL Hgb 14.1 (13.0-17.0) g/dL Hct 42.6 (39.6-50.0) % MCV 85.0 (80.0-97.0) fL MCH 28.1 (27.0-32.0) pg MCHC 33.1 (32.0-37.0) g/dL Plt Count 351 (140-440) 10*3/uL MPV 9.6 (9.5-12.2) fL Immature Gran % (Auto) 0.4 % Neutrophils % 71.6 % Lymphocytes % 18.8 % Monocytes % 7.7 % Eosinophils % 0.5 % Basophils % 1.0 % Immature Gran # 0.03 (0.00-0.04) 10*3/uL Neutrophils # 5.97 (1.80-7.70) 10*3/uL Lymphocytes # 1.57 (0.90-5.00) 10*3/uL Monocytes # 0.64 (0.20-1.00) 10*3/uL Eosinophils # 0.04 (0.04-0.35) 10*3/uL Basophils # 0.08 (0.00-0.10) 10*3/uL PT 10.0 (10.0-12.5) sec INR 0.9 (<1.2) APTT 21.6 L (22.0-30.0) sec D-Dimer 0.80 H (<0.60) mg/L FEU Sodium 139 (137-145) mmol/L Potassium 4.5 (3.5-5.1) mmol/L Chloride 101 (98-107) mmol/L Carbon Dioxide 15 L (22-30) mmol/L Anion Gap 23 mmol/L BUN 14 (9-20) mg/dL Creatinine 0.74 (0.66-1.25) mg/dL Est GFR (CKD-EPI)AfAm >90 (>60 ml/min/1.73 sqM) Est GFR (CKD-EPI)NonAf >90 (>60 ml/min/1.73 sqM) Glucose 53 L (74-99) mg/dL Calcium 9.4 (8.4-10.2) mg/dL Magnesium 1.6 (1.6-2.3) mg/dL Total Bilirubin 0.8 (0.2-1.3) mg/dL AST 39 (17-59) U/L ALT 37 (4-49) U/L Alkaline Phosphatase 108 (38-126) U/L Troponin I (0.000-0.034) ng/mL NT-Pro-B Natriuret Pep 173 pg/mL Total Protein 7.3 (6.3-8.2) g/dL Albumin 5.1 H (3.5-5.0) g/dL Amylase 60 (30-110) U/L Lipase 113 (23-300) U/L Serum Alcohol 126 mg/dL 05/13/25 Range/Units 18:03 WBC (4.50-10.00) 10*3/uL RBC (4.40-5.60) 10*6/uL Hgb (13.0-17.0) g/dL Hct (39.6-50.0) % MCV (80.0-97.0) fL MCH (27.0-32.0) pg MCHC (32.0-37.0) g/dL Plt Count (140-440) 10*3/uL MPV (9.5-12.2) fL Immature Gran % (Auto) % Neutrophils % % Lymphocytes % % Monocytes % % Eosinophils % % Basophils % % Immature Gran # (0.00-0.04) 10*3/uL Neutrophils # (1.80-7.70) 10*3/uL Lymphocytes # (0.90-5.00) 10*3/uL Monocytes # (0.20-1.00) 10*3/uL Eosinophils # (0.04-0.35) 10*3/uL Basophils # (0.00-0.10) 10*3/uL PT (10.0-12.5) sec INR (<1.2) APTT (22.0-30.0) sec D-Dimer (<0.60) mg/L FEU Sodium (137-145) mmol/L Potassium (3.5-5.1) mmol/L Chloride (98-107) mmol/L Carbon Dioxide (22-30) mmol/L Anion Gap mmol/L BUN (9-20) mg/dL Creatinine (0.66-1.25) mg/dL Est GFR (CKD-EPI)AfAm (>60 ml/min/1.73 sqM) Est GFR (CKD-EPI)NonAf (>60 ml/min/1.73 sqM) Glucose (74-99) mg/dL Calcium (8.4-10.2) mg/dL Magnesium (1.6-2.3) mg/dL Total Bilirubin (0.2-1.3) mg/dL AST (17-59) U/L ALT (4-49) U/L Alkaline Phosphatase (38-126) U/L Troponin I 0.013 (0.000-0.034) ng/mL NT-Pro-B Natriuret Pep pg/mL Total Protein (6.3-8.2) g/dL Albumin (3.5-5.0) g/dL Amylase (30-110) U/L Lipase (23-300) U/L Serum Alcohol mg/dL Disposition Clinical Impression: Chest pain Disposition: ADMITTED IP TO THIS HOSP Is patient prescribed a controlled substance at d/c from ED?: No Referrals: None,Stated [REFERRING] - 1-2 days Time of Disposition: 20:47
[2025-05-13] MEDS: SODIUM CHLORIDE 0.9% 1,000 ML IV STA (18:06)
[2025-05-13] MEDS: ONDANSETRON 4 MG/2 ML VIAL IVP STA (18:07)
[2025-05-13] MEDS: FAMOTIDINE 20 MG/2 ML VIAL IV STA (18:10)
[2025-05-13] MEDS: NITROGLYCERIN SL TABS 0.4 MG TAB SUBLINGUAL STA ×3 (18:12→19:01)
[2025-05-13 18:13] LABS: Basophils # (A) 0.08 10*3/uL (0.00-0.10); Basophils % (A) 1.0 %; Eosinophils # (A) 0.04 10*3/uL (0.04-0.35); Eosinophils % (A) 0.5 %; HCT 42.6 % (39.6-50.0); HGB 14.1 g/dL (13.0-17.0); Lymphocytes # (A) 1.57 10*3/uL (0.90-5.00); Lymphocytes % (A) 18.8 %; MCH 28.1 pg (27.0-32.0); MCHC 33.1 g/dL (32.0-37.0); MCV 85.0 fL (80.0-97.0); Monocytes # (A) 0.64 10*3/uL (0.20-1.00); Monocytes % (A) 7.7 %; Neutrophils # (A) 5.97 10*3/uL (1.80-7.70); Neutrophils % (A) 71.6 %; Platelet Count 351 10*3/uL (140-440); RBC 5.01 10*6/uL (4.40-5.60); RDW 18.5 % (11.5-14.5); WBC 8.33 10*3/uL (4.50-10.00)
[2025-05-13] MEDS: ASPIRIN 81 MG PO STA (18:16)
[2025-05-13 18:38] LABS: ALT 37 U/L (4-49); AST 39 U/L (17-59); African American GFR (CKD) >90 (>60 ml/min/1.73 sqM); Albumin 5.1 g/dL (3.5-5.0); Alkaline Phosphatase 108 U/L (38-126); Amylase 60 U/L (30-110); Anion Gap 23 mmol/L; Blood Urea Nitrogen 14 mg/dL (9-20); Calcium 9.4 mg/dL (8.4-10.2); Carbon Dioxide 15 mmol/L (22-30); Chloride 101 mmol/L (98-107); Glucose 53 mg/dL (74-99); Lipase 113 U/L (23-300); Magnesium 1.6 mg/dL (1.6-2.3); Non-African American GFR(CKD) >90 (>60 ml/min/1.73 sqM); Potassium 4.5 mmol/L (3.5-5.1); Sodium 139 mmol/L (137-145); Total Protein 7.3 g/dL (6.3-8.2)
[2025-05-13 18:40] LABS: INR 0.9 (<1.2); Prothrombin Time 10.0 sec (10.0-12.5)
[2025-05-13 18:46] LABS: NT-Pro-B-Type Natriuretic Pept 173 pg/mL; Partial Thromboplastin Time 21.6 sec (22.0-30.0)
--- NOTE | 2025-05-13 19:30 | XR ---
EXAMINATION TYPE: XR chest 2V DATE OF EXAM: 05/13/2025 6:47 PM COMPARISON: None. CLINICAL INDICATION: Male, 59 years old with history of Chest Pain, TECHNIQUE: XR chest 2V view(s) obtained. FINDINGS: The heart size is mildly prominent. The pulmonary vasculature is normal. The lungs are clear. IMPRESSION: 1. No acute pulmonary process. 2. Mild cardiomegaly [facility], Workstation: [facility], 05/13/2025 7:28 PM
[2025-05-13] MEDS ORDERED: LORazepam 0.5 MG TAB PO PRN (20:49)
[2025-05-13] MEDS: NITROGLYCERIN OINT 1 INCH/GM PACKET TOPICAL SCH (21:09)
[2025-05-13] MEDS: LORazepam 1 MG TAB PO PRN ×2 (21:19→22:22)
--- NOTE | 2025-05-13 21:25 | CT ---
EXAMINATION TYPE: CT angio chest DATE OF EXAM: 05/13/2025 COMPARISON: 06/25/2010 CLINICAL INDICATION: Male, 59 years old with history of sukumar, SUKUMAR, CP., TECHNIQUE: CT of the chest is performed on a spiral scan at 2 mm thick sections. Study is performed with intravenous contrast timed for evaluation for pulmonary embolism. This will limit additional po rtions of the evaluation. 10mm MIP images reconstructed by the technologist are reviewed on the comp uter in the coronal and sagittal planes. Contrast used:100 ml mL of Isovue 370 with IV Contrast, (none if empty) Oral contrast used: (none if empty) CT DLP: 298.9 mGycm, Automated exposure control for dose reduction was used. FINDINGS: No persistent filling defects are evident to suggest an acute pulmonary embolism. No mediastinal or hilar adenopathy enlarged by CT criteria is evident. The ascending aorta diameter at the level of the main pulmonary artery is 3.7 cm. The main pulmonary artery diameter at the bifurcation is 2.3 cm. Lung windows are clear. Moderate coronary artery calcifications present. Limited CT sections were through the upper abdomen. Moderate fatty infiltration of the liver. IMPRESSION: 1. No acute pulmonary embolism. 2. No acute pulmonary process. [facility], Workstation: [facility], 05/13/2025 9:23 PM
[2025-05-14 08:11] LABS: Cholesterol 174.00 mg/dL (0.00-200.00); HDL Cholesterol 66.00 mg/dL (40.00-60.00); LDL Cholesterol,Calculated 67.2 mg/dL (0.0-131.0); Triglycerides 204.00 mg/dL (0.00-149.00); VLDL Calculation 40.80 mg/dL (5.00-40.00)
[2025-05-14] MEDS ORDERED: ASPIRIN 325 MG TAB PO SCH (09:00)
[2025-05-14] MEDS: ASPIRIN 81 MG PO SCH (09:51)
[2025-05-14] MEDS: DAPAGLIFLOZIN PROPANEDIOL 10 MG TABLET PO SCH (09:51)
[2025-05-14] MEDS: ISOSORBIDE MONONITRATE ER 30 MG TAB.ER.24H PO SCH (09:51)
[2025-05-14] MEDS: METOPROLOL TARTRATE 25 MG TAB PO SCH (09:51)
[2025-05-14] MEDS: THIAMINE 100 MG TAB PO SCH (09:51)
[2025-05-14] MEDS: CLOPIDOGREL 75 MG TAB PO SCH (09:51)
--- NOTE | 2025-05-14 11:26 | P.CRDCN ---
History of Present Illness Consult date: 05/14/25 Consult reason: chest pain History of present illness: This is a 59-year-old male patient of Dr. Cardona with past medical history of hypertension, hyperlipidemia, ischemic cardiomyopathy with EF of 35 to 40%, CAD status post CABG in 2013 as well as stenting of the PLV in 2020, chronic systolic heart failure, mitral regurgitation, history of CVA in 2019, tobacco use and dependence, alcohol abuse, history of methamphetamine use, medical nonc ompliance. We have been asked to evaluate the patient for chest pain. Patient currently complains of having a sunburn. He currently denies chest pain chest pressure or dyspnea on exertion. He is a drinker of 1 pint per day. He is an active smoker. Blood pressure 117/80, heart rate 90, pulse ox 92% on room air. Patient has been started on the CIWA protocol. Patient was last seen in the office on 02/21/2025. Regarding patient's mitral valve, patient states that he is scheduled on July 01 for ARELIS.'s thank you alcohol intoxication, on -EKG: Sinus rhythm nonspecific ST changes in the lateral leads. -Chest x-ray: No acute process. Cardiomegaly. -CTA chest: No acute pulmonary embolism. No acute process. -Laboratory studies: CBC within normal limits. D-dimer 0.8. Potassium 4.5, magnesium 1.6, BUN 14 creatinine 0.74. Troponin negative x 3. Triglycerides 204, cholesterol 174, LDL 67. Serum alcohol 126. -Home cardiac medications: Aspirin 81 mg daily, atorvastatin 80 mg at bedtime, Plavix 75 mg daily, Jardiance 10 mg daily, Imdur 30 mg daily, lisinopril 10 mg daily, Toprol XL 25 mg daily. -Echocardiogram performed in the office on 01/29/2025 revealed EF of 45%, grade 1 diastolic dysfunction, moderate to severe mitral regurgitation, RVSP 39. -CV surgery, four-vessel: KERR to LAD, and SVG to OM, diagonal and PDA, 01/2014. -Stent placement to the OM1 12/2013 in the setting of an inferior [place]. Also stent placement 07/03/2021 of the PLV. -Lexiscan Cardiolite stress test performed at [facility] on 02/07/2023 revealed old infarcts redemonstrated. Possible valeria-infarct ischemia on today's study involving the inferior lateral left ventricular wall. Correlate clinically with EKG findings. Review Of Systems: At the time of my exam: CONSTITUTIONAL: Denies fever or chills. HEENT: Denies blurred vision, vision changes, or eye pain. Denies hemoptysis CARDIOVASCULAR: Denies chest pain. Denies orthopnea. Denies PND. Denies palpitations RESPIRATORY: Denies shortness of breath. GASTROINTESTINAL: Denies abdominal pain. Denies nausea or vomiting. HEMATOLOGIC: Denies bleeding disorders. GENITOURINARY: Denies any blood in urine. SKIN: Denies puritis. Denies rash. Physical examination: Gen: This is 59-year-old male in no acute distress. VS: reviewed HEENT: Head is atraumatic, normocephalic. Pupils equal, round. Sclerae is anicteric. NECK: Supple. No JVD. LUNGS: Clear to auscultation. No wheezes or rhonchi. No intercostal retractions. HEART: Irregular secondary to PVCs rate and rhythm. Systolic murmur. ABDOMEN: Soft No tenderness. EXTREMITIES: No pedal edema. No calf tenderness. NEUROLOGICAL: Patient is awake, alert and oriented x3. Assessment: Atypical chest pain, acute coronary syndrome ruled out Alcohol intoxication on CIWA protocol Coronary artery disease with previous CABG in 2013 and stenting of the PLV in 2020 Ischemic cardiomyopathy with a EF of 35 to 40% Chronic systolic heart failure, patient is euvolemic Hypertension Hyperlipidemia Moderate to severe mitral regurgitation History of CVA in 2019 Tobacco use and dependence Alcohol abuse History of methamphetamine use Medical noncompliance Plan: Resume patient's home cardiac medications No need to repeat echocardiogram as this was done in the office in January Smoking cessation. Patient will be provided the [place] quit line information at discharge. Alcohol cessation. Monitor overnight and plan for discharge tomorrow Dr. Langston will discuss with Dr. Cardona if ARELIS recommended during this hospitalization or wait until scheduled time. N.p.o. after midnight for possible ARELIS Thank you kindly for this consultation. Nurse practitioner note has been reviewed, I agree with documented findings and plan of care. Patient was seen and examined. Past Medical History Past Medical History: COPD, Hyperlipidemia, Hypertension, Myocardial Infarction ([place]), Seizure Disorder Additional Past Medical History / Comment(s): ISCHEMIC CARDIOMYOPATHY WITH EF 40-45%. 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 Last Myocardial Infarction Date:: 06/12/14 History of Any Multi-Drug Resistant Organisms: None Reported Past Surgical History: Coronary Bypass/CABG, Heart Catheterization With Stent, Hernia Repair, Orthopedic Surgery Additional Past Surgical History / Comment(s): cabg january 2014-3 vessel, Cardiac caths and stenting with last Cardiac cath Jul [address] Cerda. Past Anesthesia/Blood Transfusion Reactions: No Reported Reaction Additional Past Anesthesia/Blood Transfusion Reaction / Comment(s): NO PROBLEM TOLERATING ANESTHESIA. HAS NEVER RECIEVED BLOOD TO HIS KNOWLEDGE. Date of Last Stent Placement:: 06/12/14 Past Psychological History: Anxiety, Panic Disorder, PTSD Additional Psychological History / Comment(s): Patient is homeless, been homeless for 8 months. Living whereever he can Smoking Status: Current every day smoker Past Alcohol Use History: Daily Additional Past Alcohol Use History / Comment(s): drinks 1 pint/day Past Drug Use History: Marijuana, Methamphetamine Additional Drug Use History / Comment(s): uses marijuanan occaisionally - Past Family History Father Family Medical History: Coronary Artery Disease (CAD), Myocardial Infarction ([place]) Additional Family Medical History / Comment(s): FATHER STILL LIVING Mother Family Medical History: Coronary Artery Disease (CAD), Myocardial Infarction ([place]) Additional Family Medical History / Comment(s): MOTHER 09/23/14 of unknown causes. Sister(s) Family Medical History: Myocardial Infarction ([place]) Additional Family Medical History / Comment(s): SISTER OF [place] AT AGE 53 Medications and Allergies Home Medications Medication Instructions Recorded Confirmed Type Aspirin 81 mg PO DAILY #30 tab 11/02/24 05/13/25 Rx Atorvastatin [Lipitor] 80 mg PO HS #30 tab 11/02/24 05/13/25 Rx Isosorbide Mononitrate ER [Imdur] 30 mg PO DAILY #30 tab 11/02/24 05/13/25 Rx Albuterol Inhaler [Ventolin Hfa 2 puff INHALATION RT-Q6H PRN 04/14/25 05/13/25 History Inhaler] Clopidogrel [Plavix] 75 mg PO DAILY 04/14/25 05/13/25 History Empagliflozin [Jardiance] 10 mg PO DAILY 04/14/25 05/13/25 History Metoprolol Succinate (ER) [Toprol 25 mg PO DAILY 04/14/25 05/13/25 History XL] lisinopriL [Prinivil] 10 mg PO DAILY 04/14/25 05/13/25 History Folic Acid 1 mg PO DAILY tab 04/15/25 05/13/25 Rx Thiamine [Vitamin B-1] 100 mg PO DAILY tab 04/15/25 05/13/25 Rx Multivitamins, Thera [Multivitamin 1 tab PO DAILY 04/16/25 05/13/25 History (formulary)] Citalopram Hydrobromide [CeleXA] 20 mg PO DAILY 05/13/25 05/13/25 History Mirtazapine [Remeron] 15 mg PO HS 05/13/25 05/13/25 History Allergies Allergy/AdvReac Type Severity Reaction Status Date / Time Penicillins Allergy Unknown Verified 05/13/25 17:42 Childhood Physical Exam Vitals: Vital Signs Temp Pulse Pulse Resp BP BP BP 05/14/25 07:00 98.6 F 90 15 117/80 05/14/25 01:56 98.4 F 90 18 140/66 05/13/25 23:33 18 05/13/25 22:30 16 05/13/25 22:20 98.3 F 93 16 137/79 05/13/25 22:00 98.9 F 96 20 139/84 05/13/25 18:22 84 22 142/87 05/13/25 17:40 98.5 F 104 H 20 126/77 Pulse Ox 05/14/25 07:00 92 L 05/14/25 01:56 95 05/13/25 23:33 05/13/25 22:30 05/13/25 22:20 93 L 05/13/25 22:00 94 L 05/13/25 18:22 93 L 05/13/25 17:40 98 Intake and Output 05/13/25 05/14/25 05/14/25 22:59 06:59 14:59 Output Total 275 Balance -275 Output: Urine 275 Other: # Voids 0 3 Weight 79.379 kg Results 05/13/25 18:03 05/13/25 18:03 Cardiac Enzymes 05/13/25 05/13/25 05/13/25 Range/Units 18:03 18:03 21:04 AST 39 (17-59) U/L Troponin I 0.013 0.015 (0.000-0.034) ng/mL 05/13/25 Range/Units 23:38 AST (17-59) U/L Troponin I 0.017 (0.000-0.034) ng/mL Coagulation 05/13/25 Range/Units 18:03 PT 10.0 (10.0-12.5) sec APTT 21.6 L (22.0-30.0) sec Lipids 05/14/25 Range/Units 00:00 Triglycerides 204.00 H (0.00-149.00) mg/dL Cholesterol 174.00 (0.00-200.00) mg/dL HDL Cholesterol 66.00 H (40.00-60.00) mg/dL Cholesterol/HDL Ratio 2.64 Ratio CBC 05/13/25 Range/Units 18:03 WBC 8.33 (4.50-10.00) 10*3/uL RBC 5.01 (4.40-5.60) 10*6/uL Hgb 14.1 (13.0-17.0) g/dL Hct 42.6 (39.6-50.0) % Plt Count 351 (140-440) 10*3/uL Comprehensive Metabolic Panel 05/13/25 Range/Units 18:03 Sodium 139 (137-145) mmol/L Potassium 4.5 (3.5-5.1) mmol/L Chloride 101 (98-107) mmol/L Carbon Dioxide 15 L (22-30) mmol/L BUN 14 (9-20) mg/dL Creatinine 0.74 (0.66-1.25) mg/dL Glucose 53 L (74-99) mg/dL Calcium 9.4 (8.4-10.2) mg/dL AST 39 (17-59) U/L ALT 37 (4-49) U/L Alkaline Phosphatase 108 (38-126) U/L Total Protein 7.3 (6.3-8.2) g/dL Albumin 5.1 H (3.5-5.0) g/dL Current Medications Generic Name Dose Route Start Last Admin Trade Name Freq PRN Reason Stop Dose Admin Aspirin 325 mg 05/14/25 09:00 Aspirin 325 Mg Tab PO DAILY WILI Lorazepam 2 mg 05/13/25 20:49 05/14/25 03:52 Lorazepam 1 Mg Tab PO 2 mg Q3HR PRN Administration Ciwa 8 To 9 Lorazepam 2 mg 05/13/25 20:49 05/13/25 21:19 Lorazepam 1 Mg Tab PO 2 mg Q2HR PRN Administration Ciwa 10 or greater Lorazepam 1 mg 05/13/25 20:49 Lorazepam 1 Mg Tab PO Q4HR PRN Ciwa 6 To 7 Lorazepam 0.5 mg 05/13/25 20:49 Lorazepam 0.5 Mg Tab PO Q4HR PRN Ciwa 4 To 5 Nitroglycerin 0.4 mg 05/13/25 20:48 Nitroglycerin Sl Tabs 0.4 Mg Tab SUBLINGUAL Q5M PRN Chest Pain Nitroglycerin 1 inch 05/13/25 21:00 05/14/25 03:46 Nitroglycerin Oint 1 Inch/Gm Packet TOPICAL 1 inch Q6H WILI Administration Thiamine HCl 100 mg 05/14/25 09:00 Thiamine 100 Mg Tab PO DAILY WILI Intake and Output 05/13/25 05/14/25 05/14/25 22:59 06:59 14:59 Output Total 275 Balance -275 Output: Urine 275 Other: # Voids 0 3 Weight 79.379 kg 05/13/25 18:03 05/13/25 18:03
[2025-05-14] MEDS: LORazepam 1 MG TAB PO PRN (19:41)
[2025-05-14] MEDS: ATORVASTATIN 80 MG TAB PO SCH (19:41)
[2025-05-14] MEDS: NICOTINE 14MG/24HR PATCH TRANSDERM SCH (19:41)
[2025-05-14] MEDS: HEPARIN SODIUM,PORCINE 5,000 UNIT/ML 1 ML VIAL SQ SCH (19:42)
[2025-05-14] MEDS: FAMOTIDINE 20 MG/2 ML VIAL IV SCH (19:42)
[2025-05-14] MEDS: MELATONIN 3 MG TABLET PO SCH (22:00)
--- NOTE | 2025-05-14 23:16 | P.HPIM ---
History of Present Illness This is a pleasant 59 years old male who presents because of chest pain of 2 days duration. Says severe but now improved down to 5/10 Since patient states something sitting on my chest felt like developing a pressure sensation with little shortness of breath and mild headache and dizziness Patient denies any specific GI/ symptoms also has been having vomiting and diarrhea once or twice per day but there is no blood in it. No weakness or numbness He smokes 1 pack. Const with and agrees to the nicotine patch. He drinks 1 pi nt per day and he was also plans to drink alcohol. He denies illicit drugs. Patient also complaining from left lower quadrant pain and tenderness generalized abdominal tenderness more in the left lower quadrant Patient also history of coronary artery disease and history of a stent and four- vessel coronary artery bypass surgery I offered to do CAT scan for the patient but he wants to wait he does not want to do CAT scan for now and wait till tomorrow to see if he feels better Patient states because yesterday he did CT of the chest and he does not want much radiation patient is complaining of left pain for him. Patient is hemodynamic stable afebrile. D-dimer was elevated at 0.8. Serum alcohol was high 126 EKG showed sinus rhythm at [address] CT of the chest showed no pulmonary disease Acute pulmonary process Patient went with [facility] protocol normal saline at 100/h and aspirin Plavix Review of Systems Review of systems CONSTITUTIONAL: No fever, no malaise, no fatigue. HEENT: No recent visual problems or hearing problems. Denied any sore throat. CARDIOVASCULAR: No orthopnea, PND, no palpitations, no syncope. PULMONARY: No shortness of breath, no cough, no hemoptysis. GASTROINTESTINAL: No diarrhea, no nausea, no vomiting, no abdominal pain. Normoactive bowel sounds. NEUROLOGICAL: No headaches, no weakness, no numbness. HEMATOLOGICAL: Denies any bleeding or petechiae. GENITOURINARY: Denies any burning micturition, frequency, or urgency. MUSCULOSKELETAL/RHEUMATOLOGICAL: Denies any joint pain, swelling, or any muscle pain. ENDOCRINE: Denies any polyuria or polydipsia. Past Medical History Past Medical History: COPD, Hyperlipidemia, Hypertension, Myocardial Infarction ([place]), Seizure Disorder Additional Past Medical History / Comment(s): ISCHEMIC CARDIOMYOPATHY WITH EF 40-45%. 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 Last Myocardial Infarction Date:: 06/12/14 History of Any Multi-Drug Resistant Organisms: None Reported Past Surgical History: Coronary Bypass/CABG, Heart Catheterization With Stent, Hernia Repair, Orthopedic Surgery Additional Past Surgical History / Comment(s): cabg january 2014-3 vessel, Cardiac caths and stenting with last Cardiac cath Jul [address] Cerda. Past Anesthesia/Blood Transfusion Reactions: No Reported Reaction Additional Past Anesthesia/Blood Transfusion Reaction / Comment(s): NO PROBLEM TOLERATING ANESTHESIA. HAS NEVER RECIEVED BLOOD TO HIS KNOWLEDGE. Date of Last Stent Placement:: 06/12/14 Past Psychological History: Anxiety, Panic Disorder, PTSD Additional Psychological History / Comment(s): Patient is homeless, been homeless for 8 months. Living whereever he can Smoking Status: Current every day smoker Past Alcohol Use History: Daily Additional Past Alcohol Use History / Comment(s): drinks 1 pint/day Past Drug Use History: Marijuana, Methamphetamine Additional Drug Use History / Comment(s): uses marijuanan occaisionally - Past Family History Father Family Medical History: Coronary Artery Disease (CAD), Myocardial Infarction ( [place]) Additional Family Medical History / Comment(s): FATHER STILL LIVING Mother Family Medical History: Coronary Artery Disease (CAD), Myocardial Infarction ([place]) Additional Family Medical History / Comment(s): MOTHER 09/23/14 of unknown causes. Sister(s) Family Medical History: Myocardial Infarction ([place]) Additional Family Medical History / Comment(s): SISTER OF [place] AT AGE 53 Medications and Allergies Home Medications Medication Instructions Recorded Confirmed Type Aspirin 81 mg PO DAILY #30 tab 11/02/24 05/13/25 Rx Atorvastatin [Lipitor] 80 mg PO HS #30 tab 11/02/24 05/13/25 Rx Isosorbide Mononitrate ER [Imdur] 30 mg PO DAILY #30 tab 11/02/24 05/13/25 Rx Albuterol Inhaler [Ventolin Hfa 2 puff INHALATION RT-Q6H PRN 04/14/25 05/13/25 History Inhaler] Clopidogrel [Plavix] 75 mg PO DAILY 04/14/25 05/13/25 History Empagliflozin [Jardiance] 10 mg PO DAILY 04/14/25 05/13/25 History Metoprolol Succinate (ER) [Toprol 25 mg PO DAILY 04/14/25 05/13/25 History XL] lisinopriL [Prinivil] 10 mg PO DAILY 04/14/25 05/13/25 History Folic Acid 1 mg PO DAILY tab 04/15/25 05/13/25 Rx Thiamine [Vitamin B-1] 100 mg PO DAILY tab 04/15/25 05/13/25 Rx Multivitamins, Thera [Multivitamin 1 tab PO DAILY 04/16/25 05/13/25 History (formulary)] Citalopram Hydrobromide [CeleXA] 20 mg PO DAILY 05/13/25 05/13/25 History Mirtazapine [Remeron] 15 mg PO HS 05/13/25 05/13/25 History Allergies Allergy/AdvReac Type Severity Reaction Status Date / Time Penicillins Allergy Unknown Verified 05/13/25 17:42 Childhood Physical Exam Vitals: Vital Signs Temp Pulse Pulse Resp BP BP BP 05/14/25 07:00 98.6 F 90 15 117/80 05/14/25 01:56 98.4 F 90 18 140/66 05/13/25 23:33 18 05/13/25 22:30 16 05/13/25 22:20 98.3 F 93 16 137/79 05/13/25 22:00 98.9 F 96 20 139/84 05/13/25 18:22 84 22 142/87 05/13/25 17:40 98.5 F 104 H 20 126/77 Pulse Ox 05/14/25 07:00 92 L 05/14/25 01:56 95 05/13/25 23:33 05/13/25 22:30 05/13/25 22:20 93 L 05/13/25 22:00 94 L 05/13/25 18:22 93 L 05/13/25 17:40 98 Intake and Output 05/13/25 05/14/25 05/14/25 22:59 06:59 14:59 Output Total 275 Balance -275 Output: Urine 275 Other: # Voids 0 3 Weight 79.379 kg GENERAL: The patient is alert and oriented x3, not in any acute distress. Well developed, well nourished. HEENT: Pupils are round and equally reacting to light. EOMI. No scleral icterus. No conjunctival pallor. Normocephalic, atraumatic. No pharyngeal erythema. No thyromegaly. CARDIOVASCULAR: S1 and S2 present.+ve systolic murmurs, rubs, or gallops. PULMONARY: Chest is clear to auscultation, no wheezing , no crackles. -ABDOMEN: Soft, generalized abdominal tenderness more in the left lower quadrant, no guarding or rebound tenderness, nondistended, normoactive bowel so unds. No palpable organomegaly. MUSCULOSKELETAL: No joint swelling or deformity. EXTREMITIES: No cyanosis, clubbing, or pedal edema. NEUROLOGICAL: Gross neurological examination did not reveal any focal deficits. SKIN: No rashes. no petechiae. Results CBC & Chem 7: 05/13/25 18:05/13/25 18:03 Labs: Abnormal Lab Results - Last 24 Hours (Table) 05/13/25 05/13/25 05/14/25 Range/Units 18: 18: 00:00 APTT 21.6 L (22.0-30.0) sec D-Dimer 0.80 H (<0.60) mg/L FEU Carbon Dioxide 15 L (22-30) mmol/L Glucose 53 L (74-99) mg/dL Albumin 5.1 H (3.5-5.0) g/dL Triglycerides 204.00 H (0.00-149.00) mg/dL VLDL Cholesterol, Calc 40.80 H (5.00-40.00) mg/dL HDL Cholesterol 66.00 H (40.00-60.00) mg/dL Thrombosis Risk Factor Assmnt - Choose All That Apply Each Factor Represents 1 point: Age 41-60 years Other Risk Factors: No Other congenital or acquired thrombophilia - If yes, enter type in comment: No Thrombosis Risk Factor Assessment Total Risk Factor Score: 1 Thrombosis Risk Factor Assessment Level: Low Risk Assessment and Plan Assessment: Alcohol use disorder Alcohol intoxication risk of alcohol withdrawal Chest pain rule out cardiac causes cardiomyopathy valuvular heart murmur Abdominal pain with nausea vomiting diarrhea, rule out gastroenteritis differential diagnosis acute diverticulitis versus other. Patient declined CAT scan of the abdomen Nicotine dependence Coronary disease status post stent and CABG Plan: Continue with bowel rest IV hydration Continue steroid therapy Cardiology consult I offered to do CAT scan of the abdomen pelvis without contrast patient declined. Will continue close monitoring. If no improvement also will consider colon surgery team consult. Labs and medication were reviewed.. Continue same treatment. Continue with symptomatic treatment. Resume home medication. Monitor labs and vitals. DVT and GI prophylaxis. Further recommendations as per clinical course of the p atient DVT prophylaxis: Subcutaneous heparin GI Prophylaxis: Protonix PT/OT: Pending Prognosis is guarded
[2025-05-15] MEDS: PANTOPRAZOLE 40 MG/10 ML VIAL IVP SCH (00:22)
[2025-05-15] MEDS: NITROGLYCERIN SL TABS 0.4 MG TAB SUBLINGUAL PRN (02:39)
[2025-05-15 08:01] LABS: Basophils # (A) 0.04 X 10*3/uL (0.00-0.10); Basophils % (A) 0.5 %; Eosinophils # (A) 0.57 X 10*3/uL (0.04-0.35); Eosinophils % (A) 7.6 %; HCT 38.2 % (39.6-50.0); HGB 12.2 g/dL (13.0-17.0); Immature Grans, Automated 0.40 %; Lymphocytes # (A) 1.40 X 10*3/uL (0.90-5.00); Lymphocytes % (A) 18.7 %; MCH 27.7 pg (27.0-32.0); MCHC 31.9 g/dL (32.0-37.0); MCV 86.6 FL (80.0-97.0); Monocytes # (A) 0.54 X 10*3/uL (0.20-1.00); Monocytes % (A) 7.2 %; NRBC Per 100 WBC 0 X 10*3/uL (0.00-0.01); Neutrophils # (A) 4.90 X 10*3/uL (1.80-7.70); Neutrophils % (A) 65.6 %; Platelet Count 267 X 10*3/uL (140-440); RBC 4.41 X 10*6/uL (4.40-5.60); RDW 18.5 % (11.5-14.5); WBC 7.48 X 10*3/uL (4.50-10.00)
[2025-05-15 10:41] LABS: Lipase 40 U/L (14-60)
[2025-05-15 10:42] LABS: ALT 29 U/L (10-49); AST 25 U/L (14-35); Albumin 3.8 g/dL (3.8-4.9); Albumin/Globulin Ratio 2.24 Ratio (1.60-3.17); Alkaline Phosphatase 78 U/L (41-126); Anion Gap 10.40 mmol/L (4.00-12.00); BUN/Creat Ratio 13.50 Ratio (12.00-20.00); Bilirubin,Unconjugated 0.46 mg/dL (0.20-1.00); Blood Urea Nitrogen 10.8 mg/dL (9.0-27.0); Calcium 8.7 mg/dL (8.7-10.3); Carbon Dioxide 23.6 mmol/L (21.6-31.8); Chloride 101 mmol/L (96-109); Globulin 1.7 g/dL (1.6-3.3); Glucose 106 mg/dL (70-110); Potassium 4.6 mmol/L (3.5-5.5); Sodium 135 mmol/L (135-145); Total Protein 5.5 g/dL (6.2-8.2)
[2025-05-15] MEDS: FUROSEMIDE 10 MG/ML 2 ML VIAL IV ONE (11:12)
[2025-05-15] MEDS ORDERED: HYDROmorphone 0.5 MG/0.5 ML SYRINGE IVP PRN (13:44)
[2025-05-15] MEDS ORDERED: HYDROcodone/APAP 5-325MG 1 EACH TAB PO PRN (13:44)
--- NOTE | 2025-05-15 13:56 | P.PN ---
Subjective Progress Note Date: 05/15/25 Consult reason: chest pain History of present illness: This is a 59-year-old male patient of Dr. Cardona with past medical history of hypertension, hyperlipidemia, ischemic cardiomyopathy with EF of 35 to 40%, CAD status post CABG in 2013 as well as stenting of the PLV in 2020, chronic systolic heart failure, mitral regurgitation, history of CVA in 2019, tobacco use and dependence, alcohol abuse, history of methamphetamine use, medical noncompliance. We have been asked to evaluate the patient for chest pain. Patient currently complains of having a sunburn. He currently denies chest pain chest pressure or dyspnea on exertion. He is a drinker of 1 pint per day. He is an active smoker. Blood pressure 117/80, heart rate 90, pulse ox 92% on room air. Patient has been started on the CIWA protocol. Patient was last seen in the office on 02/21/2025. Regarding patient's mitral valve, patient states that he is scheduled on July 01 for ARELIS.'s thank you alcohol intoxication, on -EKG: Sinus rhythm nonspecific ST changes in the lateral leads. -Chest x-ray: No acute process. Cardiomegaly. -CTA chest: No acute pulmonary embolism. No acute process. -Laboratory studies: CBC within normal limits. D-dimer 0.8. Potassium 4.5, magnesium 1.6, BUN 14 creatinine 0.74. Troponin negative x 3. Triglycerides 204, cholesterol 174, LDL 67. Serum alcohol 126. -Home cardiac medications: Aspirin 81 mg daily, atorvastatin 80 mg at bedtime, Plavix 75 mg daily, Jardiance 10 mg daily, Imdur 30 mg daily, lisinopril 10 mg daily, Toprol XL 25 mg daily. -Echocardiogram performed in the office on 01/29/2025 revealed EF of 45%, grade 1 diastolic dysfunction, moderate to severe mitral regurgitation, RVSP 39. -CV surgery, four-vessel: KERR to LAD, and SVG to OM, diagonal and PDA, 01/2014. -Stent placement to the OM1 12/2013 in the setting of an inferior [place]. Also stent placement 07/03/2021 of the PLV. -Lexiscan Cardiolite stress test performed at [facility] on 02/07/2023 revealed old infarcts redemonstrated. Possible valeria-infarct ischemia on today's study involving the inferior lateral left ventricular wall. Correlate clinically with EKG findings. 05/15/2025 Patient seen and examined. Dr. Langston discussed case with Dr. Cardona and plan i s not to move forward with ARELIS. Patient is having more shortness of breath this morning with COPD exacerbation. Patient has had bigeminy or trigeminy x 1. Patient complains of feeling weak. Blood pressure 116/77, heart rate 74, pulse ox 90% on 2 L nasal cannula. Repeat blood work reveals hemoglobin 12.2, creatinine 0.8, potassium 4.6. No medication changes made today. Physical examination: Gen: This is 59-year-old male in no acute distress. VS: reviewed HEENT: Head is atraumatic, normocephalic. Pupils equal, round. Sclerae is anicteric. NECK: Supple. No JVD. LUNGS: Clear to auscultation. No wheezes or rhonchi. No intercostal retractions. HEART: Irregular secondary to PVCs rate and rhythm. Systolic murmur. ABDOMEN: Soft No tenderness. EXTREMITIES: No pedal edema. No calf tenderness. NEUROLOGICAL: Patient is awake, alert and oriented x3. Assessment: Atypical chest pain, acute coronary syndrome ruled out Alcohol intoxication on CIWA protocol Coronary artery disease with previous CABG in 2013 and stenting of the PLV in 2020 Ischemic cardiomyopathy with a EF of 35 to 40% Chronic systolic heart failure, patient is euvolemic Hypertension Hyperlipidemia Moderate to severe mitral regurgitation History of CVA in 2019 Tobacco use and dependence Alcohol abuse History of methamphetamine use Medical noncompliance COPD exacerbation Plan: Continue patient's home cardiac medications No need to repeat echocardiogram as this was done in the office in January Smoking cessation. Patient will be provided the [place] quit line information at discharge. Alcohol cessation. No plan for ARELIS at this time. Patient will follow-up outpatient to be scheduled. Nurse practitioner note has been reviewed, I agree with documented findings and plan of care. Patient was seen and examined. Objective - Vital Signs Vital signs: Vital Signs Temp 98.3 F 05/15/25 07:00 Pulse 74 05/15/25 07:00 Resp 16 05/15/25 07:00 BP 116/77 05/15/25 07:00 Pulse Ox 90 L 05/15/25 07:00 FiO2 Intake & Output 05/14/25 05/15/2525 18:59 06:59 18:59 Other: # Voids 3 1 # Bowel Movements 1 - Labs CBC & Chem 7: 05/15/25 05:17 05/15/25 05:17 Labs: Abnormal Lab Results - Last 24 Hours (Table) 05/15/25 Range/Units 05:17 Hgb 12.2 L (13.0-17.0) g/dL Hct 38.2 L (39.6-50.0) % MCHC 31.9 L (32.0-37.0) g/dL RDW 18.5 H (11.5-14.5) % Eosinophils # 0.57 H (0.04-0.35) X 10*3/uL
[2025-05-15] MEDS: ACETAMINOPHEN TAB 325 MG TAB PO PRN (20:47)
--- NOTE | 2025-05-15 23:24 | P.PN ---
Subjective Progress Note Date: 05/15/25 This is a pleasant 59 years old male who presents because of chest pain of 2 days duration. Says severe but now improved down to 5/10 Since patient states something sitting on my chest felt like developing a pressure sensation with little shortness of breath and mild headache and dizziness Patient denies any specific GI/ symptoms also has been having vomiting and diarrhea once or twice per day but there is no blood in it. No weakness or numbness He smokes 1 pack. Const with and agrees to the nicotine patch. He drinks 1 pint per day and he was also plans to drink alcohol. He denies illicit drugs. Patient also complaining from left lower quadrant pain and tenderness generalized abdominal tenderness more in the left lower quadrant Patient also history of coronary artery disease and history of a stent and four- vessel coronary artery bypass surgery I offered to do CAT scan for the patient but he wants to wait he does not want to do CAT scan for now and wait till tomorrow to see if he feels better Patient states because yesterday he did CT of the chest and he does not want much radiation patient is complaining of left pain for him. Patient is hemodynamic stable afebrile. D-dimer was elevated at 0.8. Serum alcohol was high 126 EKG showed sinus rhythm at [address] CT of the chest showed no pulmonary disease Acute pulmonary process Patient went with [facility] protocol normal saline at 100/h and aspirin Plavix 05/15/2025 Patient is seen in follow-up today continues to report chest pain and reports weakness and not feeling well. Patient was evaluated by cardiology with no plans of ARELIS at this time recommending outpatient follow-up and has cleared the patient for discharge home. Discuss further with social work as patient is reporting he is homeless. Resources will be provided and strongly encouraged alcohol cessation. Patient reports he drinks but not usually daily. Patient is afebrile patient is patient is reporting significant pain and encouraged to increase activity as tolerated. Review of systems: Constitutional: No reports of fatigue, fever, or chills Cardiovascular: reports of chest pain denies palpitations Respiratory: No reports of shortness of breath or cough GI: No reports of nausea, vomiting, or diarrhea : No reports of dysuria or retention Neurovascular: reports of generalized weakness All medications have been reviewed Physical exam: GENERAL: The patient is alert and oriented x3, not in any acute distress. Well d eveloped, well nourished. Thin build, elderly appearing HEENT: Pupils are round and equally reacting to light. EOMI. No scleral icterus. No conjunctival pallor. Normocephalic, atraumatic. No pharyngeal erythema. No thyromegaly. CARDIOVASCULAR: S1 and S2 present.+ve systolic murmurs, rubs, or gallops. PULMONARY: Chest is clear to auscultation, no wheezing , no crackles. -ABDOMEN: Soft, generalized abdominal tenderness more in the left lower quadrant, no guarding or rebound tenderness, nondistended, normoactive bowel sounds. No palpable organomegaly. MUSCULOSKELETAL: No joint swelling or deformity. EXTREMITIES: No cyanosis, clubbing, or pedal edema. NEUROLOGICAL: Gross neurological examination did not reveal any focal deficits. SKIN: No rashes. no petechiae. Redness in upper and lower extremities with concerns of sunburn Assessment: Alcohol use disorder Alcohol intoxication risk of alcohol withdrawal Evaded D-dimer, PE ruled out History of ischemic cardiomyopathy with an EF of History of dysfunction not in exacerbation Chest pain ruled out ACS Medication noncompliance History of methamphetamine use valuvular heart murmur Abdominal pain with nausea vomiting diarrhea, rule out gastroenteritis differential diagnosis acute diverticulitis versus other. Patient declined CAT scan of the abdomen Nicotine dependence Coronary disease status post stent and CABG GI prophylaxis DVT prophylaxis Full code Plan: Patient seen and evaluated by cardiology for chest pain initially discussing possible ARELIS given significant history no plans for ARELIS at this time running outpatient follow-up with cardiology Patient is reporting continued chest pain had pain management and continue telemetry monitoring and monitor overnight to discuss discharge planning in 24 hours Patient reports he is homeless social work and appreciate resources to be provided on discharge. Discussed in detail with patient about alcohol cessation Encouraged increase activity as tolerated Encouraged oral intake Possible discharge planning in the next 24 to 48 hours Due to multiple complex medical issues, overall prognosis The impression and plan of care has been dictated by Malka Osborn, Nurse Practitioner as directed. Dr. Giorgio MD I have performed a history and examination and MDM of this patient, discussed the same with the dictator, and agree with the dictator's assessment and plan as written ,documented as a scribe. Based on total visit time, I have performed more than 50% of the visit. Objective - Vital Signs Vital signs: Vital Signs Temp 98.3 F 05/15/25 07:00 Pulse 74 05/15/25 07:00 Resp 16 05/15/25 07:00 BP 116/77 05/15/25 07:00 Pulse Ox 90 L 05/15/25 07:00 FiO2 Intake & Output 05/14/25 05/15/25 05/15/25 18:59 06:59 18:59 Intake Total 180 Balance 180 Intake: Oral 180 Other: # Voids 3 1 # Bowel Movements 1 - Labs CBC & Chem 7: 05/15/25 05:17 05/15/25 05:17 Labs: Abnormal Lab Results - Last 24 Hours (Table) 05/15/25 05/15/25 Range/Units 05:17 05:17 Hgb 12.2 L (13.0-17.0) g/dL Hct 38.2 L (39.6-50.0) % MCHC 31.9 L (32.0-37.0) g/dL RDW 18.5 H (11.5-14.5) % Eosinophils # 0.57 H (0.04-0.35) X 10*3/uL Total Protein 5.5 L (6.2-8.2) g/dL
[2025-05-16 07:28] VITALS: BP 122/82; PULSE 72; RESP 18; TEMP 97.9
--- NOTE | 2025-05-16 12:06 | P.PN ---
Subjective Progress Note Date: 05/16/25 Consult reason: chest pain History of present illness: This is a 59-year-old male patient of Dr. Cardona with past medical history of hypertension, hyperlipidemia, ischemic cardiomyopathy with EF of 35 to 40%, CAD status post CABG in 2013 as well as stenting of the PLV in 2020, chronic systolic heart failure, mitral regurgitation, history of CVA in 2019, tobacco use and dependence, alcohol abuse, history of methamphetamine use, medical noncompliance. We have been asked to evaluate the patient for chest pain. Patient currently complains of having a sunburn. He currently denies chest pain chest pressure or dyspnea on exertion. He is a drinker of 1 pint per day. He is an active smoker. Blood pressure 117/80, heart rate 90, pulse ox 92% on room air. Patient has been started on the CIWA protocol. Patient was last seen in the office on 02/21/2025. Regarding patient's mitral valve, patient states that he is scheduled on July 01 for ARELIS. -EKG: Sinus rhythm nonspecific ST changes in the lateral leads. -Chest x-ray: No acute process. Cardiomegaly. -CTA chest: No acute pulmonary embolism. No acute process. -Laboratory studies: CBC within normal limits. D-dimer 0.8. Potassium 4.5, magnesium 1.6, BUN 14 creatinine 0.74. Troponin negative x 3. Triglycerides 204, cholesterol 174, LDL 67. Serum alcohol 126. -Home cardiac medications: Aspirin 81 mg daily, atorvastatin 80 mg at bedtime, Plavix 75 mg daily, Jardiance 10 mg daily, Imdur 30 mg daily, lisinopril 10 mg daily, Toprol XL 25 mg daily. -Echocardiogram performed in the office on 01/29/2025 revealed EF of 45%, grade 1 diastolic dysfunction, moderate to severe mitral regurgitation, RVSP 39. -CV surgery, four-vessel: KERR to LAD, and SVG to OM, diagonal and PDA, 01/2014. -Stent placement to the OM1 12/2013 in the setting of an inferior OK. Also stent placement 07/03/2021 of the PLV. -Lexiscan Cardiolite stress test performed at [facility] on 02/07/2023 revealed old infarcts redemonstrated. Possible valeria-infarct ischemia on today's study involving the inferior lateral left ventricular wall. Correlate clinically with EKG findings. 05/15/2025 Patient seen and examined. Dr. Langston discussed case with Dr. Cardona and plan is not to move forward with ARELIS. Patient is having more shortness of breath this morning with COPD exacerbation. Patient has had bigeminy or trigeminy x 1. Patient complains of feeling weak. Blood pressure 116/77, heart rate 74, pulse ox 90% on 2 L nasal cannula. Repeat blood work reveals hemoglobin 12.2, creatinine 0.8, potassium 4.6. No medication changes made today. 05/16/2025 Patient seen and examined. No new concerns overnight. Blood pressure 122/82, heart rate 72, pulse ox 94% on room air. Physical examination: Gen: This is 59-year-old male in no acute distress. VS: reviewed HEENT: Head is atraumatic, normocephalic. Pupils equal, round. Sclerae is anicteric. NECK: Supple. No JVD. LUNGS: Clear to auscultation. No wheezes or rhonchi. No intercostal retractions. HEART: Irregular rate and rhythm secondary to PVCs. Systolic murmur. ABDOMEN: Soft No tenderness. EXTREMITIES: No pedal edema. No calf tenderness. NEUROLOGICAL: Patient is awake, alert and oriented x3. Assessment: Atypical chest pain, acute coronary syndrome ruled out Alcohol intoxication on CIWA protocol Coronary artery disease with previous CABG in 2013 and stenting of the PLV in 2020 Ischemic cardiomyopathy with a EF of 35 to 40% Chronic systolic heart failure, patient is euvolemic Hypertension Hyperlipidemia Moderate to severe mitral regurgitation History of CVA in 2019 Tobacco use and dependence Alcohol abuse History of methamphetamine use Medical noncompliance COPD exacerbation Plan: Continue patient's home cardiac medications No need to repeat echocardiogram as this was done in the office in January Smoking cessation. Patient will be provided the [facility] quit line information at discharge. Alcohol cessation. Is cleared for discharge from cardiology perspective. Cardiology will sign off this case and follow on an as-needed basis. Please reconsult for any new concerns. Patient may follow-up in the office in one to 2 weeks. Nurse practitioner note has been reviewed, I agree with documented findings and plan of care. Patient was seen and examined. Objective - Vital Signs Vital signs: Vital Signs Temp 97.9 F 05/16/25 07:00 Pulse 72 05/16/25 07:00 Resp 18 05/16/25 07:00 BP 122/82 05/16/25 07:00 Pulse Ox 94 L 05/16/25 07:00 FiO2 Intake & Output 05/15/25 05/16/25 05/16/25 18:59 06:59 18:59 Intake Total 180 Balance 180 Intake: Oral 180 Other: Voiding Method Toilet Urinal # Voids 2 2 - Labs CBC & Chem 7: 05/15/25 05:17 05/15/25 05:17 Labs: Abnormal Lab Results - Last 24 Hours (Table) 05/15/25 Range/Units 05:17 Total Protein 5.5 L (6.2-8.2) g/dL
== END 2025-05-16 11:01 | disposition home or self-care (01) ==
LOC: EC 17:39 → 6NMEDSUR 20:49
PROVIDERS: ADMIT Internal Medicine; ATTEND Internal Medicine
DX: R07.89 Other chest pain (principal); F10.139 Alcohol abuse with withdrawal, unspecified; F10.129 Alcohol abuse with intoxication, unspecified; J44.1 Chronic obstructive pulmonary disease with (acute) exacerbation; I11.0 Hypertensive heart disease with heart failure; I50.22 Chronic systolic (congestive) heart failure; I25.5 Ischemic cardiomyopathy; E78.5 Hyperlipidemia, unspecified; I25.10 Atherosclerotic heart disease of native coronary artery without angina pectoris; L55.9 Sunburn, unspecified; Y90.6 Blood alcohol level of 120-199 mg/100 ml; I34.0 Nonrheumatic mitral (valve) insufficiency; R79.89 Other specified abnormal findings of blood chemistry; F17.210 Nicotine dependence, cigarettes, uncomplicated; R19.7 Diarrhea, unspecified; R10.817 Generalized abdominal tenderness; Z91.199 Patient's noncompliance with other medical treatment and regimen due to unspecified reason; Z59.00 Homelessness unspecified; I25.2 Old myocardial infarction; Z79.02 Long term (current) use of antithrombotics/antiplatelets; Z79.84 Long term (current) use of oral hypoglycemic drugs; Z79.82 Long term (current) use of aspirin; Z79.899 Other long term (current) drug therapy; Z88.0 Allergy status to penicillin; Z95.1 Presence of aortocoronary bypass graft; Z95.5 Presence of coronary angioplasty implant and graft; Z86.73 Personal history of transient ischemic attack (TIA), and cerebral infarction without residual deficits; Z87.898 Personal history of other specified conditions
CPT/HCPCS: 96376 ×2; 96375 ×2; 96361; 96374; 99285; 36415; 94760; 93005; 85379; 83880; 80061; 80053; 80048; 80076; 82150; 83690 ×2; 83735; 84484; 85025 ×2; 85610; 85730; 80320; 71046; 71275; G0378 ×4; S4990 ×3; J2405; Q9967; J2470 ×2; J1308; J1938